=== PATIENT | male | born 1945 | race Caucasian/White ===

== ENCOUNTER → 2017-02-10 | Day surgery (SDC) | payer OTHER ==
[~2017-02-10] VITALS: Ht 170.2 cm; Wt 92.2 kg
[~2017-02-10] MED LIST: ACETAMINOPHEN 325 MG TAB PO PRN; ALBU18002 INH; ALLO100T PO; AMLO-110 PO; ASPCH81X PO; ATROPINE SULFATE 0.1 MG/ML 5ML SYR IV PRN; BULKCRY PO; CHOL1000 PO; CRDCD240 PO; CTP2 PO; DIAZEPAM 5MG TAB ONE; FLV400 PO; FURO-85 PO; GLC5 PO; HYDC25 PO; HYDR100T12 PO; INSDGI SC; ISOS30TA3 PO; LISI-725 PO; METO50TA16 PO; MIDAZOLAM HCL 1 MG/ML 2ML VIAL ONE; MULT-506 PO; NITROGLYCERIN 0.4 MG SL PER TAB CHARGE SL PRN; OMEG10007 PO; SODI650T8 PO; SODIUM CHLORIDE 0.9% 1000ML 1,000 ML IV SCH; SODIUM CHLORIDE 0.9% 1000ML 250 ML IV PRN; TAMS0.4C38 PO; TRAZ100T29 PO
[2017-02-10 07:14] VITALS: BP 134/58; PULSE 62; TEMP 36.4; O2SAT 98; Ht 170.2 cm; Wt 92.2 kg
[2017-02-10 10:37] LABS: ISTAT ARTERIAL BLOOD GAS HCO3 28 meq/L (19-24); ISTAT ARTERIAL BLOOD GAS PCO2 42 mmHg (35-46); ISTAT ARTERIAL BLOOD GAS PO2 49 mmHg (80-95); ISTAT ARTERIAL BLOOD GAS pH 7.42 (7.35-7.45); ISTAT CARBON DIOXIDE 29 mEq/l (24-31)
[2017-02-10 10:37] LABS: ISTAT ARTERIAL BLOOD GAS HCO3 23 meq/L (19-24); ISTAT ARTERIAL BLOOD GAS PCO2 35 mmHg (35-46); ISTAT ARTERIAL BLOOD GAS PO2 114 mmHg (80-95); ISTAT ARTERIAL BLOOD GAS pH 7.42 (7.35-7.45); ISTAT CARBON DIOXIDE 24 mEq/l (24-31)
--- NOTE | 2017-02-10 10:57 | History & Physical Bridge Note ---
H&P Re-Evaluation Bridge Note: I have examined the patient, reviewed the History & Physical and in the interval since the performance of the History & Physical I have noted the following changes of clinical significance: No changes noted
[2017-02-10 10:58] LABS: ISTAT CARBON DIOXIDE VENOUS 29 mEq/l (24-31); ISTAT VENOUS BLOOD GAS HCO3 28 meq/L (23-28); ISTAT VENOUS BLOOD GAS PCO2 43 mmHg (38.0-50.0); ISTAT VENOUS BLOOD GAS PO2 40 mmHg (30-55); ISTAT VENOUS BLOOD GAS pH 7.43 (7.36-7.41)
--- NOTE | 2017-02-10 11:23 | [facility] Post Operative Brief Note ---
Preliminary Procedure Note Procedure Date Feb 10, 2017. Pre-Procedure Diagnosis CAD, Valvular Disease, CHF AUC Score 7 Post-Procedure Diagnosis Severe CAD Procedure(s) Performed Coronary Angiography, Right Heart Cath Stamping Die Try Out Worker Dr. Ady Pritchett Day Guard(s) Mike Chin Estimated Blood Loss <20cc Medication(s) Versed (1mg IV), Lidocaine 1% (local infiltration), Diphenhydramine (25mg po), Diazepam (5mg po ) Preliminary Findings Severe calcific aortic stenosis by echo, fluoroscopy Right dominant coronary with chronic proximal RCA occlusion and faint distal filling via L-R collaterals LM mild calcification with out disease LAD Type with large very proximal high diagonal. LAD calcified 80% stenosis after D1 LCx large with eccentric 60+% stenosis Normal right heart pressures and Cardiac Output PCWP 12 Recommendations valve replacement Specimens None Fluids (cc crystalloids) 130 Anesthesia Start 1002 End 1048 Monitor Pipo Fernandez RN Procedural Complication(s) None Disposition Upholstery Covers Inspector Holding/Recovery
--- NOTE | 2017-02-10 13:24 | Discharge Instructions ---
Discharge Instructions Procedure Procedure Date: Feb 10, 2017. Reason for Visit: Chest Pain,Sob *Dr Pritchett To Do*. Discharge Discharge Date: Feb 10, 2017. Discharge Diagnosis: Aortic Stenosis, Coronary artery disease Last Recorded Wt (Kilograms): 92.2 Anesthesia Post Anesthesia Instructions: If you have had General Anesthesia or IV Sedation: * Do not drive today. * Resume driving when surgeon permits. * Do not make important decisions or sign legal documents today. * Call surgeon for: 1. Temperature elevations greater than 101 degrees F. 2. Uncontrollable pain. 3. Excessive bleeding. 4. Persistent nausea and vomiting. 5. Medication intolerance (nausea, vomiting or rash). * For nausea and vomiting use only clear liquids such as: tea, soda, bouillon until nausea subsides, then gradually increase diet as tolerated. * If you have any concerns or questions, call your surgeon's office. If physician is unavailable and it is an emergency, call 911 or go to the nearest emergency room. Instructions Activity Recommendations: limitations as noted below Recommended Home Diet: resume previous diet Allergies: Coded Allergies: HMG-CoA-R Inhibitors (Verified Adverse Reaction, Unknown, RHABDOMYOLYSIS FROM 06/2009, 02/10/17) Uncoded Allergies: NONSTEROIDAL (Allergy, Severe, RENAL FAILURE, 07/19/09) Provider Instructions ACTIVITY RECOMMENDATIONS: It is common to feel weak and fatigue for a few days. * Do not drive or operate any motorized equipment for the next three days. * Limit stair usage (2 or 3 trips a day only) for the next three days. * Do not lift anything heavier than 10 pounds for the next three days. * Do not engage in vigorous exercise or any sports for the next five days. * You may shower the day after your procedure, but do not immerse the area for three days. Cleanse the site gently with soap and water. SPECIAL CARE INSTRUCTIONS: * You may replace the pressure dressing or band-aid the morning after the procedure. * After your procedure, it is normal to have a small bruise or small lump at the site. Examine your site daily for any change in the bruise or lump, redness, swelling, drainage or numbness. Notify your doctor if any change. BLEEDING: * If there is a small amount of bleeding at the site, lie down and apply firm pressure with a clean cloth for ten minutes. When the bleeding stops, lie quietly keeping the procedure limb straight for six hours. Notify your doctor as soon as possible. * If the bleeding does not stop after ten minutes or if there is a large amount of bleeding or spurting, call 911 immediately. Continue to lie down and hold firm pressure until help arrives. SKIN IRRITATION: * You may experience some redness and/or swelling in the area where radiation was administered. If any skin irritation occurs, please contact your family physician. FOLLOW UP VISIT: Keep any scheduled doctor appointments. Follow Up Additional Instructions: Lab work this week to check renal function Follow-up with: Dr Bryant, [facility] as scheduled Javier Campbelly Recommendations: Call your doctor if: * Temperature above 101 degrees * Pain not relieved by pain medicine ordered * There is increased drainage or redness from any incision * You have any unanswered questions or concerns. Your Doctors Instructions noted above were prepared by provider Ady Pritchett. Patient Signature Section: Patient Instructions Signature Page Randell Chandrakant Patient (or Guardian) Signature/Date: I have read and understand the instructions given to me by my caregivers. Caregiver/RN/Doctor Signature/Date: The above-named patient and/or guardian has received patient instructions on this date. + Original Patient Signature Page (only) stays with chart. Please make copy for patient.
[2017-02-10 15:15] VITALS: BP 134/70; PULSE 62; O2SAT 98
--- NOTE | 2017-02-10 16:19 | CARDIAC CATH REPORT ---
REFERRING: Dr. Chirag Bryant. PRIMARY CARE PHYSICIAN: Dr. Watkins. INDICATIONS: Aortic stenosis, history acute decompensated congestive heart failure. HISTORY OF PRESENT ILLNESS: The patient is a 71-year-old male with history of chronic renal insufficiency, hypertension, diabetes mellitus, past history of silent infarct by EKG criteria who was hospitalized last month while traveling through [facility] to [place] with symptoms of exertional shortness of breath and acute decompensated congestive heart failure. He responded promptly to medical therapies. Echocardiogram done at [facility] in [place] demonstrated declining LV function and progression in patient's known moderate aortic stenosis to severe aortic stenosis. He is referred now with class 2-3 function capacity, though at low level activities only since hospital discharge. Heart failure appears compensated, chronic renal insufficiency remains present with creatinine of 2.4, diminished GFR. ACCESS: Right femoral artery, right femoral vein. CATHETERS: A 6-Beninese arterial sheath, 7 Beninese venous sheath, 7-Beninese [place]-Rebekah catheter, 5-Beninese angled pigtail, 5-Beninese JL4, 5-Beninese 3DRC. CONTRAST: Nonionic x55 mL. SEDATION: Start time 10:03, end time 10:48. The patient received 1 mg IV Versed for anxiolytic, monitoring nurse was Pipo Fernandez RN. MEDICATIONS PRIOR TO PROCEDURE: The patient received anxiolytic therapy with Benadryl 25 mg p.o. and Valium 5 mg p.o. IV FLUIDS: The patient received 130 mL normal saline. RADIATION EXPOSURE: The patient received 17.7 minutes of fluoroscopy time, 1819 milligrays, DAP score [id number]. COMPLICATIONS: None. PROCEDURAL NOTES: Fluoroscopy of the aortic valve was noted to be densely calcified and severely restricted leaflet mobility. Attempts were made to cross the aortic valve with angled pigtail catheter and straight wire as well as Glidewire as well as with 3DRC with Glidewire and straight wire without successful complete crossing of the valve. RESULTS: CORONARY ANGIOGRAPHY: LEFT MAIN: The left main is of normal length and caliber. There is minimal calcification, but no obstruction. LEFT ANTERIOR DESCENDING: Left anterior descending is type 2 in distribution and gives rise to a very large high diagonal branch shortly after its origin. The diagonal branch parallels left anterior descending towards the apex. Left anterior descending beyond the diagonal continues as a moderately large vessel to terminate at the apex. Within the left anterior descending, there is a calcified long area of calcification in its proximal third with a discrete calcified lesion of 80% just after the origin of the first diagonal. LEFT CIRCUMFLEX: Left circumflex is large but nondominant and gives rise to a large multi-branching obtuse marginal and single posterolateral branch. Within the left circumflex, there is an eccentric stenosis of 60-70% in its proximal third. RIGHT CORONARY ARTERY: The right coronary is dominant in distribution noticeably chronically occluded. It gives rise to a sinoatrial branch shortly after its origin and has 100% occlusion. There is minimal bridge collateral filling of the mid vessel. The distal vessel fills faintly as 2 posterolateral branches and the posterior descending artery via left to right collateral fill. LV ANGIOGRAPHY: Not performed. FLUOROSCOPY: The aortic valve demonstrates heavy calcification of the valve and leaflets with restricted leaflet mobility. HEMODYNAMICS: Initial right atrial pressure revealed a mean right atrial pressure of 2, V-wave of 3, RV pressure was 31/5, PA pressure was 31/5 with a mean of 16. Pulmonary capillary wedge pressure was 12 with a V-wave of 15. Initial aortic root pressure was 117/48 with a mean of 73, closing aortic root pressure is 120/50 with a mean of 76. Cardiac output by thermodilution was 5.6 liters per minute as well as by Ivelisse equation. FINAL IMPRESSIONS: 1. Severe calcification of the aortic valve with severe aortic stenosis by echocardiography and fluoroscopy. 2. Right dominant coronary anatomy with chronic total occlusion of the right coronary artery and faint distal filling via left to right collaterals. 3. Three vessel coronary disease with an addition to right coronary occlusion, focal 80% narrowing of the left anterior descending after its first diagonal branch and 60-70% narrowing in the left circumflex prior to large obtuse marginal. 4. Normal right heart pressures and cardiac output. RECOMMENDATIONS: The patient will be referred for consideration of surgical aortic valve replacement and revascularization versus complex PCI and transcutaneous aortic valve implantation. Post-discharge laboratory studies ordered to reassess renal function.
== END | disposition home or self-care (01) ==
LOC: C.CATH 06:58
PROVIDERS: ATTEND Internal Medicine Cardiovascular Disease
DX: I35.0 Nonrheumatic aortic (valve) stenosis (principal); I25.82 Chronic total occlusion of coronary artery; I12.9 Hypertensive chronic kidney disease with stage 1 through stage 4 chronic kidney disease, or unspecified chronic kidney disease; N18.9 Chronic kidney disease, unspecified; E11.9 Type 2 diabetes mellitus without complications; I50.9 Heart failure, unspecified; I25.2 Old myocardial infarction

== ENCOUNTER 2017-09-16 08:14 | Inpatient (IN) | payer OTHER ==
[~2017-09-16] VITALS: Ht 167.6 cm; Wt 94.0 kg
[~2017-09-16 08:14] MED LIST changes: -ACETAMINOPHEN 325 MG TAB PO PRN; -ATROPINE SULFATE 0.1 MG/ML 5ML SYR IV PRN; +CLOP1TAB15 PO; -CRDCD240 PO; +CTP1 PO; -CTP2 PO; -DIAZEPAM 5MG TAB ONE; -FLV400 PO; +FOLI1TAB8 PO; -GLC5 PO; -HYDC25 PO; -ISOS30TA3 PO; +ISOS60TA25 PO; -LISI-725 PO; +METO-551 PO; -METO50TA16 PO; -MIDAZOLAM HCL 1 MG/ML 2ML VIAL ONE; -MULT-506 PO; -NITROGLYCERIN 0.4 MG SL PER TAB CHARGE SL PRN; +NTRGSL/4 UT; -SODI650T8 PO; -SODIUM CHLORIDE 0.9% 1000ML 1,000 ML IV SCH; -SODIUM CHLORIDE 0.9% 1000ML 250 ML IV PRN; -TRAZ100T29 PO
[2017-09-16] MEDS ORDERED: ALBUT/IPRATROP 3MG/0.5MG NEB 3 ML VIAL INH ONE (08:45)
[2017-09-16] MEDS ORDERED: OXYC1TAB3 PO (08:54)
[2017-09-16] MEDS ORDERED: GABA-113 PO (08:54)
[2017-09-16] MEDS ORDERED: FURO-85 PO (08:56)
[2017-09-16 09:02] LABS: BASO % 0.2 %; BASO ABS # 0.02 K/uL (0-0.2); EOS % 2.8 %; EOS ABS # 0.26 K/uL (0-0.5); HEMOGLOBIN 11.7 g/dL (14.0-18.0); IG# 0.05 K/uL (0.00-0.02); LYMPH % 8.9 %; LYMPH ABS # 0.84 K/uL (1.2-3.4); MEAN CELL VOLUME 97.1 fL (80-100); MEAN CORPUSCULAR HEMOGLOBIN 34.4 pg (25-34); MEAN CORPUSCULAR HGB CONC 35.5 g/dl (32-36); MEAN PLATELET VOLUME 9.7 fL (7.4-10.4); MONO % 9.9 %; MONO ABS # 0.93 K/uL (0.11-0.59); NEUT % 77.7 %; NEUT ABS # 7.29 K/uL (1.4-6.5); PLATELET COUNT 208 K/uL (130-400); RED CELL DISTRIBUTION WIDTH CV 13.7 % (11.5-14.5); RED CELL DISTRIBUTION WIDTH SD 48.6 fL (36.4-46.3); WHITE BLOOD COUNT 9.39 K/uL (4.8-10.8)
[2017-09-16 09:18] LABS: ALBUMIN 2.5 gm/dl (3.4-5.0); CALCIUM 8.2 mg/dl (8.5-10.1); CREATININE 2.33 mg/dl (0.60-1.40); POTASSIUM 4.5 mmol/L (3.5-5.1)
[2017-09-16 09:25] VITALS: PULSE 71; O2SAT 93
[2017-09-16 09:25] LABS: CKMB 2.3 ng/ml (0.5-3.6); TOTAL PROTEIN 6.6 gm/dl (6.4-8.2)
--- NOTE | 2017-09-16 09:25 | DIAGNOSTIC IMAGING REPORT ---
CHEST ONE VIEW PORTABLE CLINICAL HISTORY: Shortness of breath COMPARISON STUDY: June 2009 FINDINGS: The heart remains enlarged. There is mild vascular prominence without evidence of overt failure. There are increased markings at both lung bases, likely atelectatic although an inflammatory process could appear similar. There are no pleural effusions.[ IMPRESSION: 1. Cardiomegaly 2. Nonspecific basilar interstitial thickening 3. Mild vascular prominence without evidence of overt failure. Electronically signed by: Stefan Machuca M.D. 09/16/2017 9:23 AM Dictated Date/Time: 09/16/2017 9:22 AM
[2017-09-16] MEDS ORDERED: OPTIRAY 320 IV PRN (09:30)
--- NOTE | 2017-09-16 10:13 | EMERGENCY ROOM VISIT NOTE ---
History Report prepared by Mariann: Alan Juárez Under the Supervision of: Dr. Marcos Terry M.D. First contact with patient: 08:21 Chief Complaint: SHORTNESS OF BREATH Stated Complaint: SHORT OF BREATH Nursing Triage Summary: triage note: Pt reports shortness of breath since yesterday. pt reports he currently has shingles to his left chest - has had for 2.5 weeks. pt reports he started gabapentin - yesterday was the first day he took three pills - "it said shortness of breath is a side effect." History of Present Illness The patient is a 72 year old male who presents to the Emergency Room with complaints of intermittent shortness of breath beginning yesterday. The patient states that he primarily feels short of breath with exertion. His breathing was worse this morning than yesterday. He denies increased leg swelling (but has baseline swelling). The patient currently has shingles to his left chest, which is causing chest pain. He has had shingles for about 2.5 weeks. He recently started Gabapentin one week ago, and states that he took three pills yesterday for the first time. The patient notes that shortness of breath is listed as a side effect of Gabapentin. He is on aspirin and Plavix for prior heart stent/ aortic valve replacement. Source of History: patient Onset: Yesterday Quality: other (shortness of breath) Timing: intermittent, worsening Modifying Factors (Worsening): exertion Associated Symptoms: + chest pain Note: The patient denies increased leg swelling (but has baseline swelling). Review of Systems See HPI for pertinent positives & negatives. A total of 10 systems reviewed and were otherwise negative. Past Medical & Surgical Medical Problems: (1) CAD (coronary artery disease) (2) Chronic diastolic CHF (congestive heart failure) (3) CKD (chronic kidney disease), stage III (4) Diabetes mellitus (5) Dyslipidemia (6) Hypertension Surgical Problems: (1) S/P TAVR (transcatheter aortic valve replacement) Family History No pertinent family history stated. Social History Smoking Status: Never Smoker Marital Status: Current/Historical Medications Scheduled Allopurinol (Zyloprim), 1 TAB PO HS Amlodipine (Norvasc), 5 MG PO QAM Aspirin (Aspirin Chewable), 81 MG PO HS Beta Carotene (A-Norman-25), 1 CAP PO DAILY Cholecalciferol (Vitamin D3), 1 TAB PO QAM Clonidine HCl (Clonidine HCl), 2 TAB PO TID Clopidogrel (Plavix), 75 MG PO QAM Fish Oil ([place]-3), 1 CAP PO 1200 Folic Acid (Folvite), 1 MG PO 1200 Furosemide (Lasix), 20 MG PO Q2D Gabapentin (Neurontin), 300 MG PO TID Hydralazine Hcl (Apresoline), 100 MG PO TID Insulin Glargine (Lantus), 35 UNITS SC QAM Isosorbide Mononitrate Ext Rel (Imdur Ext Rel), 60 MG PO QAM Metoprolol Tartrate (Lopressor), 50 MG PO TID Tamsulosin Hcl (Flomax), 0.4 MG PO HS Scheduled PRN Albuterol Sulfate (Proair Respiclick), 2 PUFFS INH QID PRN for SOB/Wheezing Nitroglycerin (Nitrostat), 0.4 MG UT PRN PRN for Chest Pain Oxycodone Ir (Roxicodone Ir), 10 MG PO Q6H PRN for Pain Allergies Coded Allergies: Statins (Verified Allergy, Unknown, CAUSED KIDNEY FAILURE, 09/16/17) HMG-CoA-R Inhibitors (Verified Adverse Reaction, Unknown, RHABDOMYOLYSIS FROM 06/2009, 09/16/17) Physical Exam Vital Signs Date Time Temp Pulse Resp B/P (MAP) Pulse Ox O2 Delivery O2 Flow Rate FiO2 09/16/17 10:30 76 20 150/73 09/16/17 09:25 70 09/16/17 09:25 71 18 93 Room Air 09/16/17 09:22 70 20 151/76 93 Room Air 09/16/17 09:19 Room Air 09/16/17 08:17 36.8 83 18 156/76 92 Room Air Physical Exam GENERAL: Awake, alert, well-appearing, in no acute distress HENT: Normocephalic, atraumatic. Oropharynx unremarkable. EYES: Normal conjunctiva. Sclera non-icteric. NECK: Supple. No nuchal rigidity. FROM. No JVD. RESPIRATORY: Clear to auscultation. CARDIAC: Regular rate, normal rhythm. Extremities warm and well perfused. Pulses equal. ABDOMEN: Soft, non-distended. No tenderness to palpation. No rebound or guarding. No masses. RECTAL: Deferred. MUSCULOSKELETAL: Chest examination reveals no tenderness. The back is symmetrical on inspection without obvious abnormality. There is no CVA tenderness to palpation. No joint edema. LOWER EXTREMITIES: Calves are equal size bilaterally and non-tender. No edema. No discoloration. NEURO: Normal sensorium. No sensory or motor deficits noted. SKIN: No jaundice noted. Rash consistent with herpes zoster across back and chest. Medical Decision & Procedures ER Provider Diagnostic Interpretation: Radiology results as stated below per my review and radiologist interpretation: CHEST ONE VIEW PORTABLE FINDINGS: The heart remains enlarged. There is mild vascular prominence without evidence of overt failure. There are increased markings at both lung bases, likely atelectatic although an inflammatory process could appear similar. There are no pleural effusions.[ IMPRESSION: 1. Cardiomegaly 2. Nonspecific basilar interstitial thickening 3. Mild vascular prominence without evidence of overt failure. Electronically signed by: Stefan Machuca M.D. 09/16/2017 9:23 AM Laboratory Results 09/16/17 08:30 Red Blood Count 3.40, Mean Corpuscular Volume 97.1, Mean Corpuscular Hemoglobin 34.4, Mean Corpuscular Hemoglobin Concent 35.5, Mean Platelet Volume 9.7, Neutrophils (%) (Auto) 77.7, Lymphocytes (%) (Auto) 8.9, Monocytes (%) (Auto) 9.9, Eosinophils (%) (Auto) 2.8, Basophils (%) (Auto) 0.2, Neutrophils # (Auto) 7.29, Lymphocytes # (Auto) 0.84, Monocytes # (Auto) 0.93, Eosinophils # (Auto) 0.26, Basophils # (Auto) 0.02 09/16/17 08:30 Test 09/16/17 00:00 09/16/17 08:30 09/16/17 08:38 Influenza Type A Antigen Neg for Influ A (NEG) Influenza Type B Antigen Neg for Influ B (NEG) White Blood Count 9.39 K/uL (4.8-10.8) Red Blood Count 3.40 M/uL (4.7-6.1) Hemoglobin 11.7 g/dL (14.0-18.0) Hematocrit 33.0 % (42-52) Mean Corpuscular Volume 97.1 fL (80-100) Mean Corpuscular Hemoglobin 34.4 pg (25-34) Mean Corpuscular Hemoglobin Concent 35.5 g/dl (32-36) Platelet Count 208 K/uL (130-400) Mean Platelet Volume 9.7 fL (7.4-10.4) Neutrophils (%) (Auto) 77.7 % Lymphocytes (%) (Auto) 8.9 % Monocytes (%) (Auto) 9.9 % Eosinophils (%) (Auto) 2.8 % Basophils (%) (Auto) 0.2 % Neutrophils # (Auto) 7.29 K/uL (1.4-6.5) Lymphocytes # (Auto) 0.84 K/uL (1.2-3.4) Monocytes # (Auto) 0.93 K/uL (0.11-0.59) Eosinophils # (Auto) 0.26 K/uL (0-0.5) Basophils # (Auto) 0.02 K/uL (0-0.2) RDW Standard Deviation 48.6 fL (36.4-46.3) RDW Coefficient of Variation 13.7 % (11.5-14.5) Immature Granulocyte % (Auto) 0.5 % Immature Granulocyte # (Auto) 0.05 K/uL (0.00-0.02) Prothrombin Time 9.8 SECONDS (9.0-12.0) Prothromb Time International Ratio 0.9 (0.9-1.1) Activated Partial Thromboplast Time 28.4 SECONDS (21.0-31.0) Partial Thromboplastin Ratio 1.1 D-Dimer 1060 ug/L FEU (0-500) Anion Gap 9.0 mmol/L (3-11) Est Creatinine Clear Calc Drug Dose 31.0 ml/min Estimated GFR () 31.0 Estimated GFR (Non- 26.7 BUN/Creatinine Ratio 13.5 (10-20) Calcium Level 8.2 mg/dl (8.5-10.1) Total Bilirubin 0.4 mg/dl (0.2-1) Aspartate Amino Transf (AST/SGOT) 21 U/L (15-37) Alanine Aminotransferase (ALT/SGPT) 18 U/L (12-78) Alkaline Phosphatase 73 U/L (45-117) Total Creatine Kinase 88 U/L (39-308) Creatine Kinase MB 2.3 ng/ml (0.5-3.6) Creatine Kinase MB Ratio 2.6 (0-3.0) Pro-B-Type Natriuretic Peptide 3067 pg/ml (0-900) Total Protein 6.6 gm/dl (6.4-8.2) Albumin 2.5 gm/dl (3.4-5.0) Globulin 4.1 gm/dl (2.5-4.0) Albumin/Globulin Ratio 0.6 (0.9-2) Labs reviewed by ED physician. Medications Administered Medications (Trade) Dose Ordered Sig/Nicolette Route Start Time Stop Time Status Last Admin Dose Admin Albuterol/ Ipratropium (Duoneb) 12 ml ONE ONCE INH 09/16/17 08:45 09/16/17 08:46 DC 09/16/17 09:21 12 ML ECG Per My Interpretation Indication: SOB/dyspnea Rate (beats per minute): 74 Rhythm: normal sinus Findings: other (No ST elevation or depression. Old anterior infarct. ) ED Course 0832: Past medical records reviewed. The patient was evaluated in room B5. A complete history and physical examination was performed. 0845: Ordered DuoNeb 12 mL INH. 0950: Upon reexamination the patient is resting comfortably. I discussed results and treatment plan with the patient. He verbalizes agreement and understanding. I spoke with Delma Brown PA-C from the [facility] Hospitalist Service. The patient will be evaluated for further management. Medical Decision Differential diagnosis: Etiologies such as infections, reactive airway disease, pneumonia, pneumothorax , COPD, CHF, cardiac ischemia, pulmonary embolism, musculoskeletal, gastrointestinal, as well as others were entertained. This is a 72-year-old male who was started on Neurontin for shingles. The patient is reporting he feels extremely short of breath when ever he walks more than 3 feet. He then has to rest. He has an elevation in his troponin has an elevation in his d-dimer however his creatinine is grossly elevated from the last time I have a creatinine. For this reason I did discuss the case with the hospitalist service who agreed to admit the patient. Patient given a DuoNeb breathing treatment in the emergency department. Medication Reconcilliation Current Medication List: was personally reviewed by me Blood Pressure Screening Patient's blood pressure: Elevated blood pressure Blood pressure disposition: Elevated BP felt to be situational Consults Time Called: [phone] Consulting Physician: Nirmala Brown PA-C - [facility] Hospitalist Returned Call: [phone] I discussed the patient's case with Delma Brown PA-C, she has agreed to evaluate the patient for further management and care. Impression Primary Impression: SOB (shortness of breath) Additional Impression: Acute renal failure Scribe Attestation The scribe's documentation has been prepared under my direction and personally reviewed by me in its entirety. I confirm that the note above accurately reflects all work, treatment, procedures, and medical decision making performed by me. Departure Information Dispostion Being Evaluated By Hospitalist Referrals Xavier Watkins M.D. (PCP) Patient Instructions My [facility] Problem Qualifiers Additional Impression: Acute renal failure Acute renal failure type: unspecified Qualified Codes: N17.9 - Acute kidney failure, unspecified
[2017-09-16 10:24] LABS: INFLUENZA B ANTIGEN Neg for Influ B (NEG)
[2017-09-16] MEDS ORDERED: ONDANSETRON INJ 2 MG/ML 2 ML VIAL IV PRN (12:00)
[2017-09-16] MEDS ORDERED: ACETAMINOPHEN 325 MG TAB PO PRN (12:00)
[2017-09-16] MEDS ORDERED: NITROGLYCERIN 0.4 MG SL PER TAB CHARGE SL PRN (12:00)
[2017-09-16] MEDS ORDERED: ALBU18002 INH (12:03)
[2017-09-16] MEDS ORDERED: [UNRECOGNIZED DRUG - CODE] PO (12:03)
[2017-09-16] MEDS ORDERED: FUROSEMIDE INJ 40 MG in SYRINGE 0 ML IV ONE (12:45)
[2017-09-16 12:50] VITALS: BP 170/75; PULSE 76; TEMP 36.6; O2SAT 93; Ht 167.6 cm; Wt 94.0 kg
--- NOTE | 2017-09-16 13:15 | History and Physical ---
History & Physical Date of Service Sep 16, 2017. History & Physical This is a 72 year old male with a PMH of CAD s/p stenting x2 in February 2017, aortic valve stenosis s/p TAVR in April 2017, insulin dependent DM2, HTN, chronic heart failure with preserved ejection fraction, CKD stage 3-4, HLD, recent diagnosis of shingles across the L side of the chest and back - presents with shortness of breath for the past few days. States that he initially thought it was related to not taking deep breaths with his chest pain. States that he was eating salty ham the past few days and only noted a swelling of the lower extremities one day prior to arrival. States that he is prescribed Lasix 20mg three times daily - but he took two tablets yesterday because of the shortness of breath. Presented to the ED with the shortness of breath. Noted to have high BNP; and elevated troponin levels. Denies any chest pain, besides chest wall tenderness from the shingles. VITALS: Last Vital Signs Documentation Date Time Temp Pulse Resp B/P (MAP) Pulse Ox O2 Delivery O2 Flow Rate FiO2 09/16/17 11:58 76 18 161/74 93 Room Air 09/16/17 08:17 36.8 GEN: no acute distress HEENT: NC/AT CVS: +S1, S2, RRR LUNGS: decreased breath sounds, +chest wall tenderness, rash on L chest wall, crusting over lesions EXT: +1 pitting edema b/l LE, around ankles NEURO: no focal deficits Plan: Will monitor in tele. Trend cardiac enzymes. Give IV Lasix 40mg x1 now. Cardiology consulted for further input. Continue Gabapentin for the neuropathy; consider Lidocaine patch if pain is worsened. monitor creatinine due to CKD stage 3-4. Continue dual antiplatelets - aspirin + Plavix due to recent TAVR Due to elevated d-dimer, will check bilateral LE venous dopplers and V/Q scan.
[2017-09-16] MEDS ORDERED: GLUCAGON FOR INJ 1 MG VIAL SQ PRN (13:30)
[2017-09-16] MEDS ORDERED: DEXTROSE 50% 50 ML SYR IV PRN (13:30)
[2017-09-16] MEDS ORDERED: GLUCOSE 40% GEL 15 GM TUBE PO PRN (13:30)
[2017-09-16] MEDS ORDERED: GLUCOSE 10 TABS/TUBE PO PRN (13:30)
[2017-09-16 13:53] LABS: INR 0.9 (0.9-1.1); PTT PATIENT 28.4 SECONDS (21.0-31.0)
--- NOTE | 2017-09-16 14:05 | DIAGNOSTIC IMAGING REPORT ---
ULTRASOUND BILATERAL LOWER EXTREMITY VENOUS CLINICAL HISTORY: Lower extremity edema. COMPARISON STUDY: No priors. TECHNIQUE: Real-time, grayscale, and color Doppler sonography of the deep veins of the right and left lower extremity was performed from the inguinal crease to the calf. Compression and augmentation were utilized. FINDINGS: There is no sonographic evidence of deep venous thrombosis identified in the right or left lower extremity. The common femoral, superficial femoral, and popliteal veins are patent and normally compressible bilaterally. The greater saphenous vein and the profunda femoris vein at the junction with the common femoral vein are clear in both legs. The visualized calf veins are patent bilaterally. IMPRESSION: There is no sonographic evidence of deep venous thrombosis identified in the right or left lower extremity. Electronically signed by: Jaxon Nassar M.D. 09/16/2017 2:04 PM Dictated Date/Time: 09/16/2017 2:04 PM
--- NOTE | 2017-09-16 14:40 | DIAGNOSTIC IMAGING REPORT ---
NUCLEAR MEDICINE PULMONARY VENTILATION/PERFUSION STUDY CLINICAL HISTORY: shortness of breath COMPARISON STUDY: Chest x-ray dated 09/16/2017 FINDINGS: The patient was ventilated utilizing 33 mCi of technetium 99m DTPA aerosol. The patient was perfused utilizing 5.2 mCi of technetium 99m MAA. Multiple projectional images were acquired. No significant ventilation or perfusion abnormalities are visualized. IMPRESSION: Normal study Electronically signed by: Stefan Machuca M.D. 09/16/2017 2:39 PM Dictated Date/Time: 09/16/2017 2:37 PM
[2017-09-16] MEDS: OXYCODONE HCL IR 5 MG TAB (IMMEDIATE RELEASE) PO PRN ×2 (14:50→21:07)
[2017-09-16] MEDS: METOPROLOL TARTRATE 50 MG TAB PO SCH ×2 (14:52→21:08)
[2017-09-16] MEDS: CLONIDINE HCL 0.1 MG TAB PO SCH ×2 (14:52→21:08)
[2017-09-16] MEDS: GABAPENTIN 300 MG CAP PO SCH ×2 (14:53→21:08)
--- NOTE | 2017-09-16 15:22 | History and Physical ---
History & Physical Date & Time of Service: Sep 16, 2017 ~ 11:30 Chief Complaint: Shortness of breath Primary Care Physician: Xavier Watkins M.D. History of Present Illness 72-year-old male who presents to the ER with a chief complaint of shortness of breath. Patient reports he was diagnosed with shingles approximately 3 weeks ago. When he was first seen by his PCP he was diagnosed with pleurisy however shingles rash erupted approximately 3 days after. He was then seen again by his PCP and placed on oxycodone for pain control. Antiviral therapy was not prescribed since rash had been present for over 48 hours. The oxycodone was not controlling the patient's pain so he was again seen by his PCP who started him on a uptitrating dose of gabapentin. Patient reports pain has slowly been improving. He reports that yesterday he noticed increasing shortness of breath. When he woke up this morning he still felt short of breath. He took 2 tablets of Lasix 20 mg yesterday and today. He reports he typically takes Lasix 20 mg every other day. He has noticed increased edema to his legs. Aside from the shingles pain on the left side of his chest, patient denies any other exertional chest pain. He denies lightheadedness, dizziness, diaphoresis , and syncopal events. He denies abdominal pain, nausea, vomiting, and diarrhea. No fevers or chills. He denies any urinary symptoms. Upon further questioning, patient admits to eating ham every day for the past 5 days. In the ED, patient was found to have an elevated troponin at 0.883 and EKG does not show any acute changes. Vital signs are stable and other labs are unremarkable. He was given a nebulizer treatment in the ED. Past Medical/Surgical History Medical Problems: (1) CAD (coronary artery disease) Permanent Comment: 2016-PCI to LAD and diagonal Status: Chronic (2) Chronic diastolic CHF (congestive heart failure) Status: Chronic (3) CKD (chronic kidney disease), stage III Status: Chronic (4) Diabetes mellitus Status: Chronic (5) Dyslipidemia Status: Chronic (6) Hypertension Status: Chronic Surgical Problems: (1) S/P TAVR (transcatheter aortic valve replacement) Permanent Comment: 04/2017 Status: Chronic Family History FH: CAD (coronary artery disease) FATHER FH: Parkinson's disease MOTHER Social History Smoking Status: Never Smoker Alcohol Use: occasionally Immunizations History of Influenza Vaccine: Yes Influenza Vaccine Date: Mar 18, 2017 History of Tetanus Vaccine?: Yes Tetanus Immunization Date: Aug 30, 2010 History of Pneumococcal: Yes Pneumococcal Date: Sep 20, 2015 Allergies Coded Allergies: Statins (Verified Allergy, Unknown, CAUSED KIDNEY FAILURE, 09/16/17) HMG-CoA-R Inhibitors (Verified Adverse Reaction, Unknown, RHABDOMYOLYSIS FROM 06/2009, 09/16/17) Home Medications Scheduled Allopurinol (Zyloprim), 1 TAB PO HS Amlodipine (Norvasc), 5 MG PO QAM Aspirin (Aspirin Chewable), 81 MG PO HS Beta Carotene (A-Norman-25), 1 CAP PO DAILY Cholecalciferol (Vitamin D3), 1 TAB PO QAM Clonidine HCl (Clonidine HCl), 2 TAB PO TID Clopidogrel (Plavix), 75 MG PO QAM Fish Oil ([place]-3), 1 CAP PO 1200 Folic Acid (Folvite), 1 MG PO 1200 Furosemide (Lasix), 20 MG PO Q2D Gabapentin (Neurontin), 300 MG PO TID Hydralazine Hcl (Apresoline), 100 MG PO TID Insulin Glargine (Lantus), 35 UNITS SC QAM Isosorbide Mononitrate Ext Rel (Imdur Ext Rel), 60 MG PO QAM Metoprolol Tartrate (Lopressor), 50 MG PO TID Tamsulosin Hcl (Flomax), 0.4 MG PO HS Scheduled PRN Albuterol Sulfate (Proair Respiclick), 2 PUFFS INH QID PRN for SOB/Wheezing Nitroglycerin (Nitrostat), 0.4 MG UT PRN PRN for Chest Pain Oxycodone Ir (Roxicodone Ir), 10 MG PO Q6H PRN for Pain Review of Systems ROS per HPI, all other systems reviewed and negative Physical Exam Vital Signs Date Time Temp Pulse Resp B/P (MAP) Pulse Ox O2 Delivery O2 Flow Rate FiO2 09/16/17 12:50 36.6 76 16 170/75 93 Room Air 09/16/17 11:58 76 18 161/74 93 Room Air 09/16/17 10:30 76 20 150/73 09/16/17 09:25 70 09/16/17 09:25 71 18 93 Room Air 09/16/17 09:22 70 20 151/76 93 Room Air 09/16/17 09:19 Room Air 09/16/17 08:17 36.8 83 18 156/76 92 Room Air General Appearance: WD/WN, no apparent distress Head: normocephalic, atraumatic Eyes: normal inspection, EOMI, sclerae normal ENT: hearing grossly normal, + pertinent finding (Mucous membranes moist) Neck: supple, no JVD, no carotid bruits Respiratory/Chest: lungs clear, normal breath sounds, no respiratory distress Cardiovascular: regular rate, rhythm, normal peripheral pulses, + pertinent finding (+2 pitting edema BL LE) Abdomen/GI: normal bowel sounds, non tender, soft, no organomegaly, + distended Extremities/Musculoskelatal: normal inspection, no calf tenderness, normal capillary refill Neurologic/Psych: no motor/sensory deficits, alert, normal mood/affect, oriented x 3 Skin: warm/dry, + pertinent finding (Dried, vesicular shingles-like rash over the left side of the chest along the T4/T5 dermatome wrapping around to the back ) Diagnostics Laboratory Results Results Past 24 Hours Test 09/16/17 00:00 09/16/17 08:30 09/16/17 08:38 09/16/17 12:49 Range/Units Influenza Type A Antigen Neg for Influ A NEG Influenza Type B Antigen Neg for Influ B NEG White Blood Count 9.39 4.8-10.8 K/uL Red Blood Count 3.40 4.7-6.1 M/uL Hemoglobin 11.7 14.0-18.0 g/dL Hematocrit 33.0 42-52 % Mean Corpuscular Volume 97.1 80-100 fL Mean Corpuscular Hemoglobin 34.4 25-34 pg Mean Corpuscular Hemoglobin Concent 35.5 32-36 g/dl Platelet Count 208 130-400 K/uL Mean Platelet Volume 9.7 7.4-10.4 fL Neutrophils (%) (Auto) 77.7 % Lymphocytes (%) (Auto) 8.9 % Monocytes (%) (Auto) 9.9 % Eosinophils (%) (Auto) 2.8 % Basophils (%) (Auto) 0.2 % Neutrophils # (Auto) 7.29 1.4-6.5 K/uL Lymphocytes # (Auto) 0.84 1.2-3.4 K/uL Monocytes # (Auto) 0.93 0.11-0.59 K/uL Eosinophils # (Auto) 0.26 0-0.5 K/uL Basophils # (Auto) 0.02 0-0.2 K/uL RDW Standard Deviation 48.6 36.4-46.3 fL RDW Coefficient of Variation 13.7 11.5-14.5 % Immature Granulocyte % (Auto) 0.5 % Immature Granulocyte # (Auto) 0.05 0.00-0.02 K/uL D-Dimer 1060 0-500 ug/L FEU Sodium Level 132 136-145 mmol/L Potassium Level 4.5 3.5-5.1 mmol/L Chloride Level 100 98-107 mmol/L Carbon Dioxide Level 23 21-32 mmol/L Anion Gap 9.0 3-11 mmol/L Blood Urea Nitrogen 32 7-18 mg/dl Creatinine 2.33 0.60-1.40 mg/dl Est Creatinine Clear Calc Drug Dose 31.0 ml/min Estimated GFR () 31.0 Estimated GFR (Non- 26.7 BUN/Creatinine Ratio 13.5 10-20 Random Glucose 185 70-99 mg/dl Calcium Level 8.2 8.5-10.1 mg/dl Total Bilirubin 0.4 0.2-1 mg/dl Aspartate Amino Transf (AST/SGOT) 21 15-37 U/L Alanine Aminotransferase (ALT/SGPT) 18 12-78 U/L Alkaline Phosphatase 73 45-117 U/L Total Creatine Kinase 88 39-308 U/L Creatine Kinase MB 2.3 0.5-3.6 ng/ml Creatine Kinase MB Ratio 2.6 0-3.0 Troponin I 0.883 0-0.045 ng/ml Pro-B-Type Natriuretic Peptide 3067 0-900 pg/ml Total Protein 6.6 6.4-8.2 gm/dl Albumin 2.5 3.4-5.0 gm/dl Globulin 4.1 2.5-4.0 gm/dl Albumin/Globulin Ratio 0.6 0.9-2 Bedside Glucose 126 70-99 mg/dl Diagnostic Radiology CXR IMPRESSION: 1. Cardiomegaly 2. Nonspecific basilar interstitial thickening 3. Mild vascular prominence without evidence of overt failure. VENOUS DOPPLER IMPRESSION: There is no sonographic evidence of deep venous thrombosis identified in the right or left lower extremity. VQ SCAN IMPRESSION: Normal study Impression Assessment and Plan Shortness of breath Acute on chronic diastolic CHF -Admit to telemetry -Patient presenting with increasing shortness of breath and lower extremity edema 2 days; in the ED, chest x-ray shows mild vascular prominence and labs show a mildly elevated troponin at 0.8 -Likely acute diastolic CHF secondary to dietary indiscretion of intake of large amounts of ham over the past several days -Recent use of gabapentin may be contributing to peripheral edema however benefit outweighs risk for the use with postherpetic neuralgia -Patient self increased his Lasix the past 2 days, taking 40 mg yesterday and today -Will give Lasix 40 mg IV 1 today and monitor response and dose further diuresis in the morning -Strict I/O's, daily standing weights, low sodium diet -Will hold on repeating echocardiogram for now, patient had echocardiogram 2017 EF 55-59%, mild mitral regurgitation, grade 1 diastolic dysfunction -Cardiology consult, case discussed with Dr. Bryant Elevated troponin, history of CAD -S/P PCI to LAD and diagonal 03/2017 -Mild troponin elevation likely due to demand ischemia from acute CHF -No reports of chest pain, EKG unchanged from 04/2017 -Continue to cycle cardiac enzymes -Continue aspirin, Plavix, beta-pau, and nitrate -Outpatient records note renal complications from statin use History of TAVR Diabetes -Hgb A1c 6.6 03/2017 -Continue home dose of Lantus with NovoLog per protocol CKD stage III -Baseline creatinine runs in the high ones to low twos -Creatinine noted to be 2.3 today -Monitor renal functions with diuresis -Avoid nephrotoxic agents when able Hypertension -BP stable, continue amlodipine, clonidine, isosorbide, metoprolol, hydralazine Recent shingles -Continue gabapentin and as needed oxycodone DVT prophylaxis -SQ heparin Disposition -In my clinical judgment this beneficiary meets acute admission criteria, established by [facility], that includes being hospitalized through two midnights. Advanced Directives Existing Living Will: Yes Existing Power of Sanitizer: Yes Resuscitation Status VTE Prophylaxis Will order VTE Prophylaxis: Yes
[2017-09-16 16:11] VITALS: BP 129/69; PULSE 70; TEMP 36.6; O2SAT 94
[2017-09-16] MEDS: INSULIN ASPART 100 UNITS/ML 3 ML PEN SC SCH ×2 (17:10→21:15)
[2017-09-16] MEDS: FUROSEMIDE INJ 80 MG in SYRINGE 0 ML IV SCH (18:00)
--- NOTE | 2017-09-16 19:34 | CARDIOLOGY CONSULTATION ---
DATE OF CONSULTATION: 09/16/2017 CONSULTATION REQUESTED BY: RIZWAN Zhong. REASON FOR CONSULTATION: Shortness of breath. HISTORY OF PRESENT ILLNESS: Mr. Stallings is a very pleasant 72-year-old gentleman who normally follows with myself as per our outpatient cardiology practice. He presented to [facility] on the advice of his primary care physician's office with 2 days' worth of lower extremity edema and shortness of breath. The patient states that he has been in his normal state of health except for a very nasty postherpetic neuralgia and herpes zoster rash he has been dealing with. He has been on gabapentin for pain control and the rash does cover his left chest. Approximately 5 days ago was Wednesday and the patient indulged in a significant amount of ham and has been eating ham daily since then. Again, he started noticing that he became short of breath particularly when he is walking and he was wondering if he is not taking a deep breath when he walks due to the pain that he has had from the postherpetic neuralgia. The lower extremity edema again has been present for 2 days, but he denies any chest pain, palpitations, lightheadedness, dizziness, or syncope. He has been compliant with his medications at home and otherwise doing well. PAST SURGICAL HISTORY: 1. TAVR with a #29 Padron JOSE ALEJANDRO prosthesis, April 2017. 2. PCI with drug-eluting stents to the proximal LAD and ostial diagonal, February 2017. 3. Colonoscopies. MEDICAL ILLNESSES: 1. Severe aortic stenosis, status post TAVR. 2. Coronary artery disease status post multiple PCIs. 3. Stage IV chronic kidney disease. 4. Diabetes. 5. History of rhabdomyolysis with statins. FAMILY HISTORY: Noncontributory. SOCIAL HISTORY: Denies any alcohol, tobacco or recreational drug use. He is and lives at home with his . 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 REVIEW OF SYSTEMS: As per HPI, all other review of systems reviewed and negative at this time. ALLERGIES: STATINS. MEDICATIONS AN OUTPATIENT: 1. Aspirin 81 mg daily. 2. Plavix 75 mg daily. 3. Amlodipine 5 mg daily. 4. Clonidine 0.2 mg 3 times a day. 5. Insulin as directed. 6. Imdur 60 mg daily. 7. Lasix 20 mg on Mondays, Wednesdays and Fridays. 8. Neurontin. 9. Hydralazine 100 mg 3 times a day. 10. Metoprolol tartrate 1 tablet 3 times a day. PHYSICAL EXAMINATION: VITALS: Temperature 36.6, pulse 70, respiratory rate 12, blood pressure 129/69. GENERAL: Awake, alert, oriented x3 in no acute distress. HEENT: Normocephalic, atraumatic. Pupils equal, round, and reactive to light and accommodation. Extraocular muscles intact. Anicteric sclerae. Moist mucous membranes. NECK: No JVD, no bruit. CARDIOVASCULAR: Regular. Positive S4. Normal S1 and S2. No S3. 2/6 mid to late systolic ejection murmur greatest at the right sternal border second intercostal space with radiation to bilateral carotids. No rubs. PULMONARY: Clear to auscultation bilaterally. Clear to auscultation with scant diffuse rhonchi. No rales or wheezing. ABDOMEN: Bowel sounds x4, soft. No rebound, guarding, tenderness. No organomegaly. EXTREMITIES: +1 bilateral lower extremity pitting edema. No clubbing or cyanosis. SKIN: With open herpes zoster rash across the left chest. TEST RESULTS: Chest x-ray was read as cardiomegaly and nonspecific basilar interstitial thickening, mild vascular prominence without evidence of overt failure. VQ scan was read as a normal study. LABORATORY STUDIES OF SIGNIFICANCE: Sodium 132, potassium 4.5, BUN 32, creatinine 2.33. IMPRESSION: 1. Shortness of breath likely secondary to combination of diastolic dysfunction, volume overload and splint and guarding. 2. Lower extremity edema, multifactorial. 3. Active herpes zoster rash with postherpetic neuralgia. 4. History of aortic stenosis, status post transcatheter aortic valve replacement. 5. Coronary artery disease status post multiple PCIs with drug-eluting stent, 03/11/2017. 6. Stage IV chronic kidney disease, stable. 7. Hypertension, controlled. RECOMMENDATIONS: It was my pleasure to see Mr. Stallings on reevaluation today. From a cardiac standpoint, the patient was counseled that he does have some slight volume overload, but again I believe that a large component of his shortness of breath is the guarding that he is doing subconsciously given his significant pain from the postherpetic neuralgia. Luckily though he has been responding well to gabapentin and that will not be stopped at this time. He is also having lower extremity edema which again could be related to the gabapentin, but more likely represents diastolic dysfunction secondary to his dietary indiscretion, eating large amounts of ham. So again, at this point, he was started to be given IV Lasix this morning. I will give him an extra dose this p.m. and another dose of IV Lasix 80 mg in the a.m. and my hope is that we will be able to discharge him to home tomorrow. Otherwise, he will be continued on all of his other outpatient medical regimen.
[2017-09-16 20:00] VITALS: BP 151/79; PULSE 70; TEMP 36.7; O2SAT 94
[2017-09-16 20:30] VITALS: O2SAT 94
[2017-09-16] MEDS ORDERED: TAMSULOSIN HCL 0.4 MG CAP PO SCH (21:00)
[2017-09-16] MEDS ORDERED: ALLOPURINOL 100 MG TAB PO SCH (21:00)
[2017-09-16] MEDS ORDERED: ASPIRIN 81 MG CHEW PO SCH (21:00)
[2017-09-16] MEDS: HEPARIN SOD 5000 UNIT/0.5 ML CARP SQ SCH (21:15)
[2017-09-17 00:20] VITALS: BP 148/78; PULSE 66; TEMP 37; O2SAT 93
[2017-09-17 04:14] VITALS: BP 137/73; PULSE 68; TEMP 37; O2SAT 93
[2017-09-17 04:15] VITALS: O2SAT 93
[2017-09-17 06:53] LABS: HEMATOCRIT 32.6 % (42-52); HEMOGLOBIN 11.4 g/dL (14.0-18.0); MEAN CORPUSCULAR HEMOGLOBIN 33.9 pg (25-34); MEAN PLATELET VOLUME 9.9 fL (7.4-10.4); PLATELET COUNT 208 K/uL (130-400); RED CELL DISTRIBUTION WIDTH CV 13.4 % (11.5-14.5); WHITE BLOOD COUNT 5.47 K/uL (4.8-10.8)
--- NOTE | 2017-09-17 07:03 | Clinical Documentation Query ---
CLINICAL DOCUMENTATION QUERY 72 yo male w/hx of CAD and CHF admitted for acute/chronic diastolic CHF. Troponins are 0.883 and trended up to 1.230. EKG shows nonspecific T wave abnormality. Patient is documented as having demand ischemia due to acute CHF. In your clinical opinion is this patient being managed for: ( ) Type 2 HI due to demand ischemia ( ) Not Agree ( ) Other explanation of clinical findings (Please Explain) ( ) Unable to determine (Please Define) ( ) Need to Discuss The medical record reflects the following clinical findings, treatment, and risk factors. Clinical Indicators: Treatment: Risk Factors: Please clarify and document your clinical opinion in the progress notes and discharge summary. Terms such as "probable", "suspected", "likely", "questionable", "possible", or "still to be ruled out" are acceptable. IF IN AGREEMENT, YOU MUST DOCUMENT ABOVE DIAGNOSTIC STATEMENT IN DAILY PROGRESS NOTES AND DISCHARGE SUMMARY. This document is not part of the patient's record. Thank You, Chrissie Alvarado RN [phone]
[2017-09-17 07:28] LABS: CALCIUM 8.5 mg/dl (8.5-10.1); CREATININE 2.42 mg/dl (0.60-1.40); POTASSIUM 3.7 mmol/L (3.5-5.1)
[2017-09-17] MEDS: OXYCODONE HCL IR 5 MG TAB (IMMEDIATE RELEASE) PO PRN (08:12)
[2017-09-17] MEDS: FUROSEMIDE INJ 80 MG in SYRINGE 0 ML IV SCH (08:13)
[2017-09-17] MEDS: CLONIDINE HCL 0.1 MG TAB PO SCH ×2 (08:14→13:39)
[2017-09-17] MEDS: GABAPENTIN 300 MG CAP PO SCH ×2 (08:15→13:39)
[2017-09-17] MEDS: METOPROLOL TARTRATE 50 MG TAB PO SCH ×2 (08:16→13:40)
[2017-09-17] MEDS: INSULIN ASPART 100 UNITS/ML 3 ML PEN SC SCH ×2 (08:18→11:49)
[2017-09-17] MEDS: HEPARIN SOD 5000 UNIT/0.5 ML CARP SQ SCH (08:20)
[2017-09-17 08:25] VITALS: BP 168/79; PULSE 70; TEMP 36.8; O2SAT 94
[2017-09-17] MEDS ORDERED: INSULIN GLARGINE SOLOSTAR 100 UNITS/ML 3 ML PEN SC SCH (09:00)
[2017-09-17] MEDS ORDERED: AMLODIPINE BESYLATE 5 MG TAB PO SCH (09:00)
[2017-09-17] MEDS ORDERED: CLOPIDOGREL BISULFATE 75 MG TAB PO SCH (09:00)
[2017-09-17] MEDS ORDERED: [UNRECOGNIZED DRUG - OTHER] PO SCH (09:00)
[2017-09-17] MEDS ORDERED: ISOSORBIDE MONONITRATE 60 MG TABCR PO SCH (09:00)
[2017-09-17] MEDS ORDERED: CHOLECALCIFEROL 1000 INTER.UNIT TAB PO SCH (09:00)
[2017-09-17] MEDS ORDERED: CALAMINE/PRAMOXINE LOTION 177 APPLN/177 ML BTL EXT ONE (11:03)
[2017-09-17 11:39] VITALS: BP 134/65; PULSE 69; TEMP 36.9; O2SAT 96
[2017-09-17] MEDS ORDERED: OMEGA-3 (PURIFIED FISH OIL) 1 GM CAP PO SCH (12:00)
[2017-09-17 12:24] VITALS: BP 134/65; PULSE 69; TEMP 36.9; O2SAT 96
--- NOTE | 2017-09-17 12:29 | Cardiology Follow-Up ---
Subjective Subjective Date of Service: Sep 17, 2017. Pt evaluation today including: conversation w/ patient, physical exam, chart review, lab review, review of studies, review of inpatient medication list Problem List Pt seen and examined, states that he feels great. SOB has resolved and LE edema has greatly improved. Denies cp, palpitations, lightheadedness or dizziness. Tele reviewed: sinus rhythm without arrhythmia or significant ectopy. Review of Systems Respiratory: No see HPI, No cough, No sputum, No wheezing, No shortness of breath, No dyspnea on exertion, No dyspnea at rest, No hemoptysis, No problem reported Cardiac: No see HPI, No chest pain, No orthopnea, No PND, No edema, No claudication, No palpitations, No problem reported Objective Vital Signs Last Vital Signs Documentation Date Time Temp Pulse Resp B/P (MAP) Pulse Ox O2 Delivery O2 Flow Rate FiO2 09/17/17 12:00 Room Air 09/17/17 11:39 36.9 69 18 134/65 (88) 96 Physical Exam: General Appearance: WD/WN, no apparent distress Eyes: bilateral eyes normal inspection, bilateral eyes PERRL, bilateral eyes EOMI ENT: normal ENT inspection, hearing grossly normal, pharynx normal Neck: supple, no adenopathy, thyroid normal, no JVD, no carotid bruits, trachea midline Respiratory/Chest: chest non-tender, lungs clear, normal breath sounds, no respiratory distress, no accessory muscle use Cardiovascular: regular rate, rhythm, no JVD, + systolic murmur, + gallop/S4 Abdomen: normal bowel sounds, non tender, soft, no organomegaly, no pulsatile mass Extremities: normal inspection, no calf tenderness, + pedal edema (trace) Neurologic/Psychiatric: manager finance II-XII nml as tested, no motor/sensory deficits, alert, normal mood/affect, oriented x 3 Skin: + pertinent finding (open vesicles on chest) Lymphatic: no adenopathy Assessment and Plan 1. acute decompensated diastolic heart failure resolved diuresed over 2.5L overnight no longer volume overloaded can expect residual LE edema while on gabapentin pt instructed to wear compression stockings while taking gabapentin will resume previous outpatient medical regimen believe this episode was a result of dietary indiscretion already scheduled to see me on 09/24, will keep this appt 2. insomnia please provide script for amiben 5mg for 10 days instructed on use and possible side effects f/u with pcp d/c to home
--- NOTE | 2017-09-17 13:01 | Progress Note ---
Medicine Progress Note Date & Time of Visit: Sep 17, 2017 at 12:55. Subjective Seen resting watching TV comfortable States he feels much better today Dyspnea has resolved Leg swelling has also improved significantly Ambulating in the room with no symptoms States he is back to his baseline No other symptoms States he is ready and would like to be discharged today Objective Last 8 Hrs Date Time Temp Pulse Resp B/P (MAP) Pulse Ox O2 Delivery O2 Flow Rate FiO2 09/17/17 12:24 36.9 69 18 96 Room Air 09/17/17 12:00 Room Air 09/17/17 11:39 36.9 69 18 134/65 (88) 96 09/17/17 08:25 36.8 70 18 168/79 (108) 94 09/17/17 08:00 Room Air Physical Exam: General-oriented 3 not in distress speaking sentences no accessory muscle use Head- atraumatic Eyes- PERRL, EOMI, anicteric ENT- oropharynx clear Neck- supple, no JVD, no adenopathy, no thyromegaly; carotids +2/2 Lungs- clear breath sounds bilaterally Heart- regular rhythm; no murmur, normal rate Erythematous area on the left anterior chest wall wrapping around to the back Scabbing lesions, no new vesicles Abdomen- normal bowel sounds, soft, nontender, nondistended Extremities-trace pretibial edema, no calf tenderness; peripheral pulses intact Neuro- alert, oriented x 3; no gross focal neurologic deficits Skin- warm & dry Laboratory Results: Last 24 Hours Test 09/16/17 15:10 09/16/17 15:50 09/16/17 16:19 09/16/17 20:02 Urine Color YELLOW Urine Appearance CLEAR Urine pH 6.5 Urine Specific Jackson 1.009 Urine Protein 2+ Urine Glucose (UA) NEG Urine Ketones NEG Urine Occult Blood NEG Urine Nitrite NEG Urine Bilirubin NEG Urine Urobilinogen NEG Urine Leukocyte Esterase NEG Urine WBC (Auto) 0 /hpf Urine RBC (Auto) 0-4 /hpf Urine Hyaline Casts (Auto) 0 /lpf Urine Epithelial Cells (Auto) 0-5 /lpf Urine Bacteria (Auto) NEG Troponin I 1.110 ng/ml Bedside Glucose 107 mg/dl 153 mg/dl Test 09/16/17 20:10 09/17/17 06:19 09/17/17 06:32 Troponin I 1.230 ng/ml White Blood Count 5.47 K/uL Red Blood Count 3.36 M/uL Hemoglobin 11.4 g/dL Hematocrit 32.6 % Mean Corpuscular Volume 97.0 fL Mean Corpuscular Hemoglobin 33.9 pg Mean Corpuscular Hemoglobin Concent 35.0 g/dl RDW Standard Deviation 47.0 fL RDW Coefficient of Variation 13.4 % Platelet Count 208 K/uL Mean Platelet Volume 9.9 fL Sodium Level 134 mmol/L Potassium Level 3.7 mmol/L Chloride Level 97 mmol/L Carbon Dioxide Level 28 mmol/L Anion Gap 9.0 mmol/L Blood Urea Nitrogen 37 mg/dl Creatinine 2.42 mg/dl Est Creatinine Clear Calc Drug Dose 29.2 ml/min Estimated GFR () 29.6 Estimated GFR (Non- 25.5 BUN/Creatinine Ratio 15.4 Random Glucose 80 mg/dl Calcium Level 8.5 mg/dl Magnesium Level 1.8 mg/dl Bedside Glucose 89 mg/dl Assessment & Plan Shortness of breath Acute on chronic diastolic CHF -Patient presenting with increasing shortness of breath and lower extremity edema 2 days; in the ED, chest x-ray shows mild vascular prominence and labs show a mildly elevated troponin at 0.8 -Likely acute diastolic CHF secondary to dietary indiscretion of intake of large amounts of ham over the past several days -Recent use of gabapentin may be contributing to peripheral edema however benefit outweighs risk for the use with postherpetic neuralgia Cardiology consulted Dr. Bryant Was given Lasix 80 mg IV every 12 Patient diuresed well, input-output -2.6 L Evaluated by cardiology Cleared for discharge Patient to resume usual medication regimen Follow-up with information security director Dr. Bryant on September 24, 2017 Elevated troponin, history of CAD -S/P PCI to LAD and diagonal 03/2017 -Mild troponin elevation likely due to demand ischemia from acute CHF -No reports of chest pain, EKG unchanged from 04/2017 -Continue aspirin, Plavix, beta-pau, and nitrate History of TAVR Diabetes -Hgb A1c 6.6 03/2017 -Continue home dose of Lantus with NovoLog per protocol CKD stage III -Baseline creatinine runs in the high ones to low twos -Creatinine 2.4 on discharge -Monitor renal function as an outpatient Hypertension -BP stable, continue amlodipine, clonidine, isosorbide, metoprolol, hydralazine Recent shingles -Continue gabapentin and as needed oxycodone Continue calamine lotion Follow-up with PCP DVT prophylaxis Disposition d/c home Follow-up with PCP in 3-5 days Follow-up with information security director Dr. Bryant in September 24, 2017 Current Inpatient Medications: Current Inpatient Medications Medications (Trade) Dose Ordered Sig/Nicolette Route Start Time Stop Time Status Last Admin Dose Admin Ioversol (Optiray 320) 100 ml UD PRN IV 09/16/17 09:30 09/20/17 09:29 Heparin Sodium (Porcine) (Heparin Sq 5000 Unit/0.5ml) 5,000 unit Q12 SQ 09/16/17 21:00 10/16/17 20:59 09/17/17 08:20 5,000 UNIT Acetaminophen (Tylenol Tab) 650 mg Q4H PRN PO 09/16/17 12:00 10/16/17 11:59 Ondansetron HCl (Zofran Inj) 4 mg Q6H PRN IV 09/16/17 12:00 10/16/17 11:59 Nitroglycerin (Nitrostat Tab) 0.4 mg UD PRN SL 09/16/17 12:00 10/16/17 11:59 Allopurinol (Zyloprim Tab) 100 mg HS PO 09/16/17 21:00 10/16/17 20:59 09/16/17 21:07 100 MG Amlodipine Besylate (Norvasc Tab) 5 mg QAM PO 09/17/17 09:00 10/17/17 08:59 09/17/17 08:15 5 MG Aspirin (Aspirin Chew) 81 mg HS PO 09/16/17 21:00 10/16/17 20:59 09/16/17 21:07 81 MG Cholecalciferol (Vitamin D Tab) 1,000 inter.unit QAM PO 09/17/17 09:00 10/17/17 08:59 09/17/17 08:15 1,000 INTER.UNIT Clonidine HCl (Catapres Tab) 0.2 mg TID PO 09/16/17 14:00 10/16/17 13:59 09/17/17 08:14 0.2 MG Clopidogrel Bisulfate (plAVix TAB) 75 mg QAM PO 4/6/18 09:00 10/17/17 08:59 09/17/17 08:16 75 MG Fish Oil (Vardaman-3 (Purified Fish Oil) Cap) 1 gm DAILY@1200 PO 09/17/17 12:00 10/17/17 11:59 09/17/17 11:50 1 GM Folic Acid (Folvite Tab) 1 mg DAILY@1200 PO 09/17/17 12:00 10/17/17 11:59 09/17/17 11:50 1 MG Gabapentin (Neurontin Cap) 300 mg TID PO 09/16/17 14:00 10/16/17 13:59 09/17/17 08:15 300 MG Hydralazine HCl (Apresoline Tab) 100 mg TID PO 09/16/17 14:00 10/16/17 13:59 09/17/17 08:15 100 MG Insulin Glargine (Lantus Solostar Pen) 35 units QAM SC 09/17/17 09:00 10/17/17 08:59 09/17/17 08:20 35 UNITS Isosorbide Mononitrate (Imdur Ext Rel Tab) 60 mg QAM PO 09/17/17 09:00 10/17/17 08:59 09/17/17 08:17 60 MG Metoprolol Tartrate (Lopressor Tab) 50 mg TID PO 09/16/17 14:00 10/16/17 13:59 09/17/17 08:16 50 MG Oxycodone HCl (Roxicodone Immediate Rel Tab) 10 mg Q6H PRN PO 09/16/17 12:45 09/30/17 12:44 09/17/17 08:12 10 MG Tamsulosin HCl (Flomax Cap) 0.4 mg HS PO 09/16/17 21:00 10/16/17 20:59 09/16/17 21:08 0.4 MG Vitamin A (Vitamin A 18112 Iu Cap) 25,000 inter.unit DAILY PO 09/17/17 09:00 10/17/17 08:59 09/17/17 08:16 25,000 INTER.UNIT Insulin Aspart (novoLOG ASPART) SLIDING SCALE If C... ACHS SC 09/16/17 16:15 10/16/17 16:14 09/17/17 11:49 7 UNITS Glucose (Glucose 40% Gel) 15-30 GRAMS 15 GRAMS... UD PRN PO 09/16/17 13:30 10/16/17 13:29 Glucose (Glucose Chew Tab) 4-8 Tablets 4 Tabl... UD PRN PO 09/16/17 13:30 10/16/17 13:29 Dextrose (Dextrose 50% 50ML Syringe) 25-50ML OF 50% DW IV FOR... UD PRN IV 09/16/17 13:30 10/16/17 13:29 Glucagon (Glucagon Inj) 1 mg UD PRN SQ 09/16/17 13:30 10/16/17 13:29 Furosemide 80 mg/ Syringe 8 ml @ 4 mls/min BID17 IV 09/16/17 17:00 10/16/17 16:59 09/17/17 08:13 4 MLS/MIN Calamine/Pramoxine (Caladryl Lotion) 1 appln BID EXT 09/17/17 21:00 10/17/17 20:59
[2017-09-17] MEDS ORDERED: ZOLP5TAB PO (13:04)
--- NOTE | 2017-09-17 13:11 | Discharge Instructions ---
Discharge Instructions Date of Service Sep 17, 2017. Admission Reason for Admission: Elevated Troponin,Sob Discharge Discharge Diagnosis / Problem: Acute exacerbation of chronic diastolic heart failure Discharge Goals Goal(s): Diagnostic testing, Therapeutic intervention Activity Recommendations Activity Limitations: as noted below (NO HEAVY EXERTION UNTIL REEVALUATED BY PRIMARY CARE PHYSICIAN) Lifting Limitations: until after follow-up appointment Exercise/Sports Limitations: until after follow-up appointment Driving or Machine Use: NO DRIVING WHILE TAKING AMBIEN . Instructions / Follow-Up Instructions / Follow-Up Please limit your salt intake to not more than 2 grams/day. Take Ambien only as directed. No driving while taking Ambien. Please call your primary care physician or state trooper, or return to the emergency room if with recurrence of symptoms. Follow up with Primary Care Physician Dr. Prieto (associate of Dr. Watkins) on Wednesday09/20/2017 at 10:45am. Follow up with your state trooper Dr. Bryant as scheduled on September 24, 2017. Call your Primary Care doctor if any of the following symptoms or problems start or get worse: * Shortness of breath or difficulty breathing * Wake up at night short of breath * Chest pain * Cough * Swelling of your hands, feet, or legs * More fatigued or tired with your normal activity * Palpitations - sudden fast heart beats WEIGHT * Weigh yourself every morning after using the bathroom. * Use the same scale. * Wear the same amount of clothing. * Write your weight down on a chart. * Call your Primary Care doctor if you gain more than 2-3 pounds in 1-2 days. MEDICATIONS * Use this discharge instruction sheet for medication instructions. * Take your medications at the time your doctor ordered. * Do not skip a dose of your medicines. * If you miss a dose of medicine, take it as soon as possible, but DO NOT DOUBLE A DOSE. * Read your medicine information when you get home. * Know all of the side effects of your medicine. If in doubt, ask your pharmacist * Call your Primary Care doctor's office if you have any side effects. * Be sure all of your doctors know what medicine and herbs you take (including cold, flu, and herbal medicine). Take the following with you to your follow-up doctor appointments: * Weight Chart * Medication List * List of questions Do not drink excessive alcohol, beer or wine. Current Hospital Diet Patient's current hospital diet: AHA Diet (Heart Healthy), Low Sodium Diet (2gm Na), Diabetes Type 2 Diet Discharge Diet Recommended Diet: AHA Diet (Heart Healthy), Low Sodium Diet (2gm Na), Diabetes Type 2 Diet Pending Studies Studies pending at discharge: yes List of pending studies: repeat bloodwork c/o Primary Care Physician on follow up Medical Emergencies . Who to Call and When: Call 911 or go to the Emergency Room if: * If at any time you feel your situation is an emergency * You have tightness or pain in your chest that does not go away with rest or Nitroglycerin * You are very short of breath even with rest . Non-Emergent Contact Non-Emergency issues call your: Primary Care Provider, Property Disposal Officer Call Non-Emergent contact if: you have a fever, your pain is not controlled, your pain is worsening, wound has increased drainage, wound has increased redness, wound has increased pain, you have any medication questions . . "Provider Documentation" section prepared by Jorge Chew. .
--- NOTE | 2017-09-17 13:15 | Discharge Summary ---
Discharge Summary Date of Service Sep 17, 2017. Discharge Summary Admission Date: Sep 16, 2017 at 11:02 Discharge Date: Sep 17, 2017 Discharge Disposition: Home Principal Diagnosis: Acute on chronic diastolic CHF Secondary Diagnoses/Problems: Please refer to hospital course below. Procedures: CHEST ONE VIEW PORTABLE CLINICAL HISTORY: Shortness of breath COMPARISON STUDY: June 2009 FINDINGS: The heart remains enlarged. There is mild vascular prominence without evidence of overt failure. There are increased markings at both lung bases, likely atelectatic although an inflammatory process could appear similar. There are no pleural effusions.[ IMPRESSION: 1. Cardiomegaly 2. Nonspecific basilar interstitial thickening 3. Mild vascular prominence without evidence of overt failure. Electronically signed by: Stefan Machuca M.D. 09/16/2017 9:23 AM ULTRASOUND BILATERAL LOWER EXTREMITY VENOUS CLINICAL HISTORY: Lower extremity edema. COMPARISON STUDY: No priors. TECHNIQUE: Real-time, grayscale, and color Doppler sonography of the deep veins of the right and left lower extremity was performed from the inguinal crease to the calf. Compression and augmentation were utilized. FINDINGS: There is no sonographic evidence of deep venous thrombosis identified in the right or left lower extremity. The common femoral, superficial femoral, and popliteal veins are patent and normally compressible bilaterally. The greater saphenous vein and the profunda femoris vein at the junction with the common femoral vein are clear in both legs. The visualized calf veins are patent bilaterally. IMPRESSION: There is no sonographic evidence of deep venous thrombosis identified in the right or left lower extremity. NUCLEAR MEDICINE PULMONARY VENTILATION/PERFUSION STUDY CLINICAL HISTORY: shortness of breath COMPARISON STUDY: Chest x-ray dated 09/16/2017 FINDINGS: The patient was ventilated utilizing 33 mCi of technetium 99m DTPA aerosol. The patient was perfused utilizing 5.2 mCi of technetium 99m MAA. Multiple projectional images were acquired. No significant ventilation or perfusion abnormalities are visualized. IMPRESSION: Normal study Electronically signed by: Stefan Machuca M.D. 09/16/2017 2:39 PM Consultations: Literacy Tutor Dr. Bryant Pending Studies/Follow-Up: Please monitor renal function; Refer to hospital course below. Medication Reconciliation New Medications: Zolpidem Tartrate (Ambien) 5 Mg Tab 1 TAB PO HS PRN for Insomnia for 10 Days, #10 TAB [address] while taking Ambien Continued Medications: Albuterol Sulfate (Proair Respiclick) 108 Mcg/Act Aer 2 PUFFS INH QID PRN for SOB/Wheezing Allopurinol (Zyloprim) 100 Mg Tab 1 TAB PO HS Amlodipine (Norvasc) 5 Mg Tab 5 MG PO QAM Aspirin (Aspirin Chewable) 81 Mg Chew 81 MG PO HS Beta Carotene (A-Norman-25) 25,000 Unit Cap 1 CAP PO DAILY Cholecalciferol (Vitamin D3) 1,000 Unit Tab 1 TAB PO QAM Clonidine HCl (Clonidine HCl) 0.1 Mg Tab 2 TAB PO TID Clopidogrel (Plavix) 75 Mg Tab 75 MG PO QAM Fish Oil (Clymer-3) 1 Ea Cap 1 CAP PO 1200 Folic Acid (Folvite) 1 Mg Tab 1 MG PO 1200 Furosemide (Lasix) 20 Mg Tab 20 MG PO Q2D Gabapentin (Neurontin) 300 Mg Cap 300 MG PO TID Hydralazine Hcl (Apresoline) 100 Mg Tab 100 MG PO TID Insulin Glargine (Lantus) 100 Unit/Ml Inj 35 UNITS SC QAM Isosorbide Mononitrate Ext Rel (Imdur Ext Rel) 60 Mg Ertab 60 MG PO QAM Metoprolol Tartrate (Lopressor) 50 Mg Tab 50 MG PO TID Nitroglycerin (Nitrostat) 0.4 Mg Tab 0.4 MG UT PRN PRN for Chest Pain Oxycodone Ir (Roxicodone Ir) 5 Mg Tab 10 MG PO Q6H PRN for Pain Tamsulosin Hcl (Flomax) 0.4 Mg Cap 0.4 MG PO HS Admission Information HPI (per Admitting provider): 72-year-old male who presents to the ER with a chief complaint of shortness of breath. Patient reports he was diagnosed with shingles approximately 3 weeks ago. When he was first seen by his PCP he was diagnosed with pleurisy however shingles rash erupted approximately 3 days after. He was then seen again by his PCP and placed on oxycodone for pain control. Antiviral therapy was not prescribed since rash had been present for over 48 hours. The oxycodone was not controlling the patient's pain so he was again seen by his PCP who started him on a uptitrating dose of gabapentin. Patient reports pain has slowly been improving. He reports that yesterday he noticed increasing shortness of breath. When he woke up this morning he still felt short of breath. He took 2 tablets of Lasix 20 mg yesterday and today. He reports he typically takes Lasix 20 mg every other day. He has noticed increased edema to his legs. Aside from the shingles pain on the left side of his chest, patient denies any other exertional chest pain. He denies lightheadedness, dizziness, diaphoresis , and syncopal events. He denies abdominal pain, nausea, vomiting, and diarrhea. No fevers or chills. He denies any urinary symptoms. Upon further questioning, patient admits to eating ham every day for the past 5 days. In the ED, patient was found to have an elevated troponin at 0.883 and EKG does not show any acute changes. Vital signs are stable and other labs are unremarkable. He was given a nebulizer treatment in the ED. Physical Exam (per Admitting): General Appearance: WD/WN, no apparent distress Head: normocephalic, atraumatic Eyes: normal inspection, EOMI, sclerae normal ENT: hearing grossly normal, + pertinent finding (Mucous membranes moist) Neck: supple, no JVD, no carotid bruits Respiratory/Chest: lungs clear, normal breath sounds, no respiratory distress Cardiovascular: regular rate, rhythm, normal peripheral pulses, + pertinent finding (+2 pitting edema BL LE) Abdomen/GI: normal bowel sounds, non tender, soft, no organomegaly, + distended Extremities/Musculoskelatal: normal inspection, no calf tenderness, normal capillary refill Neurologic/Psych: no motor/sensory deficits, alert, normal mood/affect, oriented x 3 Skin: warm/dry, + pertinent finding (Dried, vesicular shingles-like rash over the left side of the chest along the T4/T5 dermatome wrapping around to the back) Hospital Course Shortness of breath Acute on chronic diastolic CHF -Patient presenting with increasing shortness of breath and lower extremity edema 2 days; in the ED, chest x-ray shows mild vascular prominence and labs show a mildly elevated troponin at 0.8 -Likely acute diastolic CHF secondary to dietary indiscretion of intake of large amounts of ham over the past several days -Recent use of gabapentin may be contributing to peripheral edema however benefit outweighs risk for the use with postherpetic neuralgia Cardiology consulted Dr. Bryant Was given Lasix 80 mg IV every 12 Patient diuresed well, input-output -2.6 L Evaluated by cardiology Cleared for discharge Patient to resume usual medication regimen including Lasix 20mg every other day Patient counselled on adhering to salt restriction Follow-up with senior mortgage underwriter Dr. Bryant on September 24, 2017 Elevated troponin, history of CAD -S/P PCI to LAD and diagonal 03/2017 -Mild troponin elevation likely due to demand ischemia from acute CHF -No reports of chest pain, EKG unchanged from 04/2017 -Continue aspirin, Plavix, beta-pau, and nitrate History of TAVR Diabetes -Hgb A1c 6.6 03/2017 -Continue home dose of Lantus with NovoLog per protocol CKD stage III -Baseline creatinine runs in the high ones to low twos -Creatinine 2.4 on discharge -Monitor renal function as an outpatient Hypertension -BP stable, continue amlodipine, clonidine, isosorbide, metoprolol, hydralazine Recent shingles -Continue gabapentin and as needed oxycodone Continue calamine lotion Follow-up with PCP Disposition d/c home Follow-up with PCP in 3-5 days Follow-up with senior mortgage underwriter Dr. Bryant in September 24, 2017 Total time spent on discharge = 30 minutes This includes examination of the patient, discharge planning, medication reconciliation, and communication with other providers. Discharge Instructions Discharge Instructions Date of Service Sep 17, 2017. Admission Reason for Admission: Elevated Troponin,Sob Discharge Discharge Diagnosis / Problem: Acute exacerbation of chronic diastolic heart failure Discharge Goals Goal(s): Diagnostic testing, Therapeutic intervention Activity Recommendations Activity Limitations: as noted below (NO HEAVY EXERTION UNTIL REEVALUATED BY PRIMARY CARE PHYSICIAN) Lifting Limitations: until after follow-up appointment Exercise/Sports Limitations: until after follow-up appointment Driving or Machine Use: NO DRIVING WHILE TAKING AMBIEN . Instructions / Follow-Up Instructions / Follow-Up Please limit your salt intake to not more than 2 grams/day. Take Ambien only as directed. No driving while taking Ambien. Please call your primary care physician or senior mortgage underwriter, or return to the emergency room if with recurrence of symptoms. Follow up with Primary Care Physician Dr. Prieto (associate of Dr. Watikns) on Wednesday09/20/2017 at 10:45am. Follow up with your senior mortgage underwriter Dr. [place] as scheduled on September 24, 2017. Call your Primary Care doctor if any of the following symptoms or problems start or get worse: * Shortness of breath or difficulty breathing * Wake up at night short of breath * Chest pain * Cough * Swelling of your hands, feet, or legs * More fatigued or tired with your normal activity * Palpitations - sudden fast heart beats WEIGHT * Weigh yourself every morning after using the bathroom. * Use the same scale. * Wear the same amount of clothing. * Write your weight down on a chart. * Call your Primary Care doctor if you gain more than 2-3 pounds in 1-2 days. MEDICATIONS * Use this discharge instruction sheet for medication instructions. * Take your medications at the time your doctor ordered. * Do not skip a dose of your medicines. * If you miss a dose of medicine, take it as soon as possible, but DO NOT DOUBLE A DOSE. * Read your medicine information when you get home. * Know all of the side effects of your medicine. If in doubt, ask your pharmacist * Call your Primary Care doctor's office if you have any side effects. * Be sure all of your doctors know what medicine and herbs you take (including cold, flu, and herbal medicine). Take the following with you to your follow-up doctor appointments: * Weight Chart * Medication List * List of questions Do not drink excessive alcohol, beer or wine. Current Hospital Diet Patient's current hospital diet: AHA Diet (Heart Healthy), Low Sodium Diet (2gm Na), Diabetes Type 2 Diet Discharge Diet Recommended Diet: AHA Diet (Heart Healthy), Low Sodium Diet (2gm Na), Diabetes Type 2 Diet Pending Studies Studies pending at discharge: yes List of pending studies: repeat bloodwork c/o Primary Care Physician on follow up Medical Emergencies . Who to Call and When: Call 911 or go to the Emergency Room if: * If at any time you feel your situation is an emergency * You have tightness or pain in your chest that does not go away with rest or Nitroglycerin * You are very short of breath even with rest . Non-Emergent Contact Non-Emergency issues call your: Primary Care Provider, Literacy Tutor Call Non-Emergent contact if: you have a fever, your pain is not controlled, your pain is worsening, wound has increased drainage, wound has increased redness, wound has increased pain, you have any medication questions .
[2017-09-17] MEDS ORDERED: CALAMINE/PRAMOXINE LOTION 177 APPLN/177 ML BTL EXT SCH (21:00)
== END 2017-09-17 13:59 | disposition home or self-care (01) | DRG 291 ==
LOC: C.EDB 08:15 → C.2E 11:02 → ENRESERV 11:33
PROVIDERS: ADMIT Family Medicine; ATTEND Internal Medicine
DX: I13.0 Hypertensive heart and chronic kidney disease with heart failure and stage 1 through stage 4 chronic kidney disease, or unspecified chronic kidney disease (principal); I50.33 Acute on chronic diastolic (congestive) heart failure; E11.22 Type 2 diabetes mellitus with diabetic chronic kidney disease; N18.4 Chronic kidney disease, stage 4 (severe); I25.10 Atherosclerotic heart disease of native coronary artery without angina pectoris; E78.5 Hyperlipidemia, unspecified; G47.00 Insomnia, unspecified; Z79.02 Long term (current) use of antithrombotics/antiplatelets; Z79.4 Long term (current) use of insulin; Z79.82 Long term (current) use of aspirin; Z79.899 Other long term (current) drug therapy; Z88.8 Allergy status to other drugs, medicaments and biological substances

== ENCOUNTER 2019-10-19 04:15 | Inpatient (IN) ==
[2019-10-19 04:48] LABS: Hematocrit (blood only) 24.9 % (42-52); Hemoglobin 8.6 g/dL (14.0-18.0); Mean Corpuscular Hemoglobin 33.9 pg (25-34); Mean Corpuscular Hgb Conc 34.5 g/dL (32-36); Mean Platelet Volume 10.9 fL (7.4-10.4); Platelet Count 302 K/uL (130-400); RDW Coefficient of Variation 13.9 % (11.5-14.5); Red Blood Count 2.54 M/uL (4.7-6.1)
[2019-10-19 04:55] LABS: BUN Creatinine Ratio 21.4 (10-20); Calcium 8.2 mg/dl (8.5-10.1); Creatinine Clr Calc Pharmacy 14.7 ml/min; Est GFR (African American) 14.1; Est GFR (Non-African American) 12.1; Magnesium 2.7 mg/dl (1.8-2.4); Potassium 5.1 mmol/L (3.5-5.1)
[2019-10-19 05:02] LABS: Albumin Globulin Ratio 0.4 (0.9-2); Bilirubin,Total 1.2 mg/dl (0.2-1); Troponin I 10.3 ng/ml (0-0.045)
[2019-10-19] MEDS ORDERED: FUROSEMIDE 40 MG/4 ML VIAL IV STA (05:06)
[2019-10-19] MEDS ORDERED: ASPIRIN CHEW 324 MG PO STA (05:07)
[2019-10-19 05:10] LABS: Basophils # (auto) 0.02 K/uL (0-0.2); Basophils % (auto) 0.1 %; Eosinophils # (auto) 0.01 K/uL (0-0.5); Eosinophils % (auto) 0.1 %; Immature Granulocytes # (auto) 0.15 K/uL (0.00-0.02); Immature Granulocytes % (auto) 0.9 %; Lymphocytes # (auto) 1.03 K/uL (1.2-3.4); Lymphocytes % (auto) 6.5 %; Monocytes # (auto) 0.81 K/uL (0.11-0.59); Monocytes % (auto) 5.1 %; Neutrophils # (auto) 13.88 K/uL (1.4-6.5); Neutrophils % (auto) 87.3 %; Pappenheimer Bodies 1+; Polychromasia 1+
--- NOTE | 2019-10-19 05:11 | Emergency Department Note ---
History of Present Illness General Chief complaint: Shortness of Breath/Dyspnea Stated complaint: SHORT OF BREATH/FEVER Time Seen by Provider: 10/19/19 04:34 Source: patient, EMS, RN notes reviewed and old records reviewed ([facility]) Mode of arrival: EMS Limitations: patient cooperation History of Present Illness Provider complaint: Shortness of breath Onset (ago): day(s) 1 (Worsening over 3 weeks.) This patient is a 74-year-old male who presents emergency department by EMS with complaints of shortness of breath. Per EMS the patient had a temperature at home of 101.5 degrees. Patient states he has no "recollection" of a fever. He denies any specific symptoms except for the shortness of breath and lower back pain related to his spinal stenosis. Patient states he prefers to lie flat on his back. According to medical records from [facility], the patient's called in several times this evening. She had some questions regarding his progressive weakness and was referred to the emergency department. She was awaiting a callback from nephrology prior to making the decision to come in. The patient is scheduled to have a dialysis catheter placed today. The patient is unclear about many details of his medical history. Home Medications Home Medications Medication Instructions Recorded Confirmed Type Lantus U-100 Insulin 18 unit SUBCUT QAM 03/24/18 10/19/19 History allopurinol 100 mg PO HS 03/24/18 10/19/19 History amlodipine 5 mg PO QAM 03/24/18 10/19/19 History clonidine HCl 0.2 mg PO TID 03/24/18 10/19/19 History clopidogrel 75 mg PO QAM 03/24/18 10/19/19 History hydralazine 100 mg PO TID 03/24/18 10/19/19 History isosorbide mononitrate 60 mg PO QAM 03/24/18 10/19/19 History metoprolol tartrate 50 mg PO TID 03/24/18 10/19/19 History nitroglycerin [Nitrostat] 0.4 mg SUBLINGUAL UD PRN 03/24/18 10/19/19 History oxycodone 10 mg PO TID 03/24/18 10/19/19 History furosemide 20 mg PO DAILY 10/19/19 10/19/19 History lubiprostone [Amitiza] 8 mcg PO BID 10/19/19 10/19/19 History terazosin 5 mg PO HS 10/19/19 10/19/19 History Allergies Allergy/AdvReac Type Severity Reaction Status Date / Time Rxqhitw-Gkx-Hjh Reductase AdvReac Unknown RHABDOMYOLYSIS Verified 10/19/19 05:47 Inhibitor FROM 06/2009 Past Med/Surg History Medical History BPH (benign prostatic hyperplasia) Bronchitis HX-INHALER VERY OCC Cardiac murmur Chronic kidney disease STAGE 3-F/U DR HANSON Congestive heart failure Diabetes mellitus, type 2 GERD (gastroesophageal reflux disease) Hyperlipidemia Hypertension Kidney stones On anticoagulant therapy SINCE 02/2017 Osteoarthritis Surgical History History of cardiac cath X 2 02/28/2017--2 stents History of colonoscopy History of cystoscopy WITH STENT PLACEMENT History of heart artery stent x2 02/2017 History of heart valve replacement AVR 04/2017 [facility] [place]-F/U DR RON Q3-6 MONTHS Family History Mother Family history of irritable bowel syndrome Other No family history of adverse response to anesthesia Social History Preferred Language: Albanian Communication Ability: Effective Fitness Floor Attendant Required: No Beliefs That Will Affect Care: None Current Living Situation: Spouse Feels Safe at Home: Yes Smoking Status: Never smoker Second Hand Exposure: No ; Hx Alcohol Use: Yes Alcohol type: beer, wine and other Hx Substance Use: No Review of Systems Unobtainable due to cognitive status (Questionable reliability, minimal cooperation) Physical Exam Vital Signs Vital Signs - 24 hr 10/19/19 04:24 10/19/19 04:47 10/19/19 05:27 Temperature 36.8 C Temperature Source Oral Pulse Rate 107 H Pulse Rate [Apical] 99 H Respiratory Rate 23 22 Blood Pressure 135/64 Blood Pressure [Left Arm] 132/66 Blood Pressure Mean 87 Blood Pressure Mean [Left Arm] 88 Pulse Oximetry 92 95 98 Oxygen Delivery Method Room Air Nasal Cannula Nasal Cannula Oxygen Flow Rate 2 2 Sepsis Recent Fever Within 48 Hours Yes Sepsis New/Unexplained Change in Mental Status No Sepsis Action Taken by Nursing Physician Notified Vital signs reviewed. Noted to be afebrile. General: Chronically ill-appearing 74-year-old male, in no significant distress. Lying flat on his back. HEENT: No scleral icterus, PERRLA, neck supple. Atraumatic. Cardiovascular: Regular rate and rhythm, no extra sounds. Pulmonary: Crackles at the bases to auscultation, increased work of breathing on nasal cannula oxygen. Abdomen: Soft, nontender, nondistended, positive bowel sounds. Musculoskeletal: Atraumatic, no peripheral edema. Neurologic: Patient awake alert and pleasantly confused, hard of hearing. Minimally cooperative with complicated questioning. Skin: Warm, dry, no rash Course Administered Medications Discontinued Medications Aspirin (Aspirin) 324 mg PO NOW STA Stop: 10/19/19 05:08 Last Admin: 10/19/19 05:25 Dose: 324 mg Documented by: [id number] Furosemide (Lasix) 40 mg IV NOW STA Stop: 10/19/19 05:07 Last Admin: 10/19/19 05:25 Dose: 40 mg Documented by: [id number] Heparin Sodium (Porcine) (Heparin Iv Bolus) Confirm Administered Dose 10,000 units .ROUTE .[facility] Stop: 10/19/19 05:16 Last Admin: 10/19/19 05:21 Dose: 6,000 units Documented by: [id number] Cosigned by: [id number] Heparin Sodium/Dextrose () 1 ea IV NOW STA; Protocol Stop: 10/19/19 05:07 Last Admin: 10/19/19 05:21 Dose: 1 ea Documented by: [id number] Heparin Sodium/Dextrose (Heparin Sodium/Dextrose) 25,000 units in 500 mls @ 26 mls/hr IV .[id number] [facility]; Protocol Stop: 11/18/19 05:14 Last Titration: 10/19/19 05:44 Dose: 0 units/hr, 0 mls/hr Documented by: [id number] Cosigned by: [id number] Admin: 10/19/19 05:20 Dose: 1,300 units/hr, 26 mls/hr Documented by: [id number] Cosigned by: [id number] Medical Decision Making Differential Diagnosis Differential diagnosis: Etiologies such as infections, reactive airway disease, COPD, pneumonia, pleural effusion, pulmonary edema, ARDS, pneumothorax, CHF, cardiac ischemia, cardiac tamponade, dysrhythmia, anemia, pulmonary embolism, musculoskeletal, gastrointestinal process, as well as others were entertained. Medical Records Attestation: I reviewed the patient's medical records. Home Medications Current Medication List: was personally reviewed by me Laboratory Data Attestation: I reviewed the patient's lab results. Result diagrams: 10/19/19 03:50 10/19/19 03:50 Lab Results 10/19/19 10/19/19 10/19/19 Range/Units 03:50 03:50 03:50 WBC 15.90 H (4.8-10.8) K/uL RBC 2.54 L (4.7-6.1) M/uL Hgb 8.6 L (14.0-18.0) g/dL Hct 24.9 L (42-52) % MCV 98.0 (80-100) fL MCH 33.9 (25-34) pg MCHC 34.5 (32-36) g/dL RDW Std Deviation 50.0 H (36.4-46.3) fL RDW Coeff of Mindi 13.9 (11.5-14.5) % Plt Count 302 (130-400) K/uL MPV 10.9 H (7.4-10.4) fL Immature Gran % (Auto) 0.9 % Neut % (Auto) 87.3 % Lymph % (Auto) 6.5 % [place] % (Auto) 5.1 % Eos % (Auto) 0.1 % Baso % (Auto) 0.1 % Immature Gran # (Auto) 0.15 H (0.00-0.02) K/uL Neut # (Auto) 13.88 H (1.4-6.5) K/uL Lymph # (Auto) 1.03 L (1.2-3.4) K/uL [place] # (Auto) 0.81 H (0.11-0.59) K/uL Eos # (Auto) 0.01 (0-0.5) K/uL Baso # (Auto) 0.02 (0-0.2) K/uL Hypersegmented Neuts 1+ Polychromasia 1+ Pappenheimer Bodies 1+ PT 22.2 H (9.0-12.0) Seconds INR 2.2 H (0.9-1.1) APTT 51.1 H* (21.0-31.0) Seconds PTT Ratio 1.8 Sodium 127 L (136-145) mmol/L Potassium 5.1 (3.5-5.1) mmol/L Chloride 103 (98-107) mmol/L Carbon Dioxide 10 L (21-32) mmol/L Anion Gap 14.0 H (3-11) BUN 95 H (7-18) mg/dl Creatinine 4.43 H (0.6-1.4) mg/dl Est Cr Clr Drug Dosing 14.7 ml/min Est GFR ( Amer) 14.1 Est GFR (Non-Af Amer) 12.1 BUN/Creatinine Ratio 21.4 H (10-20) Glucose 116 H (70-99) mg/dl Lactate (0.4-2.0) mmol/L Calcium 8.2 L (8.5-10.1) mg/dl Magnesium 2.7 H (1.8-2.4) mg/dl Total Bilirubin 1.2 H (0.2-1) mg/dl AST 96 H (15-37) U/L ALT 49 (12-78) U/L Alkaline Phosphatase 386 H (45-117) U/L Troponin I 10.300 H* (0-0.045) ng/ml NT-Pro-B Natriuret Pep 88972 H (0-900) pg/ml Total Protein 7.0 (6.4-8.2) gm/dl Albumin 2.0 L (3.4-5.0) gm/dl Globulin 5.0 H (2.5-4.0) gm/dl Albumin/Globulin Ratio 0.4 L (0.9-2) Urine Color Urine Appearance (Clear) Urine pH (4.5-7.5) Ur Specific [place] (1.000-1.030) Urine Protein (Negative) Urine Glucose (UA) (Negative) Urine Ketones (Negative) Urine Blood (Negative) Urine Nitrite (Negative) Urine Bilirubin (Negative) Urine Urobilinogen (Negative) Ur Leukocyte Esterase (Negative) Urine WBC (Auto) (0-5) /hpf Urine RBC (Auto) (0-4) /hpf U Hyaline Cast (Auto) (0-5) /lpf U Epithel Cells (Auto) (0-5) /lpf Urine Bacteria (Auto) (Negative) Granular Casts (0) /lpf Urine Yeast 05//20 05/07/20 Range/Units 04:45 05:00 WBC (4.8-10.8) K/uL RBC (4.7-6.1) M/uL Hgb (14.0-18.0) g/dL Hct (42-52) % MCV (80-100) fL MCH (25-34) pg MCHC (32-36) g/dL RDW Std Deviation (36.4-46.3) fL RDW Coeff of Mindi (11.5-14.5) % Plt Count (130-400) K/uL MPV (7.4-10.4) fL Immature Gran % (Auto) % Neut % (Auto) % Lymph % (Auto) % [place] % (Auto) % Eos % (Auto) % Baso % (Auto) % Immature Gran # (Auto) (0.00-0.02) K/uL Neut # (Auto) (1.4-6.5) K/uL Lymph # (Auto) (1.2-3.4) K/uL [place] # (Auto) (0.11-0.59) K/uL Eos # (Auto) (0-0.5) K/uL Baso # (Auto) (0-0.2) K/uL Hypersegmented Neuts Polychromasia Pappenheimer Bodies PT (9.0-12.0) Seconds INR (0.9-1.1) APTT (21.0-31.0) Seconds PTT Ratio Sodium (136-145) mmol/L Potassium (3.5-5.1) mmol/L Chloride (98-107) mmol/L Carbon Dioxide (21-32) mmol/L Anion Gap (3-11) BUN (7-18) mg/dl Creatinine (0.6-1.4) mg/dl Est Cr Clr Drug Dosing ml/min Est GFR ( Amer) Est GFR (Non-Af Amer) BUN/Creatinine Ratio (10-20) Glucose (70-99) mg/dl Lactate 1.0 (0.4-2.0) mmol/L Calcium (8.5-10.1) mg/dl Magnesium (1.8-2.4) mg/dl Total Bilirubin (0.2-1) mg/dl AST (15-37) U/L ALT (12-78) U/L Alkaline Phosphatase (45-117) U/L Troponin I (0-0.045) ng/ml NT-Pro-B Natriuret Pep (0-900) pg/ml Total Protein (6.4-8.2) gm/dl Albumin (3.4-5.0) gm/dl Globulin (2.5-4.0) gm/dl Albumin/Globulin Ratio (0.9-2) Urine Color Dark Yellow Urine Appearance Cloudy A (Clear) Urine pH 5.0 (4.5-7.5) Ur Specific [place] 1.022 (1.000-1.030) Urine Protein 2+ H (Negative) Urine Glucose (UA) Negative (Negative) Urine Ketones Trace H (Negative) Urine Blood Negative (Negative) Urine Nitrite Negative (Negative) Urine Bilirubin Negative (Negative) Urine Urobilinogen Negative (Negative) Ur Leukocyte Esterase 1+ H (Negative) Urine WBC (Auto) 10-30 H (0-5) /hpf Urine RBC (Auto) 0-4 (0-4) /hpf U Hyaline Cast (Auto) 1-5 (0-5) /lpf U Epithel Cells (Auto) 20-30 H (0-5) /lpf Urine Bacteria (Auto) Negative (Negative) Granular Casts 1-5 H (0) /lpf Urine Yeast Not Reportable Imaging Data Attestation: I personally reviewed and interpreted this imaging study as follows: My Impression: Chest x-ray to my interpretation reveals cardiomegaly and mild pulmonary vascular congestion noted at the bases. ECG Data Attestation: I personally reviewed and interpreted this ECG as follows: Indication: + SOB/dyspnea Rate (beats per minute): 106 Rhythm: + sinus tachycardia ECG Intervals/blocks: + IVCD ECG Findings: + Q waves (Inferior); no PACs and no PVCs Comparison ECG Date: from (09/17/2017) Change: the following changes noted (T wave inversion now noted in the inferior leads. Rate has increased by 42 bpm) Blood Pressure Blood Pressure Findings: Elevated blood pressure Blood Pressure Disposition: further management by hospitalist ALBINO Rothman An order for cardiac monitoring was placed and the patient was found to be slightly tachycardic at 106 bpm in a sinus rhythm. This patient was evaluated and appeared to be in no significant distress. He did have increased work of breathing. IV access was obtained and laboratory work was drawn. The patient was placed on the child monitor. EKG was performed and reveals a sinus tachycardia without evidence of acute ischemia and no significant changes from previous. There is an interventricular conduction delay with Q waves anteriorly. Chest x-ray reveals cardiomegaly with mild congestion, particularly at the bases. Patient did require nasal cannula oxygen be placed. Laboratory work reveals an elevated WBC at 15, troponin of 10 and an INR of 2.2. Patient's creatinine is 4.4. Potassium is stable at 5.1. Patient was given 40 mg of IV Lasix due to a suspicion of fluid overload. Heparin drip was ordered prior to the results of the PTT. It was initiated and then stopped promptly. I did speak with Dr. Ron of cardiology who is familiar with the patient. I did speak with the patient's and updated her regarding the findings and plan. Dr. Ma of the hospitalist service has agreed to evaluate the patient for admission and further management. Due to the patient's reported fever prior to arrival, COVID testing is pending. Impression & Plan Renal failure (ARF), acute on chronic, Non-ST elevation (NSTEMI) myocardial infarction, Elevated INR, Acute dyspnea, Hypoxia Discharge Plan Visit Data Chief Complaint: Shortness of Breath/Dyspnea Stated Complaint: SHORT OF BREATH/FEVER Other Complaint: Fever ED Provider: Margo Venegas Discharge Problem: Renal failure (ARF), acute on chronic, Non-ST elevation (NSTEMI) myocardial infarction, Elevated INR, Acute dyspnea, Hypoxia Forms Stand Alone Forms: My [facility] Prescriptions Prescriptions: No Action furosemide 20 mg tablet 20 mg PO DAILY RF: 0 terazosin 10 mg capsule 5 mg PO HS RF: 0 Amitiza 8 mcg capsule 8 mcg PO BID RF: 0 clonidine HCl 0.1 mg Tablet 0.2 mg PO TID RF: 0 clopidogrel 75 mg Tablet 75 mg PO QAM RF: 0 amlodipine 5 mg Tablet 5 mg PO QAM RF: 0 allopurinol 100 mg Tablet 100 mg PO HS RF: 0 Lantus U-100 Insulin 100 unit/mL Solution 18 unit SUBCUT QAM RF: 0 hydralazine 100 mg Tablet 100 mg PO TID RF: 0 isosorbide mononitrate 60 mg Tablet Extended Release 24 Hr 60 mg PO QAM RF: 0 metoprolol tartrate 50 mg Tablet 50 mg PO TID RF: 0 oxycodone 10 mg Tablet 10 mg PO TID RF: 0 nitroglycerin [Nitrostat] 0.4 mg Tablet, Sublingual 0.4 mg Sublingual UD PRN (Reason: Pain) RF: 0 Discharge Problem: Renal failure (ARF), acute on chronic Qualifiers: Acute renal failure type: unspecified Chronic kidney disease stage: stage 5, not on chronic dialysis Qualified Code(s): N17.9 - Acute kidney failure, unspecified
[2019-10-19 05:14] LABS: Appearance Urine Cloudy (Clear); Bacteria Urine Automated Negative (Negative); Bilirubin Urine Negative (Negative); Blood Urine Negative (Negative); Color Urine Dark Yellow; Epithelial Cell Urine Auto 20-30 /lpf (0-5); Glucose Urine UA Negative (Negative); Ketones Urine Trace (Negative); Leukocyte Esterase Urine 1+ (Negative); Nitrite Urine Negative (Negative); Protein Urine 2+ (Negative); RBC Urine Automated 0-4 /hpf (0-4); Specific Gravity Urine 1.022 (1.000-1.030); Urobilinogen Urine Negative (Negative)
[2019-10-19] MEDS ORDERED: HEPARIN SODIUM/DEXTROSE 25,000 UNITS/500 ML BAG IV SCH (05:15)
[2019-10-19] MEDS ORDERED: HEPARIN SOD (PORCINE) 1000 UNIT/ML 10 ML VIAL ONE (05:15)
[2019-10-19 05:17] LABS: INR 2.2 (0.9-1.1); Partial Thromboplastin Ratio 1.8; Prothrombin Time 22.2 Seconds (9.0-12.0)
[2019-10-19 05:30] LABS: Partial Thromboplastin Time 51.1 Seconds (21.0-31.0)
[2019-10-19] MEDS ORDERED: SODIUM BICARB 8.4% INJ 50 MEQ/50 ML SYR IV STA (05:52)
[2019-10-19 06:22] LABS: Procalcitonin 5.61 ng/ml (0-0.5)
--- NOTE | 2019-10-19 06:32 | History & Physical Report ---
Date of Service October 19, 2019 Assessment & Plan (1) Encephalopathy: Severe sepsis SIRS plus ARF on CKD secondary to complicated UTI Rule out obstructive uropathy, history kidney stones as per records Rule out COVID-19 given risk factors ? Uremia Rule out hepatic encephalopathy ? New onset cirrhosis given coagulopathy (Outpatient abdominal ultrasound from August 2018 showed hepatomegaly and fatty liver disease) Troponin elevation Secondary to sepsis in the setting of worsening kidney function vs anginal equivalent (hx CAD sp stent) chronic diastolic heart failure (EF 65% TTE 2018), some congestion on CXR aortic stenosis status post TAVR hypertension, stable hyperlipidemia not on statins due to history of rhabdomyolysis DM 2 insulin requiring, well-controlled at home recent outpatient hemoglobin A1c of 19 May 2019 chronic anemia, hemoglobin at baseline PCU Cultures, Cefepime CT abdomen pelvis RE complicated UTI rule out recurrent obstructive uropathy given deterioration of kidney dysfunction Check ammonia level CT head RE encephalopathy in the setting of coagulopathy, antiplatelet Rx Isolation precautions until COVID-19 ruled out. Nephrology consult RE ARF on CKD Follow troponin TTE RE troponin elevation Cardiology consult RE troponin elevation, history CAD (ER provider already in touch with Dr. Ron.) N.p.o. for now until CT results and specialist evaluation in. ISS BG goal [id number], update hemoglobin A1c DVT prophylaxis. Pharmacologic anticoagulation not indicated given coagulopathy, SCDs if INR less than 2 Full code Patient's requesting updates from providers. Ms. Richelle Stallings, contact numbers [phone]. Text document was generated using [employer] voice recognition software. It may contain grammatical or spelling errors. Kindly contact undersigned for clarification of any documentation item in question. History of Present Illness , Eye surgery Chief Complaint: Shortness of breath Primary Care Provider: Xavier Watkins MD History obtained from patient and records. Medical history significant for chronic diastolic heart failure (EF 65% TTE 2018), CAD status post stent, aortic stenosis status post TAVR, hypertension, hyperlipidemia, DM 2 insulin requiring, chronic back pain, CRI (baseline creatinine 3.6), chronic anemia (baseline hemoglobin of 8), history of uric acid stones as per records. Recent confinement September 2017 for decompensated heart failure. Patient sleeping more than usual the last two days after outpatient iron infusion therapy. Not eating as much. Outpatient lab work drawn yesterday. Serum sodium 125, serum creatinine 4.8 (higher than usual baseline of 3.6 from last month). Patient complaining of some shortness of breath without cough or chest pain symptoms. Denies headache. Low-grade fever at home with minimal achy abdominal discomfort. Good bowel movement. No unusual fluid retention as per patient. PCP recommended ER evaluation. At the ER, patient received Lasix for possible CHF. Aspirin given for troponin elevation. 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, lives with Allergies Allergy/AdvReac Type Severity Reaction Status Date / Time Jvpiunc-Mcs-Quy Reductase AdvReac Unknown RHABDOMYOLYSIS Verified 10/19/19 05:47 Inhibitor FROM 06/2009 Home Medications Home Medications Medication Instructions Recorded Confirmed Type Lantus U-100 Insulin 18 unit SUBCUT QAM 03/24/18 10/19/19 History allopurinol 100 mg PO HS 03/24/18 10/19/19 History amlodipine 5 mg PO QAM 03/24/18 10/19/19 History clonidine HCl 0.2 mg PO TID 03/24/18 10/19/19 History clopidogrel 75 mg PO QAM 03/24/18 10/19/19 History hydralazine 100 mg PO TID 03/24/18 10/19/19 History isosorbide mononitrate 60 mg PO QAM 03/24/18 10/19/19 History metoprolol tartrate 50 mg PO TID 03/24/18 10/19/19 History nitroglycerin [Nitrostat] 0.4 mg SUBLINGUAL UD PRN 03/24/18 10/19/19 History oxycodone 10 mg PO TID 03/24/18 10/19/19 History furosemide 20 mg PO DAILY 10/19/19 10/19/19 History lubiprostone [Amitiza] 8 mcg PO BID 10/19/19 10/19/19 History terazosin 5 mg PO HS 10/19/19 10/19/19 History Past Med/Surg History Medical History BPH (benign prostatic hyperplasia) Bronchitis HX-INHALER VERY OCC Cardiac murmur Chronic kidney disease STAGE 3-F/U DR HANSON Congestive heart failure Diabetes mellitus, type 2 GERD (gastroesophageal reflux disease) Hyperlipidemia Hypertension Kidney stones On anticoagulant therapy SINCE 02/2017 Osteoarthritis Surgical History History of cardiac cath X 2 02/28/2017--2 stents History of colonoscopy History of cystoscopy WITH STENT PLACEMENT History of heart artery stent x2 02/2017 History of heart valve replacement AVR 04/2017 [facility]-F/U DR RON Q3-6 MONTHS Family History Mother Family history of irritable bowel syndrome Other No family history of adverse response to anesthesia Social History Preferred Language: Tuvaluan Communication Ability: Effective 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 Hop 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 Required: No Beliefs That Will Affect Care: None Current Living Situation: Spouse Feels Safe at Home: Yes Smoking Status: Never smoker Second Hand Exposure: No ; Hx Alcohol Use: Yes Alcohol type: beer, wine and other Hx Substance Use: No Review of Systems Review of Systems: As per HPI, all 10 systems reviewed, all other ROS negative Physical Exam Physical Exam: GENERAL: Episodic lethargy, obese, wane, no respiratory distress SKIN: Pallor , warm HEENT: Alopecia, pale palpebral conjunctivae, chronic ptosis left, dry buccal mucosa, nasal cannula in place NECK : Supple, no tenderness CHEST : Decreased breath sounds , no tenderness HEART : RRR, systolic murmur ABDOMEN: Some distention, nontender EXTREMITIES : Minimal LE swelling, no LE tenderness, no other conspicuous deformities noted NEUROLOGIC : Coherent, episodic lethargy, chronic ptosis, left; mild hearing impairment, no other gross focality Results & Data Results & Data ([facility]) Vital Signs (Past 12 Hours) Vital Signs Temp Pulse Pulse Resp BP BP Pulse Ox 10/19/19 06:11 96 H 18 130/68 97 10/19/19 05:27 99 H 22 132/66 98 10/19/19 04:47 95 10/19/19 04:24 36.8 C 107 H 23 135/64 92 Laboratory Results Laboratory Results WBC 15.90 K/uL (4.8-10.8) H 10/19/19 03:50 RBC 2.54 M/uL (4.7-6.1) L 10/19/19 03:50 Hgb 8.6 g/dL (14.0-18.0) L 10/19/19 03:50 Hct 24.9 % (42-52) L 10/19/19 03:50 MCV 98.0 fL (80-100) 10/19/19 03:50 MCH 33.9 pg (25-34) 10/19/19 03:50 MCHC 34.5 g/dL (32-36) 10/19/19 03:50 RDW Std Deviation 50.0 fL (36.4-46.3) H 10/19/19 03:50 RDW Coeff of Mindi 13.9 % (11.5-14.5) 10/19/19 03:50 Plt Count 302 K/uL (130-400) 10/19/19 03:50 MPV 10.9 fL (7.4-10.4) H 10/19/19 03:50 Immature Gran % (Auto) 0.9 % 10/19/19 03:50 Neut % (Auto) 87.3 % 10/19/19 03:50 Lymph % (Auto) 6.5 % 10/19/19 03:50 [place] % (Auto) 5.1 % 10/19/19 03:50 Eos % (Auto) 0.1 % 10/19/19 03:50 Baso % (Auto) 0.1 % 10/19/19 03:50 Immature Gran # (Auto) 0.15 K/uL (0.00-0.02) H 10/19/19 03:50 Neut # (Auto) 13.88 K/uL (1.4-6.5) H 10/19/19 03:50 Lymph # (Auto) 1.03 K/uL (1.2-3.4) L 10/19/19 03:50 [place] # (Auto) 0.81 K/uL (0.11-0.59) H 10/19/19 03:50 Eos # (Auto) 0.01 K/uL (0-0.5) 10/19/19 03:50 Baso # (Auto) 0.02 K/uL (0-0.2) 10/19/19 03:50 Hypersegmented Neuts 1+ 10/19/19 03:50 Polychromasia 1+ 10/19/19 03:50 Pappenheimer Bodies 1+ 10/19/19 03:50 PT 22.2 Seconds (9.0-12.0) H 10/19/19 03:50 INR 2.2 (0.9-1.1) H 10/19/19 03:50 APTT 51.1 Seconds (21.0-31.0) H* 10/19/19 03:50 PTT Ratio 1.8 10/19/19 03:50 Sodium 127 mmol/L (136-145) L 10/19/19 03:50 Potassium 5.1 mmol/L (3.5-5.1) 10/19/19 03:50 Chloride 103 mmol/L (98-107) 10/19/19 03:50 Carbon Dioxide 10 mmol/L (21-32) L 10/19/19 03:50 Anion Gap 14.0 (3-11) H 10/19/19 03:50 BUN 95 mg/dl (7-18) H 10/19/19 03:50 Creatinine 4.43 mg/dl (0.6-1.4) H 10/19/19 03:50 Est Cr Clr Drug Dosing 14.7 ml/min 10/19/19 03:50 Est GFR ( Amer) 14.1 10/19/19 03:50 Est GFR (Non-Af Amer) 12.1 10/19/19 03:50 BUN/Creatinine Ratio 21.4 (10-20) H 10/19/19 03:50 Glucose 116 mg/dl (70-99) H 10/19/19 03:50 Osmolality 303 mOsm/kg (280-300) H 10/19/19 03:50 Lactate 1.0 mmol/L (0.4-2.0) 10/19/19 04:45 Calcium 8.2 mg/dl (8.5-10.1) L 10/19/19 03:50 Magnesium 2.7 mg/dl (1.8-2.4) H 10/19/19 03:50 Total Bilirubin 1.2 mg/dl (0.2-1) H 10/19/19 03:50 AST 96 U/L (15-37) H 10/19/19 03:50 ALT 49 U/L (12-78) 10/19/19 03:50 Alkaline Phosphatase 386 U/L (45-117) H 10/19/19 03:50 Troponin I 10.300 ng/ml (0-0.045) H* 10/19/19 03:50 Troponin I Cancelled 10/19/19 03:50 NT-Pro-B Natriuret Pep 66352 pg/ml (0-900) H 10/19/19 03:50 Total Protein 7.0 gm/dl (6.4-8.2) 10/19/19 03:50 Albumin 2.0 gm/dl (3.4-5.0) L 10/19/19 03:50 Globulin 5.0 gm/dl (2.5-4.0) H 10/19/19 03:50 Albumin/Globulin Ratio 0.4 (0.9-2) L 10/19/19 03:50 Procalcitonin 5.61 ng/ml (0-0.5) H 10/19/19 03:50 Urine Color Dark Yellow 10/19/19 05:00 Urine Appearance Cloudy (Clear) A 10/19/19 05:00 Urine pH 5.0 (4.5-7.5) 10/19/19 05:00 Ur Specific [place] 1.022 (1.000-1.030) 10/19/19 05:00 Urine Protein 2+ (Negative) H 10/19/19 05:00 Urine Glucose (UA) Negative (Negative) 10/19/19 05:00 Urine Ketones Trace (Negative) H 10/19/19 05:00 Urine Blood Negative (Negative) 10/19/19 05:00 Urine Nitrite Negative (Negative) 10/19/19 05:00 Urine Bilirubin Negative (Negative) 10/19/19 05:00 Urine Urobilinogen Negative (Negative) 10/19/19 05:00 Ur Leukocyte Esterase 1+ (Negative) H 10/19/19 05:00 Urine WBC (Auto) 10-30 /hpf (0-5) H 10/19/19 05:00 Urine RBC (Auto) 0-4 /hpf (0-4) 10/19/19 05:00 U Hyaline Cast (Auto) 1-5 /lpf (0-5) 10/19/19 05:00 U Epithel Cells (Auto) 20-30 /lpf (0-5) H 10/19/19 05:00 Urine Bacteria (Auto) Negative (Negative) 10/19/19 05:00 Granular Casts 1-5 /lpf (0) H 10/19/19 05:00 Urine Yeast Not Reportable 10/19/19 05:00 Diagnostic Findings Chest x-ray as per my interpretation atelectasis, mild congestion, cardiomegaly EKG as per my interpretation : Rate 105, sinus tachycardia, normal axis, inferior infarct, T wave inversion, inferior leads
[2019-10-19 06:49] LABS: Lyme Ab IgG w/WB Rflx Negative (Negative)
[2019-10-19 06:51] LABS: Thyroid Stimulating Hormone 0.749 uIu/ml (0.300-4.500)
[2019-10-19] MEDS ORDERED: CEFEPIME CONSULT ACTIVE PRN (06:51)
[2019-10-19] MEDS ORDERED: CEFEPIME 2,000 MG/20 ML VIAL IV STA (06:51)
[2019-10-19 06:53] LABS: Lyme Ab IgM w/WB Rflx Equivocal (Negative)
[2019-10-19 06:53] LABS: Influenza A virus by PCR Neg for Influ A (Neg); Influenza B virus by PCR Neg for Influ B (Neg)
--- NOTE | 2019-10-19 06:57 | XRay Report ---
XR chest 1V portable CLINICAL HISTORY: 74 years-old Male presenting with Dyspnea. TECHNIQUE: Portable upright AP view of the chest was obtained. COMPARISON: 09/16/2017. FINDINGS: Atherosclerosis of the aortic arch. Cardiac silhouette enlarged. Stented prosthetic aortic valve. Mil d pulmonary vascular prominence less significant than on prior exam. No significant congestive change . Vague linear and hazy left basilar opacity. Trace right and small left pleural effusions. No pneumo thorax. Posttraumatic deformity of the left clavicle as on prior exam. Osteopenia may be present. Upp er abdomen normal. IMPRESSION: 1. Vague left basilar infiltrate suspected. While this may represent atelectasis related to the smal l left pleural effusion, infection cannot excluded. 2. Cardiomegaly with mild if any volume overload. 3. Trace right pleural effusion. ACT 112: Negative or not required by law. Electronically signed by: Yayo Rodney M.D. 10/19/2019 6:56 AM
[2019-10-19 07:07] LABS: Estimated Average Glucose 151 mg/dl; Hemoglobin A1C 6.9 % (4.5-5.6)
[2019-10-19] MEDS ORDERED: GLUCAGON FOR INJ 1 MG VIAL SQ PRN (07:43)
[2019-10-19] MEDS ORDERED: OXYCODONE HCL IR 5 MG TAB (IMMEDIATE RELEASE) PO PRN (07:43)
[2019-10-19] MEDS ORDERED: NITROGLYCERIN SL 0.4 MG/TAB TAB SL PRN ×2 (07:43)
[2019-10-19] MEDS ORDERED: CARBOHYDRATES FOR HYPOGLYCEMIA PO PRN (07:43)
[2019-10-19] MEDS ORDERED: HYDROmorphone INJ 0.5 MG/0.5 ML SYR IV PRN (07:43)
[2019-10-19] MEDS ORDERED: GLUCOSE 40% GEL 15 GM TUBE PO PRN (07:43)
[2019-10-19] MEDS ORDERED: ACETAMINOPHEN 325 MG TAB PO PRN (07:43)
[2019-10-19] MEDS ORDERED: GLUCOSE 10 TABS/TUBE PO PRN (07:43)
[2019-10-19] MEDS ORDERED: cloNIDine HCL 0.1 MG TAB PO SCH (08:00)
[2019-10-19] MEDS ORDERED: CEFEPIME 2,000 MG/20 ML VIAL IV ONE (08:15)
--- NOTE | 2019-10-19 08:39 | Electrocardiogram Report ---
Test Reason : Blood Pressure : / mmHG Vent. Rate : 106 BPM Atrial Rate : 106 BPM P-R Int : 176 ms QRS Dur : 134 ms QT Int : 348 ms P-R-T Axes : 012 020 -44 degrees QTc Int : 462 ms Sinus tachycardia Incomplete left bundle block Possible Old Inferior infarct Abnormal ECG When compared with ECG of 17-SEP-2017 07:18, Vent. rate has increased BY 42 BPM Borderline Criteria for Inferior infarct is now Present Otherwise no significant change Confirmed by Frank Whatley ([id number]) on 10/19/2019 8:38:54 AM Referred By: REFERRED SELF Confirmed By:Frank Whatley
[2019-10-19 09:26] LABS: Base Excess ABG -10.1 mEq/L (-9-1.8); HCO3 ABG 13 mmol/L (19-24); PCO2 ABG 22 mmHg (35-46); PO2 ABG 90 mmHg (80-95)
[2019-10-19 09:27] LABS: Allen Test Pos (Pos)
[2019-10-19] MEDS ORDERED: PERFLUTREN LIPID MICROSPHERE (DEFINITY) IV ONE (10:03)
[2019-10-19] MEDS: INSULIN ASPART 100 UNITS/ML 3 ML PEN SC SCH ×4 (10:10→20:14)
[2019-10-19] MEDS: METOPROLOL TARTRATE 50 MG TAB PO SCH ×3 (10:11→20:12)
[2019-10-19] MEDS: CLOPIDOGREL BISULFATE 75 MG TAB PO SCH (10:11)
[2019-10-19] MEDS: LUBIPROSTONE 8 MCG CAP PO SCH ×2 (10:11→20:12)
[2019-10-19] MEDS: ISOSORBIDE MONO EXTENDED REL 60 MG TABCR PO SCH (10:11)
[2019-10-19] MEDS: ASPIRIN 81 MG ECTAB PO SCH (10:11)
[2019-10-19] MEDS: AMLODIPINE BESYLATE 5 MG TAB PO SCH (10:11)
[2019-10-19] MEDS: HydrALAZINE TAB 50 MG TAB PO SCH (10:12)
--- NOTE | 2019-10-19 11:00 | CT Scan Report ---
CT head/brain wo con CLINICAL HISTORY: lethargy FEVER COMPARISON STUDY: No previous studies for comparison. TECHNIQUE: Axial CT of the brain is performed from the vertex to the skull base. IV contrast was not administered for this examination. A dose lowering technique was utilized adhering to the principles of ALARA. CT DOSE: FINDINGS: There is a right frontal hypodensity, with associated areas of cortical calcification/mineralization. There is mild mass effect. The findings are most consistent with a subacute infarct with laminar nec rosis. There is no midline shift. No calvarial fractures are visualized. There are patchy white matter hypodensities likely on a small vessel basis. There is no evidence of pathologic ventricular dilatation. There is no evidence of acute sinusitis IMPRESSION: CT findings indicative of a subacute right frontal infarct with laminar necrosis and umu ical mineralization. As it is somewhat unusual to see this degree of cortical mineralization in a sub acute infarct, a one-week follow-up CT scan might be considered. ACT 112: Negative or not required by law. Electronically signed by: Stefan Machuca M.D. 10/19/2019 10:59 AM
--- NOTE | 2019-10-19 11:11 | CT Scan Report ---
CT OF THE ABDOMEN AND PELVIS WITHOUT CONTRAST CLINICAL HISTORY: Abdominal discomfort. COMPARISON STUDY: No previous studies for comparison. TECHNIQUE: Axial images of the abdomen and pelvis were obtained without IV contrast. Images were revi ewed in the axial, sagittal, and coronal planes. Automated exposure control was utilized for the kristen dy. A dose lowering technique was utilized adhering to the principles of ALARA. FINDINGS: Imaged portions of the lower chest demonstrate moderate cardiomegaly with prosthetic cardia c valve. Decreased attenuation of the cardiac blood pool is noted. A small left pleural effusion is n oted with extensive left lower lobe airspace opacity with volume loss. No pneumatosis, free air or po rtal venous gas is present. Evaluation of the abdomen and pelvis is suboptimal on this unenhanced exa m. Note is made of a 9.2 x 4.8 cm well demarcated hypoechoic density within the superior aspect of th e spleen. A smaller 3.1 cm focus within the anterior aspect of the spleen is noted. There are gallsto srinivas within the gallbladder. There is minimal adjacent infiltration. However, the gallbladder is not d istended. Unenhanced images of the liver, spleen and pancreas are unremarkable. There is no hydroneph rosis. Moderate bilateral renal cortical thinning is noted. An 8 mm hypodense lesion within the midpo le of the left kidney is suboptimally assessed on this unenhanced exam but favors a hyperdense cyst. No abdominal or pelvic lymphadenopathy is present. Caliber of small and large bowel are normal. Colon ic diverticulosis is noted without evidence for acute diverticulitis. There are no suspicious osseous lesions. IMPRESSION: 1. 9.2 x 4.8 cm well defined hypodensity within the superior aspect of the spleen consistent with a l arge splenic infarct. Additional smaller splenic infarct. These are age-indeterminate but likely acut e to subacute and raise the possibility of an embolic event. This finding will be called/faxed to the ordering provider at time of dictation. 2. Cholelithiasis. Minimal pericholecystic infiltration. These findings do not strongly suggest acute cholecystitis although a right upper quadrant ultrasound could be obtained. 3. Small left pleural effusion with left lower lobe airspace opacity with extensive volume loss which favors subtotal atelectasis. 4. Decreased attenuation of the cardiac blood pool which may reflect anemia. ACT 112: Negative or not required by law. Electronically signed by: Aamir Britton M.D. 10/19/2019 11:10 AM
--- NOTE | 2019-10-19 11:45 | Consultation Report ---
DATE OF CONSULTATION: 10/19/2019 NEPHROLOGY CONSULTATION NOTE REASON FOR CONSULT: CKD stage V with uremic symptoms, now likely needing dialysis. HISTORY OF PRESENT ILLNESS: The patient is a 74-year-old male who I had seen in my nephrology clinic. He presented to the hospital earlier today in the Emergency Department because of significant weakness, poor appetite and increasing shortness of breath. He was noted to have fever by the EMS of 101.5 degree Fahrenheit. He had iron infusion 2 days ago. Blood work done in the Emergency Department was significant for worsening renal failure, which is not necessarily new. Creatinine this morning is 4.43, which is up quite a bit from 2.42 a month ago. His white count was also elevated at the time of Emergency at 15.90. He also has non-ST elevation ID with rising troponin and the most recent level was 18.1. Cardiology evaluation is pending at this time. He had a routine blood work done a few days ago, for which I did discuss with the patient's yesterday. The plan was to put a dialysis catheter and to start dialysis today. At this time, patient is in ICU as an overflow patient. He does appear weak. PAST MEDICAL AND SURGICAL HISTORY: History of kidney stone, chronic diastolic congestive heart failure, valvular heart disease, status post TAVR, ureteral stent placement, cardiac catheterization with stenting, history of cystoscopy, colonoscopy, longstanding type 2 diabetes, hypertension, hyperlipidemia, BPH, chronic kidney disease stage IV and worsening recently. REVIEW OF SYSTEMS: As detailed in the HPI. The patient is a poor historian. 12 systems reviewed and is otherwise negative. FAMILY HISTORY: Negative for renal disease or dialysis. SOCIAL HISTORY: No alcohol. No smoking. Lives with his in his house. PHYSICAL EXAMINATION: GENERAL: Elderly white male who appears weak and tired. He is awake, alert, oriented x3. HEENT: Mucous membrane is moist. NECK: Supple. No jugular venous distention. CHEST: Bilateral decreased breath sound. CARDIOVASCULAR: Regular rate and rhythm. Soft systolic murmur heard. ABDOMEN: Soft, some distention, nontender. EXTREMITIES: Show very trace edema. NEUROLOGIC: Awake, alert, oriented, coherent but slow speech. VITAL SIGNS: Most recent vital signs include blood pressure of 91/48, temperature 37.2 degrees Celsius, 97% on room air, pulse rate 80. LABORATORY TESTS: From this morning shows a WBC count of 15.9 thousand, hemoglobin 8.6, platelet count 302. Sodium 127, BUN 95, creatinine 4.43. Troponin 18.1. BNP 26,000. CT scan of the head, abdomen and pelvis pending at this time. Chest x-ray shows vague left basilar infiltrate as well as cardiomegaly with mild pulmonary congestion. ASSESSMENT AND PLAN: A 74-year-old male who has progressively worsening chronic kidney disease approaching chronic kidney disease V and was in preparation for starting dialysis, presented to the hospital earlier today with increasing weakness, some shortness of breath. He was found to have fever as well as elevated white count and non-ST elevation myocardial infarction on top of chronic kidney disease stage V. 1. Chronic kidney disease stage V with uremic symptoms: The plan was to start dialysis after the catheter placement. However, at this time with fever of 101.5 degree Fahrenheit as well as elevated white count, we are obligated to wait for the blood culture report and make sure this is negative before we put a tunneled dialysis catheter. There is a risk of bacteremia and bacterial seeding if we put a tunneled catheter at this time; however, this does not mean we cannot put a tunneled catheter in few days. As long as the blood culture is posiitve cannot place Dialysis Catheter. 2. Non-ST elevation myocardial infarction: The patient has very extensive cardiac problem both coronary artery disease with stent as well as transcatheter aortic valve replacement. There is no question he does have non-ST elevation myocardial infarction based on the rise in troponin. I did speak with Dr. Pritchett who is leaning more towards conservative care. Case was discussed in detail with his as well as Dr. Pritchett, and Dr. Seals too about the multisystem complicated patient. [facility]
--- NOTE | 2019-10-19 12:56 | Cardiology Consultation ---
Date of Consultation October 19, 2019 Assessment & Plan (1) Non-ST elevation (NSTEMI) myocardial infarction: Patient presented with acute on subacute decline over several days possible worsening after iron infusion. Patient with elevated troponins consistent with non-ST segment elevation MD car dial infarction although metabolic derangements may be contributing. EKGs without acute ST segment changes Echocardiogram with mild diffuse LV dysfunction and old inferior wall motion abnormalities no new regional abnormalities Prosthetic aortic valve not well visualized but appears freely mobile. Velocities are however higher than past interrogation 2018 Would continue to manage conservatively on dual antiplatelet therapy nitrates beta-pau. Would not consider cardiac catheterization at this time without symptoms or EKG changes, events as below. CT scan head and abdomen suggest embolic phenomena with stroke and splenic infarct of uncertain etiology but appears subacute. Would withhold full IV anticoagulation Blood pressures are relatively low in this patient with chronic elevation agree with reduction in clonidine and holding versus reduce hydralazine No profound heart failure on exam or x-ray although renal function acutely worsening Acute embolic events concerning. Blood cultures ordered. May consider transesophageal echocardiogram in clinical course will keep n.p.o. after midnight tonight (2) Renal failure (ARF), acute on chronic: (3) CAD (coronary artery disease): (4) S/P TAVR (transcatheter aortic valve replacement): (5) Acute CVA (cerebrovascular accident): (6) Splenic infarct: History of Present Illness Reason for Consultation: Elevated troponin Requesting Physician: Dr Seals Attending Physician: Jaja Seals, DO History of Present Illness Patient is an extremely complex 74-year-old male with ongoing history and issues 1. Severe aortic stenosis status post tucker valve TAVR bioprosthetic replacement April 2017 2. Atherosclerotic coronary disease with chronic right coronary occlusion, coronary stenting bifurcation lesion left anterior descending and diagonal 2016 3. Chronic kidney disease stage IV with impending dialysis 4. Chronic anemia secondary to renal disease status post Venofer infusion 10/17/2019 5. Hypertension require multiple drug regimen 6. Hyperlipidemia with past rhabdomyolysis with statin use 7. Type 2 diabetes mellitus. Patient admitted with increasing fatigue and shortness of breath mild confusion. Patient a poor historian unable to add extensively to data derived from chart. History is notable for an pending dialysis and anemia. He underwent Venoferr iron infusion day prior to admission. notes gradual decline over that next 24 hours with increasing fatigue and weakness and shortness of breath ultimately culminating in ER presentation. Patient reportedly with fever prior to transfer Laboratory studies demonstrated acute increase in renal insufficiency, elevated troponin, white cell count. No acute ischemic changes on EKG Patient referred for further evaluation given rising troponins. Currently without complaint denies chest pains or shortness of breath. Not aware of having had a fever. No productive cough. No specific abdominal or back pain. No recent bleeding. Patient on aspirin and clopidogrel chronically per report Clonidine reduced on admission due to hypotension concerns regarding possible sepsis. CT head demonstrates subacute infarct and CT abdomen consistent with large splenic infarct Allergies Allergy/AdvReac Type Severity Reaction Status Date / Time Btdmekm-Ffx-Utf Reductase AdvReac Unknown RHABDOMYOLYSIS Verified 10/19/19 05:47 Inhibitor FROM 06/2009 Home Medications Home Medications Medication Instructions Recorded Confirmed Type Lantus U-100 Insulin 18 unit SUBCUT QAM 03/24/18 10/19/19 History allopurinol 100 mg PO HS 03/24/18 10/19/19 History amlodipine 5 mg PO QAM 03/24/18 10/19/19 History clonidine HCl 0.2 mg PO TID 03/24/18 10/19/19 History clopidogrel 75 mg PO QAM 03/24/18 10/19/19 History hydralazine 100 mg PO TID 03/24/18 10/19/19 History isosorbide mononitrate 60 mg PO QAM 03/24/18 10/19/19 History metoprolol tartrate 50 mg PO TID 03/24/18 10/19/19 History nitroglycerin [Nitrostat] 0.4 mg SUBLINGUAL UD PRN 03/24/18 10/19/19 History oxycodone 10 mg PO TID 03/24/18 10/19/19 History furosemide 20 mg PO DAILY 10/19/19 10/19/19 History lubiprostone [Amitiza] 8 mcg PO BID 10/19/19 10/19/19 History terazosin 5 mg PO HS 10/19/19 10/19/19 History Patient History Medical History BPH (benign prostatic hyperplasia) Bronchitis HX-INHALER VERY OCC Cardiac murmur Chronic kidney disease STAGE 3-F/U DR HANSON Congestive heart failure Diabetes mellitus, type 2 GERD (gastroesophageal reflux disease) Hyperlipidemia Hypertension Kidney stones On anticoagulant therapy SINCE 02/2017 Osteoarthritis Surgical History History of cardiac cath X 2 02/28/2017--2 stents History of colonoscopy History of cystoscopy WITH STENT PLACEMENT History of heart artery stent x2 02/2017 History of heart valve replacement AVR 04/2017 [facility]-F/U DR RON Q3-6 MONTHS Family History Mother Family history of irritable bowel syndrome Other No family history of adverse response to anesthesia Social History Preferred Language: Spanish Communication Ability: Effective Process Tech Required: No Beliefs That Will Affect Care: None Current Living Situation: Spouse Other Information That Helps Us Care for You: No Feels Safe at Home: Yes Safety Concerns: Feels Safe At This Time Smoking Status: Never smoker Do You Dip or Chew Tobacco: No ; Second Hand Exposure: No ; Tobacco Cessation Education Requested by Patient: No Hx Alcohol Use: Yes Alcohol type: beer, wine and other Hx Substance Use: No Review of Systems Review of Systems: All systems reviewed & are unremarkable except as noted in HPI & below Physical Exam Constitutional: + ill appearing; no acute distress Eyes: PERRL, conjunctivae normal, anicteric sclerae ENMT: external ear and nose normal, oropharynx normal Neck: trachea midline, no thyromegaly Respiratory: Auscultation: + diminished lung sounds Cardiovascular: Rate/Rhythm: regular rate and regular rhythm Heart Sounds: normal S1 and + murmur (Grade 2/6 systolic murmur no diastolic) Vessels: no JVD Extremities: no edema Gastrointestinal (Abdomen): Percussion/Palpation: abdomen soft; no guarding and no hepatosplenomegaly Skin: no rashes, warm and dry Neurologic: PERRL, EOMI, accommodation nl, no face palsy, no dysarthria Results & Data ([facility]) Vital Signs (Past 12 Hours) Vital Signs Temp Pulse Pulse Resp BP BP Pulse Ox 10/19/19 11:00 72 19 96 10/19/19 10:53 75 19 102/54 L 96 10/19/19 09:39 81 20 121/60 97 10/19/19 09:26 83 20 106/57 L 96 10/19/19 08:29 37.2 C 80 16 91/48 L 97 10/19/19 08:26 80 17 91/48 L 96 10/19/19 08:00 37.2 C 80 20 115/56 L 95 10/19/19 07:43 10/19/19 06:48 89 22 115/59 L 97 10/19/19 06:11 96 H 18 130/68 97 10/19/19 05:27 99 H 22 132/66 98 10/19/19 04:47 95 10/19/19 04:24 36.8 C 107 H 23 135/64 92 Pulse Ox 10/19/19 11:00 10/19/19 10:53 10/19/19 09:39 10/19/19 09:26 10/19/19 08:29 10/19/19 08:26 10/19/19 08:00 10/19/19 07:43 91 10/19/19 06:48 10/19/19 06:11 10/19/19 05:27 10/19/19 04:47 10/19/19 04:24 (1) Renal failure (ARF), acute on chronic Acute renal failure type: unspecified Chronic kidney disease stage: stage 5, not on chronic dialysis Qualified Code(s): N17.9 - Acute kidney failure, unspecified; N18.5 - Chronic kidney disease, stage 5
--- NOTE | 2019-10-19 14:17 | Hospitalist Progress Note ---
Date of Service October 19, 2019 Assessment & Plan (1) Lower back pain: Severe subacute lower back pain that began 2-3 weeks ago and has been debilitating for this patient. He went from ambulating independently to now mostly bedbound, and is exhausted easily. He states he thinks it is related to spinal stenosis, however, in the setting of possible septic emboli I am concerned for vertebral infection such as osteomyelitis and will proceed with MRI imaging at this time. Currently he is treating his pain with oxycodone which he takes faithfully twice daily. Will cont this now with APAP 1000mg TID scheduled per his home regimen. Will empirically cover him with Vanc and ceftriaxone pending MRI findings. Will also evaluate kidney us for possible renal infarct which may be a cause of worsening renal function seen. (2) Acute CVA (cerebrovascular accident): Seen on CT imaging. Possible embolic stroke, questionable septic source. There was an acute change seen by on 10/16 when he returned from the iron infusion. He may have suffered a stroke at that time. For now he is anticoagulated on coumadin, and is on Plavix per home regimen. There is no evidence of atrial fibrillation on telemetry. MRI brain to evaluate this further. Allow permissive hypertension and hold antihypertensives at this time to ensure adequate cerebral perfusion pressure. Neurology was consulted. Speech for formal swallow study although no gross deficits, PT and OT also consulted. (3) Splenic infarct: again, possible septic embolus. Nontraumatic and asymptomatic. Peripherally discussed the case with surgery who would not offer a surgical option at this time. Empiric antibiotic coverage as above. (4) Non-ST elevation (NSTEMI) myocardial infarction: Echo performed with no acute wall motion abnormality present. EF is 45- 50%. Cardiology consulted in this patient with known CAD. No overt evidence of endocarditis on TTE, however, blood cultures are pending. He remains anticoagulated on coumadin, and is currently taking metoprolol and plavix. Statins are a contraindiation for him with h/o rhabdo in response to taking these. ACEI/ARB are contraindicated in setting of kidney disease. (5) Renal failure (ARF), acute on chronic: Appreciate Nephrology evaluation of this patient, and will defer dialysis in the short term to rule out any infection that may be present first per their recommendation. Renal us as above to rule out infarction. (6) Metabolic acidosis: 2/2 renal failure. Nephrology aware. Recommends against further bicarbonate. (7) Anemia in chronic kidney disease (CKD): stable, recent venofer infusion. monitor closely while in hospital. no indication for transfusion at this time. (8) Diabetes mellitus: Insulin coverage while hospitalized. Currently at goal. (9) S/P TAVR (transcatheter aortic valve replacement): TTE reveals normal prosthetic gradients. (10) Encephalopathy: doesn't appear confused at this time, and doesn't appear to have sepsis or SIRS. He has been hemodynamically stable all morning and is not exhibiting fevers or respiratory distress. Sepsis ruled out and encephalopathy has resolved. (11) DVT prophylaxis: anticoagulated on coumadin Full Code Dispo-cont telemetry monitoring for now. I did contact his and updated her on the situation and my thoughts. All questions were answered to her satisfaction. Jaja Seals DO [facility] Admission and Anticipated Discharge Date Admission Date: October 19, 2019 Subjective 74 yo M presents overnight with shortness of breath and a concerning change in status to his who is providing some of the history by phone. 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 Approximately 2-3 weeks ago he developed acute severe back pain that was debilitating, taking an otherwise ambulatory, functioning and working man and causing him to remain in bed most of the time. reports even the smallest things would exhaust him. He had reported this back pain to his PCP who performed an XR of the L-spine revealing some DJD. He went to get this xray on 10/16, which was the same day he had bloodwork and underwent an iron infusion. states he was absolutely exhausted after all that activity. Furthermore, she noted a change in his "whole manner" and in his speech especially. she states that although he typically has issues with speech from chronic dry mouth, he was different. He wasn't speaking much at all, in fact. He was exhibiting extreme fatigue, and it was when he started moaning in bed around 0300 today in the setting of this new change that she became more concerned and brought him in for evaluation. ROS reveals low appetite, severe fatigue and severe lower back pain. Pt denies any chest pain, SOB, coughing, fevers, chills, respiratory symptoms. He denies any vomiting, changes in urine output, abdominal pain or discomfort. Review of Systems Review of Systems: All systems reviewed & are unremarkable except as noted in Subjective Physical Exam Physical Exam: CONSTITUTIONAL: WNWD, vitals as above, generally well- appearing at rest but in pain when moves only a small amount. EYES: EOMI bilaterally, PERRL, normal conjunctivae, no scleral icterus ENT: external ear and nose normal, oropharynx clear with dry mucous membranes. NECK: trachea midline RESPIRATORY: clear to auscultation bilaterally, no crackles, rales or wheezes, normal respiratory effort CARDIOVASCULAR: regular rate and rhythm, 3/6 HEAVEN heard throughout precordium. No gallops or rubs, no JVD, no peripheral edema CHEST: inspection of chest was normal GASTROINTESTINAL: soft, nontender, nondistended and no guarding MUSCULOSKELETAL: strength 5/5 throughout, head is normocephalic and atraumatic SKIN: warm and dry NEUROLOGIC: patellar DTRs 2+ bilat. PERRL, EOMI, No facial palsy. Some dysarthria which improved when he wet his mouth after taking a sip of water. Touch, pain and proprioception normal. CN 2-12 grossly intact, no sensory deficit, normal cognition, normal speech, no tremor. Gait not assessed secondary to severe back pain. PSYCHIATRIC: alert cooperative and oriented to person, place and time. Results & Data Results & Data ([facility]) Vital Signs (Past 12 Hours) Vital Signs Temp Pulse Pulse Resp BP BP Pulse Ox 10/19/19 11:00 72 19 96 10/19/19 10:53 75 19 102/54 L 96 10/19/19 09:39 81 20 121/60 97 10/19/19 09:26 83 20 106/57 L 96 10/19/19 08:29 37.2 C 80 16 91/48 L 97 10/19/19 08:26 80 17 91/48 L 96 10/19/19 08:00 37.2 C 80 20 115/56 L 95 10/19/19 07:43 10/19/19 06:48 89 22 115/59 L 97 10/19/19 06:11 96 H 18 130/68 97 10/19/19 05:27 99 H 22 132/66 98 10/19/19 04:47 95 10/19/19 04:24 36.8 C 107 H 23 135/64 92 Pulse Ox 10/19/19 11:00 10/19/19 10:53 10/19/19 09:39 10/19/19 09:26 10/19/19 08:29 10/19/19 08:26 10/19/19 08:00 10/19/19 07:43 91 10/19/19 06:48 10/19/19 06:11 10/19/19 05:27 10/19/19 04:47 10/19/19 04:24 Laboratory Results Short CBC 10/19/19 Range/Units 03:50 WBC 15.90 H (4.8-10.8) K/uL Hgb 8.6 L (14.0-18.0) g/dL Hct 24.9 L (42-52) % Plt Count 302 (130-400) K/uL BMP 10/19/19 03:50 Sodium 127 L Potassium 5.1 Chloride 103 Carbon Dioxide 10 L BUN 95 H Creatinine 4.43 H Glucose 116 H Calcium 8.2 L Cardiac Enzymes 10/19/19 10/19/19 10/19/19 Range/Units 03:50 03:50 06:58 Total Creatine Kinase 178 (39-308) U/L Troponin I 10.300 H* Cancelled 18.100 H* (0-0.045) ng/ml Liver Function 10/19/19 Range/Units 03:50 Total Bilirubin 1.2 H (0.2-1) mg/dl AST 96 H (15-37) U/L ALT 49 (12-78) U/L Alkaline Phosphatase 386 H (45-117) U/L Albumin 2.0 L (3.4-5.0) gm/dl Urine 10/19/19 Range/Units 05:00 Urine Color Dark Yellow Urine Appearance Cloudy A (Clear) Urine pH 5.0 (4.5-7.5) Ur Specific Grass Range 1.022 (1.000-1.030) Urine Protein 2+ H (Negative) Urine Glucose (UA) Negative (Negative) Diagnostic Findings CT head/brain wo con FINDINGS: There is a right frontal hypodensity, with associated areas of cortical calcification/mineralization. There is mild mass effect. The findings are most consistent with a subacute infarct with laminar necrosis. There is no midline shift. No calvarial fractures are visualized. There are patchy white matter hypodensities likely on a small vessel basis. There is no evidence of pathologic ventricular dilatation. There is no evidence of acute sinusitis IMPRESSION: CT findings indicative of a subacute right frontal infarct with laminar necrosis and cortical mineralization. As it is somewhat unusual to see t his degree of cortical mineralization in a subacute infarct, a one-week follow- up CT scan might be considered. CT OF THE ABDOMEN AND PELVIS WITHOUT CONTRAST FINDINGS: Imaged portions of the lower chest demonstrate moderate cardiomegaly with prosthetic cardiac valve. Decreased attenuation of the cardiac blood pool is noted. A small left pleural effusion is noted with extensive left lower lobe airspace opacity with volume loss. No pneumatosis, free air or portal venous gas is present. Evaluation of the abdomen and pelvis is suboptimal on this unenhanced exam. Note is made of a 9.2 x 4.8 cm well demarcated hypoechoic density within the superior aspect of the spleen. A smaller 3.1 cm focus within the anterior aspect of the spleen is noted. There are gallstones within the gallbladder. There is minimal adjacent infiltration. However, the gallbladder is not distended. Unenhanced images of the liver, spleen and pancreas are unr emarkable. There is no hydronephrosis. Moderate bilateral renal cortical thinning is noted. An 8 mm hypodense lesion within the midpole of the left kidney is suboptimally assessed on this unenhanced exam but favors a hyperdense cyst. No abdominal or pelvic lymphadenopathy is present. Caliber of small and large bowel are normal. Colonic diverticulosis is noted without evidence for acute diverticulitis. There are no suspicious osseous lesions. IMPRESSION: 1. 9.2 x 4.8 cm well defined hypodensity within the superior aspect of the spleen consistent with a large splenic infarct. Additional smaller splenic infarct. These are age-indeterminate but likely acute to subacute and raise the possibility of an embolic event. This finding will be called/faxed to the ordering provider at time of dictation. 2. Cholelithiasis. Minimal pericholecystic infiltration. These findings do not strongly suggest acute cholecystitis although a right upper quadrant ultrasound could be obtained. 3. Small left pleural effusion with left lower lobe airspace opacity with extensive volume loss which favors subtotal atelectasis. 4. Decreased attenuation of the cardiac blood pool which may reflect anemia. XR chest 1V portable CLINICAL HISTORY: 74 years-old Male presenting with Dyspnea. FINDINGS: Atherosclerosis of the aortic arch. Cardiac silhouette enlarged. Stented prosthetic aortic valve. Mild pulmonary vascular prominence less significant than on prior exam. No significant congestive change. Vague linear and hazy left basilar opacity. Trace right and small left pleural effusions. No pneumothorax. Posttraumatic deformity of the left clavicle as on prior exam. Osteopenia may be present. Upper abdomen normal. IMPRESSION: 1. Vague left basilar infiltrate suspected. While this may represent atelectasis related to the small left pleural effusion, infection cannot excluded. 2. Cardiomegaly with mild if any volume overload. 3. Trace right pleural effusion. Medications Administered Current Inpatient Medications Acetaminophen (Tylenol) 1,000 mg PO Q8H [facility] Stop: 11/18/19 15:14 Allopurinol (Zyloprim) 100 mg PO 1999 [facility] Stop: 11/18/19 19:59 Amlodipine Besylate (Norvasc) 5 mg PO 0800 [facility] Stop: 11/18/19 07:59 Last Admin: 10/19/19 10:11 Dose: 5 mg Documented by: Aspirin (Ecotrin Ectab) 81 mg PO 0800 [facility] Stop: 11/18/19 07:59 Last Admin: 10/19/19 10:11 Dose: 81 mg Documented by: Clonidine HCl (Catapres) 0.1 mg PO 0800,1200,2000 [facility] Stop: 11/18/19 07:59 Last Admin: 10/19/19 10:11 Dose: 0.1 mg Documented by: Clopidogrel Bisulfate (Plavix) 75 mg PO 0800 [facility] Stop: 11/18/19 07:59 Last Admin: 10/19/19 10:11 Dose: 75 mg Documented by: Dextrose (Dextrose 50%) 25 - 50 ml IV UD PRN; Protocol PRN Reason: Hypoglycemia Protocol Stop: 11/18/19 07:42 Glucagon (Glucagen) 1 mg SQ UD PRN; Protocol PRN Reason: Hypoglycemia Protocol Stop: 11/18/19 07:42 Glucose (Dex4 Glucose) 4 - 8 tabs PO UD PRN; Protocol PRN Reason: Hypoglycemia Protocol Stop: 11/18/19 07:42 Glucose (Glucose 40%) 15 - 30 gm PO UD PRN; Protocol PRN Reason: Hypoglycemia Protocol Stop: 11/18/19 07:42 Hydralazine HCl (Apresoline) 100 mg PO 0800,1200,1999 [facility] Stop: 11/18/19 07:59 Last Admin: 10/19/19 10:12 Dose: 100 mg Documented by: Hydromorphone HCl (Dilaudid) 0.25 mg IV Q3H PRN PRN Reason: Pain Stop: 11/02/19 07:42 Promethazine HCl 12.5 mg/ (Sodium Chloride) 50.5 mls @ 202 mls/hr IV Q6H PRN PRN Reason: Nausea And Vomiting Stop: 11/18/19 07:42 Vancomycin HCl 1,750 mg/ (Sodium Chloride) 535 mls @ 200 mls/hr IV NOW ONE Stop: 10/19/19 18:40 Ceftriaxone Sodium 2,000 mg/ (Dextrose) 70 mls @ 140 mls/hr IV Q24H [facility] Stop: 11/30/19 21:59 Insulin Aspart (Novolog Flexpen) 0 units SC ACHS [facility] Stop: 11/18/19 07:42 Last Admin: 10/19/19 11:42 Dose: Not Given Documented by: Isosorbide Mononitrate (Imdur Extended Rel) 60 mg PO 0800 [facility] Stop: 11/18/19 07:59 Last Admin: 10/19/19 10:11 Dose: 60 mg Documented by: Lubiprostone (Amitiza) 8 mcg PO 0800,1999 [facility] Stop: 11/18/19 07:59 Last Admin: 10/19/19 10:11 Dose: 8 mcg Documented by: Metoprolol Tartrate (Lopressor) 50 mg PO 0800,1200,1999 [facility] Stop: 11/18/19 07:59 Last Admin: 10/19/19 13:02 Dose: Not Given Documented by: Miscellaneous (Carbohydrates For Hypoglycemia) 15 - 30 gm PO UD PRN PRN Reason: Hypoglycemia Protocol Stop: 11/18/19 07:42 Miscellaneous Information (Consult) 1 ea N/A UD PRN PRN Reason: Consult Stop: 11/18/19 15:23 Miscellaneous Information (Pharmacy Consult) 1 ea N/A UD PRN PRN Reason: Consult Stop: 11/18/19 15:24 Miscellaneous Information (Pharmacist Discharge Med Rec Consult) 1 ea N/A UD PRN PRN Reason: Consult Stop: 11/18/19 15:22 Nitroglycerin (Nitrostat) 0.4 mg SL UD PRN PRN Reason: Pain Stop: 11/18/19 07:42 Oxycodone HCl (Roxicodone Immediate Rel) 10 mg PO BID [facility] Stop: 11/02/19 20:59 Terazosin HCl (Hytrin) 5 mg PO 2000 [facility] Stop: 11/18/19 19:59 (1) Renal failure (ARF), acute on chronic Acute renal failure type: unspecified Chronic kidney disease stage: stage 5, not on chronic dialysis Qualified Code(s): N17.9 - Acute kidney failure, unspecified; N18.5 - Chronic kidney disease, stage 5
[2019-10-19] MEDS ORDERED: PHARMACIST DISCHARGE MED REC CONSULT PRN (15:23)
[2019-10-19] MEDS ORDERED: VANCOMYCIN CONSULT ACTIVE PRN (15:24)
[2019-10-19] MEDS ORDERED: ROCEPHIN CONSULT PHARMACY PRN (15:25)
--- NOTE | 2019-10-19 15:32 | Pharmacy Report ---
Pharmacy Abx Initial Consult - Date of Service October 19, 2019 - Pharmacy Dosing Scope Date of Consult: 10/19/2019 Consultation requested by: Dr. Seals Pharmacy is consulted to initiate vancomycin and Rocephin IV dosing therapy, order appropriate labs and adjust drug dose/frequency. - Subjective The patient is a 74 year old M admitted on 10/19/19 06:37 with ongoing weakness. - Objective Height: 5 ft 6 in Weight: 84.9 kg Vital Signs (Past 12hrs): Vital Signs Temp Pulse Pulse Resp BP BP Pulse Ox 10/19/19 15:00 83 20 95 10/19/19 14:38 78 18 104/55 L 95 10/19/19 13:38 80 20 125/59 L 95 10/19/19 12:38 74 16 99/52 L 96 10/19/19 11:39 75 24 94/57 L 96 10/19/19 11:00 72 19 96 10/19/19 10:53 75 19 102/54 L 96 10/19/19 09:39 81 20 121/60 97 10/19/19 09:26 83 20 106/57 L 96 10/19/19 08:29 37.2 C 80 16 91/48 L 97 10/19/19 08:26 80 17 91/48 L 96 10/19/19 08:00 37.2 C 80 20 115/56 L 95 10/19/19 07:43 10/19/19 06:48 89 22 115/59 L 97 10/19/19 06:11 96 H 18 130/68 97 10/19/19 05:27 99 H 22 132/66 98 10/19/19 04:47 95 10/19/19 04:24 36.8 C 107 H 23 135/64 92 Pulse Ox 10/19/19 15:00 10/19/19 14:38 10/19/19 13:38 10/19/19 12:38 10/19/19 11:39 10/19/19 11:00 10/19/19 10:53 10/19/19 09:39 10/19/19 09:26 10/19/19 08:29 10/19/19 08:26 10/19/19 08:00 10/19/19 07:43 91 10/19/19 06:48 10/19/19 06:11 10/19/19 05:27 05/07/20 04:47 10/19/19 04:24 Lab Results (24hrs): Laboratory Tests (24 Hours) 10/19/19 10/19/19 10/19/19 03:50 03:50 03:50 WBC Neut # (Auto) Creatinine 4.43 H Est Cr Clr Drug Dosing 14.7 Total Creatine Kinase 178 Procalcitonin 5.61 H 10/19/19 03:50 WBC 15.90 H Neut # (Auto) 13.88 H Creatinine Est Cr Clr Drug Dosing Total Creatine Kinase Procalcitonin Micro Results: 10/19/19 05:00 Urine Culture - Pending Urine,Clean Catch 10/19/19 04:45 Aerobic Blood Culture - Pending Blood Anaerobic Blood Culture - Pending 10/19/19 04:40 Aerobic Blood Culture - Pending Blood Anaerobic Blood Culture - Pending - Risk Factors for Resistance no real risk factors for resistance - Assessment & Plan Assessment 74 year old M admitted with progressing weakness. Physicians are concerned for possible vertebral osteomyelitis with septic emboli. Plan vancomycin/Rocephin for treatment of septic emboli/vertebral osteomyelitis. Vancomycin IV * Estimated PK Parameters: Vd 0.7 L/kg --> did not calculate additional pharmacokinetic parameters due to kidney injury. * Loading dose: 1750 mg (20 mg/kg) - physician keya'ed 20 mg/kg dose * Goal trough level for bone infection : ~20 mcg/mL * Random level ordered for 10/20/2019 * A less than traditional dose and extended dosing interval has/have been selected due to likelihood of drug accumulation in patient with h/o CKD. Pharmacy will continue to follow and will adjust dose/frequency as necessary. Thank you.
[2019-10-19] MEDS ORDERED: VANCOMYCIN HCL 1,750 MG in SODIUM CHLORIDE 0.9% 500 ML IV ONE (16:00)
--- NOTE | 2019-10-19 17:43 | Magnetic Resonance Report ---
LUMBAR SPINE MRI HISTORY: severe lower back pain TECHNIQUE: Multiplanar multisequence MRI of the lumbar spine was performed without the use of contras t. COMPARISON: None. FINDINGS: For the purpose of the report the L5-S1 disc space will be located on axial image 27 of 30. No fracture or subluxation. Mild endplate edema at L2-L3 anteriorly is likely due to long-standing de generative change. There is mild disc space narrowing at L2-L3. The remaining disc spaces are preserv ed. The conus terminates at the L1 level. Soft tissue edema seen within the distal bilateral erector spinae muscles in the lumbar region. Best seen on axial image 16 of 30 there is a well-circumscribed 1.7 cm lesion within the right psoas muscle. This contains a fluid fluid level and hypointense rim. T herefore, this favors an old small hematoma. Mild facet degenerative changes throughout the lumbar sp ine. L1-L2: No significant central canal or neural foraminal narrowing. L2-L3: No significant central canal or neural foraminal narrowing. L3-L4: No significant central canal or neural foraminal narrowing. L4-L5: No significant central canal narrowing. Mild left-sided neural foraminal narrowing due to a sm all broad-based posterior disc bulge. L5-S1: No significant central canal or neural foraminal narrowing. IMPRESSION: 1. No fractures of fixation within the lumbar spine. 2. Mild degenerative disc disease at L2-L3 without significant central canal or neural foraminal narr owing. 3. Mild facet degenerative changes within the lumbar spine. 4. Soft tissue edema within the bilateral erector spinae muscles at the lumbar region. This may repre sent muscular strain. 5. A 1.7 cm lesion within the right psoas muscle which contains a fluid fluid level and hypointense r im. Therefore, this favors an old small hematoma. ACT 112: Negative or not required by law. Electronically signed by: Mike Meeks M.D. 10/19/2019 5:42 PM
--- NOTE | 2019-10-19 18:11 | Magnetic Resonance Report ---
Brain MRI WITHOUT CONTRAST HISTORY: right frontal stroke seen on CT head TECHNIQUE: Multiplanar multisequence MRI of the brain was performed without the use of contrast. COMPARISON STUDY: Head CT 10/19/2019. FINDINGS: There are few scattered punctate foci seen within the right frontal lobe, bilateral parieta l lobes, and left occipital lobe consistent with acute embolic-type infarcts. This is most pronounced within the right frontal lobe. Atrophy and mild microvascular ischemic changes are noted. There is n o midline shift. Focal area of edema within the right frontal lobe at the site of infarct. There is a ssociated increased T1 signal within the cortex of the right frontal lobe at the site of infarct. Thi s also demonstrates susceptibility artifact. Therefore, this could represent calcification as seen on the prior CT, cortical laminar necrosis in the setting of a subacute infarct or possibly associated petechial hemorrhage. The major vascular flow-voids at the skull base are well-maintained. Paranasal sinuses and mastoid air cells are clear. IMPRESSION: 1. Multiple scattered punctate acute infarcts as described above most pronounced within the right fro ntal lobe. 2. Focal area of edema seen within the right frontal lobe infarct with associated increased T1 signal . This could correspond to the associated calcifications in the setting of a subacute to chronic infa rct or possibly petechial hemorrhage. Follow-up head CT in 12 to 24 hours recommended to ensure stabi lity/resolution. ACT 112: Negative or not required by law. Electronically signed by: Mike Meeks M.D. 10/19/2019 6:09 PM
[2019-10-19] MEDS: ACETAMINOPHEN 500 MG TAB PO SCH (18:23)
--- NOTE | 2019-10-19 18:25 | Communication Note ---
Date of Service: October 19, 2019 Dr. Seals has asked me to review the case of Mr. Stallings who is a 74-year-old man with a presumptive ischemic cardiomyopathy, is post bioprosthetic valve replacement, has stage 4 renal disease predialysis, anemia requiring iron infusion recently and has a history of back pain nonradiating type dating back several weeks. He presented with malaise fatigue confusion perhaps low-grade fever and was tested for COVID-19 and to be negative but in the process of evaluation was found to have leukocytosis, worsening renal failure, CT scan showing a subacute right frontal infarct, CT of the abdomen pelvis showing a splenic infarction and an echocardiographic study that showed no evidence for valvular vegetations but it shows a hypokinetic segment that had been noted previously Working diagnosis here is multiple emboli possibly septic involving the right frontal lobe with transient now somewhat clearing confusion present (I refer to Dr. Pritchett's consult however in which he describes the man as a poor historian and somewhat confused) but without any focal motor signs. Further evaluation might show evidence for neglect and evaluation deficits because of the right hemispheric localization but this is an academic point. Blood cultures are pending Because of the pre-existing back pain I did suggest performance of a lumbar MRI without contrast just to see if there was any evidence to suggest an osteomyelitic focus and certainly could have been the source of infection. The report does not suggest any evidence for discitis, only shows some edema and lumbar paraspinal muscles presumptively due to chronic spasm related pain and an old or recent subacute hematoma in the psoas muscle Certainly the psoas hematoma and/or the splenic infarction could have been a source of referred back pain. Importance of the study however is that he does not show evidence for osteomyelitis which would raise the possibility of staphylococcal infection That having been said I think a diagnosis here is probably multiple embolic infarctions and think endocarditis is high on the list of the differential diagnosis. Cardiology has recommended no further anticoagulation at this time beyond the baseline anticoagulation program he had wanted him to the hospital and I certainly agree. I suspect he will require transesophageal echocardiography to evaluate the aortic arch and to get a better view of the individual cardiac valves specifically regarding potential vegetations I would also strongly suggest infectious disease involved and make recommendati ons regarding empiric antibiotic treatment Neurology really does not need to become involved directly at this time I do not think we are going to add anything what is already evident MRI of the brain was just reported to show some petechial hemorrhages versus calcifications in the area of infarction. This would be typical for an evolving infarction but in a man on full anticoagulation with warfarin and antiplatelet drugs, the risk for hemorrhagic transformation would be higher and unless cardiology feels there is a compelling reason to have this man on Coumadin I would recommend reversing it, continuing the antiplatelet drugs, and doing sequential CT scans of the next 2 to 3 days to be sure the infarction does not convert to hemorrhagic 1. We will be happy to provide direct evaluation during course of patient's hospitalization if the attendings do feel it is necessary at some point We will gladly return if the patient begins to have focal seizures originating from the area of right frontal ischemic injury obviously Brian Samuels MD
--- NOTE | 2019-10-19 18:33 | Ultrasound Report ---
RENAL ULTRASOUND HISTORY: renal us, rule out infarction COMPARISON: Abdomen and pelvis CT 10/19/2019. FINDINGS: Right kidney: 10.3 cm. No hydronephrosis. Moderate cortical thinning and increased cortical echogenic ity. There is a 1.1 cm lower pole cyst. Small cystic focus adjacent to the lower pole may represent a small amount of perinephric fluid as seen on the prior CT. Left kidney: 10.8 cm. No hydronephrosis. Moderate cortical thinning and increased cortical echogenici ty. Small amount of perinephric fluid/edema, unchanged. Bladder: No bladder wall thickening. IMPRESSION: 1. No hydronephrosis. 2. Small right renal cyst. 3. Moderate cortical renal thinning with increased cortical echogenicity suggestive of medical renal disease. ACT 112: Negative or not required by law. Electronically signed by: Mike Meeks M.D. 10/19/2019 6:31 PM
--- NOTE | 2019-10-19 18:38 | Ultrasound Report ---
BILATERAL CAROTID DOPPLER STUDY HISTORY: right frontal stroke, assess vasculature COMPARISON: None. TECHNIQUE: Real-time, grayscale, and color Doppler sonography of the carotid arteries was performed. Imaging reviewed in the transverse and longitudinal planes. All measurements were calculated based on NASCET criteria. FINDINGS: Antegrade flow is seen in the bilateral vertebral arteries. The brachial pressures were not obtained. Mild to moderate calcified plaque within the bilateral carotid bifurcations, left greater than right. The peak systolic velocity within the right ICA is 105 cm/s. The right systolic ratio is 1.47. The peak systolic velocity within the left ICA is 150 cm/s distally. The left systolic ratio is 1.9. IMPRESSION: 1. Mild to moderate calcified plaque within the bilateral carotid bifurcations, left greater than rig ht. 2. Approximately 50-69% stenosis within the distal left internal carotid artery. 3. No hemodynamically significant stenosis within the right carotid arteries. ACT 112: Negative or not required by law. Electronically signed by: Mike Meeks M.D. 10/19/2019 6:37 PM
[2019-10-19] MEDS ORDERED: PHYTONADIONE 5 MG in SODIUM CHLORIDE 0.9% 50 ML IV ONE (19:15)
[2019-10-19 20:03] LABS: INR 2.5 (0.9-1.1); Partial Thromboplastin Ratio 1.9; Prothrombin Time 24.7 Seconds (9.0-12.0)
[2019-10-19] MEDS: OXYCODONE HCL IR 5 MG TAB (IMMEDIATE RELEASE) PO SCH (20:11)
[2019-10-19] MEDS: allopurinoL 100 MG TAB PO SCH (20:13)
[2019-10-19] MEDS ORDERED: cefTRIAXone SODIUM 2,000 MG in DEXTROSE 5% 50 ML IV SCH (22:00)
[2019-10-19 22:02] LABS: Partial Thromboplastin Time 54.2 Seconds (21.0-31.0)
[2019-10-20 06:23] LABS: Hemoglobin 7.9 g/dL (14.0-18.0); Mean Corpuscular Hemoglobin 33.6 pg (25-34); Mean Corpuscular Hgb Conc 34.3 g/dL (32-36); Mean Corpuscular Volume 97.9 fL (80-100); Mean Platelet Volume 10.2 fL (7.4-10.4); Platelet Count 268 K/uL (130-400); RDW Coefficient of Variation 13.9 % (11.5-14.5); RDW Standard Deviation 49.6 fL (36.4-46.3); Red Blood Count 2.35 M/uL (4.7-6.1); White Blood Count 17.22 K/uL (4.8-10.8)
[2019-10-20 06:36] LABS: INR 1.2 (0.9-1.1); Prothrombin Time 12.5 Seconds (9.0-12.0)
[2019-10-20 06:41] LABS: Basophils # (auto) 0.02 K/uL (0-0.2); Basophils % (auto) 0.1 %; Eosinophils # (auto) 0.06 K/uL (0-0.5); Eosinophils % (auto) 0.3 %; Immature Granulocytes # (auto) 0.25 K/uL (0.00-0.02); Immature Granulocytes % (auto) 1.5 %; Lymphocytes # (auto) 1.94 K/uL (1.2-3.4); Lymphocytes % (auto) 11.3 %; Monocytes # (auto) 0.89 K/uL (0.11-0.59); Monocytes % (auto) 5.2 %; Neutrophils # (auto) 14.06 K/uL (1.4-6.5); Neutrophils % (auto) 81.6 %; RBC Morphology Unremarkable
[2019-10-20 06:50] LABS: BUN Creatinine Ratio 22.6 (10-20); Calcium 8.5 mg/dl (8.5-10.1); Creatinine Clr Calc Pharmacy 14.9 ml/min; Est GFR (African American) 14.3; Est GFR (Non-African American) 12.3; Potassium 4.6 mmol/L (3.5-5.1)
[2019-10-20 06:57] LABS: Albumin Globulin Ratio 0.4 (0.9-2); Bilirubin,Total 1.1 mg/dl (0.2-1); C Reactive Protein 21.8 mg/dl (0-0.29); Globulin 4.7 gm/dl (2.5-4.0); Total Protein 6.7 gm/dl (6.4-8.2)
[2019-10-20] MEDS ORDERED: CEFEPIME 1,000 MG in SYRINGE 0 ML IV SCH (08:00)
[2019-10-20] MEDS: ACETAMINOPHEN 500 MG TAB PO SCH ×3 (08:35→17:39)
[2019-10-20] MEDS: OXYCODONE HCL IR 5 MG TAB (IMMEDIATE RELEASE) PO SCH ×2 (08:35→20:56)
[2019-10-20] MEDS: METOPROLOL TARTRATE 50 MG TAB PO SCH ×4 (08:36→20:53)
[2019-10-20] MEDS: ASPIRIN 81 MG ECTAB PO SCH (08:36)
[2019-10-20] MEDS: LUBIPROSTONE 8 MCG CAP PO SCH ×2 (08:36→20:52)
[2019-10-20] MEDS: ISOSORBIDE MONO EXTENDED REL 60 MG TABCR PO SCH (08:36)
[2019-10-20] MEDS: CLOPIDOGREL BISULFATE 75 MG TAB PO SCH (08:37)
[2019-10-20] MEDS: INSULIN ASPART 100 UNITS/ML 3 ML PEN SC SCH ×4 (08:44→20:54)
[2019-10-20] MEDS ORDERED: VANCOMYCIN HCL 1,000 MG in SODIUM CHLORIDE 0.9% 250 ML IV SCH (09:00)
[2019-10-20] MEDS ORDERED: VANCOMYCIN HCL 1,250 MG in SODIUM CHLORIDE 0.9% 250 ML IV SCH (09:00)
[2019-10-20] MEDS ORDERED: STAT IV STA (10:19)
--- NOTE | 2019-10-20 10:37 | Progress Notes ---
DATE: 10/20/2019 NEPHROLOGY PROGRESS NOTE SUBJECTIVE: Overnight, the patient continues to be weak and tired, declining health. Multiple tests have been done and are detailed in the assessment and plan below. He does not appear to be in any major respiratory distress. OBJECTIVE: VITAL SIGNS: Appear reasonable as of now with blood pressure of 143/63, 94% on room air, temperature 36.6, pulse rate 88. HEENT: Mucous membrane is moist. NECK: Supple. No jugular venous distention. CHEST: Bilateral decreased breath sounds. CARDIOVASCULAR: S1 and S2, regular. Soft systolic murmur heard. ABDOMEN: Soft, nontender. EXTREMITIES: Show no edema as of now. LABORATORY TESTS: Reviewed in detail and include white count is 17,000, hemoglobin is 7.9. Sodium 129, CO2 of 12, BUN 99, creatinine 4.37. Blood culture is positive with Streptococcus species. CT head shows multiple infarcts in the brain. CT abdomen and pelvis shows large splenic infarct, but fairly unremarkable kidneys. Echocardiogram done yesterday shows slight drop in the EF at 45%. No obvious infection source on the echocardiogram, but as per cardiology, that is the most likely source of infection. ASSESSMENT AND PLAN: A 74-year-old male who has progressively worsening chronic kidney disease approaching chronic kidney disease V and was in preparation for starting dialysis who presented to the hospital yesterday with increasing weakness, shortness of breath and was found to have fever as well as elevated white count and non-ST elevation myocardial infarction on top of chronic kidney disease V. Also found to have multiple infarcts in the brain as well as spleen, highly suggestive of thromboembolic infarct as well as bacteremia. Chronic kidney disease stage V with symptoms. He also has a low bicarbonate of 12 as well as BUN approaching 100 as well as anemia of chronic kidney disease. He has reached a stage where he needs chronic maintenance hemodialysis, but at this time with a positive blood culture and likely transcatheter aortic valve replacement as the source of infection, this has really complicated the situation. We cannot put a tunneled dialysis catheter at this time. I would like to postpone dialysis for as long as possible. He also needs to recover and stabilize from all the serious medical problems he has at this time. He does have some evidence of congestive heart failure/fluid overload and I would give him Lasix 40 mg IV b.i.d. that might help raise the bicarbonate a little bit too, but given that bicarbonate is 12, I would give him bicarbonate drip also at 50 mL per hour to correct the acidosis. Case complexity is very high and was discussed with Dr. Pritchett. I also updated his in detail that we do have to hold off on dialysis at least for the next few days. JUDY
[2019-10-20] MEDS: SODIUM BICARBONATE 8.4% 150 MEQ in DEXTROSE 5% 1,000 ML IV SCH (10:43)
[2019-10-20] MEDS: FUROSEMIDE 40 MG in SYRINGE 0 ML IV SCH ×2 (10:44→20:54)
[2019-10-20] MEDS: cefTRIAXone SODIUM 2,000 MG in DEXTROSE 5% 50 ML IV SCH ×2 (10:44→22:25)
--- NOTE | 2019-10-20 11:06 | Hospitalist Progress Note ---
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 JUAN JOSE too high risk and no likely change in outcome with new findings as CT surgery is too high risk. Cont with abx x 6 weeks. 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 This likely resulted from infection. Factor levels sent today and lupus anticoagulant pending. If patient bleeds, may need to discuss starting high dose steroids and consider transfer to a tertiary care facility for Hematology support that is unavailable at this facility. Will need to discuss results with Heme, jon if Factor VIII levels return low. For now, corrected with vitamin K overnight. Will not give any more vitamin K and will trend INR. (4) Embolic stroke: septic emboli. Cont Vanc and Rocephin pending culture results and ID recommendations. Pt was on Plavix previously. No indication for adding additional antiplatelet therapy and anticoagulation therapy is contraindicated as emboli have a higher risk for hemorrhagic conversion. Notably ?petechial hemorrhages were seen on MRI. With no change in mental status will hold off on reimaging at this time. Would definitely reimage if mental status changes occurred, however. (5) Non-ST elevation (NSTEMI) myocardial infarction: Echo performed with no acute wall motion abnormality present. EF is 45- 50%. Cardiology consulted in this patient with known CAD. Cont medical management. Statins are a contraindication for him with h/o rhabdo in response to taking these. ACEI/ARB are contraindicated in setting of kidney disease. (6) Splenic infarct: 2/2 septic emboli in setting of PVE and strep bacteremia. No surgical indications at this time. No abdominal discomfort on exa. (7) Lower back pain: severe acute strain in recent weeks. L-spine MRI reveals ?strain and DJD. PT/OT eval. Cont oxycodone (taken BID chronically) and scheduled Tylenol. (8) Renal failure (ARF), acute on chronic: Appreciate Nephrology evaluation of this patient, who recommends holding off on any dialysis until the blood is clear of infection. Bicarb drip and LAsix started per Nephrology. Monitor daily labs. Cont renal diet. (9) Metabolic acidosis: 2/2 renal failure. Plan as above. (10) Anemia in chronic kidney disease (CKD): stable, recent venofer infusion. monitor closely while in hospital. no indication for transfusion at this time. (11) Diabetes mellitus: Insulin coverage while hospitalized. Currently at goal. (12) DVT prophylaxis: SCDs, chemoprophylaxis relatively contraindicated in setting of septic embolic to brain with risk of hemorrhagic conversion and acquired coagulopathy. Full Code Dispo-cont telemetry monitoring for now. I did contact his and updated her on the situation and my thoughts. All questions were answered to her satisfaction. Jaja Seals DO [facility] Hospitalist Admission and Anticipated Discharge Date Admission Date: October 19, 2019 Subjective Mr. Stallings feels about the same today. He denies back pain today but is still very fatigued. He is tolerating food. Denies fevers or chills. Review of Systems Review of Systems: All systems reviewed & are unremarkable except as noted in Subjective Physical Exam Physical Exam: CONSTITUTIONAL: WNWD, vitals as above, generally well- appearing at rest but appears stiff and doesn't move much in the bed, fatigued. EYES: normal conjunctivae, no scleral icterus ENT: external ear and nose normal, oropharynx clear with dry mucous membranes. NECK: trachea midline RESPIRATORY: clear to auscultation bilaterally, no crackles, rales or wheezes, normal respiratory effort CARDIOVASCULAR: regular rate and rhythm, 3/6 HEAVEN heard throughout precordium with radiation to carotids. No gallops or rubs, no JVD, no peripheral edema CHEST: inspection of chest was normal GASTROINTESTINAL: soft, nontender, nondistended and no guarding MUSCULOSKELETAL: physically deconditioned, head is normocephalic and atraumatic SKIN: warm and dry NEUROLOGIC: No facial palsy. EOMI, pupils are round and equal bilaterally, CN 2- 12 grossly intact, no sensory deficit, normal cognition, normal speech, no tremor. PSYCHIATRIC: alert cooperative and oriented to person, place and time. Results & Data Results & Data ([facility]) Vital Signs (Past 12 Hours) Vital Signs Temp Pulse Resp BP Pulse Ox 10/20/19 07:11 36.6 C 88 19 143/63 H 94 10/20/19 05:04 36.8 C 82 18 130/63 94 10/19/19 23:22 36.9 C 89 18 123/63 96 Laboratory Results Short CBC 10/20/19 Range/Units 06:07 WBC 17.22 H (4.8-10.8) K/uL Hgb 7.9 L (14.0-18.0) g/dL Hct 23.0 L (42-52) % Plt Count 268 (130-400) K/uL BMP 10/20/19 06:07 Sodium 129 L Potassium 4.6 Chloride 102 Carbon Dioxide 12 L BUN 99 H Creatinine 4.37 H Glucose 150 H Calcium 8.5 Liver Function 10/20/19 Range/Units 06:07 Total Bilirubin 1.1 H (0.2-1) mg/dl AST 91 H (15-37) U/L ALT 44 (12-78) U/L Alkaline Phosphatase 299 H (45-117) U/L Albumin 2.0 L (3.4-5.0) gm/dl Medications Administered Current Inpatient Medications Acetaminophen (Tylenol) 1,000 mg PO Q8H [facility] Stop: 11/18/19 15:14 Last Admin: 10/20/19 08:35 Dose: 1,000 mg Documented by: Allopurinol (Zyloprim) 100 mg PO 1999 [facility] Stop: 11/18/19 19:59 Last Admin: 10/19/19 20:13 Dose: 100 mg Documented by: Amlodipine Besylate (Norvasc) 5 mg PO 0800 [facility] Stop: 11/18/19 07:59 Last Admin: 10/19/19 10:11 Dose: 5 mg Documented by: Aspirin (Ecotrin Ectab) 81 mg PO 0800 [facility] Stop: 11/18/19 07:59 Last Admin: 10/20/19 08:36 Dose: 81 mg Documented by: Clonidine HCl (Catapres) 0.1 mg PO 0800,1200,1999 [facility] Stop: 11/18/19 07:59 Last Admin: 10/19/19 10:11 Dose: 0.1 mg Documented by: Clopidogrel Bisulfate (Plavix) 75 mg PO 0800 [facility] Stop: 11/18/19 07:59 Last Admin: 10/20/19 08:37 Dose: 75 mg Documented by: Dextrose (Dextrose 50%) 25 - 50 ml IV UD PRN; Protocol PRN Reason: Hypoglycemia Protocol Stop: 11/18/19 07:42 Glucagon (Glucagen) 1 mg SQ UD PRN; Protocol PRN Reason: Hypoglycemia Protocol Stop: 11/18/19 07:42 Glucose (Dex4 Glucose) 4 - 8 tabs PO UD PRN; Protocol PRN Reason: Hypoglycemia Protocol Stop: 11/18/19 07:42 Glucose (Glucose 40%) 15 - 30 gm PO UD PRN; Protocol PRN Reason: Hypoglycemia Protocol Stop: 11/18/19 07:42 Hydralazine HCl (Apresoline) 100 mg PO 0800,1200,2000 [facility] Stop: 11/18/19 07:59 Last Admin: 10/19/19 10:12 Dose: 100 mg Documented by: Hydromorphone HCl (Dilaudid) 0.25 mg IV Q3H PRN PRN Reason: Pain Stop: 11/02/19 07:42 Promethazine HCl 12.5 mg/ (Sodium Chloride) 50.5 mls @ 202 mls/hr IV Q6H PRN PRN Reason: Nausea And Vomiting Stop: 11/18/19 07:42 Vancomycin HCl 1,000 mg/ (Sodium Chloride) 270 mls @ 125 mls/hr IV TODAY@0900 [facility]; Protocol Stop: 10/20/19 11:10 Last Admin: 10/20/19 09:09 Dose: 125 mls/hr Documented by: Ceftriaxone Sodium 2,000 mg/ (Dextrose) 70 mls @ 140 mls/hr IV Q12H [facility] Stop: 11/03/19 09:59 Last Admin: 10/20/19 10:44 Dose: 140 mls/hr Documented by: Furosemide 40 mg/ Syringe 4 mls @ 4 mls/min IV BID [facility] Stop: 11/19/19 10:29 Last Admin: 10/20/19 10:44 Dose: 4 mls/min Documented by: Sodium Bicarbonate 150 meq/ (Dextrose) 1,150 mls @ 50 mls/hr IV .Q23H [facility] Stop: 11/19/19 10:29 Last Admin: 10/20/19 10:43 Dose: 50 mls/hr Documented by: Insulin Aspart (Novolog Flexpen) 0 units SC ACHS [facility] Stop: 11/18/19 07:42 Last Admin: 10/20/19 08:44 Dose: Not Given Documented by: Isosorbide Mononitrate (Imdur Extended Rel) 60 mg PO 0800 [facility] Stop: 06/06/20 07:59 Last Admin: 10/20/19 08:36 Dose: 60 mg Documented by: Lubiprostone (Amitiza) 8 mcg PO 799,1999 [facility] Stop: 11/18/19 07:59 Last Admin: 10/20/19 08:36 Dose: 8 mcg Documented by: Metoprolol Tartrate (Lopressor) 50 mg PO 0800,1199,1999 [facility] Stop: 11/18/19 07:59 Last Admin: 10/20/19 08:36 Dose: 50 mg Documented by: Miscellaneous (Carbohydrates For Hypoglycemia) 15 - 30 gm PO UD PRN PRN Reason: Hypoglycemia Protocol Stop: 11/18/19 07:42 Miscellaneous Information (Consult) 1 ea N/A UD PRN PRN Reason: Consult Stop: 11/18/19 15:23 Miscellaneous Information (Pharmacy Consult) 1 ea N/A UD PRN PRN Reason: Consult Stop: 11/18/19 15:24 Miscellaneous Information (Pharmacist Discharge Med Rec Consult) 1 ea N/A UD PRN PRN Reason: Consult Stop: 11/18/19 15:22 Nitroglycerin (Nitrostat) 0.4 mg SL UD PRN PRN Reason: Pain Stop: 11/18/19 07:42 Oxycodone HCl (Roxicodone Immediate Rel) 10 mg PO BID [facility] Stop: 11/02/19 20:59 Last Admin: 10/20/19 08:35 Dose: 10 mg Documented by: Terazosin HCl (Hytrin) 5 mg PO 1999 [facility] Stop: 11/18/19 19:59 (1) Renal failure (ARF), acute on chronic Acute renal failure type: unspecified Chronic kidney disease stage: stage 5, not on chronic dialysis Qualified Code(s): N17.9 - Acute kidney failure, unspecified; N18.5 - Chronic kidney disease, stage 5
--- NOTE | 2019-10-20 11:08 | Cardiology Progress Note ---
Date of Service October 20, 2019 Assessment & Plan (1) Gram positive septicemia: Uncertain source however in the setting of multi organ embolic phenomena CVA, splenic infarct and known prosthetic valve in place concerns must be present for prosthetic valve endocarditis. No visualized vegetation or mass on transthoracic echocardiogram Treatment initiated for infection Patient high risk for transesophageal echocardiogram will not perform at this time. No signs of acute aortic valve deterioration, insufficiency or significant stenosis Will require long-term antibiotic therapy with ID assistance (2) Non-ST elevation (NSTEMI) myocardial infarction: Patient presented with acute on subacute decline over several days possible worsening after iron infusion. Patient with elevated troponins consistent with non-ST segment elevation AR cardial infarction although metabolic derangements may be contributing. EKGs without acute ST segment changes Echocardiogram with mild diffuse LV dysfunction and old inferior wall motion abnormalities no new regional abnormalities Prosthetic aortic valve not well visualized but appears freely mobile. Velocities are however higher than past interrogation 2018 Would continue to manage conservatively on dual antiplatelet therapy nitrates beta-pau. Would not consider cardiac catheterization at this time without symptoms or EKG changes, events as below. CT scan head and abdomen suggest embolic phenomena with stroke and splenic infarct of uncertain etiology but appears subacute. Would withhold full IV anticoagulation Blood pressures are relatively low in this patient with chronic elevation agree with reduction in clonidine and holding versus reduce hydralazine No profound heart failure on exam or x-ray although renal function acutely worsening Acute embolic events concerning for valve origin as above Blood pressures have improved and appear to allow increase in beta-pau therapy will titrate metoprolol to 50 mg every 6 hours Hydralazine, amlodipine, terazosin and clonidine remain on hold. (3) Renal failure (ARF), acute on chronic: Appreciate nephrology input and agree with plans to defer dialysis. No profound heart failure at this time though will need to follow volume status closely (4) CAD (coronary artery disease): (5) S/P TAVR (transcatheter aortic valve replacement): (6) Acute CVA (cerebrovascular accident): (7) Splenic infarct: Subjective Patient seen and examined, chart, medications, telemetry reviewed. Affect flat but no acute complaints no chest pain or shortness of breath. Has not been out of bed. No tachypalpitations syncope or near syncope No arrhythmias on telemetry Blood pressures improved this morning Physical Exam Constitutional: Chronically ill-appearing male in no acute distress Eyes: PERRL, conjunctivae normal, anicteric sclerae ENMT: external ear and nose normal, oropharynx normal Neck: trachea midline, no thyromegaly Respiratory: Auscultation: + diminished lung sounds But otherwise clear Cardiovascular: Rate/Rhythm: regular rate and regular rhythm Heart Sounds: normal S1, normal S2 and + murmur (Grade 1-2 or 6 systolic murmur no diastolic) Palpation: normal PMI Vessels: no JVD Extremities: no edema Gastrointestinal (Abdomen): normal bowel sounds, soft, nontender, no hepatosplenomegaly Results & Data Vital Signs (Past 12 Hours) Vital Signs Temp Pulse Resp BP Pulse Ox 10/20/19 07:11 36.6 C 88 19 143/63 H 94 10/20/19 05:04 36.8 C 82 18 130/63 94 10/19/19 23:22 36.9 C 89 18 123/63 96 Laboratory Results Laboratory Results - last 24 hr 10/19/19 10/19/19 10/19/19 08:00 11:41 16:15 WBC RBC Hgb Hct MCV MCH MCHC RDW Std Deviation RDW Coeff of [place] Plt Count MPV Immature Gran % (Auto) Neut % (Auto) Lymph % (Auto) [place] % (Auto) Eos % (Auto) Baso % (Auto) Immature Gran # (Auto) Neut # (Auto) Lymph # (Auto) [place] # (Auto) Eos # (Auto) Baso # (Auto) RBC Morphology ESR PT INR APTT PTT Ratio PT Mix Interpretation PTT Mix Interpretation Lupus Anticoagulant Lupus Anticoag aPTT Dil Aron Viper Ven[place] dRVVT Mix Interpret Sodium Potassium Chloride Carbon Dioxide Anion Gap BUN Creatinine Est Cr Clr Drug Dosing Est GFR ( Amer) Est GFR (Non-Af Amer) BUN/Creatinine Ratio Glucose POC Glucose 164 H 176 H Calcium Total Bilirubin AST ALT Alkaline Phosphatase C-Reactive Protein Total Protein Albumin Globulin Albumin/Globulin Ratio Triglycerides Cholesterol LDL Cholesterol, Calc VLDL Cholesterol, Calc HDL Cholesterol Cholesterol/HDL Ratio Nasal Screen MRSA (PCR) Negative Random Vancomycin Hepatitis C Ab Screen 10/19/19 10/19/19 10/19/19 19:14 19:14 20:09 WBC RBC Hgb Hct MCV MCH MCHC RDW Std Deviation RDW Coeff of [place] Plt Count MPV Immature Gran % (Auto) Neut % (Auto) Lymph % (Auto) [place] % (Auto) Eos % (Auto) Baso % (Auto) Immature Gran # (Auto) Neut # (Auto) Lymph # (Auto) [place] # (Auto) Eos # (Auto) Baso # (Auto) RBC Morphology ESR PT 24.7 H INR 2.5 H APTT 54.2 H* PTT Ratio 1.9 PT Mix Interpretation PT Corrected PTT Mix Interpretation Factor Inhibitor Lupus Anticoagulant Pending Lupus Anticoag aPTT Pending Dil Aron Viper Venom Pending dRVVT Mix Interpret Pending Sodium Potassium Chloride Carbon Dioxide Anion Gap BUN Creatinine Est Cr Clr Drug Dosing Est GFR ( Amer) Est GFR (Non-Af Amer) BUN/Creatinine Ratio Glucose POC Glucose 186 H Calcium Total Bilirubin AST ALT Alkaline Phosphatase C-Reactive Protein Total Protein Albumin Globulin Albumin/Globulin Ratio Triglycerides Cholesterol LDL Cholesterol, Calc VLDL Cholesterol, Calc HDL Cholesterol Cholesterol/HDL Ratio Nasal Screen MRSA (PCR) Random Vancomycin Hepatitis C Ab Screen 10/20/19 10/20/19 10/20/19 06:07 06:07 06:07 WBC 17.22 H RBC 2.35 L Hgb 7.9 L Hct 23.0 L MCV 97.9 MCH 33.6 MCHC 34.3 RDW Std Deviation 49.6 H RDW Coeff of [place] 13.9 Plt Count 268 MPV 10.2 Immature Gran % (Auto) 1.5 Neut % (Auto) 81.6 Lymph % (Auto) 11.3 [place] % (Auto) 5.2 Eos % (Auto) 0.3 Baso % (Auto) 0.1 Immature Gran # (Auto) 0.25 H Neut # (Auto) 14.06 H Lymph # (Auto) 1.94 [place] # (Auto) 0.89 H Eos # (Auto) 0.06 Baso # (Auto) 0.02 RBC Morphology Unremarkable ESR PT 12.5 H INR 1.2 H APTT PTT Ratio PT Mix Interpretation PTT Mix Interpretation Lupus Anticoagulant Lupus Anticoag aPTT Dil Aron Viper Venom dRVVT Mix Interpret Sodium 129 L Potassium 4.6 Chloride 102 Carbon Dioxide 12 L Anion Gap 16.0 H BUN 99 H Creatinine 4.37 H Est Cr Clr Drug Dosing 14.9 Est GFR ( Amer) 14.3 Est GFR (Non-Af Amer) 12.3 BUN/Creatinine Ratio 22.6 H Glucose 150 H POC Glucose Calcium 8.5 Total Bilirubin 1.1 H AST 91 H ALT 44 Alkaline Phosphatase 299 H C-Reactive Protein 21.80 H Total Protein 6.7 Albumin 2.0 L Globulin 4.7 H Albumin/Globulin Ratio 0.4 L Triglycerides 205 H Cholesterol 175 LDL Cholesterol, Calc 118 VLDL Cholesterol, Calc 41 HDL Cholesterol 16 Cholesterol/HDL Ratio 11 Nasal Screen MRSA (PCR) Random Vancomycin Hepatitis C Ab Screen 10/20/19 10/20/19 10/20/19 06:07 06:07 06:07 WBC RBC Hgb Hct MCV MCH MCHC RDW Std Deviation RDW Coeff of [place] Plt Count MPV Immature Gran % (Auto) Neut % (Auto) Lymph % (Auto) [place] % (Auto) Eos % (Auto) Baso % (Auto) Immature Gran # (Auto) Neut # (Auto) Lymph # (Auto) [place] # (Auto) Eos # (Auto) Baso # (Auto) RBC Morphology ESR > 90 H PT INR APTT PTT Ratio PT Mix Interpretation PTT Mix Interpretation Lupus Anticoagulant Lupus Anticoag aPTT Dil Aorn Viper Venom dRVVT Mix Interpret Sodium Potassium Chloride Carbon Dioxide Anion Gap BUN Creatinine Est Cr Clr Drug Dosing Est GFR ( Amer) Est GFR (Non-Af Amer) BUN/Creatinine Ratio Glucose POC Glucose Calcium Total Bilirubin AST ALT Alkaline Phosphatase C-Reactive Protein Total Protein Albumin Globulin Albumin/Globulin Ratio Triglycerides Cholesterol LDL Cholesterol, Calc VLDL Cholesterol, Calc HDL Cholesterol Cholesterol/HDL Ratio Nasal Screen MRSA (PCR) Random Vancomycin 21.1 Hepatitis C Ab Screen Neg 10/20/19 07:14 WBC RBC Hgb Hct MCV MCH MCHC RDW Std Deviation RDW Coeff of [place] Plt Count MPV Immature Gran % (Auto) Neut % (Auto) Lymph % (Auto) [place] % (Auto) Eos % (Auto) Baso % (Auto) Immature Gran # (Auto) Neut # (Auto) Lymph # (Auto) [place] # (Auto) Eos # (Auto) Baso # (Auto) RBC Morphology ESR PT INR APTT PTT Ratio PT Mix Interpretation PTT Mix Interpretation Lupus Anticoagulant Lupus Anticoag aPTT Dil Aron Viper Venom dRVVT Mix Interpret Sodium Potassium Chloride Carbon Dioxide Anion Gap BUN Creatinine Est Cr Clr Drug Dosing Est GFR ( Amer) Est GFR (Non-Af Amer) BUN/Creatinine Ratio Glucose POC Glucose 160 H Calcium Total Bilirubin AST ALT Alkaline Phosphatase C-Reactive Protein Total Protein Albumin Globulin Albumin/Globulin Ratio Triglycerides Cholesterol LDL Cholesterol, Calc VLDL Cholesterol, Calc HDL Cholesterol Cholesterol/HDL Ratio Nasal Screen MRSA (PCR) Random Vancomycin Hepatitis C Ab Screen (1) Renal failure (ARF), acute on chronic Acute renal failure type: unspecified Chronic kidney disease stage: stage 5, not on chronic dialysis Qualified Code(s): N17.9 - Acute kidney failure, unspecified; N18.5 - Chronic kidney disease, stage 5
--- NOTE | 2019-10-20 12:18 | Pharmacy Report ---
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 Blood cultures x 2 growing Streptococcus species ID consulted Plan Vancomycin * Random vancomycin level this morning of 21.1 * Redosed at 1 g (12 mg/kg) IV x 1 this morning * Estimated half life is approximately 40 hours - will assess another random level tomorrow morning * Goal trough level for this empiric indication : 15 to 20 mcg/mL * Random level ordered for: 10/21/19 Ceftriaxone * Dose increased to 2 g IV q12h empirically given possible infective endocarditis with history of TAVR Pharmacy will continue to follow and will adjust dose/frequency as necessary. Thank you.
--- NOTE | 2019-10-20 12:51 | Infectious Disease Consult ---
Date of Consultation October 20, 2019 Assessment & Plan (1) Gram positive septicemia: cultures growing strep species. Highly concerning for infected valve and IE with significant embolic disease (spleen and brain). will repeat. await JUAN JOSE. continue ctx and vanco for now, vanco by level due to pavel. would have low thresh hold for transfer to tertiary care center. await final ID strep species. (2) Splenic infarct: (3) Acute CVA (cerebrovascular accident): (4) Non-ST elevation (NSTEMI) myocardial infarction: History of Present Illness Attending Physician: Jaja Seals, pt admitted with lethargy and SOB. has been afebrile since admission, extensive workup since admission, flu and covid negative, ESR >90, creat 4.3 (baseline 2), wbc 17, procalcitonin 5. On ctx and vanco - level today 21. UA 10-30 wbc, no ba cteria. Lyme pending, troponin 18, found to have NSTEMI, cardio following. CXR ? left basilar infiltrate. CT abd - 9x4.[address] head frontal infarct on right, MRI brain showed multiple right fronthal infarcts with ? bleeding. Neuro following. L spine MRI negative for osteo, 1.7cm right psoas hematoma. Blood cultures in ER / growing gpc in chains in all bottles, urine culture pending. Has h/o TAVR, echo done and no definite veg, npo for JUAN JOSE. 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 On my exam pt is appropriate but lethargic. denies cp, sob, cough, no abd pain, no n/v/d. no f/c. no molina. Allergies Allergy/AdvReac Type Severity Reaction Status Date / Time Hguaill-Tev-Eei Reductase AdvReac Unknown RHABDOMYOLYSIS Verified 10/19/19 05:47 Inhibitor FROM 06/2009 Home Medications Home Medications Medication Instructions Recorded Confirmed Type Lantus U-100 Insulin 18 unit SUBCUT QAM 03/24/18 10/19/19 History allopurinol 100 mg PO HS 03/24/18 10/19/19 History amlodipine 5 mg PO QAM 03/24/18 10/19/19 History clonidine HCl 0.2 mg PO TID 03/24/18 10/19/19 History clopidogrel 75 mg PO QAM 03/24/18 10/19/19 History hydralazine 100 mg PO TID 03/24/18 10/19/19 History isosorbide mononitrate 60 mg PO QAM 03/24/18 10/19/19 History metoprolol tartrate 50 mg PO TID 03/24/18 10/19/19 History nitroglycerin [Nitrostat] 0.4 mg SUBLINGUAL UD PRN 03/24/18 10/19/19 History oxycodone 10 mg PO TID 03/24/18 10/19/19 History furosemide 20 mg PO DAILY 10/19/19 10/19/19 History lubiprostone [Amitiza] 8 mcg PO BID 10/19/19 10/19/19 History terazosin 5 mg PO HS 10/19/19 10/19/19 History Patient History Medical History BPH (benign prostatic hyperplasia) Bronchitis HX-INHALER VERY OCC Cardiac murmur Chronic kidney disease STAGE 3-F/U DR HANSON Congestive heart failure Diabetes mellitus, type 2 GERD (gastroesophageal reflux disease) Hyperlipidemia Hypertension Kidney stones On anticoagulant therapy SINCE 02/2017 Osteoarthritis Surgical History History of cardiac cath X 2 02/28/2017--2 stents History of colonoscopy History of cystoscopy WITH STENT PLACEMENT History of heart artery stent x2 02/2017 History of heart valve replacement AVR 04/2017 [facility]-F/U DR RON Q3-6 MONTHS Family History Mother Family history of irritable bowel syndrome Other No family history of adverse response to anesthesia Social History Preferred Language: Kiswahili Communication Ability: Effective 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 Beliefs That Will Affect Care: None Current Living Situation: Spouse Other Information That Helps Us Care for You: No Feels Safe at Home: Yes Safety Concerns: Feels Safe At This Time Smoking Status: Never smoker Do You Dip or Chew Tobacco: No ; Second Hand Exposure: No ; Tobacco Cessation Education Requested by Patient: No Hx Alcohol Use: Yes Alcohol type: beer, wine and other Hx Substance Use: No Review of Systems Review of Systems: All systems reviewed & are unremarkable except as noted in HPI & below Physical Exam Constitutional: WD/WN, vitals as above Eyes: PERRL, conjunctivae normal, anicteric sclerae ENMT: external ear and nose normal, oropharynx normal Neck: normal visual inspection Respiratory: normal respiratory effort, lungs clear to auscultation Cardiovascular: Rate/Rhythm: regular rate and regular rhythm Heart Sounds: + murmur Gastrointestinal (Abdomen): normal bowel sounds, soft, nontender, no hepatosplenomegaly Musculoskeletal: Head/Neck/Chest: normocephalic and head atraumatic Skin: no rashes, warm and dry Psychiatric: A+Ox3, euthymic affect lethargic, answers questions Results & Data ([facility]) Vital Signs (Past 12 Hours) Vital Signs Temp Pulse Resp BP Pulse Ox 10/20/19 11:39 36.6 C 82 19 137/63 94 10/20/19 07:11 36.6 C 88 19 143/63 H 94 10/20/19 05:04 36.8 C 82 18 130/63 94 Laboratory Results Microbiology 10/19/19 05:00 Urine,Clean Catch Urine Culture - Preliminary Pin-point growth present, reincubating. 10/19/19 04:45 Blood Aerobic Blood Culture - Preliminary Streptococcus species 10/19/19 04:45 Blood Anaerobic Blood Culture - Preliminary Streptococcus species 10/19/19 04:40 Blood Aerobic Blood Culture - Preliminary Streptococcus species 10/19/19 04:40 Blood Anaerobic Blood Culture - Preliminary Streptococcus species PG Care Time/CCT Total # of Minutes Spent Total Time Spent with Patient: Total time spent is greater than 50% in coordination of care (as documented) at patient's floor/unit and/or counseling patient: Coding Level of Care Code 36666 Inpt Consult Level 4 Diagnoses Gram positive septicemia A41.89 Splenic infarct D73.5 Acute CVA (cerebrovascular accident) I63.9 Non-ST elevation (NSTEMI) myocardial infarction I21.4
[2019-10-20 16:16] LABS: Fibrinogen 785 mg/dl (184-400)
[2019-10-20] MEDS: allopurinoL 100 MG TAB PO SCH (20:53)
[2019-10-21] MEDS: ACETAMINOPHEN 500 MG TAB PO SCH ×5 (00:52→23:53)
[2019-10-21] MEDS: METOPROLOL TARTRATE 50 MG TAB PO SCH ×5 (03:29→20:36)
[2019-10-21 06:47] LABS: Hematocrit (blood only) 23.6 % (42-52); Hemoglobin 8.2 g/dL (14.0-18.0); Mean Corpuscular Hemoglobin 33.6 pg (25-34); Mean Corpuscular Hgb Conc 34.7 g/dL (32-36); Mean Corpuscular Volume 96.7 fL (80-100); Mean Platelet Volume 10.7 fL (7.4-10.4); Platelet Count 325 K/uL (130-400); RDW Coefficient of Variation 13.9 % (11.5-14.5); RDW Standard Deviation 48.8 fL (36.4-46.3); Red Blood Count 2.44 M/uL (4.7-6.1); White Blood Count 16.17 K/uL (4.8-10.8)
[2019-10-21 06:56] LABS: INR 1.1 (0.9-1.1); Partial Thromboplastin Ratio 1.2; Partial Thromboplastin Time 33.9 Seconds (21.0-31.0); Prothrombin Time 11.4 Seconds (9.0-12.0)
[2019-10-21 07:18] LABS: BUN Creatinine Ratio 24.6 (10-20); Calcium 8.6 mg/dl (8.5-10.1); Creatinine Clr Calc Pharmacy 17.5 ml/min; Est GFR (African American) 18.2; Est GFR (Non-African American) 15.7; Potassium 3.8 mmol/L (3.5-5.1)
[2019-10-21 07:58] LABS: Basophils # (auto) 0.02 K/uL (0-0.2); Basophils % (auto) 0.1 %; Eosinophils # (auto) 0.02 K/uL (0-0.5); Eosinophils % (auto) 0.1 %; Immature Granulocytes # (auto) 0.28 K/uL (0.00-0.02); Immature Granulocytes % (auto) 1.7 %; Lymphocytes # (auto) 1.65 K/uL (1.2-3.4); Lymphocytes % (auto) 10.2 %; Monocytes # (auto) 1.11 K/uL (0.11-0.59); Monocytes % (auto) 6.9 %; Neutrophils # (auto) 13.09 K/uL (1.4-6.5)
[2019-10-21] MEDS: ASPIRIN 81 MG ECTAB PO SCH (08:18)
[2019-10-21] MEDS: ISOSORBIDE MONO EXTENDED REL 60 MG TABCR PO SCH (08:18)
[2019-10-21] MEDS: FUROSEMIDE 40 MG in SYRINGE 0 ML IV SCH ×2 (08:18→20:36)
[2019-10-21] MEDS: LUBIPROSTONE 8 MCG CAP PO SCH ×2 (08:18→20:36)
[2019-10-21] MEDS: CLOPIDOGREL BISULFATE 75 MG TAB PO SCH (08:18)
[2019-10-21] MEDS: INSULIN ASPART 100 UNITS/ML 3 ML PEN SC SCH ×4 (08:19→20:37)
[2019-10-21] MEDS: OXYCODONE HCL IR 5 MG TAB (IMMEDIATE RELEASE) PO SCH ×2 (08:21→20:35)
--- NOTE | 2019-10-21 08:27 | Pharmacy Report ---
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 Day # 3 of antimicrobial therapy. Plan Vancomycin * Random level of 24.9 mcg/mL is supratherapeutic * Patient specific pharmacokinetics (estimating a peak of 39.6 and minimum of 24.9 mg/mL producing an elimination constant of 0.024 hr-1 and estimated half- life of 28.875 hrs). Patient's kidney function improved significantly but is still impaired. * Based upon data from above, wait 12 hours (until trough reaches therapeutic levels) then redose with 1000 mg. Check trough 24 hours after this as a random AM level will not provide the necessary information. * Goal trough level for septic emboli : 15 to 20 mcg/mL * Random level ordered for: 10/22/2019 at 1730 Pharmacy will continue to follow and will adjust dose/frequency as necessary. Thank you.
[2019-10-21] MEDS: SODIUM BICARBONATE 8.4% 150 MEQ in DEXTROSE 5% 1,000 ML IV SCH (08:56)
[2019-10-21] MEDS: cefTRIAXone SODIUM 2,000 MG in DEXTROSE 5% 50 ML IV SCH ×2 (09:34→21:38)
[2019-10-21] MEDS ORDERED: SODIUM CHLORIDE 0.9% 250 ML IV PRN (11:17)
[2019-10-21] MEDS ORDERED: POTASSIUM CHLORIDE 20 MEQ/15 ML UDC PO STA (11:20)
--- NOTE | 2019-10-21 11:23 | Cardiology Progress Note ---
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 Resting echocardiogram does not show any sign of abscess or failure of the valve In this setting, it is well documented in the literature the JUAN JOSE is only about 33% effective at identifying a valvular lesion with this type of valve in place Furthermore, given his multiple comorbidities I believe the risk of performing a T far outweighs the benefits in directing further care. Would continue to treat with antibiotics as per our infectious disease colleagues recommendations. Will likely require long-term if not lifelong antibiotics Obviously, the patient is a very high risk of perioperative mortality and do not believe that surgical aortic valve replacement is an option (2) Non-ST elevation (NSTEMI) myocardial infarction: Patient presented with acute on subacute decline over several days possible worsening after iron infusion. Patient with elevated troponins consistent with non-ST segment elevation TN cardial infarction although metabolic derangements may be contributing. EKGs without acute ST segment changes Echocardiogram with mild diffuse LV dysfunction and old inferior wall motion abnormalities no new regional abnormalities Prosthetic aortic valve not well visualized but appears freely mobile. Velocities are however higher than past interrogation 2018 Would continue to manage conservatively on dual antiplatelet therapy nitrates beta-apu. Would not consider cardiac catheterization at this time without symptoms or EKG changes, events as below. CT scan head and abdomen suggest embolic phenomena with stroke and splenic infarct of uncertain etiology but appears subacute. Would withhold full IV anticoagulation No profound heart failure on exam or x-ray although renal function acutely wo rsening Acute embolic events concerning for valve origin as above (3) Renal failure (ARF), acute on chronic: Likely significantly improved today Appreciate nephrology input and agree with plans to defer dialysis. No profound heart failure at this time though will need to follow volume status closely We will continue with current twice daily dosing of diuretics (4) CAD (coronary artery disease): (5) S/P TAVR (transcatheter aortic valve replacement): (6) Acute CVA (cerebrovascular accident): (7) Splenic infarct: (8) Anemia in chronic kidney disease (CKD): Acutely worsened with a recent precipitous drop. Given history of coronary artery disease along with aortic valve replacement and in the setting of a possible non-ST segment elevation TN believe he would benefit to maintain hemoglobin at least greater than 9 ideally greater than 10. We will give 1 unit of packed red blood cells at this time followed by IV Lasix and follow-up Subjective Patient seen and examined, and significant back pain currently. Otherwise, states that his breathing is improving. Denies chest pain, palpitations, lightheadedness, dizziness or syncope. States that he still has no appetite and feels weak overall. Telemetry reviewed: Sinus rhythm without arrhythmia or significant ectopy. I also called and spoke with his and son on the phone and updated them on his progress. They were very appreciative and agree with the current plan of treatment. Review of Systems Review of Systems: All systems reviewed & are unremarkable except as noted in HPI & below Physical Exam Physical Exam: General: Awake, alert and oriented x 3. Moderate distress due to back pain. HEENT: Normocephalic, atraumatic. Pupils equal, round and reactive to light and accommodation. Extraocular muscles are intact. Anicteric sclera. Moist mucous membranes. Neck: No JVD. No bruit. Cardiovascular: Regular. Positive S-4. Normal S-1 and S-2. No S-3. 3/6 mid to late systolic ejection murmur, greatest at the right sternal border, second intercostal space with radiation to the bilateral carotids. No rubs. Pulmonary: Scattered crackles in the bilateral bases left greater than right otherwise clear Abdomen: Bowel sounds x 4, soft. No rebound, guarding or tenderness. No organomegaly. Extremities: No clubbing, cyanosis or edema. +2 pedal pulses bilaterally. Skin: Warm and dry. Results & Data Vital Signs (Past 12 Hours) Vital Signs Temp Pulse Pulse Pulse Resp BP BP 10/21/19 09:37 130/70 10/21/19 08:00 96 H 10/21/19 06:56 36.5 C 103 H 16 171/70 H 187/77 H 10/21/19 02:39 36.8 C 90 20 174/73 H 10/21/19 00:00 83 10/20/19 23:56 36.6 C 86 20 157/66 H Pulse Ox 10/21/19 09:37 10/21/19 08:00 10/21/19 06:56 94 10/21/19 02:39 92 10/21/19 00:00 10/20/19 23:56 93 (1) Renal failure (ARF), acute on chronic Acute renal failure type: unspecified Chronic kidney disease stage: stage 5, not on chronic dialysis Qualified Code(s): N17.9 - Acute kidney failure, unspecified; N18.5 - Chronic kidney disease, stage 5
--- NOTE | 2019-10-21 14:36 | Progress Notes ---
DATE: 10/21/2019 NEPHROLOGY PROGRESS NOTE SUBJECTIVE: Overnight, the patient continues to be weak and tired with declining health; however, his renal function actually got better slightly. OBJECTIVE: VITAL SIGNS: His most recent blood pressure is 149/71, 98% on room air, temperature 36.5. Urine output yesterday was 2650 mL. CHEST: Decreased breath sounds, but poor inspiratory effort. CARDIOVASCULAR: Regular, systolic murmur heard. ABDOMEN: Soft, nontender. EXTREMITIES: Show no edema. SKIN: Warm and dry. LABORATORY TESTS: From this morning shows sodium improved to 132, creatinine improved to 3.57, BUN 88, bicarbonate 19, potassium 3.8. Hemoglobin is 8.2. Vancomycin level this morning was 24.9. ASSESSMENT AND PLAN: A 74-year-old male who has progressively worsening chronic kidney disease, which is approaching chronic kidney disease V and was in preparation for starting dialysis who presented to the hospital with increasing weakness, shortness of breath and was found to have fever as well as elevated white count and non-ST elevation myocardial infarction. Also found to have multiple infarcts in the brain as well as spleen, highly suggestive of thromboembolic infarct as well as bacteremia. 1. Acute renal failure/chronic kidney disease IV. It is very encouraging to see that creatinine actually went down from yesterday with significantly increased urine output. This makes me believe that he has not reached end-stage renal disease and some of the acute rise in creatinine was related with bacteremia. He does not need dialysis at this time. I would continue to use the bicarbonate drip and the Lasix as is being done. 2. Bacteremia. At this time, it is assumed this is related with transcatheter aortic valve replacement with infective endocarditis. Continue antibiotics as per infectious disease recommendation. Careful titration of vancomycin dosing is needed given acute renal failure as well as chronic kidney disease. I will continue to follow. Case was updated to his . JUDY
[2019-10-21] MEDS ORDERED: FUROSEMIDE 40 MG in SYRINGE 0 ML IV ONE (15:00)
[2019-10-21] MEDS ORDERED: VANCOMYCIN HCL 1,000 MG in SODIUM CHLORIDE 0.9% 250 ML IV ONE (18:00)
--- NOTE | 2019-10-21 19:41 | Hospitalist Progress Note ---
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 JUAN JOSE too high risk and no likely change in outcome with new findings as CT surgery is too high risk. Cont with abx x 6 weeks for strep bacteremia. Abx changes per ID based on sensitivities which are pending. Close follow-up with Cardiology. (2) S/P TAVR (transcatheter aortic valve replacement): TTE reveals normal prosthetic gradients. 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 This likely resulted from infection. Factor levels and lupus anticoagulant pen ding. If patient bleeds, may need to discuss starting high dose steroids and consider transfer to a tertiary care facility for Hematology support that is unavailable at this facility. Will need to discuss results with Heme, jon if Factor VIII levels return low. For now, INR was corrected with vitamin K. Will not give any more vitamin K and will trend INR. If patient bleeds give FFP. (4) Embolic stroke: Presumed septic emboli from PVE. Cont Vanc and Rocephin pending culture results and ID recommendations. Pt was on Plavix previously. No indication for adding additional antiplatelet therapy and anticoagulation therapy is contraindicated as emboli have a higher risk for hemorrhagic conversion. Notably ?petechial hemorrhages were seen on MRI. With no change in mental status will hold off on reimaging at this time and these are common. Would definitely reimage if mental status changes occurred, however. (5) Non-ST elevation (NSTEMI) myocardial infarction: Echo performed with no acute wall motion abnormality present. EF is 45- 50%. Cardiology consulted in this patient with known CAD. Cont medical management. Statins are a contraindication for him with h/o rhabdo in response to taking these. ACEI/ARB are contraindicated in setting of kidney disease. (6) Splenic infarct: 2/2 septic emboli in setting of PVE and strep bacteremia. No surgical indications at this time. No abdominal discomfort on exa. (7) Lower back pain: severe acute strain in recent weeks. L-spine MRI reveals ?strain and DJD. PT/OT eval. Cont oxycodone (taken BID chronically) and scheduled Tylenol. (8) Renal failure (ARF), acute on chronic: Appreciate Nephrology evaluation of this patient, who recommends holding off on any dialysis until the blood is clear of infection. Bicarb drip and Lasix started per Nephrology. Monitor daily labs. Cont renal diet. (9) Metabolic acidosis: 2/2 renal failure. Plan as above. (10) Anemia in chronic kidney disease (CKD): stable, recent venofer infusion. monitor closely while in hospital. One unit of blood recommended per cardiology. (11) Diabetes mellitus: Insulin coverage while hospitalized. Currently at goal. (12) DVT prophylaxis: SCDs, chemoprophylaxis relatively contraindicated in setting of septic embolic to brain with risk of hemorrhagic conversion and acquired coagulopathy. Full Code Dispo-cont telemetry monitoring for now. DO Us[facility] Hospitalist Admission and Anticipated Discharge Date Admission Date: October 19, 2019 Subjective Pt is about the same today Still feels weak +back pain today oxycodone was held overnight when he was sleeping and pain increased overnight but was able to be controlled this morning by day nurse. Review of Systems Review of Systems: All systems reviewed & are unremarkable except as noted in Subjective Physical Exam Physical Exam: CONSTITUTIONAL: WNWD, vitals as above, ill-appearing EYES: normal conjunctivae, no scleral icterus ENT: external ear and nose normal, oropharynx clear with dry mucous membranes. NECK: trachea midline RESPIRATORY: clear to auscultation bilaterally, no crackles, rales or wheezes, normal respiratory effort CARDIOVASCULAR: regular rate and rhythm, 3/6 HEAVEN heard throughout precordium with radiation to carotids. No gallops or rubs, no JVD, no peripheral edema CHEST: inspection of chest was normal GASTROINTESTINAL: soft, nontender, nondistended and no guarding MUSCULOSKELETAL: physically deconditioned, head is normocephalic and atraumatic SKIN: warm and dry NEUROLOGIC: No facial palsy. EOMI, pupils are round and equal bilaterally, CN 2- 12 grossly intact, no sensory deficit, normal cognition, normal speech, no tremor. PSYCHIATRIC: alert cooperative and oriented to person, place and time. Results & Data Results & Data ([facility]) Vital Signs (Past 12 Hours) Vital Signs Temp Pulse Pulse Resp BP BP Pulse Ox 10/21/19 19:01 36.4 C L 77 18 154/70 H 95 10/21/19 17:10 36.6 C 10/21/19 17:05 36.6 C 84 20 157/71 H 96 10/21/19 16:07 36.5 C 92 H 20 159/68 H 95 10/21/19 16:00 92 H 10/21/19 15:44 36.5 C 84 16 156/73 H 96 10/21/19 14:54 36.6 C 89 16 151/73 H 96 10/21/19 14:34 36.9 C 88 18 153/70 H 96 10/21/19 14:19 36.6 C 73 18 155/75 H 95 10/21/19 12:00 36.5 C 90 28 H 149/71 H 98 10/21/19 09:37 130/70 10/21/19 08:00 96 H Laboratory Results Short CBC 10/21/19 Range/Units 06:11 WBC 16.17 H (4.8-10.8) K/uL Hgb 8.2 L (14.0-18.0) g/dL Hct 23.6 L (42-52) % Plt Count 325 (130-400) K/uL BMP 10/21/19 06:11 Sodium 132 L Potassium 3.8 D Chloride 99 Carbon Dioxide 19 L BUN 88 H Creatinine 3.57 H D Glucose 222 H Calcium 8.6 Medications Administered Current Inpatient Medications Acetaminophen (Tylenol) 1,000 mg PO Q8H [facility] Stop: 11/18/19 15:14 Last Admin: 10/21/19 17:17 Dose: 1,000 mg Documented by: Allopurinol (Zyloprim) 100 mg PO 1999 [facility] Stop: 11/18/19 19:59 Last Admin: 10/20/19 20:53 Dose: 100 mg Documented by: Amlodipine Besylate (Norvasc) 5 mg PO 0800 [facility] Stop: 11/18/19 07:59 Last Admin: 10/19/19 10:11 Dose: 5 mg Documented by: Aspirin (Ecotrin Ectab) 81 mg PO 0800 [facility] Stop: 11/18/19 07:59 Last Admin: 10/21/19 08:18 Dose: 81 mg Documented by: Clonidine HCl (Catapres) 0.1 mg PO 0800,1199,1999 [facility] Stop: 11/18/19 07:59 Last Admin: 10/19/19 10:11 Dose: 0.1 mg Documented by: Clopidogrel Bisulfate (Plavix) 75 mg PO 0800 [facility] Stop: 11/18/19 07:59 Last Admin: 10/21/19 08:18 Dose: 75 mg Documented by: Dextrose (Dextrose 50%) 25 - 50 ml IV UD PRN; Protocol PRN Reason: Hypoglycemia Protocol Stop: 11/18/19 07:42 Glucagon (Glucagen) 1 mg SQ UD PRN; Protocol PRN Reason: Hypoglycemia Protocol Stop: 11/18/19 07:42 Glucose (Dex4 Glucose) 4 - 8 tabs PO UD PRN; Protocol PRN Reason: Hypoglycemia Protocol Stop: 11/18/19 07:42 Glucose (Glucose 40%) 15 - 30 gm PO UD PRN; Protocol PRN Reason: Hypoglycemia Protocol Stop: 11/18/19 07:42 Hydralazine HCl (Apresoline) 100 mg PO 0800,1200,2000 [facility] Stop: 11/18/19 07:59 Last Admin: 10/19/19 10:12 Dose: 100 mg Documented by: Hydromorphone HCl (Dilaudid) 0.25 mg IV Q3H PRN PRN Reason: Pain Stop: 11/02/19 07:42 Promethazine HCl 12.5 mg/ (Sodium Chloride) 50.5 mls @ 202 mls/hr IV Q6H PRN PRN Reason: Nausea And Vomiting Stop: 11/18/19 07:42 Ceftriaxone Sodium 2,000 mg/ (Dextrose) 70 mls @ 140 mls/hr IV Q12H [facility] Stop: 11/03/19 09:59 Last Infusion: 10/21/19 10:12 Dose: Infused Documented by: Furosemide 40 mg/ Syringe 4 mls @ 4 mls/min IV BID [facility] Stop: 11/19/19 10:29 Last Admin: 10/21/19 08:18 Dose: 4 mls/min Documented by: Sodium Bicarbonate 150 meq/ (Dextrose) 1,150 mls @ 50 mls/hr IV .Q23H [facility] Stop: 11/19/19 10:29 Last Admin: 10/21/19 08:56 Dose: 50 mls/hr Documented by: Vancomycin HCl 1,000 mg/ (Sodium Chloride) 270 mls @ 125 mls/hr IV NOW ONE Stop: 10/21/19 20:09 Last Admin: 10/21/19 18:07 Dose: 125 mls/hr Documented by: VANCOMYCIN PEAK REMINDER (Vancomycin Peak Reminder) 0.1 mls @ 0 mls/hr IV 2200 [facility] Stop: 10/21/19 22:01 Sodium Chloride (Nss) 250 mls @ 15 mls/hr IV .[id number] PRN PRN Reason: For Transfusion Stop: 10/21/19 21:17 Insulin Aspart (Novolog Flexpen) 0 units SC ACHS [facility] Stop: 11/18/19 07:42 Last Admin: 10/21/19 17:15 Dose: 1 units Documented by: Isosorbide Mononitrate (Imdur Extended Rel) 60 mg PO 0800 [facility] Stop: 11/18/19 07:59 Last Admin: 10/21/19 08:18 Dose: 60 mg Documented by: Lubiprostone (Amitiza) 8 mcg PO 799,1999 [facility] Stop: 11/18/19 07:59 Last Admin: 10/21/19 08:18 Dose: 8 mcg Documented by: Metoprolol Tartrate (Lopressor) 50 mg PO QID [facility] Stop: 11/20/19 02:59 Last Admin: 10/21/19 17:15 Dose: 50 mg Documented by: Miscellaneous (Carbohydrates For Hypoglycemia) 15 - 30 gm PO UD PRN PRN Reason: Hypoglycemia Protocol Stop: 11/18/19 07:42 Miscellaneous Information (Consult) 1 ea N/A UD PRN PRN Reason: Consult Stop: 11/18/19 15:23 Miscellaneous Information (Pharmacy Consult) 1 ea N/A UD PRN PRN Reason: Consult Stop: 11/18/19 15:24 Miscellaneous Information (Pharmacist Discharge Med Rec Consult) 1 ea N/A UD PRN PRN Reason: Consult Stop: 11/18/19 15:22 Nitroglycerin (Nitrostat) 0.4 mg SL UD PRN PRN Reason: Pain Stop: 11/18/19 07:42 Oxycodone HCl (Roxicodone Immediate Rel) 10 mg PO BID [facility] Stop: 11/02/19 20:59 Last Admin: 10/21/19 08:21 Dose: 10 mg Documented by: Terazosin HCl (Hytrin) 5 mg PO 1999 [facility] Stop: 11/18/19 19:59 (1) Renal failure (ARF), acute on chronic Acute renal failure type: unspecified Chronic kidney disease stage: stage 5, not on chronic dialysis Qualified Code(s): N17.9 - Acute kidney failure, unspecified; N18.5 - Chronic kidney disease, stage 5
[2019-10-21] MEDS: allopurinoL 100 MG TAB PO SCH (20:36)
[2019-10-21] MEDS ORDERED: VANCOMYCIN PEAK REMINDER 0.1 ML IV SCH (22:00)
--- NOTE | 2019-10-22 05:02 | Communication Note ---
Date of Service: October 22, 2019 Made aware by RN of uncontrolled blood pressure. SBP 150-180s since yesterday afternoon . Usual back pain as per RN. AP Uncontrolled hypertension maximum Lopressor dosing ? Clonidine withdrawal Resume clonidine at 0.1 mg p.o. twice daily for now. Will relay to AM provider.
[2019-10-22] MEDS: cloNIDine HCL 0.1 MG TAB PO SCH ×2 (05:46→08:56)
[2019-10-22] MEDS ORDERED: METOPROLOL TARTRATE 1 MG/ML VIAL IV STA (06:36)
[2019-10-22 06:46] LABS: Basophils # (auto) 0.03 K/uL (0-0.2); Basophils % (auto) 0.2 %; Eosinophils # (auto) 0.01 K/uL (0-0.5); Eosinophils % (auto) 0.1 %; Hematocrit (blood only) 29.5 % (42-52); Hemoglobin 10.1 g/dL (14.0-18.0); Immature Granulocytes # (auto) 0.35 K/uL (0.00-0.02); Immature Granulocytes % (auto) 2.1 %; Lymphocytes # (auto) 1.83 K/uL (1.2-3.4); Mean Corpuscular Hemoglobin 32.6 pg (25-34); Mean Corpuscular Hgb Conc 34.2 g/dL (32-36); Mean Corpuscular Volume 95.2 fL (80-100); Mean Platelet Volume 10.9 fL (7.4-10.4); Monocytes # (auto) 1.01 K/uL (0.11-0.59); Monocytes % (auto) 6.1 %; Neutrophils # (auto) 13.36 K/uL (1.4-6.5); Neutrophils % (auto) 80.5 %; Platelet Count 328 K/uL (130-400); RDW Coefficient of Variation 15.8 % (11.5-14.5); RDW Standard Deviation 54.4 fL (36.4-46.3); White Blood Count 16.59 K/uL (4.8-10.8)
[2019-10-22 06:56] LABS: INR 1.1 (0.9-1.1); Partial Thromboplastin Time 27.8 Seconds (21.0-31.0); Prothrombin Time 11.5 Seconds (9.0-12.0)
[2019-10-22 07:18] LABS: Creatinine Clr Calc Pharmacy 20.7 ml/min; Est GFR (African American) 22.4; Est GFR (Non-African American) 19.3; Potassium 3.6 mmol/L (3.5-5.1)
[2019-10-22] MEDS: POTASSIUM CHLORIDE 20 MEQ TABCR PO SCH (08:56)
[2019-10-22] MEDS: OXYCODONE HCL IR 5 MG TAB (IMMEDIATE RELEASE) PO SCH ×2 (08:56→20:48)
[2019-10-22] MEDS: ACETAMINOPHEN 500 MG TAB PO SCH ×2 (08:56→16:21)
[2019-10-22] MEDS: INSULIN GLARGINE SOLOSTAR 100 UNITS/ML 3 ML PEN SC SCH ×2 (08:56→21:06)
[2019-10-22] MEDS: METOPROLOL TARTRATE 50 MG TAB PO SCH ×4 (08:57→20:52)
[2019-10-22] MEDS: SODIUM BICARBONATE 8.4% 150 MEQ in DEXTROSE 5% 1,000 ML IV SCH (08:57)
[2019-10-22] MEDS: LUBIPROSTONE 8 MCG CAP PO SCH ×2 (08:57→20:51)
[2019-10-22] MEDS: ISOSORBIDE MONO EXTENDED REL 60 MG TABCR PO SCH (08:57)
[2019-10-22] MEDS: ASPIRIN 81 MG ECTAB PO SCH (08:57)
[2019-10-22] MEDS: CLOPIDOGREL BISULFATE 75 MG TAB PO SCH (08:57)
[2019-10-22] MEDS: HydrALAZINE TAB 50 MG TAB PO SCH ×3 (08:57→20:51)
[2019-10-22] MEDS: INSULIN ASPART 100 UNITS/ML 3 ML PEN SC SCH ×4 (08:58→21:03)
[2019-10-22] MEDS: FUROSEMIDE 40 MG in SYRINGE 0 ML IV SCH ×2 (08:58→21:25)
[2019-10-22] MEDS: cefTRIAXone SODIUM 2,000 MG in DEXTROSE 5% 50 ML IV SCH ×2 (09:32→21:43)
--- NOTE | 2019-10-22 09:32 | Pharmacy Report ---
Pharmacy Abx Dose Short Note - Date of Service October 22, 2019 - Assessment & Plan Assessment 74 year old M receiving vancomycin/Rocephin for treatment of possible prosthetic valve endocarditis with E faecalis Day # 4 of antimicrobial therapy. Plan Vancomycin * Peak level was 41.6 mcg/mL - trough level to be drawn tonight around 1730 to allow for patient specific pharmacokinetics to be determined * Trough tonight then redose based upon patient specific pharmacokinetics Pharmacy will continue to follow and will adjust dose/frequency as necessary. Thank you.
--- NOTE | 2019-10-22 09:37 | Infectious Disease Progress Nt ---
Date of Service October 22, 2019 Assessment & Plan (1) Gram positive septicemia: cultures growing /E. faecalies. Highly concerning for infected valve and IE with significant embolic disease (spleen and brain). will repeat. No JUAN JOSE planned at this time as unlikely to change cardiac management. will change to amp with ctx. will avoid gent due to pavel. would have low thresh hold for transfer to tertiary care center. will need min 6 week of abx, hold picc line as blood cultures remain +, will follow. (2) Splenic infarct: (3) Acute CVA (cerebrovascular accident): (4) Non-ST elevation (NSTEMI) myocardial infarction: Admission and Anticipated Discharge Date Admission Date: October 19, 2019 Subjective pt growing E. faecalis in initial blood cultures 10/18. 10/19 and 10/20 also + strep species, 10/21 pending. cardio following, deemed too high rish for JUAN JOSE/surgery. creat improving. afebrile. remains on ctx, vanco held due to elevated level. Results & Data ([facility]) Vital Signs (Past 12 Hours) Vital Signs Temp Pulse Pulse Resp BP BP Pulse Ox 10/22/19 07:44 36.8 C 88 28 H 168/79 H 96 10/22/19 07:08 87 180/76 H 10/22/19 04:47 36.4 C L 87 24 180/76 H 96 10/21/19 23:41 85 10/21/19 22:37 36.5 C 80 20 162/70 H 96 Laboratory Results Microbiology 10/20/19 12:56 Blood Aerobic Blood Culture - Preliminary Streptococcus species 10/20/19 12:56 Blood Anaerobic Blood Culture - Preliminary No growth in Anaerobic bottle after 24 hours. 10/20/19 13:03 Blood Aerobic Blood Culture - Preliminary Streptococcus species 10/20/19 13:03 Blood Anaerobic Blood Culture - Preliminary No growth in Anaerobic bottle after 24 hours. 10/21/19 06:11 Blood Aerobic Blood Culture - Preliminary Gram positive cocci in chains 10/19/19 04:45 Blood Aerobic Blood Culture - Final Enterococcus faecalis 10/19/19 04:45 Blood Anaerobic Blood Culture - Final Enterococcus faecalis 10/19/19 04:40 Blood Aerobic Blood Culture - Final Enterococcus faecalis 10/19/19 04:40 Blood Anaerobic Blood Culture - Final Enterococcus faecalis 10/19/19 05:00 Urine,Clean Catch Urine Culture - Final Three types of organisms present, all low counts probable skin darcy. No further identifications or sensitivities to follow. PG Care Time/CCT Total # of Minutes Spent Total Time Spent with Patient: Total time spent is greater than 50% in coordination of care (as documented) at patient's floor/unit and/or counseling patient: Coding Level of Care Code 12420 Subseq Hosp Care Lvl 1 Diagnoses Gram positive septicemia A41.89 Splenic infarct D73.5 Acute CVA (cerebrovascular accident) I63.9 Non-ST elevation (NSTEMI) myocardial infarction I21.4
[2019-10-22] MEDS: AMPICILLIN 2,000 MG in SODIUM CHLOR 0.9% AD-VAN 100 ML IV SCH ×3 (11:06→22:11)
[2019-10-22] MEDS: AMLODIPINE BESYLATE 5 MG TAB PO SCH (11:07)
--- NOTE | 2019-10-22 14:08 | Cardiology Progress Note ---
Date of Service October 22, 2019 Assessment & Plan (1) Gram positive septicemia: At this point given the fact that he has strep in his blood, embolic events and a TAVR in place I believe the most prudent course of action at this point is to treat him as though he has Streptococcus infective endocarditis of his bioprosthetic valve. Blood cultures now also growing enterococcus, antibiotics being managed by our infectious disease colleagues. Resting echocardiogram does not show any sign of abscess or failure of the valve In this setting, it is well documented in the literature the JUAN JOSE is only about 33% effective at identifying a valvular lesion with this type of valve in place Furthermore, given his multiple comorbidities I believe the risk of performing a T far outweighs the benefits in directing further care. Would continue to treat with antibiotics as per our infectious disease [facility] recommendations. Will likely require long-term if not lifelong antibiotics Obviously, the patient is a very high risk of perioperative mortality and do not believe that surgical aortic valve replacement is an option (2) Non-ST elevation (NSTEMI) myocardial infarction: Patient presented with acute on subacute decline over several days possible worsening after iron infusion. Patient with elevated troponins consistent with non-ST segment elevation TN cardial infarction although metabolic derangements may be contributing. EKGs without acute ST segment changes Echocardiogram with mild diffuse LV dysfunction and old inferior wall motion abnormalities no new regional abnormalities Prosthetic aortic valve not well visualized but appears freely mobile. Velocities are however higher than past interrogation 2018 Would continue to manage conservatively on dual antiplatelet therapy nitrates beta-pau. Would not consider cardiac catheterization at this time without symptoms or EKG changes, events as below. CT scan head and abdomen suggest embolic phenomena with stroke and splenic infarct of uncertain etiology but appears subacute. Would withhold full IV anticoagulation No profound heart failure on exam or x-ray although renal function acutely worsening Acute embolic events concerning for valve origin as above (3) Renal failure (ARF), acute on chronic: Again somewhat improved today. Appreciate nephrology input and agree with plans to defer dialysis. No profound heart failure at this time though will need to follow volume status closely We will continue with current twice daily dosing of diuretics (4) CAD (coronary artery disease): (5) S/P TAVR (transcatheter aortic valve replacement): (6) Acute CVA (cerebrovascular accident): (7) Splenic infarct: (8) Anemia in chronic kidney disease (CKD): Received 1 unit of packed red blood cells and hemoglobin now currently 10.1. We will continue to follow closely. Subjective Patient seen and examined, medical records and medications reviewed. Patient states he is feeling much better today. His back pain is significantly improved yet still present. He denies any chest pain, shortness of breath, palpitations, lightheadedness, dizziness or syncope. The patient was incontinent overnight and a Boyd catheter was placed, unfortunately, this means his output is inaccurate but he continues to diurese well. Telemetry reviewed: Sinus rhythm with occasional ventricular and supraventricular ectopy, no sustained arrhythmias. I again spoke with family via phone and updated them on patient's status. Review of Systems Review of Systems: All systems reviewed & are unremarkable except as noted in HPI & below Physical Exam Physical Exam: General: Awake, alert and oriented x 3. No acute distress. Lethargic HEENT: Normocephalic, atraumatic. Pupils equal, round and reactive to light and accommodation. Extraocular muscles are intact. Anicteric sclera. Moist mucous membranes. Neck: No JVD. No bruit. Cardiovascular: Regular. Positive S-4. Normal S-1 and S-2. No S-3. No murmurs or rubs. Pulmonary: Clear to auscultation B/L. No rales, rhonchi or wheezing Abdomen: Bowel sounds x 4, soft. No rebound, guarding or tenderness. No organomegaly. Extremities: No clubbing, cyanosis or edema. +2 pedal pulses bilaterally. Skin: Warm and dry. Results & Data Vital Signs (Past 12 Hours) Vital Signs Temp Pulse Pulse Resp BP BP Pulse Ox 10/22/19 11:00 36.5 C 83 16 125/69 96 10/22/19 08:00 102 H 10/22/19 07:44 36.8 C 88 28 H 168/79 H 96 10/22/19 07:08 87 180/76 H 10/22/19 04:47 36.4 C L 87 24 180/76 H 96 (1) Renal failure (ARF), acute on chronic Acute renal failure type: unspecified Chronic kidney disease stage: stage 5, not on chronic dialysis Qualified Code(s): N17.9 - Acute kidney failure, unspecified; N18.5 - Chronic kidney disease, stage 5
--- NOTE | 2019-10-22 15:47 | Hospitalist Progress Note ---
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 JUAN JOSE too high risk and no likely change in outcome with new findings as CT surgery is too high risk. Cont with abx x 6 weeks for strep and enterococcus bacteremia. Abx changed to ampicillin and Rocephin as enterococcus came up on culture today. Close follow-up with Cardiology/ID. (2) S/P TAVR (transcatheter aortic valve replacement): TTE reveals normal prosthetic gradients. 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 This likely resulted from infection. Factor levels and lupus anticoagulant pending. If patient bleeds, may need to discuss starting high dose steroids and consider transfer to a tertiary care facility for Hematology support that is unavailable at this facility. Will need to discuss results with Heme, jon if Factor VIII levels return low. For now, INR was corrected with vitamin K. Will not give any more vitamin K and will trend INR. If patient bleeds consider FFP. (4) Embolic stroke: Presumed septic emboli from PVE. Cont Vanc and Rocephin pending culture results and ID recommendations. Pt was on Plavix previously. No indication for adding additional antiplatelet therapy and anticoagulation therapy is contraindicated as emboli have a higher risk for hemorrhagic conversion. Not ably ?petechial hemorrhages were seen on MRI. With no change in mental status will hold off on reimaging at this time and these are common. Would definitely reimage if mental status changes occurred, however. (5) Non-ST elevation (NSTEMI) myocardial infarction: Echo performed with no acute wall motion abnormality present. EF is 45- 50%. Cardiology consulted in this patient with known CAD. Cont medical management. Statins are a contraindication for him with h/o rhabdo in response to taking these. ACEI/ARB are contraindicated in setting of kidney disease. (6) Renal failure (ARF), acute on chronic: Appreciate Nephrology evaluation of this patient, who recommends holding off on any dialysis until the blood is clear of infection. Stop bicarb drip and decrease Lasix to 40mg IV daily per Nephrology. Monitor daily labs. Cont renal diet. (7) Splenic infarct: 2/2 septic emboli in setting of PVE and strep bacteremia. No surgical indications at this time. No abdominal discomfort on exa. (8) Lower back pain: severe acute strain in recent weeks. L-spine MRI reveals ?strain and DJD. PT/OT eval. Cont oxycodone (taken BID chronically) and scheduled Tylenol. Adding ice today and encouraged moving out of bed. PT/OT to evaluate. (9) Metabolic acidosis: resolved. (10) Anemia in chronic kidney disease (CKD): stable, recent venofer infusion but given 1 unit RBCs yesterday for goal Hb >10 in setting of NSTEMI. Pt feels better and Hb at goal this am. (11) Diabetes mellitus: Insulin coverage while hospitalized. Was uncontrolled this morning, but better after addition of glargine and tightening goals. (12) DVT prophylaxis: SCDs, chemoprophylaxis relatively contraindicated in setting of septic embolic to brain with risk of hemorrhagic conversion and acquired coagulopathy. Full Code Dispo-cont telemetry monitoring for now. Jaja Seals DO [facility] Hospitalist Admission and Anticipated Discharge Date Admission Date: October 19, 2019 Subjective Feeling slightly improved today +back pain persists We discussed the importance of moving around and getting out of bed. Added ice therapy to back as tolerated. ' Abx changed by ID to Amp and Rocephin in setting of enterococcus coming up in blood cultures. Review of Systems Review of Systems: All systems reviewed & are unremarkable except as noted in Subjective Physical Exam Physical Exam: CONSTITUTIONAL: WNWD, vitals as above, fatigued. EYES: normal conjunctivae, no scleral icterus ENT: external ear and nose normal, oropharynx clear with dry mucous membranes. NECK: trachea midline RESPIRATORY: clear to auscultation bilaterally, no crackles, rales or wheezes, normal respiratory effort CARDIOVASCULAR: regular rate and rhythm, 3/6 HEAVEN heard throughout precordium with radiation to carotids. No gallops or rubs, no JVD, no peripheral edema CHEST: inspection of chest was normal GASTROINTESTINAL: soft, nontender, nondistended and no guarding MUSCULOSKELETAL: physically deconditioned, head is normocephalic and atraumatic SKIN: warm and dry NEUROLOGIC: No facial palsy. EOMI, pupils are round and equal bilaterally, CN 2- 12 grossly intact, no sensory deficit, normal cognition, normal speech, no tremor. PSYCHIATRIC: alert cooperative and oriented to person, place and time. Results & Data Results & Data ([facility]) Vital Signs (Past 12 Hours) Vital Signs Temp Pulse Pulse Resp BP BP Pulse Ox 10/22/19 15:42 36.7 C 64 21 134/67 95 10/22/19 11:00 36.5 C 83 16 125/69 96 10/22/19 08:00 102 H 10/22/19 07:44 36.8 C 88 28 H 168/79 H 96 10/22/19 07:08 87 180/76 H 10/22/19 04:47 36.4 C L 87 24 180/76 H 96 Laboratory Results Short CBC 10/22/19 Range/Units 06:04 WBC 16.59 H (4.8-10.8) K/uL Hgb 10.1 L (14.0-18.0) g/dL Hct 29.5 L (42-52) % Plt Count 328 (130-400) K/uL BMP 10/22/19 06:04 Sodium 137 Potassium 3.6 Chloride 98 Carbon Dioxide 26 BUN 75 H Creatinine 3.01 H D Glucose 235 H Calcium 9.0 Medications Administered Current Inpatient Medications Acetaminophen (Tylenol) 1,000 mg PO Q8H SHARYN Stop: 11/18/19 15:14 Last Admin: 10/22/19 08:56 Dose: 1,000 mg Documented by: Allopurinol (Zyloprim) 100 mg PO 1999 [facility] Stop: 11/18/19 19:59 Last Admin: 10/21/19 20:36 Dose: 100 mg Documented by: Amlodipine Besylate (Norvasc) 5 mg PO 0800 SHARYN Stop: 11/18/19 07:59 Last Admin: 10/22/19 11:07 Dose: 5 mg Documented by: Aspirin (Ecotrin Ectab) 81 mg PO 0800 SHARYN Stop: 11/18/19 07:59 Last Admin: 10/22/19 08:57 Dose: 81 mg Documented by: Clonidine HCl (Catapres) 0.1 mg PO BID SHARYN Stop: 11/21/19 04:59 Last Admin: 10/22/19 08:56 Dose: 0.1 mg Documented by: Clopidogrel Bisulfate (Plavix) 75 mg PO 0800 SHARYN Stop: 11/18/19 07:59 Last Admin: 10/22/19 08:57 Dose: 75 mg Documented by: Dextrose (Dextrose 50%) 25 - 50 ml IV UD PRN; Protocol PRN Reason: Hypoglycemia Protocol Stop: 11/18/19 07:42 Glucagon (Glucagen) 1 mg SQ UD PRN; Protocol PRN Reason: Hypoglycemia Protocol Stop: 11/18/19 07:42 Glucose (Dex4 Glucose) 4 - 8 tabs PO UD PRN; Protocol PRN Reason: Hypoglycemia Protocol Stop: 11/18/19 07:42 Glucose (Glucose 40%) 15 - 30 gm PO UD PRN; Protocol PRN Reason: Hypoglycemia Protocol Stop: 11/18/19 07:42 Hydralazine HCl (Apresoline) 100 mg PO 0800,1200,2000 SHARYN Stop: 11/18/19 07:59 Last Admin: 10/22/19 12:31 Dose: 100 mg Documented by: Hydromorphone HCl (Dilaudid) 0.25 mg IV Q3H PRN PRN Reason: Pain Stop: 11/02/19 07:42 Promethazine HCl 12.5 mg/ (Sodium Chloride) 50.5 mls @ 202 mls/hr IV Q6H PRN PRN Reason: Nausea And Vomiting Stop: 11/18/19 07:42 Ceftriaxone Sodium 2,000 mg/ (Dextrose) 70 mls @ 140 mls/hr IV Q12H [facility] Stop: 11/03/19 09:59 Last Infusion: 10/22/19 10:12 Dose: Infused Documented by: Furosemide 40 mg/ Syringe 4 mls @ 4 mls/min IV BID [facility] Stop: 11/19/19 10:29 Last Admin: 10/22/19 08:58 Dose: 4 mls/min Documented by: Sodium Bicarbonate 150 meq/ (Dextrose) 1,150 mls @ 50 mls/hr IV .Q23H [facility] Stop: 11/19/19 10:29 Last Admin: 10/22/19 08:57 Dose: 50 mls/hr Documented by: Ampicillin Sodium 2,000 mg/ (Sodium Chloride) 100 mls @ 200 mls/hr IV Q6H [facility]; Protocol Stop: 11/05/19 09:44 Last Infusion: 10/22/19 11:49 Dose: Infused Documented by: Insulin Aspart (Novolog Flexpen) 0 units SC ACHS [facility] Stop: 11/18/19 07:42 Last Admin: 10/22/19 11:59 Dose: 5 units Documented by: Insulin Glargine (Lantus Solostar Pen) 10 units SC BID [facility] Stop: 11/21/19 08:59 Last Admin: 10/22/19 08:56 Dose: 10 units Documented by: Isosorbide Mononitrate (Imdur Extended Rel) 60 mg PO 0800 [facility] Stop: 11/18/19 07:59 Last Admin: 10/22/19 08:57 Dose: 60 mg Documented by: Lubiprostone (Amitiza) 8 mcg PO 08,1999 [facility] Stop: 11/18/19 07:59 Last Admin: 10/22/19 08:57 Dose: 8 mcg Documented by: Metoprolol Tartrate (Lopressor) 50 mg PO QID [facility] Stop: 11/20/19 02:59 Last Admin: 10/22/19 12:31 Dose: 50 mg Documented by: Miscellaneous (Carbohydrates For Hypoglycemia) 15 - 30 gm PO UD PRN PRN Reason: Hypoglycemia Protocol Stop: 11/18/19 07:42 Miscellaneous Information (Pharmacy Consult) 1 ea N/A UD PRN PRN Reason: Consult Stop: 11/18/19 15:24 Miscellaneous Information (Pharmacist Discharge Med Rec Consult) 1 ea N/A UD PRN PRN Reason: Consult Stop: 11/18/19 15:22 Nitroglycerin (Nitrostat) 0.4 mg SL UD PRN PRN Reason: Pain Stop: 11/18/19 07:42 Oxycodone HCl (Roxicodone Immediate Rel) 10 mg PO BID [facility] Stop: 11/02/19 20:59 Last Admin: 10/22/19 08:56 Dose: 10 mg Documented by: Potassium Chloride (Klor-Con M20) 20 meq PO QAM [facility] Stop: 11/21/19 08:59 Last Admin: 10/22/19 08:56 Dose: 20 meq Documented by: Terazosin HCl (Hytrin) 5 mg PO 1999 [facility] Stop: 11/18/19 19:59 (1) Renal failure (ARF), acute on chronic Acute renal failure type: unspecified Chronic kidney disease stage: stage 5, not on chronic dialysis Qualified Code(s): N17.9 - Acute kidney failure, unspecified; N18.5 - Chronic kidney disease, stage 5
--- NOTE | 2019-10-22 16:41 | Progress Notes ---
DATE: 10/22/2019 SUBJECTIVE: Overnight, the patient continues to be weak and tired, but seems somewhat more perky today than yesterday. He is making urine and his renal function continues to get better. PHYSICAL EXAMINATION: VITAL SIGNS: Blood pressure 134/67, temperature 36.7 degrees Celsius, 95% on room air, pulse rate 64 per minute. HEENT: Mucous membrane is moist. NECK: Supple. No jugular venous distention. CARDIOVASCULAR: Regular rate and rhythm, no murmur, rub or gallop. LUNGS: Clear to auscultation bilaterally. ABDOMEN: Soft, nontender. EXTREMITIES: Shows no edema. SKIN: Warm and dry. ASSESSMENT AND PLAN: A 74-year-old male who has had progressively worsening chronic kidney disease, which is approaching chronic kidney disease stage V and was in preparation for starting dialysis who presented to the hospital with increasing weakness, shortness of breath and was found to have fever as well as elevated white count and non-ST elevation myocardial infarction, also found to have multiple embolic infarcts in the brain as well as spleen highly suggestive of thromboembolic infarct as well as gram-positive bacteremia. 1. Acute renal failure on background chronic kidney disease IV. It is very encouraging to see that creatinine actually went down from yesterday with good urine output. No major electrolyte imbalance. At this time, does not appear to be in fluid overload. At this point, we can stop the bicarbonate drip and continue the Lasix 40 iv daily. . No dialysis needed at this time. 2. Bacteremia. It is assumed this is related with transcatheter aortic valve replacement with infective endocarditis. Continue antibiotics as per ID recommendation. Careful titration of the vancomycin dosing is needed given acute renal failure as well as CKD. I will continue to follow. Thank you very much. [facility]
[2019-10-22] MEDS: TERAZOSIN HCL 5 MG CAP PO SCH (20:50)
[2019-10-22] MEDS: allopurinoL 100 MG TAB PO SCH (20:51)
--- NOTE | 2019-10-22 23:48 | Communication Note ---
Date of Service: October 22, 2019 Made aware by RN of Irene. fib on the monitor. Patient asymptomatic as per RN. SBP 120s, cardiac rate 70s as per RN. AP Recurrent A. fib (hx A. fib 2004 as per outpatient records) Rate controlled for now Check electrolytes Will relay to AM provider.
[2019-10-23] MEDS: ACETAMINOPHEN 500 MG TAB PO SCH ×3 (00:04→16:59)
[2019-10-23 00:06] LABS: BUN Creatinine Ratio 25.7 (10-20); Calcium 8.4 mg/dl (8.5-10.1); Creatinine Clr Calc Pharmacy 19.9 ml/min; Est GFR (African American) 21.5; Est GFR (Non-African American) 18.5; Magnesium 2.3 mg/dl (1.8-2.4); Potassium 3.8 mmol/L (3.5-5.1)
[2019-10-23] MEDS ORDERED: POTASSIUM CHLORIDE 20 MEQ TABCR PO STA (00:08)
[2019-10-23] MEDS: AMPICILLIN 2,000 MG in SODIUM CHLOR 0.9% AD-VAN 100 ML IV SCH ×4 (03:19→22:13)
[2019-10-23 06:08] LABS: Basophils # (auto) 0.01 K/uL (0-0.2); Basophils % (auto) 0.1 %; Eosinophils # (auto) 0.01 K/uL (0-0.5); Eosinophils % (auto) 0.1 %; Hematocrit (blood only) 27.2 % (42-52); Hemoglobin 9.3 g/dL (14.0-18.0); Immature Granulocytes # (auto) 0.36 K/uL (0.00-0.02); Immature Granulocytes % (auto) 2.2 %; Lymphocytes # (auto) 1.13 K/uL (1.2-3.4); Lymphocytes % (auto) 6.8 %; Mean Corpuscular Hemoglobin 33.6 pg (25-34); Mean Corpuscular Hgb Conc 34.2 g/dL (32-36); Mean Corpuscular Volume 98.2 fL (80-100); Mean Platelet Volume 10.9 fL (7.4-10.4); Monocytes # (auto) 1.69 K/uL (0.11-0.59); Monocytes % (auto) 10.2 %; Neutrophils # (auto) 13.39 K/uL (1.4-6.5); Neutrophils % (auto) 80.6 %; Platelet Count 329 K/uL (130-400); RDW Coefficient of Variation 15.6 % (11.5-14.5); RDW Standard Deviation 54.7 fL (36.4-46.3); Red Blood Count 2.77 M/uL (4.7-6.1); White Blood Count 16.59 K/uL (4.8-10.8)
[2019-10-23 06:18] LABS: INR 1.1 (0.9-1.1); Partial Thromboplastin Time 27.6 Seconds (21.0-31.0); Prothrombin Time 11.4 Seconds (9.0-12.0)
[2019-10-23] MEDS: INSULIN GLARGINE SOLOSTAR 100 UNITS/ML 3 ML PEN SC SCH ×2 (08:24→20:47)
[2019-10-23] MEDS: OXYCODONE HCL IR 5 MG TAB (IMMEDIATE RELEASE) PO SCH ×2 (08:24→20:05)
[2019-10-23] MEDS: INSULIN ASPART 100 UNITS/ML 3 ML PEN SC SCH ×4 (08:25→20:48)
[2019-10-23] MEDS: CLOPIDOGREL BISULFATE 75 MG TAB PO SCH (08:27)
[2019-10-23] MEDS: METOPROLOL TARTRATE 50 MG TAB PO SCH ×4 (08:27→20:19)
[2019-10-23] MEDS: ISOSORBIDE MONO EXTENDED REL 60 MG TABCR PO SCH (08:27)
[2019-10-23] MEDS: cloNIDine HCL 0.1 MG TAB PO SCH ×2 (08:27→19:59)
[2019-10-23] MEDS: POTASSIUM CHLORIDE 20 MEQ TABCR PO SCH (08:28)
[2019-10-23] MEDS: ASPIRIN 81 MG ECTAB PO SCH (08:28)
[2019-10-23] MEDS: AMLODIPINE BESYLATE 5 MG TAB PO SCH (08:28)
[2019-10-23] MEDS: HydrALAZINE TAB 50 MG TAB PO SCH ×3 (08:28→20:00)
[2019-10-23] MEDS: LUBIPROSTONE 8 MCG CAP PO SCH ×2 (08:28→20:01)
[2019-10-23] MEDS ORDERED: FUROSEMIDE 40 MG in SYRINGE 0 ML IV SCH (09:00)
[2019-10-23] MEDS: cefTRIAXone SODIUM 2,000 MG in DEXTROSE 5% 50 ML IV SCH ×2 (09:37→22:13)
--- NOTE | 2019-10-23 10:05 | Infectious Disease Progress Nt ---
Date of Service October 23, 2019 Assessment & Plan (1) Gram positive septicemia: cultures growing /E. faecalies. Highly concerning for infected valve and IE with significant embolic disease (spleen and brain). will repeat. No JUAN JOSE planned at this time as unlikely to change cardiac management. continue amp with ctx. will avoid gent due to pavel. would have low thresh hold for transfer to tertiary care center. will need min 6 week of abx, hold picc line as blood cultures remain +, will follow. discussed with primary, follow repeat blood cultures, deemed too high risk for surgery but unable to clear blood cultures at this point, continue to check daily, hold picc. may need repeat echo (TTE if can not have JUAN JOSE) to assess for developing abscess. will need prolonged course of IV abx. (2) Splenic infarct: (3) Acute CVA (cerebrovascular accident): (4) Non-ST elevation (NSTEMI) myocardial infarction: Admission and Anticipated Discharge Date Admission Date: October 19, 2019 Subjective awake, comfortable. afebrile. abx changed to amp and ctx. blood cultures remain + since admission, 10/22 cultures pending. wbc 16, creat improving. Review of Systems Review of Systems: All systems reviewed & are unremarkable except as noted in HPI & below Physical Exam Constitutional: WD/WN, vitals as above Eyes: PERRL, conjunctivae normal, anicteric sclerae ENMT: external ear and nose normal, oropharynx normal Neck: normal visual inspection Respiratory: normal respiratory effort, lungs clear to auscultation Cardiovascular: Rate/Rhythm: regular rate and regular rhythm Heart Sounds: + murmur Gastrointestinal (Abdomen): normal bowel sounds, soft, nontender, no hepatosplenomegaly Musculoskeletal: Head/Neck/Chest: normocephalic and head atraumatic Skin: no rashes, warm and dry Psychiatric: A+Ox3, euthymic affect Results & Data ([facility]) Vital Signs (Past 12 Hours) Vital Signs Temp Pulse Pulse Pulse Resp BP Pulse Ox 10/23/19 07:16 36.8 C 85 19 150/62 H 95 10/23/19 03:28 36.5 C 78 17 126/72 95 10/23/19 00:00 73 10/22/19 23:43 36.8 C 66 16 128/63 96 Diagnostic Findings Microbiology 10/22/19 06:04 Blood Aerobic Blood Culture - Preliminary Gram positive cocci in chains 10/22/19 06:04 Blood Anaerobic Blood Culture - Preliminary No growth in Anaerobic bottle after 24 hours. 10/22/19 06:14 Blood Aerobic Blood Culture - Preliminary Gram positive cocci in chains 10/22/19 06:14 Blood Anaerobic Blood Culture - Preliminary No growth in Anaerobic bottle after 24 hours. 10/21/19 06:22 Blood Aerobic Blood Culture - Preliminary Gram positive cocci in chains 10/21/19 06:22 Blood Anaerobic Blood Culture - Preliminary No growth in Anaerobic bottle after 48 hours. 10/21/19 06:11 Blood Aerobic Blood Culture - Preliminary Gram positive cocci in chains 10/21/19 06:11 Blood Anaerobic Blood Culture - Preliminary No growth in Anaerobic bottle after 48 hours. 10/20/19 13:03 Blood Aerobic Blood Culture - Preliminary Enterococcus faecalis 10/20/19 13:03 Blood Anaerobic Blood Culture - Preliminary No growth in Anaerobic bottle after 48 hours. 10/20/19 12:56 Blood Aerobic Blood Culture - Preliminary Enterococcus faecalis 10/20/19 12:56 Blood Anaerobic Blood Culture - Preliminary No growth in Anaerobic bottle after 48 hours. 10/19/19 04:45 Blood Aerobic Blood Culture - Final Enterococcus faecalis 10/19/19 04:45 Blood Anaerobic Blood Culture - Final Enterococcus faecalis 10/19/19 04:40 Blood Aerobic Blood Culture - Final Enterococcus faecalis 10/19/19 04:40 Blood Anaerobic Blood Culture - Final Enterococcus faecalis 10/19/19 05:00 Urine,Clean Catch Urine Culture - Final Three types of organisms present, all low counts probable skin darcy. No further identifications or sensitivities to follow. PG Care Time/CCT Total # of Minutes Spent Total Time Spent with Patient: Total time spent is greater than 50% in coordination of care (as documented) at patient's floor/unit and/or counseling patient: Coding Level of Care Code 40343 Subseq Hosp Care Lvl 3 Diagnoses Gram positive septicemia A41.89 Splenic infarct D73.5 Acute CVA (cerebrovascular accident) I63.9 Non-ST elevation (NSTEMI) myocardial infarction I21.4
[2019-10-23 15:04] LABS: 18KDIGG Band NON-REACTIVE; 23KDIGG Band NON-REACTIVE; 23KDIGM Band REACTIVE; 28KDIGG Band REACTIVE; 30KDIGG Band NON-REACTIVE; 39KDIGG Band NON-REACTIVE; 39KDIGM Band NON-REACTIVE; 41KDIGG Band REACTIVE; 41KDIGM Band NON-REACTIVE; 45KDIGG Band REACTIVE; 58KDIGG Band NON-REACTIVE; 66KDIGG Band NON-REACTIVE; 93KDIGG Band NON-REACTIVE; Lyme Antibodies, WB IgG NEGATIVE (NEGATIVE); Lyme Antibodies, WB IgM NEGATIVE (NEGATIVE)
--- NOTE | 2019-10-23 16:08 | Cardiology Progress Note ---
Date of Service October 23, 2019 Assessment & Plan (1) Gram positive septicemia: Repeat echocardiogram performed today which clearly showed a vegetation type lesion on the aortic aspect of his aortic valve. At this point would continue to treat with antibiotics without any other medical options at this point. Would continue to treat with antibiotics as per our infectious disease colleagues recommendations. Will likely require long-term if not lifelong antibiotics Obviously, the patient is a very high risk of perioperative mortality and do not believe that surgical aortic valve replacement is not an option (2) Non-ST elevation (NSTEMI) myocardial infarction: Resolved (3) Renal failure (ARF), acute on chronic: Stable Appreciate nephrology input and agree with plans to defer dialysis. No profound heart failure at this time though will need to follow volume status closely We will continue with current diuretic regimen as long as patient does not clinically examine his volume overloaded and renal function remained stable. (4) CAD (coronary artery disease): (5) S/P TAVR (transcatheter aortic valve replacement): (6) Acute CVA (cerebrovascular accident): (7) Splenic infarct: (8) Anemia in chronic kidney disease (CKD): Down to 9 today. Continue to follow (9) Atrial fibrillation: Patient went into atrial fibrillation with a controlled ventricular rate on 10/22/2019. No symptoms. This is a new diagnosis for him. Again given the risk of conversion to hemorrhagic CVA especially with the possibility of further embolic events I do not believe he is an anticoagulation candidate at this time. He is already rate controlled and no other changes will be made. Subjective Patient seen and examined, medical records and medications reviewed. Patient states he is doing okay today. Notes that his back pain has improved somewhat but continues to feel weak. Denies any chest pain, shortness of breath, palpitations, lightheadedness, dizziness or syncope. I spoke with the patient's and daughter by phone and notified them of the new findings on echocardiogram. Telemetry reviewed: Atrial fibrillation rate controlled. Review of Systems Review of Systems: All systems reviewed & are unremarkable except as noted in HPI & below Physical Exam Physical Exam: General: Awake, alert and oriented x 3. No acute distress. HEENT: Normocephalic, atraumatic. Pupils equal, round and reactive to light and accommodation. Extraocular muscles are intact. Anicteric sclera. Moist mucous membranes. Neck: No JVD. No bruit. Cardiovascular: irregularly irregular, unable to appreciate murmur, rub or gallop. Pulmonary: Clear to auscultation bilaterally. No rales, rhonchi, or wheezing. Abdomen: Bowel sounds x 4, soft. No rebound, guarding or tenderness. No organomegaly. Extremities: No clubbing, cyanosis or edema. +2 pedal pulses bilaterally. Skin: Warm and dry. Results & Data Vital Signs (Past 12 Hours) Vital Signs Temp Pulse Resp BP Pulse Ox 10/23/19 11:09 36.7 C 69 18 111/54 L 94 10/23/19 07:16 36.8 C 85 19 150/62 H 95 (1) Renal failure (ARF), acute on chronic Acute renal failure type: unspecified Chronic kidney disease stage: stage 5, not on chronic dialysis Qualified Code(s): N17.9 - Acute kidney failure, unspecified; N18.5 - Chronic kidney disease, stage 5
--- NOTE | 2019-10-23 17:02 | Nephrology Progress Note ---
Date of Service October 23, 2019 Assessment & Plan (1) Renal failure (ARF), acute on chronic: Patient with KARTHIK on CKD due to ischemic ATN in setting of bacteremia. Cr stable at 3.1 today. 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 Monitor renal function with daily BMP. Patient not great candidate for HD. (2) Prosthetic valve endocarditis: He will likely need fdc antibiotics. Avoid supratherapeutic vanc levels which can be nephrotoxic Admission and Anticipated Discharge Date Admission Date: October 19, 2019 Subjective Patient c/o back pain. No SOB or leg swelling Review of Systems Review of Systems: All systems reviewed & are unremarkable except as noted in HPI & below Physical Exam Physical Exam: General exam: Patient in distress due to pain HEENT: Pupils are equal and reactive to light Neck: No JVD, neck is supple trachea is midline Respiratory system: Clear breath sounds bilaterally. Gastrointestinal: Abdomen is soft, non distended, non tender, bowel sounds are present CVS: Regular rate and rhythm. No murmurs, rubs or gallops Musculoskeletal: No joint or muscle tenderness Extremities: Non tender, no edema, peripheral pulses are present Neuro: Oriented, no tremors, no focal neurological deficits Skin: No rashes Results & Data ([facility]) Vital Signs (Past 12 Hours) Vital Signs Temp Pulse Resp BP Pulse Ox 10/23/19 16:03 36.8 C 48 L 20 111/52 L 95 10/23/19 11:09 36.7 C 69 18 111/54 L 94 10/23/19 07:16 36.8 C 85 19 150/62 H 95 Laboratory Results 10/22/19 23:36 10/23/19 05:30 WBC 16.59 H RBC 2.77 L MCV 98.2 MCH 33.6 MCHC 34.2 RDW Std Deviation 54.7 H RDW Coeff of Mindi 15.6 H Plt Count 329 MPV 10.9 H (1) Renal failure (ARF), acute on chronic Acute renal failure type: unspecified Chronic kidney disease stage: stage 5, not on chronic dialysis Qualified Code(s): N17.9 - Acute kidney failure, unspecified; N18.5 - Chronic kidney disease, stage 5
--- NOTE | 2019-10-23 17:12 | Hospitalist Progress Note ---
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 Possible due to infection. Factor levels and lupus anticoagulant pending. If bleeding develops, will give FFP. no Vit K as per hematology (4) Embolic stroke: Presumed septic emboli from PVE. CT head showed findings indicative of a subacute right frontal infarct with laminar necrosis and cortical mineralization. MRI brain showed Multiple scattered punctate acute infarcts as described above most pronounced within the right frontal lobe. Focal area of edema seen within the right frontal lobe infarct with associated increased T1 signal. This could correspond to the associated calcifications in the setting of a subacute to chronic infarct or possibly petechial hemorrhage Continue Rocephin and ampicillin ID on board No indication for adding additional antiplatelet therapy and anticoagulation therapy is contraindicated as emboli have a higher risk for hemorrhagic conversion. (5) Non-ST elevation (NSTEMI) myocardial infarction: Troponin on admisson 10.3 then peaked at 18.1 Echo performed with no acute wall motion abnormality present. EF is 45-50%. Cardiology on board recommended medical management Continue aspirin, plavix and metoprolol Denies any chest pain currently (6) Renal failure (ARF), acute on chronic: Creatinine on admission 4.3 Cr stable at 3.1 today. 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 Nephrology on board and no plan for HD Continue lasix IV daily Monitor BMP closely (7) Splenic infarct: Due to septic emboli in setting of PVE and strep bacteremia. CT abd/pelvis showed 9.2 x 4.8 cm well defined hypodensity within the superior aspect of the spleen consistent with a large splenic infarct. A No surgical indications at this time. Asymptomatic (8) Lower back pain: MRI lumbar showed no fractures of fixation within the lumbar spine. Soft tissue edema within the bilateral erector spinae muscles at the lumbar region. A 1.7 cm lesion within the right psoas muscle which contains a fluid fluid level and hypointense rim. Cont oxycodone (taken BID chronically) and scheduled Tylenol. Continue PT/OT Continue pain management Clinically improves (9) Metabolic acidosis: resolved. (10) Anemia in chronic kidney disease (CKD): Hbg 9.3 today Received 1 unit PRBC during hospital course Will monitor hemoglobin and transfuse if H/H continue to drop (11) Diabetes mellitus: BS improved Continue Lantus and novolog sliding scale Continue monitor BS Atrial fibrillation: Patient went into atrial fibrillation with a controlled ventricular rate on 10/22/2019. No symptoms. HR dropped in the 40's today, will change metoprolol to TID Continue monitor HD (12) DVT prophylaxis: SCDs, chemoprophylaxis relatively contraindicated in setting of septic embolic to brain with risk of hemorrhagic conversion and acquired coagulopathy. Full Code Admission and Anticipated Discharge Date Admission Date: October 19, 2019 Subjective Pt was seen and examined Lying in bed with no distress Pt said that he feels a little better today He said that he is starting to get his strength Denies any chest pain, palpitation, dizziness and SOB Physical Exam Physical Exam: General- No acute distress Head- atraumatic Eyes- PERRL, EOMI, ENT- oropharynx clear Neck- supple, no JVD Lungs- clear to auscultation Heart- regular rhythm Abdomen- normal bowel sounds, soft, nontender Extremities- no calf tenderness Neuro- alert, oriented x 3; PERRL, EOMI; no facial palsy; no dysarthria Skin- warm & dry Results & Data Results & Data ([facility]) Vital Signs (Past 12 Hours) Vital Signs Temp Pulse Resp BP Pulse Ox 10/23/19 16:03 36.8 C 48 L 20 111/52 L 95 10/23/19 11:09 36.7 C 69 18 111/54 L 94 10/23/19 07:16 36.8 C 85 19 150/62 H 95 (1) Renal failure (ARF), acute on chronic Acute renal failure type: unspecified Chronic kidney disease stage: stage 5, not on chronic dialysis Qualified Code(s): N17.9 - Acute kidney failure, unspecified; N18.5 - Chronic kidney disease, stage 5
[2019-10-23] MEDS: TERAZOSIN HCL 5 MG CAP PO SCH (19:59)
[2019-10-23] MEDS: allopurinoL 100 MG TAB PO SCH (20:00)
--- NOTE | 2019-10-23 22:28 | Electrocardiogram Report ---
Test Reason : Blood Pressure : / mmHG Vent. Rate : 073 BPM Atrial Rate : 072 BPM P-R Int : 000 ms QRS Dur : 116 ms QT Int : 462 ms P-R-T Axes : 000 015 178 degrees QTc Int : 508 ms Atrial fibrillation Inferior infarct (cited on or before 19-OCT-2019) T wave abnormality, consider anterolateral ischemia Prolonged QT Abnormal ECG When compared with ECG of 19-OCT-2019 04:24, Atrial fibrillation has replaced Sinus rhythm T wave inversion less evident in Inferior leads T wave inversion now evident in Anterolateral leads Confirmed by Tobi Fritz ([id number]) on 10/23/2019 10:28:07 PM Referred By: REFERRED SELF Confirmed By:Tobi Fritz
[2019-10-24] MEDS: ACETAMINOPHEN 500 MG TAB PO SCH ×4 (01:03→23:49)
[2019-10-24] MEDS: AMPICILLIN 2,000 MG in SODIUM CHLOR 0.9% AD-VAN 100 ML IV SCH ×4 (04:31→23:05)
[2019-10-24 07:08] LABS: Hematocrit (blood only) 24.2 % (42-52); Hemoglobin 8.1 g/dL (14.0-18.0); Mean Corpuscular Hemoglobin 33.3 pg (25-34); Mean Corpuscular Hgb Conc 33.5 g/dL (32-36); Mean Corpuscular Volume 99.6 fL (80-100); Mean Platelet Volume 10.6 fL (7.4-10.4); Platelet Count 304 K/uL (130-400); RDW Coefficient of Variation 15.7 % (11.5-14.5); RDW Standard Deviation 55.5 fL (36.4-46.3); Red Blood Count 2.43 M/uL (4.7-6.1); White Blood Count 16.35 K/uL (4.8-10.8)
[2019-10-24 07:36] LABS: BUN Creatinine Ratio 21.9 (10-20); Calcium 8.6 mg/dl (8.5-10.1); Creatinine Clr Calc Pharmacy 16.5 ml/min; Est GFR (African American) 16.9; Est GFR (Non-African American) 14.5; Potassium 3.8 mmol/L (3.5-5.1)
[2019-10-24] MEDS: ASPIRIN 81 MG ECTAB PO SCH (08:26)
[2019-10-24] MEDS: METOPROLOL TARTRATE 50 MG TAB PO SCH ×3 (08:26→20:34)
[2019-10-24] MEDS: LUBIPROSTONE 8 MCG CAP PO SCH ×2 (08:26→19:08)
[2019-10-24] MEDS: INSULIN ASPART 100 UNITS/ML 3 ML PEN SC SCH ×4 (08:26→21:41)
[2019-10-24] MEDS: OXYCODONE HCL IR 5 MG TAB (IMMEDIATE RELEASE) PO SCH ×2 (08:28→20:38)
[2019-10-24] MEDS: CLOPIDOGREL BISULFATE 75 MG TAB PO SCH (08:29)
[2019-10-24] MEDS: INSULIN GLARGINE SOLOSTAR 100 UNITS/ML 3 ML PEN SC SCH ×2 (08:29→21:42)
[2019-10-24] MEDS: HydrALAZINE TAB 50 MG TAB PO SCH ×3 (08:29→19:07)
[2019-10-24] MEDS: ISOSORBIDE MONO EXTENDED REL 60 MG TABCR PO SCH (08:30)
[2019-10-24] MEDS: cloNIDine HCL 0.1 MG TAB PO SCH ×2 (08:30→20:35)
[2019-10-24] MEDS: AMLODIPINE BESYLATE 5 MG TAB PO SCH (08:30)
--- NOTE | 2019-10-24 09:51 | Nephrology Progress Note ---
Date of Service October 24, 2019 Assessment & Plan (1) Renal failure (ARF), acute on chronic: Patient with KARTHIK on CKD due to ischemic ATN in setting of bacteremia. Cr uptrending to 3.8 from 3.1 yesterday. 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 Monitor renal function with daily BMP. I discussed with the patient that if creatinine continues uptrending and urine output drops, will likely place dialysis catheter towards the end of the week. Patient is agreeable to dialysis if needed. He is however shocked that we are talking about dialysis today yet earlier in the week he was told his renal function is good and will not need dialysis. I explained to the patient that due to acute illness he is at risk for worsening ATN in setting of infection. (2) Prosthetic valve endocarditis: He will likely need adjunct faculty for medical terminology antibiotics. Avoid supratherapeutic vanc le vels which can be nephrotoxic Admission and Anticipated Discharge Date Admission Date: October 19, 2019 Subjective Patient complains of back pain. No shortness of breath. Urine output reduced with only 450 mL in 24 hours. Creatinine uptrending 3.8 today. Review of Systems Review of Systems: All systems reviewed & are unremarkable except as noted in HPI & below Physical Exam Physical Exam: General exam: Appears comfortable, no acute distress HEENT: Pupils are equal and reactive to light Neck: No JVD, neck is supple trachea is midline Respiratory system: Clear breath sounds bilaterally. Gastrointestinal: Abdomen is soft, non distended, non tender, bowel sounds are present CVS: Regular rate and rhythm. No murmurs, rubs or gallops Musculoskeletal: No joint or muscle tenderness Extremities: Non tender, no edema, peripheral pulses are present Neuro: Oriented, no tremors, no focal neurological deficits Skin: No rashes Results & Data ([facility]) Vital Signs (Past 12 Hours) Vital Signs Temp Pulse Resp BP Pulse Ox 10/24/19 07:07 36.3 C L 96 H 19 153/58 H 95 10/24/19 05:22 36.7 C 71 18 150/72 H 92 10/23/19 23:08 36.4 C L 71 18 130/67 98 Laboratory Results 10/24/19 06:48 10/24/19 06:48 WBC 16.35 H RBC 2.43 L MCV 99.6 MCH 33.3 MCHC 33.5 RDW Std Deviation 55.5 H RDW Coeff of Mindi 15.7 H Plt Count 304 MPV 10.6 H (1) Renal failure (ARF), acute on chronic Acute renal failure type: unspecified Chronic kidney disease stage: stage 5, not on chronic dialysis Qualified Code(s): N17.9 - Acute kidney failure, unspecified; N18.5 - Chronic kidney disease, stage 5
[2019-10-24] MEDS ORDERED: SODIUM CHLORIDE 0.9% 250 ML IV PRN (09:58)
[2019-10-24] MEDS: cefTRIAXone SODIUM 2,000 MG in DEXTROSE 5% 50 ML IV SCH ×2 (10:43→22:06)
--- NOTE | 2019-10-24 13:27 | Infectious Disease Progress Nt ---
Date of Service October 24, 2019 Assessment & Plan (1) Gram positive septicemia: cultures growing /E. faecalies. Repeat TTE now confirm AV veg - highly mobile, 1.5 cm. No JUAN JOSE planned at this time as unlikely to change cardiac management. continue amp with ctx. will avoid gent due to pavel. would have low thresh hold for transfer to tertiary care center. will need min 6 week of abx, hold picc line for now, 10/22 cultures negative so far, would prefer to hold off on picc for now and follow. Discussed results with cardio. He remains high risk for additional emboli, especially with large, mobile veg now noted on 10/22 TTE. carido to discuss further wishes with pt and family as he remains high risk for additional complications. For now plan is for conservative care with abx, will need prolonged course of IV abx - 6 weeks min. He will need weekly cbc, cmp, esr while on therapy and will likely need serial echo as well. I will be leaving [facility] next week and he will need to establish care with ID for remainder of course. (2) Splenic infarct: (3) Acute CVA (cerebrovascular accident): (4) Non-ST elevation (NSTEMI) myocardial infarction: Admission and Anticipated Discharge Date Admission Date: October 19, 2019 Subjective pt 10/22 cultures negative to date, all previous cultures growing E. facealis. Concern due to continued + cultures while on abx, TTE repeated yesterday due to concern for potential developing abscess (deemed too high risk for JUAN JOSE), no abcess seen on repeat echo but now 1.5 cm highly mobile mass c/w veg noted on AV. discussed with cardio. He remains afebrile. tolerating abx, on amp and ctx. wbc remains 16. creat overall improved but still elevated at 3.8 (no gent given due to this). Results & Data ([facility]) Vital Signs (Past 12 Hours) Vital Signs Temp Pulse Pulse Resp BP BP Pulse Ox 10/24/19 13:09 36.8 C 78 20 150/65 H 95 10/24/19 12:35 36.9 C 71 154/68 H 94 10/24/19 12:05 67 20 141/64 H 92 10/24/19 11:50 36.6 C 71 20 143/49 H 92 10/24/19 11:35 36.3 C L 76 16 147/70 H 92 10/24/19 11:11 36.4 C L 18 129/55 L 94 10/24/19 07:07 36.3 C L 96 H 19 153/58 H 95 10/24/19 05:22 36.7 C 71 18 150/72 H 92 Laboratory Results Microbiology 10/22/19 06:04 Blood Aerobic Blood Culture - Preliminary Enterococcus species 10/22/19 06:04 Blood Anaerobic Blood Culture - Preliminary No growth in Anaerobic bottle after 48 hours. 10/22/19 06:14 Blood Aerobic Blood Culture - Preliminary Enterococcus species 10/22/19 06:14 Blood Anaerobic Blood Culture - Preliminary No growth in Anaerobic bottle after 48 hours. 10/23/19 05:42 Blood Aerobic Blood Culture - Preliminary No growth in Aerobic bottle after 24 hours. 10/23/19 05:42 Blood Anaerobic Blood Culture - Preliminary No growth in Anaerobic bottle after 24 hours. 10/23/19 05:30 Blood Aerobic Blood Culture - Preliminary No growth in Aerobic bottle after 24 hours. 10/23/19 05:30 Blood Anaerobic Blood Culture - Preliminary No growth in Anaerobic bottle after 24 hours. 10/21/19 06:22 Blood Aerobic Blood Culture - Preliminary Enterococcus faecalis 10/21/19 06:22 Blood Anaerobic Blood Culture - Preliminary No growth in Anaerobic bottle after 48 hours. 10/21/19 06:11 Blood Aerobic Blood Culture - Preliminary Enterococcus faecalis 10/21/19 06:11 Blood Anaerobic Blood Culture - Preliminary No growth in Anaerobic bottle after 48 hours. 10/20/19 13:03 Blood Aerobic Blood Culture - Preliminary Enterococcus faecalis 10/20/19 13:03 Blood Anaerobic Blood Culture - Preliminary No growth in Anaerobic bottle after 48 hours. 10/20/19 12:56 Blood Aerobic Blood Culture - Preliminary Enterococcus faecalis 10/20/19 12:56 Blood Anaerobic Blood Culture - Preliminary No growth in Anaerobic bottle after 48 hours. 10/19/19 04:45 Blood Aerobic Blood Culture - Final Enterococcus faecalis 10/19/19 04:45 Blood Anaerobic Blood Culture - Final Enterococcus faecalis 10/19/19 04:40 Blood Aerobic Blood Culture - Final Enterococcus faecalis 10/19/19 04:40 Blood Anaerobic Blood Culture - Final Enterococcus faecalis 10/19/19 05:00 Urine,Clean Catch Urine Culture - Final Three types of organisms present, all low counts probable skin darcy. No further identifications or sensitivities to follow. PG Care Time/CCT Total # of Minutes Spent Total Time Spent with Patient: Total time spent is greater than 50% in coordination of care (as documented) at patient's floor/unit and/or counseling patient: Coding Level of Care Code 27638 Subseq Hosp Care Lvl 1 Diagnoses Gram positive septicemia A41.89 Splenic infarct D73.5 Acute CVA (cerebrovascular accident) I63.9 Non-ST elevation (NSTEMI) myocardial infarction I21.4
--- NOTE | 2019-10-24 13:28 | Cardiology Progress Note ---
Date of Service October 24, 2019 Assessment & Plan (1) Gram positive septicemia: Repeat echocardiogram performed clearly showed a vegetation type lesion on the aortic aspect of his aortic valve. At this point would continue to treat with antibiotics without any other medical options at this point. Would continue to treat with antibiotics as per our infectious disease colleagues recommendations. Will likely require long-term if not lifelong antibiotics Obviously, the patient is a very high risk of perioperative mortality and do not believe that surgical aortic valve replacement is not an option Luckily, his blood cultures from the have so far remained unremarkable. Okay to DC off telemetry from a cardiac standpoint. (2) Non-ST elevation (NSTEMI) myocardial infarction: Resolved (3) Renal failure (ARF), acute on chronic: Stable Appreciate nephrology input and agree with plans to defer dialysis. No profound heart failure at this time though will need to follow volume status closely We will continue with current diuretic regimen as long as patient does not clinically examine his volume overloaded and renal function remained stable. (4) CAD (coronary artery disease): (5) S/P TAVR (transcatheter aortic valve replacement): (6) Acute CVA (cerebrovascular accident): (7) Splenic infarct: (8) Anemia in chronic kidney disease (CKD): Again down to 8.1 today. (9) Atrial fibrillation: Patient went into atrial fibrillation with a controlled ventricular rate on 10/22/2019. No symptoms. This is a new diagnosis for him. Again given the risk of conversion to hemorrhagic CVA especially with the possibility of further embolic events I do not believe he is an anticoagulation candidate at this time. He is already rate controlled and no other changes will be made. Subjective Patient seen and examined, chart reviewed. States that he is feeling rather well today, back pain relatively well controlled but now aggravated with the need for ongoing inpatient admission. Denies cardiac complaints of chest pain, shortness of breath, palpitations, lightheadedness, dizziness or syncope. Telemetry reviewed: Atrial fibrillation rate controlled. Review of Systems Review of Systems: All systems reviewed & are unremarkable except as noted in HPI & below Physical Exam Physical Exam: General: Awake, alert and oriented x 3. No acute distress. HEENT: Normocephalic, atraumatic. Pupils equal, round and reactive to light and accommodation. Extraocular muscles are intact. Anicteric sclera. Moist mucous membranes. Neck: No JVD. No bruit. Cardiovascular: irregularly irregular, unable to appreciate murmur, rub or gallop. Pulmonary: Clear to auscultation bilaterally. No rales, rhonchi, or wheezing. Abdomen: Bowel sounds x 4, soft. No rebound, guarding or tenderness. No organomegaly. Extremities: No clubbing, cyanosis or edema. +2 pedal pulses bilaterally. Skin: Warm and dry. Results & Data Vital Signs (Past 12 Hours) Vital Signs Temp Pulse Pulse Resp BP BP Pulse Ox 10/24/19 13:09 36.8 C 78 20 150/65 H 95 10/24/19 12:35 36.9 C 71 154/68 H 94 10/24/19 12:05 67 20 141/64 H 92 10/24/19 11:50 36.6 C 71 20 143/49 H 92 10/24/19 11:35 36.3 C L 76 16 147/70 H 92 10/24/19 11:11 36.4 C L 18 129/55 L 94 10/24/19 07:07 36.3 C L 96 H 19 153/58 H 95 10/24/19 05:22 36.7 C 71 18 150/72 H 92 (1) Renal failure (ARF), acute on chronic Acute renal failure type: unspecified Chronic kidney disease stage: stage 5, not on chronic dialysis Qualified Code(s): N17.9 - Acute kidney failure, unspecified; N18.5 - Chronic kidney disease, stage 5
[2019-10-24] MEDS: TERAZOSIN HCL 5 MG CAP PO SCH (19:07)
[2019-10-24] MEDS: allopurinoL 100 MG TAB PO SCH (19:08)
--- NOTE | 2019-10-24 20:04 | Hospitalist Progress Note ---
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 Possible due to infection. Factor levels and lupus anticoagulant pending. If bleeding develops, will give FFP. no Vit K as per hematology (4) Embolic stroke: Presumed septic emboli from PVE. CT head showed findings indicative of a subacute right frontal infarct with laminar necrosis and cortical mineralization. MRI brain showed Multiple scattered punctate acute infarcts as described above most pronounced within the right frontal lobe. Focal area of edema seen within the right frontal lobe infarct with associated increased T1 signal. This could correspond to the associated calcifications in the setting of a subacute to chronic infarct or possibly petechial hemorrhage Continue Rocephin and ampicillin ID on board No indication for adding additional antiplatelet therapy and anticoagulation therapy is contraindicated as emboli have a higher risk for hemorrhagic conversion. (5) Non-ST elevation (NSTEMI) myocardial infarction: Troponin on admisson 10.3 then peaked at 18.1 Echo performed with no acute wall motion abnormality present. EF is 45-50%. Cardiology on board recommended medical management Continue aspirin, plavix and metoprolol Denies any chest pain currently (6) Renal failure (ARF), acute on chronic: Creatinine on admission 4.3 Cr increased at 3.8 today. 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 Nephrology on board and no plan for HD lasix IV discontinued today case discussed with Nephro If creatinine worsening, plan to place dialysis access Monitor BMP closely (7) Splenic infarct: Due to septic emboli in setting of PVE and strep bacteremia. CT abd/pelvis showed 9.2 x 4.8 cm well defined hypodensity within the superior aspect of the spleen consistent with a large splenic infarct. A No surgical indications at this time. Asymptomatic (8) Lower back pain: MRI lumbar showed no fractures of fixation within the lumbar spine. Soft tissue edema within the bilateral erector spinae muscles at the lumbar region. A 1.7 cm lesion within the right psoas muscle which contains a fluid fluid level and hypointense rim. Cont oxycodone (taken BID chronically) and scheduled Tylenol. Continue PT/OT Continue pain management Clinically improves (9) Metabolic acidosis: resolved. (10) Anemia in chronic kidney disease (CKD): Hbg dropped to 8.1 today Received 1 unit PRBC during hospital course Will give 1 unit prbc today Will monitor hemoglobin and transfuse if H/H continue to drop Continue CBC (11) Diabetes mellitus: BS improved Continue Lantus and novolog sliding scale Continue monitor BS Atrial fibrillation: Patient went into atrial fibrillation with a controlled ventricular rate on 10/22/2019. No symptoms. HR dropped in the 40's today, will change metoprolol to TID Continue monitor HD (12) Hypertension: BP elevated Continue amlodipine, clonidine, hydralazine, imdur, metoprolol Will increase clonidine to 0.2 mg BID Continue monitor BP (13) DVT prophylaxis: SCDs, chemoprophylaxis relatively contraindicated in setting of septic embolic to brain with risk of hemorrhagic conversion and acquired coagulopathy. Full Code Admission and Anticipated Discharge Date Admission Date: October 19, 2019 Subjective Pt was seen and examined Lying in bed with no distress Pt said that he feels tired because he has not slept much Spoke to yesterday and provided with updates Denies any chest pain, palpitation, dizziness and SOB Physical Exam Physical Exam: General- No acute distress Head- atraumatic Eyes- PERRL, EOMI, ENT- oropharynx clear Neck- supple, no JVD Lungs- clear to auscultation Heart- regular rhythm Abdomen- normal bowel sounds, soft, nontender Extremities- no calf tenderness Neuro- alert, oriented x 3; PERRL, EOMI; no facial palsy; no dysarthria Skin- warm & dry Results & Data Results & Data ([facility]) Vital Signs (Past 12 Hours) Vital Signs Temp Pulse Pulse Resp BP BP Pulse Ox 10/24/19 18:51 37.6 C H 82 20 181/69 H 90 10/24/19 16:00 88 10/24/19 15:35 36.8 C 71 18 174/62 H 93 10/24/19 15:13 36.8 C 70 20 155/71 H 92 10/24/19 14:35 36.9 C 78 149/65 H 93 10/24/19 13:45 102 H 20 159/57 H 93 10/24/19 13:09 36.8 C 78 20 150/65 H 95 10/24/19 12:35 36.9 C 71 154/68 H 94 10/24/19 12:05 67 20 141/64 H 92 10/24/19 11:50 36.6 C 71 20 143/49 H 92 10/24/19 11:35 36.3 C L 76 16 147/70 H 92 10/24/19 11:11 36.4 C L 18 129/55 L 94 (1) Renal failure (ARF), acute on chronic Acute renal failure type: unspecified Chronic kidney disease stage: stage 5, not on chronic dialysis Qualified Code(s): N17.9 - Acute kidney failure, uns pecified; N18.5 - Chronic kidney disease, stage 5
[2019-10-24] MEDS ORDERED: cloNIDine HCL 0.2 MG TAB PO SCH (21:00)
[2019-10-25] MEDS: AMPICILLIN 2,000 MG in SODIUM CHLOR 0.9% AD-VAN 100 ML IV SCH ×4 (03:39→21:34)
[2019-10-25 07:08] LABS: Hemoglobin 9.3 g/dL (14.0-18.0); Mean Corpuscular Hemoglobin 32.4 pg (25-34); Mean Corpuscular Hgb Conc 33.2 g/dL (32-36); Mean Corpuscular Volume 97.6 fL (80-100); Mean Platelet Volume 10.8 fL (7.4-10.4); Nucleated RBC # (auto) 0.04 K/uL (0-0); Nucleated RBC % (auto) 0.2 %; Platelet Count 278 K/uL (130-400); RDW Coefficient of Variation 17.8 % (11.5-14.5); RDW Standard Deviation 61.2 fL (36.4-46.3); Red Blood Count 2.87 M/uL (4.7-6.1); White Blood Count 20.25 K/uL (4.8-10.8)
[2019-10-25 07:36] LABS: BUN Creatinine Ratio 21.7 (10-20); Calcium 8.6 mg/dl (8.5-10.1); Creatinine Clr Calc Pharmacy 16.9 ml/min; Est GFR (African American) 17.1; Est GFR (Non-African American) 14.8; Potassium 3.5 mmol/L (3.5-5.1)
--- NOTE | 2019-10-25 08:17 | Nephrology Progress Note ---
Date of Service October 25, 2019 Assessment & Plan (1) Renal failure (ARF), acute on chronic: Patient with KARTHIK on CKD due to ischemic ATN in setting of bacteremia. Cr stable at 3.7 from 3.8 yesterday. Electrolytes are stable. No indication for dialysis today but cannot rule out need during this admission. 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 Monitor renal function with daily BMP. Patient is agreeable to dialysis if needed. I explained to the patient that due to acute illness he is at risk for worsening ATN in setting of infection. (2) Prosthetic valve endocarditis: He will likely need correction antibiotics. Avoid supratherapeutic vanc levels which can be nephrotoxic Admission and Anticipated Discharge Date Admission Date: October 19, 2019 Subjective He feels better today. Still has back pain. No shortness of breath. Urine output increased to 1 L in 24 hours. Creatinine slightly better today. Review of Systems Review of Systems: All systems reviewed & are unremarkable except as noted in HPI & below Physical Exam Physical Exam: General exam: Appears comfortable, no acute distress HEENT: Pupils are equal and reactive to light Neck: No JVD, neck is supple trachea is midline Respiratory system: Clear breath sounds bilaterally. Gastrointestinal: Abdomen is soft, non distended, non tender, bowel sounds are present CVS: Regular rate and rhythm. No murmurs, rubs or gallops Musculoskeletal: No joint or muscle tenderness Extremities: Non tender, no edema, peripheral pulses are present Neuro: Oriented, no tremors, no focal neurological deficits Skin: No rashes Results & Data ([facility]) Vital Signs (Past 12 Hours) Vital Signs Temp Pulse Resp BP Pulse Ox 10/25/19 07:44 36.8 C 90 19 148/66 H 89 L 10/25/19 03:48 36.8 C 81 19 161/74 H 94 10/24/19 23:47 36.9 C 83 17 167/56 H 93 10/24/19 21:46 136/87 73 L Laboratory Results 10/25/19 06:47 10/25/19 06:47 WBC 20.25 H RBC 2.87 L MCV 97.6 MCH 32.4 MCHC 33.2 RDW Std Deviation 61.2 H RDW Coeff of Mindi 17.8 H Plt Count 278 MPV 10.8 H (1) Renal failure (ARF), acute on chronic Acute renal failure type: unspecified Chronic kidney disease stage: stage 5, not on chronic dialysis Qualified Code(s): N17.9 - Acute kidney failure, unspecified; N18.5 - Chronic kidney disease, stage 5
[2019-10-25] MEDS: INSULIN ASPART 100 UNITS/ML 3 ML PEN SC SCH ×4 (08:23→21:46)
[2019-10-25] MEDS: OXYCODONE HCL IR 5 MG TAB (IMMEDIATE RELEASE) PO SCH ×2 (08:24→21:33)
[2019-10-25] MEDS: cloNIDine HCL 0.1 MG TAB PO SCH ×2 (08:24→21:25)
[2019-10-25] MEDS: ACETAMINOPHEN 500 MG TAB PO SCH ×2 (08:24→16:27)
[2019-10-25] MEDS: CLOPIDOGREL BISULFATE 75 MG TAB PO SCH (08:24)
[2019-10-25] MEDS: METOPROLOL TARTRATE 50 MG TAB PO SCH ×4 (08:24→21:14)
[2019-10-25] MEDS: LUBIPROSTONE 8 MCG CAP PO SCH ×2 (08:25→21:33)
[2019-10-25] MEDS: ASPIRIN 81 MG ECTAB PO SCH (08:25)
[2019-10-25] MEDS: AMLODIPINE BESYLATE 5 MG TAB PO SCH (08:25)
[2019-10-25] MEDS: ISOSORBIDE MONO EXTENDED REL 60 MG TABCR PO SCH (08:25)
[2019-10-25] MEDS: HydrALAZINE TAB 50 MG TAB PO SCH ×4 (08:25→21:14)
[2019-10-25] MEDS: INSULIN GLARGINE SOLOSTAR 100 UNITS/ML 3 ML PEN SC SCH ×2 (08:25→21:42)
[2019-10-25 08:39] LABS: DRVVT Neutralization (Reflex) Negative (Negative); Lupus Hex Phase (Rflxdonotord) Positive (Negative); Thrombin Time (reflex only) 15 sec (13-19)
[2019-10-25] MEDS: cefTRIAXone SODIUM 2,000 MG in DEXTROSE 5% 50 ML IV SCH ×2 (10:10→23:21)
--- NOTE | 2019-10-25 12:10 | Infectious Disease Progress Nt ---
Date of Service October 25, 2019 Assessment & Plan (1) Gram positive septicemia: cultures growing /E. faecalies. Repeat TTE now confirm AV veg - highly mobile, 1.5 cm. No JUAN JOSE planned at this time as unlikely to change cardiac management. continue amp with ctx. will avoid gent due to pavel. would have low thresh hold for transfer to tertiary care center. will need min 6 week of abx, hold picc line for now, 10/22 cultures negative so far, would prefer to hold off on picc for now and follow, if remain negative tomorrow, ok for picc line. Discussed results with cardio. He remains high risk for additional emboli, especially with large, mobile veg now noted on 10/22 TTE. carido to discuss furth er wishes with pt and family as he remains high risk for additional complications. For now plan is for conservative care with abx, will need prolonged course of IV abx - 6 weeks min. He will need weekly cbc, cmp, esr while on therapy and will likely need serial echo as well. I will be leaving [facility] next week and he will need to establish care with ID for remainder of course. (2) Splenic infarct: (3) Acute CVA (cerebrovascular accident): (4) Non-ST elevation (NSTEMI) myocardial infarction: Admission and Anticipated Discharge Date Admission Date: October 19, 2019 Subjective pt remains on amp and rocephin, tolerating well. one time temp 37.6 overnight, otherwise afebrile. wbc increased to 20 today, creat 3.7. 10/22 blood cultures remain negative x 2. Results & Data ([facility]) Vital Signs (Past 12 Hours) Vital Signs Temp Pulse Pulse Resp BP Pulse Ox 10/25/19 11:47 36.5 C 88 16 133/76 98 10/25/19 08:30 84 10/25/19 07:44 36.8 C 90 19 148/66 H 89 L 10/25/19 03:48 36.8 C 81 19 161/74 H 94 Laboratory Results Microbiology 10/22/19 06:04 Blood Aerobic Blood Culture - Preliminary Enterococcus faecalis 10/22/19 06:04 Blood Anaerobic Blood Culture - Preliminary No growth in Anaerobic bottle after 48 hours. 10/23/19 05:42 Blood Aerobic Blood Culture - Preliminary No growth in Aerobic bottle after 48 hours. 10/23/19 05:42 Blood Anaerobic Blood Culture - Preliminary No growth in Anaerobic bottle after 48 hours. 10/23/19 05:30 Blood Aerobic Blood Culture - Preliminary No growth in Aerobic bottle after 48 hours. 10/23/19 05:30 Blood Anaerobic Blood Culture - Preliminary No growth in Anaerobic bottle after 48 hours. 10/22/19 06:14 Blood Aerobic Blood Culture - Preliminary Enterococcus species 10/22/19 06:14 Blood Anaerobic Blood Culture - Preliminary No growth in Anaerobic bottle after 48 hours. 10/21/19 06:22 Blood Aerobic Blood Culture - Preliminary Enterococcus faecalis 10/21/19 06:22 Blood Anaerobic Blood Culture - Preliminary No growth in Anaerobic bottle after 48 hours. 10/21/19 06:11 Blood Aerobic Blood Culture - Preliminary Enterococcus faecalis 10/21/19 06:11 Blood Anaerobic Blood Culture - Preliminary No growth in Anaerobic bottle after 48 hours. 10/20/19 13:03 Blood Aerobic Blood Culture - Preliminary Enterococcus faecalis 10/20/19 13:03 Blood Anaerobic Blood Culture - Preliminary No growth in Anaerobic bottle after 48 hours. 10/20/19 12:56 Blood Aerobic Blood Culture - Preliminary Enterococcus faecalis 10/20/19 12:56 Blood Anaerobic Blood Culture - Preliminary No growth in Anaerobic bottle after 48 hours. 10/19/19 04:45 Blood Aerobic Blood Culture - Final Enterococcus faecalis 10/19/19 04:45 Blood Anaerobic Blood Culture - Final Enterococcus faecalis 10/19/19 04:40 Blood Aerobic Blood Culture - Final Enterococcus faecalis 10/19/19 04:40 Blood Anaerobic Blood Culture - Final Enterococcus faecalis 10/19/19 05:00 Urine,Clean Catch Urine Culture - Final Three types of organisms present, all low counts probable skin darcy. No further identifications or sensitivities to follow. PG Care Time/CCT Total # of Minutes Spent Total Time Spent with Patient: Total time spent is greater than 50% in coordination of care (as documented) at patient's floor/unit and/or counseling patient: Coding Level of Care Code 10792 Subseq Hosp Care Lvl 1 Diagnoses Gram positive septicemia A41.89 Splenic infarct D73.5 Acute CVA (cerebrovascular accident) I63.9 Non-ST elevation (NSTEMI) myocardial infarction I21.4
--- NOTE | 2019-10-25 14:15 | Cardiology Progress Note ---
Date of Service October 25, 2019 Assessment & Plan (1) Gram positive septicemia: Repeat echocardiogram performed clearly showed a vegetation type lesion on the aortic aspect of his aortic valve. At this point would continue to treat with antibiotics without any other medical options at this point. Would continue to treat with antibiotics as per our infectious disease colleagues recommendations. Will likely require long-term if not lifelong antibiotics Obviously, the patient is a very high risk of perioperative mortality and do not believe that surgical aortic valve replacement is not an option, both he and his agree to this also. Luckily, his blood cultures from the have so far remained unremarkable. Okay to DC off telemetry from a cardiac standpoint. I have greatly encouraged him to restart his medications. (2) Non-ST elevation (NSTEMI) myocardial infarction: Resolved (3) Renal failure (ARF), acute on chronic: Deteriorating (4) CAD (coronary artery disease): (5) S/P TAVR (transcatheter aortic valve replacement): (6) Acute CVA (cerebrovascular accident): (7) Splenic infarct: (8) Anemia in chronic kidney disease (CKD): Again down to 8.1 today. (9) Atrial fibrillation: Patient went into atrial fibrillation with a controlled ventricular rate on 10/22/2019. No symptoms. This is a new diagnosis for him. Again given the risk of conversion to hemorrhagic CVA especially with the possibility of further embolic events I do not believe he is an anticoagulation candidate at this time. He is already rate controlled and no other changes will be made. Subjective Patient seen and examined, medical records reviewed. He is very upset this m orning and becoming aggravated by prolonged hospitalization. He is refusing all medications this morning including his pain medication which is highly unlikely for him. He denies any complaints but does voice that he would like to be discharged. Telemetry reviewed: Atrial fibrillation rate controlled Review of Systems Review of Systems: All systems reviewed & are unremarkable except as noted in HPI & below Physical Exam Physical Exam: General: Awake, alert and oriented x 3. No acute distress. HEENT: Normocephalic, atraumatic. Pupils equal, round and reactive to light and accommodation. Extraocular muscles are intact. Anicteric sclera. Moist mucous membranes. Neck: No JVD. No bruit. Cardiovascular: irregularly irregular, unable to appreciate murmur, rub or gallop. Pulmonary: Clear to auscultation bilaterally. No rales, rhonchi, or wheezing. Abdomen: Bowel sounds x 4, soft. No rebound, guarding or tenderness. No organomegaly. Extremities: No clubbing, cyanosis or edema. +2 pedal pulses bilaterally. Skin: Warm and dry. Results & Data Vital Signs (Past 12 Hours) Vital Signs Temp Pulse Pulse Resp BP Pulse Ox 10/25/19 11:47 36.5 C 88 16 133/76 98 10/25/19 08:30 84 10/25/19 07:44 36.8 C 90 19 148/66 H 89 L 10/25/19 03:48 36.8 C 81 19 161/74 H 94 (1) Renal failure (ARF), acute on chronic Acute renal failure type: unspecified Chronic kidney disease stage: stage 5, not on chronic dialysis Qualified Code(s): N17.9 - Acute kidney failure, unspecified; N18.5 - Chronic kidney disease, stage 5
--- NOTE | 2019-10-25 14:36 | Hospitalist Progress Note ---
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 pt is a poor candidate for valve replacement surgery given large aortic valve vegetation with septic embolic -per cardiology , pt may need life long suppressive antibiotic possibly in form of oral dose (2) S/P TAVR (transcatheter aortic valve replacement): Severe aortic stenosis status post tucker valve TAVR bioprosthetic replacement April 2017 admitted with 6 weeks hx of fatigue , poor endurance blood cultures positive for entercocci ECHO showed highly mobile, linear 1.5 cm lesion on the aortic aspect of the bioprosthetic aortic valve Too high risk for JUAN JOSE and no likely change in outcome per cardiology : the patient is a very high risk of perioperative mortality and do not believe that surgical aortic valve replacement is not an option will need life long suppresive abx (3) Coagulopathy: 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 Possible due to infection. Factor levels and lupus anticoagulant; ordered case discussed with Heme once by previous provider avoid anticoagulation recommendation pre hematology : for any bleeding complication pt should be treated with FFP. no treatment with Vit K (4) Embolic stroke: Presumed septic emboli from prosthetic valve endocarditis CT head showed findings indicative of a subacute right frontal infarct with laminar necrosis and cortical mineralization. MRI brain showed Multiple scattered punctate acute infarcts as described above most pronounced within the right frontal lobe. Focal area of edema seen within the right frontal lobe infarct with associated increased T1 signal. This could correspond to the associated calcifications in the setting of a subacute to chronic infarct or possibly petechial hemorrhage Avoid antiplatelet therapy and anticoagulation therapy as septic emboli have a higher risk for hemorrhagic conversion. treatment of valve endocarditis as outlined above (5) Non-ST elevation (NSTEMI) myocardial infarction: Troponin on admisson 10.3 then peaked at 18.1 Echo performed with no acute wall motion abnormality present. EF is 45-50%. Cardiology on board recommended medical management Continue aspirin, plavix and metoprolol no complain of chest pain or discomfort (6) Renal failure (ARF), acute on chronic: Creatinine on admission 4.3 Patient with baseline ckd 4-5. Nephrology on board cr stable at 3.7 form 3.8 yesterday electrolytes and vol status remains stable (7) Splenic infarct: CT abd/pelvis showed 9.2 x 4.8 cm well defined hypodensity within the superior aspect of the spleen consistent with a large splenic infarct. A Due to septic emboli in setting of Prosthetic valve endocarditis and enterococci bacteremia (8) Lower back pain: MRI lumbar showed no fractures of fixation within the lumbar spine. Soft tissue edema within the bilateral erector spinae muscles at the lumbar region. A 1.7 cm lesion within the right psoas muscle which contains a fluid fluid level and hypointense rim. Cont oxycodone (taken BID chronically) and scheduled Tylenol. pain is well controlled at current regimen Continue PT/OT -recommends rehab (9) Metabolic acidosis: resolved. (10) Anemia in chronic kidney disease (CKD): due to advanced CKD , acute illness with bacteremia /endocarditis s/p 1 unit of PRBC transfusion today Hb stable at 9.3 (11) Diabetes mellitus: Continue Lantus and novolog sliding scale Continue monitor BS Atrial fibrillation: Patient went into atrial fibrillation with a controlled ventricular rate on 10/22/2019. on beta pau (12) Hypertension: Continue amlodipine, clonidine, hydralazine, imdur, metoprolol (13) DVT prophylaxis: SCDs, moderate to high risk for DVT given deconditioning , chemoprophylaxis relatively contraindicated in setting of septic embolic to brain with risk of hemorrhagic conversion and acquired coagulopathy. 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 and PT/OT recommendation for rehab and pt is reluctant to go to SNF after discharge form home pt will need few more days of hospital stay will continue to discuss with pt and family and CM for safe discharge planning Admission and Anticipated Discharge Date Admission Date: October 19, 2019 Subjective remains afebrile this AM pt complains of feeling very fatigued and wiped out very poor appetite was able to sit on side of the bed with assistance , but felt extremely weak with effort has VERDIN , no hypoxia or desaturation noted no cough or chest pain no GI or symptoms Review of Systems Review of Systems: All systems reviewed & are unremarkable except as noted in HPI & below Constitutional: + fatigue, + weakness and + anorexia; no fever and no chills Respiratory: + dyspnea on exertion; no cough Cardiovascular: no chest pain Physical Exam Constitutional: WD/WN, vitals as above + ill appearing; no acute distress very weak and fatigued Eyes: PERRL, conjunctivae normal, anicteric sclerae ENMT: external ear and nose normal, oropharynx normal Neck: trachea midline, no thyromegaly Respiratory: normal respiratory effort; no cough Auscultation: + diminished lung sounds; no crackles, no rales, no rhonchi and no wheezes Cardiovascular: RRR, no murmur, no edema Gastrointestinal (Abdomen): Percussion/Palpation: abdomen soft; abdomen nontender Musculoskeletal: Extremities: + abnormal strength and normal strength generalized weakness Neurologic: PERRL, EOMI, accommodation nl, no face palsy, no dysarthria Psychiatric: Orientation: alert and oriented x 3 Affect: + flat affect Results & Data Results & [facility]) Vital Signs (Past 12 Hours) Vital Signs Temp Pulse Pulse Resp BP Pulse Ox 10/25/19 11:47 36.5 C 88 16 133/76 98 10/25/19 08:30 84 10/25/19 07:44 36.8 C 90 19 148/66 H 89 L 10/25/19 03:48 36.8 C 81 19 161/74 H 94 (1) Renal failure (ARF), acute on chronic Acute renal failure type: unspecified Chronic kidney disease stage: stage 5, not on chronic dialysis Qualified Code(s): N17.9 - Acute kidney failure, unspecified; N18.5 - Chronic kidney disease, stage 5
[2019-10-25] MEDS: TERAZOSIN HCL 5 MG CAP PO SCH (21:26)
--- NOTE | 2019-10-25 21:28 | XRay Report ---
XR chest 1V portable CLINICAL HISTORY: Shortness of breath COMPARISON STUDY: 10/19/2019 FINDINGS: The heart is enlarged. There is an aortic valve graft. There is radiographic evidence of co ngestive failure with a pulmonary edema pattern. There are small bilateral pleural effusions.[There i s no lobar consolidation. IMPRESSION: Cardiomegaly. Pulmonary edema pattern. Clinical and radiographic follow-up is recommended . ACT 112: Negative or not required by law. Electronically signed by: Stefan Machuca M.D. 10/25/2019 9:26 PM
[2019-10-25] MEDS: allopurinoL 100 MG TAB PO SCH (21:33)
[2019-10-25 22:39] LABS: Coag Factor 10 Activity 93 % (70-150); Coag Factor 2 Activity 70 % (70-150); Coag Factor 9 Activity 118 % (60-160)
[2019-10-26] MEDS: ACETAMINOPHEN 500 MG TAB PO SCH ×3 (00:02→16:13)
[2019-10-26] MEDS: AMPICILLIN 2,000 MG in SODIUM CHLOR 0.9% AD-VAN 100 ML IV SCH ×4 (04:13→21:07)
[2019-10-26 06:52] LABS: Hematocrit (blood only) 27.8 % (42-52); Hemoglobin 9.4 g/dL (14.0-18.0); Mean Corpuscular Hemoglobin 32.9 pg (25-34); Mean Corpuscular Hgb Conc 33.8 g/dL (32-36); Mean Corpuscular Volume 97.2 fL (80-100); Nucleated RBC # (auto) 0.06 K/uL (0-0); Nucleated RBC % (auto) 0.3 %; Platelet Count 245 K/uL (130-400); RDW Coefficient of Variation 17.5 % (11.5-14.5); RDW Standard Deviation 59.5 fL (36.4-46.3); Red Blood Count 2.86 M/uL (4.7-6.1); White Blood Count 23.48 K/uL (4.8-10.8)
[2019-10-26 07:23] LABS: BUN Creatinine Ratio 19.5 (10-20); Calcium 8.4 mg/dl (8.5-10.1); Creatinine Clr Calc Pharmacy 15.5 ml/min; Est GFR (African American) 15.5; Est GFR (Non-African American) 13.4; Potassium 3.5 mmol/L (3.5-5.1)
[2019-10-26 07:41] LABS: Coag Factor 7 Activity 141
[2019-10-26] MEDS: INSULIN ASPART 100 UNITS/ML 3 ML PEN SC SCH ×4 (08:30→20:50)
[2019-10-26] MEDS ORDERED: Heparin IV Low Dose *NO* Bolus IV SCH (10:30)
[2019-10-26] MEDS: cefTRIAXone SODIUM 2,000 MG in DEXTROSE 5% 50 ML IV SCH ×2 (10:30→21:06)
--- NOTE | 2019-10-26 10:37 | Hospitalist Progress Note ---
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 Andersen Patient will need to be on therapeutic anticoagulation- high risk for thromboembolic event given positive lupus anticoagulant Patient already has evidence of embolic CVA noted in MRI of brain as well as splenic infarct. Patient will be started with IV heparin low-dose, no bolus Dual antiplatelets aspirin and Plavix discontinued to reduce bleeding risk Patient will be monitored very closely, every 4hrs neurochecks, will do stat CT head noncontrast - with any change of mental status for evaluation of bleeding complication/intracranial hemorrhage. Jazlyn Porter MD Results & Data Results & Data ([facility]) Vital Signs (Past 12 Hours) Vital Signs Temp Pulse Resp BP BP Pulse Ox 10/26/19 07:07 36.5 C 70 18 171/76 H 91 10/25/19 23:34 36.5 C 73 18 166/74 H 94
--- NOTE | 2019-10-26 10:42 | Infectious Disease Progress Nt ---
Date of Service October 26, 2019 Assessment & Plan (1) Gram positive septicemia: cultures growing /E. faecalies. Repeat TTE now confirm AV veg - highly mobile, 1.5 cm. No JUAN JOSE planned at this time as unlikely to change cardiac management. continue amp with ctx. will avoid gent due to pavel. would have low thresh hold for transfer to tertiary care center. will need min 6 week of abx, hold picc line for now, 10/22 cultures negative so far, would prefer to hold off on picc for now and follow, if remain negative tomorrow, ok for picc line. Discussed results with cardio. He remains high risk for additional emboli, especially with large, mobile veg now noted on 10/22 TTE. carido to discuss furth er wishes with pt and family as he remains high risk for additional complications. For now plan is for conservative care with abx, will need prolonged course of IV abx - 6 weeks min. He will need weekly cbc, cmp, esr while on therapy and will likely need serial echo as well. I will be leaving [facility] next week and he will need to establish care with ID for remainder of course. (2) Splenic infarct: (3) Acute CVA (cerebrovascular accident): (4) Non-ST elevation (NSTEMI) myocardial infarction: Admission and Anticipated Discharge Date Admission Date: October 19, 2019 Subjective afebrile overnight, remains on amp and ctx for PVIE, E. faecalis. 10/22 cultures negative at 48 hours. wbc increased to 23, creat increased to 4. CXR done yesterday negative for infiltrate. Results & Data ([facility]) Vital Signs (Past 12 Hours) Vital Signs Temp Pulse Resp BP BP Pulse Ox 10/26/19 07:07 36.5 C 70 18 171/76 H 91 10/25/19 23:34 36.5 C 73 18 166/74 H 94 Laboratory Results Microbiology 10/20/19 13:03 Blood Aerobic Blood Culture - Final Enterococcus faecalis 10/20/19 13:03 Blood Anaerobic Blood Culture - Final No growth in Anaerobic bottle after 5 days. 10/20/19 12:56 Blood Aerobic Blood Culture - Final Enterococcus faecalis 10/20/19 12:56 Blood Anaerobic Blood Culture - Final No growth in Anaerobic bottle after 5 days. 10/21/19 06:11 Blood Aerobic Blood Culture - Preliminary Enterococcus faecalis 10/21/19 06:11 Blood Anaerobic Blood Culture - Final No growth in Anaerobic bottle after 5 days. 10/21/19 06:22 Blood Aerobic Blood Culture - Preliminary Enterococcus faecalis 10/21/19 06:22 Blood Anaerobic Blood Culture - Final No growth in Anaerobic bottle after 5 days. 10/22/19 06:14 Blood Aerobic Blood Culture - Preliminary Enterococcus faecalis 10/22/19 06:14 Blood Anaerobic Blood Culture - Preliminary No growth in Anaerobic bottle after 48 hours. 10/22/19 06:04 Blood Aerobic Blood Culture - Preliminary Enterococcus faecalis 10/22/19 06:04 Blood Anaerobic Blood Culture - Preliminary No growth in Anaerobic bottle after 48 hours. 10/23/19 05:42 Blood Aerobic Blood Culture - Preliminary No growth in Aerobic bottle after 48 hours. 10/23/19 05:42 Blood Anaerobic Blood Culture - Preliminary No growth in Anaerobic bottle after 48 hours. 10/23/19 05:30 Blood Aerobic Blood Culture - Preliminary No growth in Aerobic bottle after 48 hours. 10/23/19 05:30 Blood Anaerobic Blood Culture - Preliminary No growth in Anaerobic bottle after 48 hours. 10/19/19 04:45 Blood Aerobic Blood Culture - Final Enterococcus faecalis 10/19/19 04:45 Blood Anaerobic Blood Culture - Final Enterococcus faecalis 10/19/19 04:40 Blood Aerobic Blood Culture - Final Enterococcus faecalis 10/19/19 04:40 Blood Anaerobic Blood Culture - Final Enterococcus faecalis 10/19/19 05:00 Urine,Clean Catch Urine Culture - Final Three types of organisms present, all low counts probable skin darcy. No further identifications or sensitivities to follow. PG Care Time/CCT Total # of Minutes Spent Total Time Spent with Patient: Total time spent is greater than 50% in coordination of care (as documented) at patient's floor/unit and/or counseling patient: Coding Level of Care Code 78647 Subseq Hosp Care Lvl 1 Diagnoses Gram positive septicemia A41.89 Splenic infarct D73.5 Acute CVA (cerebrovascular accident) I63.9 Non-ST elevation (NSTEMI) myocardial infarction I21.4
--- NOTE | 2019-10-26 11:05 | Nephrology Progress Note ---
Date of Service October 26, 2019 Assessment & Plan (1) Renal failure (ARF), acute on chronic: Patient with KARTHIK on CKD due to ischemic ATN in setting of bacteremia. Cr higher today at 4 from 3.8 yesterday. Electrolytes are stable. No indication for dialysis today but cannot rule out need during this admission. 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 Monitor renal function with daily BMP. Patient is agreeable to dialysis if needed. I explained to the patient that due to acute illness he is at risk for worsening ATN in setting of infection. (2) Prosthetic valve endocarditis: He will likely need long term care pharmacist antibiotics. Avoid supratherapeutic vanc levels which can be nephrotoxic Admission and Anticipated Discharge Date Admission Date: October 19, 2019 Subjective Patient reports feeling about the same. No shortness of breath. He is making about 1 L of urine in 24 hours. Creatinine is up to 4. Review of Systems Review of Systems: All systems reviewed & are unremarkable except as noted in HPI & below Physical Exam Physical Exam: General exam: Appears comfortable, no acute distress HEENT: Pupils are equal and reactive to light Neck: No JVD, neck is supple trachea is midline Respiratory system: Clear breath sounds bilaterally. Gastrointestinal: Abdomen is soft, non distended, non tender, bowel sounds are present CVS: Regular rate and rhythm. No murmurs, rubs or gallops Musculoskeletal: No joint or muscle tenderness Extremities: Non tender, no edema, peripheral pulses are present Neuro: Oriented, no tremors, no focal neurological deficits Skin: No rashes Results & Data ([facility]) Vital Signs (Past 12 Hours) Vital Signs Temp Pulse Resp BP BP Pulse Ox 10/26/19 07:07 36.5 C 70 18 171/76 H 91 10/25/19 23:34 36.5 C 73 18 166/74 H 94 Laboratory Results 10/26/19 06:21 10/26/19 06:21 WBC 23.48 H RBC 2.86 L MCV 97.2 MCH 32.9 MCHC 33.8 RDW Std Deviation 59.5 H RDW Coeff of Mindi 17.5 H Plt Count 245 MPV 11.0 H (1) Renal failure (ARF), acute on chronic Acute renal failure type: unspecified Chronic kidney disease stage: stage 5, not on chronic dialysis Qualified Code(s): N17.9 - Acute kidney failure, unspecified; N18.5 - Chronic kidney disease, stage 5
[2019-10-26] MEDS: METOPROLOL TARTRATE 50 MG TAB PO SCH ×3 (11:23→20:39)
[2019-10-26] MEDS: INSULIN GLARGINE SOLOSTAR 100 UNITS/ML 3 ML PEN SC SCH ×2 (11:24→20:48)
[2019-10-26] MEDS: HydrALAZINE TAB 50 MG TAB PO SCH ×3 (11:25→20:39)
[2019-10-26] MEDS: cloNIDine HCL 0.1 MG TAB PO SCH ×2 (11:25→20:39)
[2019-10-26] MEDS: AMLODIPINE BESYLATE 5 MG TAB PO SCH (11:27)
[2019-10-26] MEDS: ISOSORBIDE MONO EXTENDED REL 60 MG TABCR PO SCH (11:28)
[2019-10-26] MEDS: LUBIPROSTONE 8 MCG CAP PO SCH ×2 (11:28→20:36)
[2019-10-26] MEDS: OXYCODONE HCL IR 5 MG TAB (IMMEDIATE RELEASE) PO SCH ×2 (11:31→20:31)
[2019-10-26] MEDS: HEPARIN SODIUM/DEXTROSE 25,000 UNITS/500 ML BAG IV SCH ×2 (11:59→17:07)
--- NOTE | 2019-10-26 13:31 | Cardiology Progress Note ---
Date of Service October 26, 2019 Assessment & Plan (1) Gram positive septicemia: Repeat echocardiogram performed clearly showed a vegetation type lesion on the aortic aspect of his aortic valve. At this point would continue to treat with antibiotics without any other medical options at this point. Would continue to treat with antibiotics as per our infectious disease colleagues recommendations. Will likely require long-term if not lifelong antibiotics Obviously, the patient is a very high risk of perioperative mortality and do not believe that surgical aortic valve replacement is not an option, both he and his agree to this also. Luckily, his blood cultures from the have so far remained unremarkable. Okay to DC off telemetry from a cardiac standpoint. I have greatly encouraged him to restart his medications. (2) Non-ST elevation (NSTEMI) myocardial infarction: Resolved (3) Renal failure (ARF), acute on chronic: Deteriorating (4) CAD (coronary artery disease): (5) S/P TAVR (transcatheter aortic valve replacement): (6) Acute CVA (cerebrovascular accident): (7) Splenic infarct: (8) Anemia in chronic kidney disease (CKD): Again down to 8.1 today. (9) Atrial fibrillation: Patient went into atrial fibrillation with a controlled ventricular rate on 10/22/2019. No symptoms. This is a new diagnosis for him. Again given the risk of conversion to hemorrhagic CVA especially with the possibility of further embolic events I do not believe he is an anticoagulation candidate at this time. He is already rate controlled and no other changes will be made. Subjective Patient seen and examined, medical records reviewed. Spoke with his , Sánchez loaiza, by phone and she is very concerned that he is not eating or taking oral medications. Patient is currently somewhat anxious and states that he is getting frustrated with his prolonged hospital stay. Denies any cardiac complaints. Telemetry reviewed: Atrial fibrillation rate controlled without any other significant arrhythmia. Review of Systems Review of Systems: All systems reviewed & are unremarkable except as noted in HPI & below Physical Exam Physical Exam: General: Awake, alert and oriented x 3. No acute distress. HEENT: Normocephalic, atraumatic. Pupils equal, round and reactive to light and accommodation. Extraocular muscles are intact. Anicteric sclera. Moist mucous membranes. Neck: No JVD. No bruit. Cardiovascular: irregularly irregular, unable to appreciate murmur, rub or gallop. Pulmonary: Clear to auscultation bilaterally. No rales, rhonchi, or wheezing. Abdomen: Bowel sounds x 4, soft. No rebound, guarding or tenderness. No organomegaly. Extremities: No clubbing, cyanosis or edema. +2 pedal pulses bilaterally. Skin: Warm and dry. Results & Data Vital Signs (Past 12 Hours) Vital Signs Temp Pulse Resp BP Pulse Ox 10/26/19 13:05 91 10/26/19 07:07 36.5 C 70 18 171/76 H 91 (1) Renal failure (ARF), acute on chronic Acute renal failure type: unspecified Chronic kidney disease stage: stage 5, not on chronic dialysis Qualified Code(s): N17.9 - Acute kidney failure, unspecified; N18.5 - Chronic kidney disease, stage 5
[2019-10-26 16:28] LABS: Partial Thromboplastin Ratio 1.6; Partial Thromboplastin Time 44.9 Seconds (21.0-31.0)
[2019-10-26] MEDS ORDERED: HEPARIN IV BOLUS 3,000 UNITS in SYRINGE 0 ML IV ONE (17:00)
--- NOTE | 2019-10-26 17:06 | Hospitalist Progress Note ---
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 pt is a poor candidate for valve replacement surgery given large aortic valve vegetation with septic embolic -per cardiology , pt may need life long suppressive antibiotic possibly in form of oral dose PICC line placement kept on hold for bacteremia per ID -may consider placement of assisted IV access for Abx in AM if blood culture remains negative will need weekly cbc, cmp, esr while on IV therapy and will likely need serial echo as well. pt will need to establish care with ID for remainder of course. (2) S/P TAVR (transcatheter aortic valve replacement): Severe aortic stenosis status post tucker valve TAVR bioprosthetic replacement April 2017 admitted with 6 weeks hx of fatigue , poor endurance blood cultures positive for entercocci ECHO highly mobile, linear 1.5 cm lesion on the aortic aspect of the bioprosthetic aortic valve Too high risk for JUAN JOSE and no likely change in outcome per cardiology : the patient is a very high risk of perioperative mortality and do not believe that surgical aortic valve replacement is not an option will need life long suppresive abx (3) Coagulopathy: (4) Embolic stroke: Presumed septic emboli from prosthetic valve endocarditis CT head showed findings indicative of a subacute right frontal infarct with laminar necrosis and cortical mineralization. MRI brain showed Multiple scattered punctate acute infarcts as described above most pronounced within the right frontal lobe. Focal area of edema seen within the right frontal lobe infarct with associated increased T1 signal. This could correspond to the associated calcifications in the setting of a subacute to chronic infarct or possibly petechial hemorrhage Avoid antiplatelet therapy and anticoagulation therapy as septic emboli have a higher risk for hemorrhagic conversion. treatment of valve endocarditis as outlined above COAGULOPATHY: Lupus anticoagulant positive on lab draw 10/19/2019-reference lab result available normal factor VIII activity Discussed case over the phone with hematology oncology Dr. Andersen Patient will need to be on therapeutic anticoagulation- high risk for thromboembolic event given positive lupus anticoagulant Patient already has evidence of embolic CVA noted in MRI of brain as well as splenic infarct. Patient will be started with IV heparin low-dose, no bolus Dual antiplatelets aspirin and Plavix discontinued to reduce bleeding risk Patient will be monitored very closely, every 4hrs neurochecks, will do stat CT head noncontrast - with any change of mental status for evaluation of bleeding complication/intracranial hemorrhage. (5) Non-ST elevation (NSTEMI) myocardial infarction: Troponin on admisson 10.3 then peaked at 18.1 Echo performed with no acute wall motion abnormality present. EF is 45-50%. Cardiology on board recommended medical management On Metoprolol Aspirin and Plavix kept on hold as pt is started on IV heparin for coagulopathy no complain of chest pain or discomfort (6) Renal failure (ARF), acute on chronic: Creatinine on admission 4.3 Patient with baseline ckd 4-5. Nephrology on board creatinine continues to decline may need dialysis during this hospital , Nephrology already spoke with pt and regarding dialysis -was agreeable (7) Splenic infarct: CT abd/pelvis showed 9.2 x 4.8 cm well defined hypodensity within the superior aspect of the spleen consistent with a large splenic infarct. possible Due to septic emboli in setting of Prosthetic valve endocarditis and enterococci bacteremia /also pt noted to be coagulopathic , started on IV heparin (8) Lower back pain: MRI lumbar showed no fractures of fixation within the lumbar spine. Soft tissue edema within the bilateral erector spinae muscles at the lumbar region. A 1.7 cm lesion within the right psoas muscle which contains a fluid fluid level and hypointense rim. Cont oxycodone (taken BID chronically) and scheduled Tylenol. pain is well controlled at current regimen Continue PT/OT -recommends rehab -pt and refused Rehab plan is to return home with home health and home pt (9) Metabolic acidosis: resolved. (10) Anemia in chronic kidney disease (CKD): due to advanced CKD , acute illness with bacteremia /endocarditis s/p 1 unit of PRBC transfusion Hb stable at 9.3 (11) Diabetes mellitus: Continue Lantus and novolog sliding scale Continue monitor BS Atrial fibrillation: on beta pau IV heparin (12) Hypertension: Continue amlodipine, clonidine, hydralazine, imdur, metoprolol pt has been refusing to take medications off and on - willing to take today after talking with (13) DVT prophylaxis: IV heparin Full Code DISPOSITION ; d/w with pts Richelle over the phone aware of assisted IV abx needs and PT/OT recommendation for rehab and pt is reluctant to go to SNF after discharge form home Admission and Anticipated Discharge Date Admission Date: October 19, 2019 Subjective complains of feeling very poorly has been refusing meals and medications agreeable to take his pills after talking with cardiology and his very frustrated with hospital stay and not getting any better has been afebrile complains of intermittent nausea , metallic taste , increase fatigue no SOB or cough Review of Systems Review of Systems: As per HPI, all 10 systems reviewed, all other ROS negative Constitutional: + fatigue, + weakness and + anorexia; no fever and no chills Physical Exam Constitutional: WD/WN, vitals as above + ill appearing; no acute distress Eyes: PERRL, conjunctivae normal, anicteric sclerae ENMT: external ear and nose normal, oropharynx normal Neck: trachea midline, no thyromegaly Respiratory: normal respiratory effort; no cough Auscultation: + diminished lung sounds; no crackles, no rales, no rhonchi and no wheezes Cardiovascular: RRR, no murmur, no edema Gastrointestinal (Abdomen): Percussion/Palpation: abdomen soft; abdomen nontender Musculoskeletal: Extremities: + abnormal strength and normal strength Neurologic: PERRL, EOMI, accommodation nl, no face palsy, no dysarthria Psychiatric: Orientation: alert and oriented x 3 Affect: + flat affect Results & Data Results & Data ([facility]) Vital Signs (Past 12 Hours) Vital Signs Temp Pulse Resp BP Pulse Ox 10/26/19 15:47 36.9 C 63 18 115/59 L 90 10/26/19 13:05 91 10/26/19 07:07 36.5 C 70 18 171/76 H 91 (1) Renal failure (ARF), acute on chronic Acute renal failure type: unspecified Chronic kidney disease stage: stage 5, not on chronic dialysis Qualified Code(s): N17.9 - Acute kidney failure, unspecified; N18.5 - Chronic kidney disease, stage 5
[2019-10-26] MEDS: allopurinoL 100 MG TAB PO SCH (20:36)
[2019-10-26] MEDS: TERAZOSIN HCL 5 MG CAP PO SCH (20:39)
[2019-10-26] MEDS: ASPIRIN 81 MG ECTAB PO SCH (21:53)
[2019-10-26] MEDS: CLOPIDOGREL BISULFATE 75 MG TAB PO SCH (21:54)
[2019-10-27 00:42] LABS: Partial Thromboplastin Ratio 1.6; Partial Thromboplastin Time 43.6 Seconds (21.0-31.0)
[2019-10-27] MEDS ORDERED: HEPARIN IV BOLUS 3,000 UNITS in SYRINGE 0 ML IV STA (01:09)
[2019-10-27] MEDS: ACETAMINOPHEN 500 MG TAB PO SCH ×3 (01:56→15:44)
[2019-10-27] MEDS: AMPICILLIN 2,000 MG in SODIUM CHLOR 0.9% AD-VAN 100 ML IV SCH ×4 (05:12→21:30)
--- NOTE | 2019-10-27 06:40 | Ultrasound Report ---
US venous doppler UE RT HISTORY: 74 years-old Male SWELLING OF RT ARM EVAL FOR DVT acute pain and swelling of the right uppe r extremity COMPARISON: None TECHNIQUE: Multiple real-time sonographic images of the right upper extremity deep venous structures were obtained assessing grayscale appearance, color and spectral flow FINDINGS: Normal flow, compressibility, phasicity and augmentation of the right upper extremity deep venous str uctures. Portions of the orbital vein were not imaged secondary to overlying bandage and IV catheter. IMPRESSION: No sonographic evidence of deep venous thrombosis. ACT 112: Negative or not required by law. The above report was generated using voice recognition software. It may contain grammatical, syntax o r spelling errors. Electronically signed by: Robert Manriquez M.D. 10/27/2019 6:39 AM
[2019-10-27 07:23] LABS: Hematocrit (blood only) 26.8 % (42-52); Mean Corpuscular Hemoglobin 32.6 pg (25-34); Mean Corpuscular Hgb Conc 33.6 g/dL (32-36); Mean Corpuscular Volume 97.1 fL (80-100); Mean Platelet Volume 11.6 fL (7.4-10.4); Nucleated RBC # (auto) 0.06 K/uL (0-0); Nucleated RBC % (auto) 0.3 %; Platelet Count 256 K/uL (130-400); RDW Coefficient of Variation 17.1 % (11.5-14.5); RDW Standard Deviation 57.6 fL (36.4-46.3); Red Blood Count 2.76 M/uL (4.7-6.1); White Blood Count 19.37 K/uL (4.8-10.8)
[2019-10-27 07:44] LABS: Partial Thromboplastin Ratio 1.8
[2019-10-27 07:51] LABS: Potassium 3.3 mmol/L (3.5-5.1)
[2019-10-27 07:52] LABS: BUN Creatinine Ratio 20.2 (10-20); Calcium 8.5 mg/dl (8.5-10.1); Creatinine Clr Calc Pharmacy 14.3 ml/min; Est GFR (Non-African American) 12.1; Partial Thromboplastin Time 51.4 Seconds (21.0-31.0)
[2019-10-27] MEDS: LUBIPROSTONE 8 MCG CAP PO SCH ×2 (08:23→20:39)
[2019-10-27] MEDS: ISOSORBIDE MONO EXTENDED REL 60 MG TABCR PO SCH (08:24)
[2019-10-27] MEDS: HydrALAZINE TAB 50 MG TAB PO SCH ×3 (08:24→20:36)
[2019-10-27] MEDS: AMLODIPINE BESYLATE 5 MG TAB PO SCH (08:24)
[2019-10-27] MEDS: INSULIN GLARGINE SOLOSTAR 100 UNITS/ML 3 ML PEN SC SCH ×2 (08:25→20:38)
[2019-10-27] MEDS: cloNIDine HCL 0.1 MG TAB PO SCH ×2 (08:25→20:37)
[2019-10-27] MEDS: METOPROLOL TARTRATE 50 MG TAB PO SCH ×3 (08:25→20:40)
[2019-10-27] MEDS: OXYCODONE HCL IR 5 MG TAB (IMMEDIATE RELEASE) PO SCH ×2 (08:28→20:41)
[2019-10-27] MEDS: INSULIN ASPART 100 UNITS/ML 3 ML PEN SC SCH ×4 (08:30→20:36)
--- NOTE | 2019-10-27 10:05 | Nephrology Progress Note ---
Date of Service October 27, 2019 Assessment & Plan (1) Renal failure (ARF), acute on chronic: Patient with KARTHIK on CKD due to ischemic ATN in setting of bacteremia. Cr higher today at 4.4 from 4 yesterday. Electrolytes are stable. No indication for dialysis today but he will likely need dialysis by Wednesday. 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 Monitor renal function with daily BMP. Patient is agreeable to dialysis if needed. I explained to the patient that due to acute illness he is at risk for worsening ATN in setting of infection. If renal function continues to worsen over the weekend, will request surgical consult for tunneled dialysis catheter placement on Wednesday. -We will give 20 mEq of potassium today. (2) Prosthetic valve endocarditis: He will likely need usp antibiotics. Avoid supratherapeutic vanc levels which can be nephrotoxic Admission and Anticipated Discharge Date Admission Date: October 19, 2019 Subjective Patient reports to be feeling well. He is endorsing nausea with taking pills. No vomiting. He made about 1 L of urine yesterday. Creatinine is up trending Review of Systems Review of Systems: All systems reviewed & are unremarkable except as noted in HPI & below Physical Exam Physical Exam: General exam: Lethargic, appears comfortable, no acute distress HEENT: Pupils are equal and reactive to light Neck: No JVD, neck is supple trachea is midline Respiratory system: Clear breath sounds bilaterally. Gastrointestinal: Abdomen is soft, non distended, non tender, bowel sounds are present CVS: Regular rate and rhythm. No murmurs, rubs or gallops Musculoskeletal: No joint or muscle tenderness Extremities: Non tender, no edema, peripheral pulses are present Neuro: Oriented, no tremors, no focal neurological deficits Skin: No rashes Results & Data ([facility]) Vital Signs (Past 12 Hours) Vital Signs Temp Pulse Resp BP Pulse Ox 10/27/19 06:58 36.9 C 67 19 164/67 H 96 10/27/19 00:08 36.7 C 68 18 162/68 H 92 Laboratory Results 10/27/19 06:48 10/27/19 06:48 WBC 19.37 H RBC 2.76 L MCV 97.1 MCH 32.6 MCHC 33.6 RDW Std Deviation 57.6 H RDW Coeff of Mindi 17.1 H Plt Count 256 MPV 11.6 H (1) Renal failure (ARF), acute on chronic Acute renal failure type: unspecified Chronic kidney disease stage: stage 5, not on chronic dialysis Qualified Code(s): N17.9 - Acute kidney failure, unspecified; N18.5 - Chronic kidney disease, stage 5
[2019-10-27] MEDS ORDERED: POTASSIUM CHLORIDE 20 MEQ/15 ML UDC PO STA (10:10)
[2019-10-27] MEDS: cefTRIAXone SODIUM 2,000 MG in DEXTROSE 5% 50 ML IV SCH ×2 (10:30→21:31)
--- NOTE | 2019-10-27 10:48 | Hospitalist Progress Note ---
Date of Service October 27, 2019 Assessment & Plan Admission and Anticipated Discharge Date Admission Date: October 19, 2019 Subjective ATTENDING NOTE: progressive worsening of renal failure noted , Cr increased 4-> 4.4 discussed with Nephrology pt may need dialysis during this hospital stay recommends to consult vascular Surgery for Dialysis catheter placement on Sunday 10/29 will continue on IV heparin as it can be stopped 8 hrs before vascular procedure. Pt will need 6 weeks of IV Abx with both IV Rocephin and Ampicillin spoke with ID Dr Leung will hold off PICC line placement till HD catheter is established update given to Richelle Results & Data Results & Data ([facility]) Vital Signs (Past 12 Hours) Vital Signs Temp Pulse Resp BP Pulse Ox 10/27/19 06:58 36.9 C 67 19 164/67 H 96 10/27/19 00:08 36.7 C 68 18 162/68 H 92
--- NOTE | 2019-10-27 11:18 | Infectious Disease Progress Nt ---
Date of Service October 27, 2019 Assessment & Plan (1) Gram positive septicemia: cultures growing /E. faecalies. Repeat TTE now confirm AV veg - highly mobile, 1.5 cm. No JUAN JOSE planned at this time as unlikely to change cardiac management. continue amp with ctx. will avoid gent due to pavel. would have low thresh hold for transfer to tertiary care center. will need min 6 week of abx, hold picc line for now, 10/22 cultures negative so far, would prefer to hold off on picc for now and follow. Pt may need HD, will hold off on picc for now pending potential need for HD cat. Discussed results with cardio. He remains high risk for additional emboli, especially with large, mobile veg now noted on 10/22 TTE. carido to discuss further wishes with pt and family as he remains high risk for additional complications. For now plan is for conservative care with abx, will need prolonged course of IV abx - 6 weeks min of amp and rocephin He will need weekly cbc, cmp, esr while on therapy and will likely need serial echo as well. I will be leaving [facility] next week and he will need to establish care with ID for remainder of course. (2) Splenic infarct: (3) Acute CVA (cerebrovascular accident): (4) Non-ST elevation (NSTEMI) myocardial infarction: Admission and Anticipated Discharge Date Admission Date: October 19, 2019 Subjective tolerating abx, 10/22 blood cultures remain negative, wbc improved but creat increased to 4.4 today, nephro following, may need HD. remains afebrile. Results & Data ([facility]) Vital Signs (Past 12 Hours) Vital Signs Temp Pulse Resp BP Pulse Ox 10/27/19 06:58 36.9 C 67 19 164/67 H 96 10/27/19 00:08 36.7 C 68 18 162/68 H 92 Laboratory Results Microbiology 10/22/19 06:14 Blood Aerobic Blood Culture - Final Enterococcus faecalis 10/22/19 06:14 Blood Anaerobic Blood Culture - Final No growth in Anaerobic bottle after 5 days. 10/22/19 06:04 Blood Aerobic Blood Culture - Final Enterococcus faecalis 10/22/19 06:04 Blood Anaerobic Blood Culture - Final No growth in Anaerobic bottle after 5 days. 10/21/19 06:22 Blood Aerobic Blood Culture - Final Enterococcus faecalis 10/21/19 06:22 Blood Anaerobic Blood Culture - Final No growth in Anaerobic bottle after 5 days. 10/21/19 06:11 Blood Aerobic Blood Culture - Final Enterococcus faecalis 10/21/19 06:11 Blood Anaerobic Blood Culture - Final No growth in Anaerobic bottle after 5 days. 10/20/19 13:03 Blood Aerobic Blood Culture - Final Enterococcus faecalis 10/20/19 13:03 Blood Anaerobic Blood Culture - Final No growth in Anaerobic bottle after 5 days. 10/20/19 12:56 Blood Aerobic Blood Culture - Final Enterococcus faecalis 10/20/19 12:56 Blood Anaerobic Blood Culture - Final No growth in Anaerobic bottle after 5 days. 10/23/19 05:42 Blood Aerobic Blood Culture - Preliminary No growth in Aerobic bottle after 48 hours. 10/23/19 05:42 Blood Anaerobic Blood Culture - Preliminary No growth in Anaerobic bottle after 48 hours. 10/23/19 05:30 Blood Aerobic Blood Culture - Preliminary No growth in Aerobic bottle after 48 hours. 10/23/19 05:30 Blood Anaerobic Blood Culture - Preliminary No growth in Anaerobic bottle after 48 hours. 10/19/19 04:45 Blood Aerobic Blood Culture - Final Enterococcus faecalis 10/19/19 04:45 Blood Anaerobic Blood Culture - Final Enterococcus faecalis 10/19/19 04:40 Blood Aerobic Blood Culture - Final Enterococcus faecalis 10/19/19 04:40 Blood Anaerobic Blood Culture - Final Enterococcus faecalis 10/19/19 05:00 Urine,Clean Catch Urine Culture - Final Three types of organisms present, all low counts probable skin darcy. No further identifications or sensitivities to follow. PG Care Time/CCT Total # of Minutes Spent Total Time Spent with Patient: Total time spent is greater than 50% in coordination of care (as documented) at patient's floor/unit and/or counseling patient: Coding Level of Care Code 43375 Subseq Hosp Care Lvl 1 Diagnoses Gram positive septicemia A41.89 Splenic infarct D73.5 Acute CVA (cerebrovascular accident) I63.9 Non-ST elevation (NSTEMI) myocardial infarction I21.4
--- NOTE | 2019-10-27 13:51 | Cardiology Progress Note ---
Date of Service October 27, 2019 Assessment & Plan (1) Gram positive septicemia: Repeat echocardiogram performed clearly showed a vegetation type lesion on the aortic aspect of his aortic valve. At this point would continue to treat with antibiotics without any other medical options at this point. Would continue to treat with antibiotics as per our infectious disease colleagues recommendations. Will likely require long-term if not lifelong antibiotics Locally, Obviously, the patient is a very high risk of perioperative mortality and do not believe that surgical aortic valve replacement is not an option, both he and his agree to this also. Luckily, his blood cultures from the have so far remained unremarkable. He is now compliant with his medications but still not eating. Have greatly encouraged him to eat. Offered to bring him something from the outside the hospital, however, he states he is just not hungry. (2) Non-ST elevation (NSTEMI) myocardial infarction: Resolved (3) Renal failure (ARF), acute on chronic: Deteriorating (4) CAD (coronary artery disease): (5) S/P TAVR (transcatheter aortic valve replacement): (6) Acute CVA (cerebrovascular accident): (7) Splenic infarct: (8) Anemia in chronic kidney disease (CKD): Again down to 8.1 today. (9) Atrial fibrillation: Patient went into atrial fibrillation with a controlled ventricular rate on 10/22/2019. No symptoms. This is a new diagnosis for him. Again given the risk of conversion to hemorrhagic CVA especially with the poss ibility of further embolic events I do not believe he is an anticoagulation candidate at this time. He is already rate controlled and no other changes will be made. Subjective Patient seen and examined, medical records reviewed. A little confused and lethargic today but denies complaint. States that he still has no appetite but nursing was able to get him to eat some fruit with breakfast this morning. He is now compliant with his medications and taking his oral medications without issue. Denies chest pain, shortness of breath, palpitations, lightheadedness, dizziness or syncope. Review of Systems Review of Systems: All systems reviewed & are unremarkable except as noted in HPI & below Physical Exam Physical Exam: General: Awake, alert and oriented x 3. No acute distress. HEENT: Normocephalic, atraumatic. Pupils equal, round and reactive to light and accommodation. Extraocular muscles are intact. Anicteric sclera. Moist mucous membranes. Neck: No JVD. No bruit. Cardiovascular: Regular. Positive S-4. Normal S-1 and S-2. No S-3. 3/6 mid to late systolic ejection murmur, greatest at the right sternal border, second intercostal space with radiation to the bilateral carotids. No rubs. Pulmonary: Clear to auscultation bilaterally. No rales, rhonchi, or wheezing. Abdomen: Bowel sounds x 4, soft. No rebound, guarding or tenderness. No organomegaly. Extremities: No clubbing, cyanosis or edema. +2 pedal pulses bilaterally. Skin: Warm and dry. Results & Data Vital Signs (Past 12 Hours) Vital Signs Temp Pulse Resp BP Pulse Ox 10/27/19 06:58 36.9 C 67 19 164/67 H 96 (1) Renal failure (ARF), acute on chronic Acute renal failure type: unspecified Chronic kidney disease stage: stage 5, not on chronic dialysis Qualified Code(s): N17.9 - Acute kidney failure, unspecified; N18.5 - Chronic kidney disease, stage 5
[2019-10-27] MEDS: HEPARIN SODIUM/DEXTROSE 25,000 UNITS/500 ML BAG IV SCH (15:30)
[2019-10-27] MEDS: allopurinoL 100 MG TAB PO SCH (20:39)
[2019-10-27] MEDS: TERAZOSIN HCL 5 MG CAP PO SCH (20:39)
[2019-10-28] MEDS: ACETAMINOPHEN 500 MG TAB PO SCH ×3 (00:10→15:58)
[2019-10-28] MEDS: AMPICILLIN 2,000 MG in SODIUM CHLOR 0.9% AD-VAN 100 ML IV SCH ×4 (04:49→22:00)
[2019-10-28 05:41] LABS: Hematocrit (blood only) 26.9 % (42-52); Hemoglobin 9.1 g/dL (14.0-18.0); Mean Corpuscular Hemoglobin 32.9 pg (25-34); Mean Corpuscular Hgb Conc 33.8 g/dL (32-36); Mean Corpuscular Volume 97.1 fL (80-100); Mean Platelet Volume 11.4 fL (7.4-10.4); Platelet Count 262 K/uL (130-400); RDW Coefficient of Variation 16.9 % (11.5-14.5); RDW Standard Deviation 57.3 fL (36.4-46.3); Red Blood Count 2.77 M/uL (4.7-6.1); White Blood Count 19.76 K/uL (4.8-10.8)
[2019-10-28 06:02] LABS: Partial Thromboplastin Ratio 1.9
[2019-10-28 06:16] LABS: Partial Thromboplastin Time 51.9 Seconds (21.0-31.0)
[2019-10-28 06:42] LABS: BUN Creatinine Ratio 18.1 (10-20); Calcium 8.2 mg/dl (8.5-10.1); Creatinine Clr Calc Pharmacy 14.7 ml/min; Est GFR (African American) 14.2; Est GFR (Non-African American) 12.2; Phosphorus 4.6 mg/dl (2.5-4.9); Potassium 3.2 mmol/L (3.5-5.1)
[2019-10-28] MEDS ORDERED: POTASSIUM CHLORIDE 20 MEQ/15 ML UDC PO STA (07:55)
[2019-10-28] MEDS: cloNIDine HCL 0.1 MG TAB PO SCH ×2 (08:35→20:47)
[2019-10-28] MEDS: ISOSORBIDE MONO EXTENDED REL 60 MG TABCR PO SCH (08:35)
[2019-10-28] MEDS: AMLODIPINE BESYLATE 5 MG TAB PO SCH (08:35)
[2019-10-28] MEDS: HydrALAZINE TAB 50 MG TAB PO SCH ×3 (08:36→20:43)
[2019-10-28] MEDS: METOPROLOL TARTRATE 50 MG TAB PO SCH ×3 (08:36→20:47)
[2019-10-28] MEDS: LUBIPROSTONE 8 MCG CAP PO SCH ×2 (08:36→20:46)
[2019-10-28] MEDS: INSULIN GLARGINE SOLOSTAR 100 UNITS/ML 3 ML PEN SC SCH ×2 (08:37→20:50)
[2019-10-28] MEDS: INSULIN ASPART 100 UNITS/ML 3 ML PEN SC SCH ×4 (08:37→20:51)
[2019-10-28] MEDS: OXYCODONE HCL IR 5 MG TAB (IMMEDIATE RELEASE) PO SCH ×2 (08:41→20:49)
[2019-10-28] MEDS: cefTRIAXone SODIUM 2,000 MG in DEXTROSE 5% 50 ML IV SCH ×2 (10:24→21:14)
--- NOTE | 2019-10-28 10:42 | Nephrology Progress Note ---
Date of Service October 28, 2019 Assessment & Plan (1) Renal failure (ARF), acute on chronic: Patient with KARTHIK on CKD due to ischemic ATN in setting of bacteremia. Cr stable today at 4.4 and BUN of 82 slightly better than 90 yesterday. Electrolytes are stable. No indication for dialysis today but he will likely need dialysis by Wednesday. 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 Monitor renal function with daily BMP. Patient is agreeable to dialysis if needed. I explained to the patient that due to acute illness he is at risk for worsening ATN in setting of infection. Patient is tentatively scheduled for tunneled dialysis catheter on Wednesday at 1 PM. We will continue to monitor closely for dialysis need -We will give 40 mEq of potassium today. (2) Prosthetic valve endocarditis: He will likely need intermediate antibiotics. Avoid supratherapeutic vanc le vels which can be nephrotoxic Admission and Anticipated Discharge Date Admission Date: October 19, 2019 Subjective Patient feels about the same. No shortness of breath but extremely weak. He has a Boyd catheter. Eating well. Review of Systems Review of Systems: All systems reviewed & are unremarkable except as noted in HPI & below Physical Exam Physical Exam: General exam: Appears comfortable, no acute distress HEENT: Pupils are equal and reactive to light Neck: No JVD, neck is supple trachea is midline Respiratory system: Clear breath sounds bilaterally. Gastrointestinal: Abdomen is soft, non distended, non tender, bowel sounds are present CVS: Regular rate and rhythm. No murmurs, rubs or gallops Musculoskeletal: No joint or muscle tenderness Extremities: Non tender, no edema, peripheral pulses are present Neuro: Oriented, no tremors, no focal neurological deficits Skin: No rashes Results & Data ([facility]) Vital Signs (Past 12 Hours) Vital Signs Temp Pulse Resp BP Pulse Ox 10/28/19 07:13 36.8 C 52 L 18 168/60 H 96 10/27/19 22:55 36.7 C 62 18 125/60 94 Laboratory Results 10/28/19 05:27 10/28/19 10/28/19 05:27 05:27 WBC 19.76 H RBC 2.77 L MCV 97.1 MCH 32.9 MCHC 33.8 RDW Std Deviation 57.3 H RDW Coeff of Mindi 16.9 H Plt Count 262 MPV 11.4 H Phosphorus 4.6 (1) Renal failure (ARF), acute on chronic Acute renal failure type: unspecified Chronic kidney disease stage: stage 5, not on chronic dialysis Qualified Code(s): N17.9 - Acute kidney failure, unspecified; N18.5 - Chronic kidney disease, stage 5
[2019-10-28] MEDS: PROMETHAZINE HCL 12.5 MG in SODIUM CHLORIDE 0.9% 50 ML IV PRN ×2 (13:59→20:53)
[2019-10-28] MEDS: HEPARIN SODIUM/DEXTROSE 25,000 UNITS/500 ML BAG IV SCH (17:42)
--- NOTE | 2019-10-28 18:19 | Hospitalist Progress Note ---
Date of Service October 28, 2019 Assessment & Plan (1) CKD (chronic kidney disease) stage 4, GFR 15-29 ml/min: appreciate input from Nephrology cr 4.4 pt is showing s/s of progression of end stage renal disease his severe fatigue /anorexia /Nausea -could be part of the uremic symptoms will need dialysis during this hospital stay Vascular surgery consulted for dialysis catheter placement on Wednesday ordered for NPO past midnight will need set up for out patient dialysis per nephrology (2) Prosthetic valve endocarditis: AORTIC PROSTHETIC VALVE ENDOCARDITIS Gram positive septicemia /BACTEREMIA : enterococcus feacalis last blood cultures on 10/22; no growth ECHO : highly mobile, linear 1.5 cm lesion on the aortic aspect of the bioprosthetic aortic valve consistent with endocarditis Case discussed with ID will need at least 6 weeks of IV Abx of IV Ampicillin and rocephin remains high risk for additional emboli, especially with large, mobile veg now noted on 10/22 TTE. /JUAN JOSE not done as pt is high risk for the procedure and will not change the treatment plan pt is a poor candidate for valve replacement surgery given large aortic valve vegetation with septic embolic -per cardiology , pt may need life long suppressive antibiotic possibly in form of oral dose will need PICC line placement pt is scheduled to have dialysis catheter on Wednesday will order for PICC line after vascular procedure is done Pt will need weekly cbc, cmp, esr while on IV therapy and will likely need serial echo as well. / will need to establish care with ID for remainder of course. (3) S/P TAVR (transcatheter aortic valve replacement): Severe aortic stenosis status post tucker valve TAVR bioprosthetic replacement April 2017 admitted with 6 weeks hx of fatigue , poor endurance blood cultures positive for entercocci ECHO highly mobile, linear 1.5 cm lesion on the aortic aspect of the bioprosthetic aortic valve Too high risk for JUAN JOSE and no likely change in outcome per cardiology : the patient is a very high risk of perioperative mortality and do not believe that surgical aortic valve replacement is not an option will need life long suppresive abx (4) Coagulopathy: (5) Embolic stroke: Presumed septic emboli from prosthetic valve endocarditis CT head showed findings indicative of a subacute right frontal infarct with laminar necrosis and cortical mineralization. MRI brain showed Multiple scattered punctate acute infarcts as described above most pronounced within the right frontal lobe. Focal area of edema seen within the right frontal lobe infarct with associated increased T1 signal. This could correspond to the associated calcifications in the setting of a subacute to chronic infarct or possibly petechial hemorrhage Avoid antiplatelet therapy and anticoagulation therapy as septic emboli have a higher risk for hemorrhagic conversion. treatment of valve endocarditis as outlined above COAGULOPATHY: Lupus anticoagulant positive on lab draw 10/19/2019-reference lab result available normal factor VIII activity Discussed case over the phone with hematology oncology Dr. Andersen Patient will need to be on therapeutic anticoagulation- high risk for thromboembolic event given positive lupus anticoagulant Patient already has evidence of embolic CVA noted in MRI of brain as well as splenic infarct. Patient will be started with IV heparin low-dose, no bolus Dual antiplatelets aspirin and Plavix discontinued to reduce bleeding risk pt will need life long anticoagulation -in form of Coumadin cont IV heparin protocol for planned Dialysis catheter on Wednesday (6) Non-ST elevation (NSTEMI) myocardial infarction: Troponin on admisson 10.3 then peaked at 18.1 Echo performed with no acute wall motion abnormality present. EF is 45-50%. Cardiology on board recommended medical management On Metoprolol Aspirin and Plavix kept on hold as pt is started on IV heparin for coagulopathy no complain of chest pain or discomfort (7) Renal failure (ARF), acute on chronic: Creatinine on admission 4.3 Patient with baseline ckd 4-5. Nephrology on board creatinine continues to decline may need dialysis during this hospital , Nephrology already spoke with pt and regarding dialysis -was agreeable (8) Lower back pain: MRI lumbar showed no fractures of fixation within the lumbar spine. Soft tissue edema within the bilateral erector spinae muscles at the lumbar region. A 1.7 cm lesion within the right psoas muscle which contains a fluid fluid level and hypointense rim. Cont oxycodone (taken BID chronically) and scheduled Tylenol. pain is well controlled at current regimen Continue PT/OT -recommends rehab -pt and refused Rehab plan is to return home with home health and home pt (9) Metabolic acidosis: resolved. (10) Anemia in chronic kidney disease (CKD): due to advanced CKD , acute illness with bacteremia /endocarditis s/p 1 unit of PRBC transfusion Hb stable at 9.3 (11) Diabetes mellitus: Continue Lantus and novolog sliding scale Continue monitor BS Atrial fibrillation: on beta pau IV heparin (12) Hypertension: Continue amlodipine, clonidine, hydralazine, imdur, metoprolol BP stable (13) DVT prophylaxis: IV heparin Full Code DISPOSITION ; plan of care -Dialysis catheter , senior care IV antibiotic discussed at length with Richelle over phone all questions answered family and patient wants to return home after hospital discharge with home heal th nursing and home IV antibiotic Admission and Anticipated Discharge Date Admission Date: October 19, 2019 Subjective complains of back pain -which has been chronic no fever or chills more co-operative today , took all his PO meds still have severe anorexia , metallic taste in mouth ongoing fatigue and weakness briefly discussed about dialysis catheter placement pt reports if dialysis helps him to get better , gives him more quality of life he is ok to proceed Review of Systems Review of Systems: As per HPI, all 10 systems reviewed, all other ROS negative Constitutional: + fatigue, + weakness and + anorexia; no fever and no chills Physical Exam Constitutional: WD/WN, vitals as above + ill appearing; no acute distress Eyes: PERRL, conjunctivae normal, anicteric sclerae ENMT: external ear and nose normal, oropharynx normal Neck: trachea midline, no thyromegaly Respiratory: normal respiratory effort; no cough Auscultation: + diminished lung sounds; no crackles, no rales, no rhonchi and no wheezes Cardiovascular: RRR, no murmur, no edema Gastrointestinal (Abdomen): Percussion/Palpation: abdomen soft; abdomen nontender Musculoskeletal: Extremities: + abnormal strength and normal strength Neurologic: PERRL, EOMI, accommodation nl, no face palsy, no dysarthria Psychiatric: Orientation: alert and oriented x 3 Affect: + flat affect Results & Data Results & Data ([facility]) Vital Signs (Past 12 Hours) Vital Signs Temp Pulse Pulse Resp BP Pulse Ox 10/28/19 15:50 36.7 C 68 20 136/61 91 10/28/19 14:02 72 138/59 L 10/28/19 07:13 36.8 C 52 L 18 168/60 H 96 (1) Renal failure (ARF), acute on chronic Acute renal failure type: unspecified Chronic kidney disease stage: stage 5, not on chronic dialysis Qualified Code(s): N17.9 - Acute kidney failure, unspecified; N18.5 - Chronic kidney disease, stage 5
[2019-10-28] MEDS: allopurinoL 100 MG TAB PO SCH (20:42)
[2019-10-28] MEDS: TERAZOSIN HCL 5 MG CAP PO SCH (20:46)
[2019-10-29] MEDS: ACETAMINOPHEN 500 MG TAB PO SCH ×4 (00:18→15:33)
[2019-10-29] MEDS: AMPICILLIN 2,000 MG in SODIUM CHLOR 0.9% AD-VAN 100 ML IV SCH ×4 (04:58→21:17)
[2019-10-29 08:37] LABS: Partial Thromboplastin Ratio 1.9
[2019-10-29 09:03] LABS: Partial Thromboplastin Time 53.6 Seconds (21.0-31.0)
[2019-10-29] MEDS: OXYCODONE HCL IR 5 MG TAB (IMMEDIATE RELEASE) PO SCH ×2 (09:19→20:04)
[2019-10-29] MEDS: cloNIDine HCL 0.1 MG TAB PO SCH ×2 (09:20→20:02)
[2019-10-29] MEDS: METOPROLOL TARTRATE 50 MG TAB PO SCH ×3 (09:20→20:01)
[2019-10-29] MEDS: ISOSORBIDE MONO EXTENDED REL 60 MG TABCR PO SCH (09:20)
[2019-10-29] MEDS: INSULIN ASPART 100 UNITS/ML 3 ML PEN SC SCH ×4 (09:21→20:07)
[2019-10-29] MEDS: INSULIN GLARGINE SOLOSTAR 100 UNITS/ML 3 ML PEN SC SCH ×2 (09:21→20:06)
[2019-10-29] MEDS: LUBIPROSTONE 8 MCG CAP PO SCH ×2 (09:21→19:30)
[2019-10-29] MEDS: HydrALAZINE TAB 50 MG TAB PO SCH ×3 (09:21→19:32)
[2019-10-29] MEDS: AMLODIPINE BESYLATE 5 MG TAB PO SCH (09:22)
[2019-10-29 09:33] LABS: Hematocrit (blood only) 27.4 % (42-52); Hemoglobin 9.2 g/dL (14.0-18.0); Mean Corpuscular Hemoglobin 32.6 pg (25-34); Mean Corpuscular Volume 97.2 fL (80-100); Mean Platelet Volume 11.9 fL (7.4-10.4); Nucleated RBC % (auto) 0.6 %; Platelet Count 266 K/uL (130-400); RDW Coefficient of Variation 17.2 % (11.5-14.5); RDW Standard Deviation 58.6 fL (36.4-46.3); Red Blood Count 2.82 M/uL (4.7-6.1); White Blood Count 18.47 K/uL (4.8-10.8)
[2019-10-29 09:46] LABS: BUN Creatinine Ratio 17.9 (10-20); Calcium 8.4 mg/dl (8.5-10.1); Est GFR (African American) 13.6; Est GFR (Non-African American) 11.7; Potassium 2.9 mmol/L (3.5-5.1)
[2019-10-29 09:48] LABS: Mean Corpuscular Hgb Conc 33.6 g/dL (32-36)
[2019-10-29 09:57] LABS: Basophils # (auto) 0.18 K/uL (0-0.2); Eosinophils # (auto) 0.46 K/uL (0-0.5); Eosinophils % (auto) 2.5 %; Immature Granulocytes # (auto) 1.19 K/uL (0.00-0.02); Immature Granulocytes % (auto) 6.4 %; Lymphocytes # (auto) 1.06 K/uL (1.2-3.4); Lymphocytes % (auto) 5.7 %; Neutrophils # (auto) 14.28 K/uL (1.4-6.5); Neutrophils % (auto) 77.4 %; Polychromasia 1+
[2019-10-29] MEDS: cefTRIAXone SODIUM 2,000 MG in DEXTROSE 5% 50 ML IV SCH ×2 (10:08→21:21)
--- NOTE | 2019-10-29 10:33 | Nephrology Progress Note ---
Date of Service October 29, 2019 Assessment & Plan (1) Renal failure (ARF), acute on chronic: Patient with KARTHIK on CKD due to ischemic ATN in setting of bacteremia. Cr stable today at 4.5 and BUN of 82. Electrolytes are stable. No indication for dialysis today but he will likely need dialysis by Wednesday. 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 Monitor renal function with daily BMP. Patient is agreeable to dialysis if needed. I explained to the patient that due to acute illness he is at risk for worsening ATN in setting of infection. Patient is tentatively scheduled for tunneled dialysis catheter on Wednesday at 1 PM. I also discussed case with the who is agreeable to dialysis. We will continue to monitor closely for dialysis need (2) Prosthetic valve endocarditis: He will likely need residential antibiotics. Avoid supratherapeutic vanc levels which can be nephrotoxic. Avoid PICC line. Patient can get midline catheter for antibiotics at home. (3) Hypokalemia: Will give IV potassium chloride 60 mEq today. Liberalize potassium in the diet. Monitor potassium daily. Admission and Anticipated Discharge Date Admission Date: October 19, 2019 Subjective Patient complains of nausea and poor appetite. He is not eating much. No shortness of breath. He remains extremely weak. Discussed case with the and plan to get dialysis catheter tomorrow. Review of Systems Review of Systems: All systems reviewed & are unremarkable except as noted in HPI & below Physical Exam Physical Exam: General exam: Lethargic, appears comfortable, no acute distress HEENT: Pupils are equal and reactive to light Neck: No JVD, neck is supple trachea is midline Respiratory system: Clear breath sounds bilaterally. Gastrointestinal: Abdomen is soft, non distended, non tender, bowel sounds are present CVS: Regular rate and rhythm. No murmurs, rubs or gallops Musculoskeletal: No joint or muscle tenderness Extremities: Non tender, no edema, peripheral pulses are present Neuro: Oriented, no tremors, no focal neurological deficits Skin: No rashes Results & Data ([facility]) Vital Signs (Past 12 Hours) Vital Signs Temp Pulse Resp BP Pulse Ox 10/29/19 07:38 36.9 C 65 17 151/60 H 93 10/28/19 23:02 36.8 C 61 20 138/57 L 94 Laboratory Results 10/29/19 07:41 10/29/19 07:41 WBC 18.47 H RBC 2.82 L MCV 97.2 MCH 32.6 MCHC 33.6 RDW Std Deviation 58.6 H RDW Coeff of Mindi 17.2 H Plt Count 266 MPV 11.9 H (1) Renal failure (ARF), acute on chronic Acute renal failure type: unspecified Chronic kidney disease stage: stage 5, not on chronic dialysis Qualified Code(s): N17.9 - Acute kidney failure, unspecified; N18.5 - Chronic kidney disease, stage 5
[2019-10-29] MEDS: POTASSIUM CHLORIDE / WTR 10 MEQ/100 ML PLCT IV SCH ×6 (10:46→18:33)
--- NOTE | 2019-10-29 17:00 | Hospitalist Progress Note ---
Date of Service October 29, 2019 Assessment & Plan (1) CKD (chronic kidney disease) stage 4, GFR 15-29 ml/min: appreciate input from Nephrology pt is showing s/s of progression of end stage renal disease his severe fatigue /anorexia /Nausea -could be part of the uremic symptoms will need dialysis during this hospital stay Vascular surgery consulted for dialysis catheter placement on Wednesday ordered for NPO past midnight will need set up for out patient dialysis per nephrology (2) Prosthetic valve endocarditis: AORTIC PROSTHETIC VALVE ENDOCARDITIS Gram positive septicemia /BACTEREMIA : enterococcus feacalis last blood cultures on 10/22; no growth ECHO : highly mobile, linear 1.5 cm lesion on the aortic aspect of the bioprosthetic aortic valve consistent with endocarditis Case discussed with ID will need at least 6 weeks of IV Abx of IV Ampicillin and rocephin remains high risk for additional emboli, especially with large, mobile veg now noted on 10/22 TTE. /JUAN JOSE not done as pt is high risk for the procedure and will not change the treatment plan pt is a poor candidate for valve replacement surgery given large aortic valve vegetation with septic embolic -per cardiology , pt may need life long suppressive antibiotic possibly in form of oral dose will need PICC line placement pt is scheduled to have dialysis catheter on Wednesday will order for PICC line after vascular procedure is done Pt will need weekly cbc, cmp, esr while on IV therapy and will likely need serial echo as well. / will need to establish care with ID for remainder of course. (3) S/P TAVR (transcatheter aortic valve replacement): Severe aortic stenosis status post tucker valve TAVR bioprosthetic replacement April 2017 admitted with 6 weeks hx of fatigue , poor endurance blood cultures positive for entercocci ECHO highly mobile, linear 1.5 cm lesion on the aortic aspect of the bioprosthetic aortic valve Too high risk for JUAN JOSE and no likely change in outcome per cardiology : the patient is a very high risk of perioperative mortality and do not believe that surgical aortic valve replacement is not an option will need life long suppresive abx (4) Coagulopathy: (5) Embolic stroke: Presumed septic emboli from prosthetic valve endocarditis CT head showed findings indicative of a subacute right frontal infarct with laminar necrosis and cortical mineralization. MRI brain showed Multiple scattered punctate acute infarcts as described above most pronounced within the right frontal lobe. Focal area of edema seen within the right frontal lobe infarct with associated increased T1 signal. This could correspond to the associated calcifications in the setting of a subacute to chronic infarct or possibly petechial hemorrhage Avoid antiplatelet therapy and anticoagulation therapy as septic emboli have a higher risk for hemorrhagic conversion. treatment of valve endocarditis as outlined above COAGULOPATHY: Lupus anticoagulant positive on lab draw 10/19/2019-reference lab result available normal factor VIII activity Discussed case over the phone with hematology oncology Dr. Andersen Patient will need to be on therapeutic anticoagulation- high risk for thromboembolic event given positive lupus anticoagulant Patient already has evidence of embolic CVA noted in MRI of brain as well as splenic infarct. Patient will be started with IV heparin low-dose, no bolus Dual antiplatelets aspirin and Plavix discontinued to reduce bleeding risk pt will need life long anticoagulation -in form of Coumadin cont IV heparin protocol for planned Dialysis catheter on Wednesday (6) Non-ST elevation (NSTEMI) myocardial infarction: Troponin on admisson 10.3 then peaked at 18.1 Echo performed with no acute wall motion abnormality present. EF is 45-50%. Cardiology on board recommended medical management On Metoprolol Aspirin and Plavix kept on hold as pt is started on IV heparin for coagulopathy no complain of chest pain or discomfort (7) Renal failure (ARF), acute on chronic: Creatinine on admission 4.3 Patient with baseline ckd 4-5. Nephrology on board creatinine continues to decline may need dialysis during this hospital , Nephrology already spoke with pt and regarding dialysis -was agreeable (8) Lower back pain: MRI lumbar showed no fractures of fixation within the lumbar spine. Soft tissue edema within the bilateral erector spinae muscles at the lumbar region. A 1.7 cm lesion within the right psoas muscle which contains a fluid fluid level and hypointense rim. Cont oxycodone (taken BID chronically) and scheduled Tylenol. pain is well controlled at current regimen Continue PT/OT -recommends rehab -pt and refused Rehab plan is to return home with home health and home pt (9) Metabolic acidosis: resolved. (10) Anemia in chronic kidney disease (CKD): due to advanced CKD , acute illness with bacteremia /endocarditis s/p 1 unit of PRBC transfusion Hb stable at 9.3 (11) Diabetes mellitus: Continue Lantus and novolog sliding scale Continue monitor BS Atrial fibrillation: on beta pau IV heparin (12) Hypertension: Continue amlodipine, clonidine, hydralazine, imdur, metoprolol BP stable (13) DVT prophylaxis: IV heparin Full Code DISPOSITION ; plan of care -Dialysis catheter , manager terminal IV antibiotic discussed at length with Richelle over phone all questions answered family and patient wants to return home after hospital discharge with home health nursing and home IV antibiotic Admission and Anticipated Discharge Date Admission Date: October 19, 2019 Subjective complains of feeling nauseous very poor appetite and fatigue had small amount of emesis earlier no fever or chills no complain of SOB or chest pain Review of Systems Review of Systems: All systems reviewed & are unremarkable except as noted in HPI & below Physical Exam Constitutional: WD/WN, vitals as above + ill appearing; no acute distress Eyes: PERRL, conjunctivae normal, anicteric sclerae ENMT: external ear and nose normal, oropharynx normal Neck: trachea midline, no thyromegaly Respiratory: normal respiratory effort; no cough Auscultation: + diminished lung sounds; no crackles, no rales, no rhonchi and no wheezes Cardiovascular: RRR, no murmur, no edema Gastrointestinal (Abdomen): Percussion/Palpation: abdomen soft; abdomen nontender Musculoskeletal: Extremities: + abnormal strength and normal strength Neurologic: PERRL, EOMI, accommodation nl, no face palsy, no dysarthria Psychiatric: Orientation: alert and oriented x 3 Affect: + flat affect Results & Data Results & Data ([facility]) Vital Signs (Past 12 Hours) Vital Signs Temp Pulse Resp BP Pulse Ox 10/29/19 15:55 36.6 C 61 18 132/52 L 91 10/29/19 12:55 70 124/57 L 10/29/19 07:38 36.9 C 65 17 151/60 H 93 (1) Renal failure (ARF), acute on chronic Acute renal failure type: unspecified Chronic kidney disease stage: stage 5, not on chronic dialysis Qualified Code(s): N17.9 - Acute kidney failure, unspecified; N18.5 - Chronic kidney disease, stage 5
[2019-10-29] MEDS: PROMETHAZINE HCL 12.5 MG in SODIUM CHLORIDE 0.9% 50 ML IV PRN (17:26)
[2019-10-29] MEDS: TERAZOSIN HCL 5 MG CAP PO SCH (19:30)
[2019-10-29] MEDS: allopurinoL 100 MG TAB PO SCH (19:33)
[2019-10-29] MEDS: HEPARIN SODIUM/DEXTROSE 25,000 UNITS/500 ML BAG IV SCH (20:08)
[2019-10-30] MEDS: ACETAMINOPHEN 500 MG TAB PO SCH ×3 (00:05→18:11)
[2019-10-30] MEDS: AMPICILLIN 2,000 MG in SODIUM CHLOR 0.9% AD-VAN 100 ML IV SCH ×3 (03:37→21:40)
[2019-10-30 06:57] LABS: Hematocrit (blood only) 25.9 % (42-52); Hemoglobin 8.6 g/dL (14.0-18.0); Mean Corpuscular Hemoglobin 32.2 pg (25-34); Mean Corpuscular Hgb Conc 33.2 g/dL (32-36); Nucleated RBC # (auto) 0.09 K/uL (0-0); Nucleated RBC % (auto) 0.4 %; Platelet Count 232 K/uL (130-400); RDW Coefficient of Variation 17.4 % (11.5-14.5); RDW Standard Deviation 58.1 fL (36.4-46.3); Red Blood Count 2.67 M/uL (4.7-6.1); White Blood Count 20.28 K/uL (4.8-10.8)
[2019-10-30 07:33] LABS: BUN Creatinine Ratio 16.9 (10-20); Calcium 8.2 mg/dl (8.5-10.1); Creatinine Clr Calc Pharmacy 13.4 ml/min; Est GFR (African American) 12.8; Est GFR (Non-African American) 11.1; Potassium 3.4 mmol/L (3.5-5.1)
[2019-10-30] MEDS: OXYCODONE HCL IR 5 MG TAB (IMMEDIATE RELEASE) PO SCH ×2 (09:03→20:42)
[2019-10-30] MEDS: METOPROLOL TARTRATE 50 MG TAB PO SCH ×3 (09:04→20:42)
[2019-10-30] MEDS: HydrALAZINE TAB 50 MG TAB PO SCH ×3 (09:04→20:43)
[2019-10-30] MEDS: ISOSORBIDE MONO EXTENDED REL 60 MG TABCR PO SCH (09:04)
[2019-10-30] MEDS: AMLODIPINE BESYLATE 5 MG TAB PO SCH (09:04)
[2019-10-30] MEDS: LUBIPROSTONE 8 MCG CAP PO SCH ×2 (09:08→20:43)
[2019-10-30] MEDS: INSULIN GLARGINE SOLOSTAR 100 UNITS/ML 3 ML PEN SC SCH ×2 (09:09→20:48)
[2019-10-30] MEDS: INSULIN ASPART 100 UNITS/ML 3 ML PEN SC SCH ×4 (09:10→20:49)
[2019-10-30] MEDS: cefTRIAXone SODIUM 2,000 MG in DEXTROSE 5% 50 ML IV SCH ×2 (09:13→21:34)
[2019-10-30] MEDS: cloNIDine HCL 0.1 MG TAB PO SCH ×2 (09:13→20:44)
[2019-10-30] MEDS: POTASSIUM CHLORIDE / WTR 10 MEQ/100 ML PLCT IV SCH ×3 (11:14→13:10)
--- NOTE | 2019-10-30 11:43 | Consultation ---
Date of Consultation October 30, 2019 Assessment & Plan (1) ESRD (end stage renal disease): After discussion with primary service and nephrology, planning on temporary line placement today and possible permcath insertion later this week. Primary service planning to order new blood cx today d/t persistent leukocytosis and concern for bacteremia. Scheduled for later today. Will obtain consent from . Patient was seen, examined, and chart reviewed. Agree with exam and treatment plan of the Vascular PA History of Present Illness Reason for Consultation: ESRD Attending Physician: Jazlyn Porter MD History of Present Illness 74 yo m with multiple medical problems, inclduing CKD, a fib, hx TAVR, CVA, DMII, [place], CAD, HTN, admitted with sepsis and bacteremia and endocarditis, seen in consultation today for insertion of permcath for HD initiation. Pt renal fxn ahs been deteriorating since admission, despite sepssi treatment. Last blood cx done 1 week ago and negative. Pt is very poor historian, but can answer simple questions appropriately. Pt admits fatigue, malaise. Denies DAVEY, fever, chest pain, abd pain, N/V, rest pain, claudication, other complaints. Allergies Allergy/AdvReac Type Severity Reaction Status Date / Time Ilwjarx-Joj-Cdi Reductase AdvReac Intermediate RHABDOMYOLYSIS Verified 10/28/19 15:21 Inhibitor FROM 06/2009 Home Medications Home Medications Medication Instructions Recorded Confirmed Type Lantus U-100 Insulin 18 unit SUBCUT QAM 03/24/18 10/19/19 History allopurinol 100 mg PO HS 03/24/18 10/19/19 History amlodipine 5 mg PO QAM 03/24/18 10/19/19 History clonidine HCl 0.2 mg PO TID 03/24/18 10/19/19 History clopidogrel 75 mg PO QAM 03/24/18 10/19/19 History hydralazine 100 mg PO TID 03/24/18 10/19/19 History isosorbide mononitrate 60 mg PO QAM 03/24/18 10/19/19 History metoprolol tartrate 50 mg PO TID 03/24/18 10/19/19 History nitroglycerin [Nitrostat] 0.4 mg SUBLINGUAL UD PRN 03/24/18 10/19/19 History oxycodone 10 mg PO TID 03/24/18 10/19/19 History furosemide 20 mg PO DAILY 10/19/19 10/19/19 History lubiprostone [Amitiza] 8 mcg PO BID 10/19/19 10/19/19 History terazosin 5 mg PO HS 10/19/19 10/19/19 History Patient History Medical History (Updated 10/30/19 @ 14:16 by Jazlyn Porter MD) BPH (benign prostatic hyperplasia) Bronchitis HX-INHALER VERY OCC Cardiac murmur Chronic kidney disease STAGE 3-F/U DR HANSON Congestive heart failure Diabetes mellitus, type 2 ESRD (end stage renal disease) GERD (gastroesophageal reflux disease) Hyperlipidemia Hypertension Kidney stones On anticoagulant therapy SINCE 02/2017 Osteoarthritis Surgical History History of cardiac cath X 2 02/28/2017--2 stents History of colonoscopy History of cystoscopy WITH STENT PLACEMENT History of heart artery stent x2 02/2017 History of heart valve replacement [place] 04[place] [facility] [place] Q3-6 MONTHS Family History Mother Family history of irritable bowel syndrome Other No family history of adverse response to anesthesia Social History Preferred Language: Bahraini Communication Ability: Effective 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 Beliefs That Will Affect Care: None Current Living Situation: Spouse Other Information That Helps Us Care for You: No Feels Safe at Home: Yes Safety Concerns: Feels Safe At This Time Smoking Status: Never smoker Do You Dip or Chew Tobacco: No ; Second Hand Exposure: No ; Tobacco Cessation Education Requested by Patient: No Hx Alcohol Use: Yes Alcohol type: beer, wine and other Hx Substance Use: No Review of Systems Review of Systems: Unobtainable due to cognitive status (pt inconsistent in answering) Physical Exam Constitutional: WD/WN, vitals as above + frail appearing and comfortable Eyes: PERRL, conjunctivae normal, anicteric sclerae ENMT: external ear and nose normal, oropharynx normal Ears: no hearing impairment Neck: normal visual inspection Cardiovascular: Rate/Rhythm: + irregularly irregular Vessels: posterior tibial pulses present, dorsalis pedis pulses present and radial pulses present; + abnormal peripheral pulses Extremities: normal capillary refill and + edema (mild) Gastrointestinal (Abdomen): normal bowel sounds, soft, nontender, no hepatosplenomegaly Musculoskeletal: no cyanosis or clubbing, extremities motor strength 5/5 Skin: no rashes, warm and dry Neurologic: moves all extremities, awake (wakens easily, but was sleeping on arrival) and + confused; no focal motor deficits Psychiatric: Orientation: alert and oriented x 3 Results & Data Vital Signs (Past 12 Hours) Vital Signs Temp Pulse Resp BP Pulse Ox 10/30/19 07:12 36.6 C 66 18 142/55 H 91 10/30/19 00:00 36.6 C 60 18 122/46 L 91
--- NOTE | 2019-10-30 11:46 | Nephrology Progress Note ---
Date of Service October 30, 2019 Assessment & Plan (1) Renal failure (ARF), acute on chronic: nonoliguric KARTHIK on CKD4 due to ischemic ATN in setting of bacteremia, prosthetic valve IE. Cr slight uptrend today at 4.7 and BUN of 80. Electrolytes are acceptable w/ minor hyponatremia, low bicarb; exception to this is K as below . 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 pt and have previously discussed dialysis w/ my partner. 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 on ampicillin and ceftriaxone. Avoid PICC line. Patient can get midline catheter for antibiotics at home. >> given slow uptrend in WBC since last blood cx and variable MS today, d/w primary team, vascular >> recommend recheck blood cx and est it's negative before TDC placement -will do temp line today -will need 48 hrs w/ negative blood cxs before TDC placement - (3) Hypokalemia: yesterday had IV K x 60 mEq. Today will give another 20 mEq IV > Liberalize potassium in the diet. >Monitor potassium daily. >daily bmp Admission and Anticipated Discharge Date Admission Date: October 19, 2019 Subjective seen on rounds 11 AM; doing PT. delayed psychomotor reactions and unable to give me ROS. He does give delayed but appropriate ROS. Review of Systems Review of Systems: Unobtainable due to cognitive status Physical Exam Constitutional: well developed and well nourished sitting on side of bed on RA oriented to self Eyes: EOM intact bilaterally ENMT: Ears: no external ear abnormality Nose: no external nose abnormality Mouth: + dry oral mucous membranes Neck: no nuchal rigidity Respiratory: normal respiratory effort Auscultation: + diminished lung sounds Cardiovascular: Rate/Rhythm: regular rate and regular rhythm Extremities: + edema (trace BL ankle) Gastrointestinal (Abdomen): Inspection/Auscultation: normal bowel sounds Percussion/Palpation: abdomen soft; abdomen nontender Musculoskeletal: Extremities: strength 5/5 throughout generalized weakness > needs >60 sec and verbal redirection to sit up on side of bed but can do w/o asst Skin: no rashes, warm and dry Neurologic: cabrales, psychomotor slowing pronounced, minimally verbal w/ me Psychiatric: Orientation: alert and oriented to person Eye Contact: + fair eye contact Motor Behavior: no abnormal motor movements and + psychomotor retardation Insight: + limited insight Judgement: + limited judgement Genitourinary: manuel w/ ample urine yellow w/ red tinge, some cloudiness Results & Data ([facility]) Vital Signs (Past 12 Hours) Vital Signs Temp Pulse Resp BP Pulse Ox 10/30/19 07:12 36.6 C 66 18 142/55 H 91 10/30/19 00:00 36.6 C 60 18 122/46 L 91 Laboratory Results 10/30/19 06:30 10/30/19 06:30 (1) Renal failure (ARF), acute on chronic Acute renal failure type: unspecified Chronic kidney disease stage: stage 5, not on chronic dialysis Qualified Code(s): N17.9 - Acute kidney failure, unspecified; N18.5 - Chronic kidney disease, stage 5
[2019-10-30] MEDS ORDERED: SODIUM CHLORIDE 0.9% 1000ML 1,000 ML IV PRN (11:58)
[2019-10-30 13:56] LABS: Hepatitis B Surface Ab Quant < 3.10 mIU/mL (>or=10mIU/mL Immune); Hepatitis B Surface Antibody Non-Immune
[2019-10-30 14:07] LABS: Hepatitis B Surface Antigen Neg (Neg)
--- NOTE | 2019-10-30 14:21 | Hospitalist Progress Note ---
Date of Service October 30, 2019 Assessment & Plan (1) Sepsis: due to infective endocarditis of prosthetic aortic valve progressive leukocytosis noted WBC 20K with elevated lactic acid and procalcitonin ordered for repeat blood cultures ( last blood cultures on 10/22 was negative ) on IV Rocephin and ampicillin -Enterococcus bacteremia /endocarditis (2) CKD (chronic kidney disease) stage 4, GFR 15-29 ml/min: baseline advanced CKD stage 4-5 pt is showing s/s of progression of end stage renal disease his severe fatigue /anorexia /Nausea -could be part of the uremic symptoms Vascular surgery consulted due to evidence of possible ongoing infection , pt will have temporary dialysis catheter placement today followed by dialysis today will need set up for out patient dialysis per nephrology (3) Prosthetic valve endocarditis: AORTIC PROSTHETIC VALVE ENDOCARDITIS Gram positive septicemia /BACTEREMIA : enterococcus feacalis last blood cultures on 10/22; no growth ECHO : highly mobile, linear 1.5 cm lesion on the aortic aspect of the bioprosthetic aortic valve consistent with endocarditis Case discussed with ID will need at least 6 weeks of IV Abx of IV Ampicillin and rocephin remains high risk for additional emboli, especially with large, mobile veg now noted on 10/22 TTE. /JUAN JOSE not done as pt is high risk for the procedure and will not change the treatment plan pt is a poor candidate for valve replacement surgery given large aortic valve vegetation with septic embolic -per cardiology , pt may need life long suppressive antibiotic possibly in form of oral dose will need PICC line placement will order for PICC line after vascular procedure /dialysis catheter placement Pt will need weekly cbc, cmp, esr while on IV therapy and will likely need serial echo as well. / will need to establish care with ID for remainder of course. (4) S/P TAVR (transcatheter aortic valve replacement): Severe aortic stenosis status post tucker valve TAVR bioprosthetic replacement April 2017 admitted with 6 weeks hx of fatigue , poor endurance blood cultures positive for entercocci ECHO highly mobile, linear 1.5 cm lesion on the aortic aspect of the bioprosthetic aortic valve Too high risk for JUAN JOSE and no likely change in outcome per cardiology : the patient is a very high risk of perioperative mortality and do not believe that surgical aortic valve replacement is not an option will need life long suppresive abx (5) Coagulopathy: (6) Embolic stroke: Presumed septic emboli from prosthetic valve endocarditis CT head showed findings indicative of a subacute right frontal infarct with laminar necrosis and cortical mineralization. MRI brain showed Multiple scattered punctate acute infarcts as described above most pronounced within the right frontal lobe. Focal area of edema seen within the right frontal lobe infarct with associated increased T1 signal. This could correspond to the associated calcifications in the setting of a subacute to chronic infarct or possibly petechial hemorrhage Avoid antiplatelet therapy and anticoagulation therapy as septic emboli have a higher risk for hemorrhagic conversion. treatment of valve endocarditis as outlined above COAGULOPATHY: Lupus anticoagulant positive on lab draw 10/19/2019-reference lab result available normal factor VIII activity Discussed case over the phone with hematology oncology Dr. Andersen Patient will need to be on therapeutic anticoagulation- high risk for thromboembolic event given positive lupus anticoagulant Patient already has evidence of embolic CVA noted in MRI of brain as well as splenic infarct. Patient will be started with IV heparin low-dose, no bolus Dual antiplatelets aspirin and Plavix discontinued to reduce bleeding risk pt will need life long anticoagulation -in form of Coumadin cont IV heparin protocol for planned Dialysis catheter on Wednesday (7) Non-ST elevation (NSTEMI) myocardial infarction: Troponin on admisson 10.3 then peaked at 18.1 Echo performed with no acute wall motion abnormality present. EF is 45-50%. Cardiology on board recommended medical management On Metoprolol Aspirin and Plavix kept on hold as pt is started on IV heparin for coagulopathy no complain of chest pain or discomfort (8) Renal failure (ARF), acute on chronic: Nephrology on board creatinine continues to decline will need dialysis during this hospital , scheduled to have temporary dialysis catheter placement today (9) Lower back pain: MRI lumbar showed no fractures of fixation within the lumbar spine. Soft tissue edema within the bilateral erector spinae muscles at the lumbar region. A 1.7 cm lesion within the right psoas muscle which contains a fluid fluid level and hypointense rim. Cont oxycodone (taken BID chronically) and scheduled Tylenol. pain is well controlled at current regimen Continue PT/OT -recommends rehab -pt and refused Rehab plan is to return home with home health and home pt (10) Metabolic acidosis: (11) Anemia in chronic kidney disease (CKD): due to advanced CKD , acute illness with bacteremia /endocarditis s/p 1 unit of PRBC transfusion Hb stable at 9.3 (12) Diabetes mellitus: Continue Lantus and novolog sliding scale Continue monitor BS Atrial fibrillation: on beta pau IV heparin (13) Hypertension: Continue amlodipine, clonidine, hydralazine, imdur, metoprolol BP stable (14) DVT prophylaxis: IV heparin Full Code DISPOSITION ; called pt's Richelle discussed at length regarding treatment plan , answered all questions family and patient wants to return home after hospital discharge with home health nursing and home IV antibiotic Admission and Anticipated Discharge Date Admission Date: October 19, 2019 Subjective more tired and fatigued today persistent nausea NPO for dialysis catheter placement today no fever or chills no hypoxia , no complain of shortness of breath Review of Systems Review of Systems: As per HPI, all 10 systems reviewed, all other ROS negative Constitutional: + fatigue, + weakness and + anorexia; no fever and no chills Respiratory: + dyspnea on exertion; no cough Physical Exam Constitutional: WD/WN, vitals as above + ill appearing; no acute distress Eyes: PERRL, conjunctivae normal, anicteric sclerae ENMT: external ear and nose normal, oropharynx normal Neck: trachea midline, no thyromegaly Respiratory: normal respiratory effort; no cough Auscultation: + diminished lung sounds; no crackles, no rales, no rhonchi and no wheezes Cardiovascular: RRR, no murmur, no edema Gastrointestinal (Abdomen): Percussion/Palpation: abdomen soft; abdomen nontender Musculoskeletal: Extremities: + abnormal strength and normal strength Neurologic: PERRL, EOMI, accommodation nl, no face palsy, no dysarthria Psychiatric: Orientation: alert and oriented x 3 Affect: + flat affect Results & Data Results & Data ([facility]) Vital Signs (Past 12 Hours) Vital Signs Temp Pulse Resp BP Pulse Ox 10/30/19 07:12 36.6 C 66 18 142/55 H 91 (1) Renal failure (ARF), acute on chronic Acute renal failure type: unspecified Chronic kidney disease stage: stage 5, not on chronic dialysis Qualified Code(s): N17.9 - Acute kidney failure, unspecified; N18.5 - Chronic kidney disease, stage 5
[2019-10-30] MEDS ORDERED: LIDOCAINE HCL 1% 20 ML VIAL ONE ×2 (16:04→16:08)
[2019-10-30] MEDS ORDERED: HEPARIN 100 UNIT/ML 5ML FLUSH ONE (16:04)
[2019-10-30] MEDS ORDERED: HEPARIN SOD (PORCINE) 5,000 UNITS/ML VIAL ONE (16:07)
--- NOTE | 2019-10-30 16:09 | History & Physical Bridge Note ---
Date of Service October 30, 2019 History & Physical Bridge Note Patient for insertion of temporary dialysis catheter today. I have discussed the risks options and benefits of the procedure with the patient's . The patient;s understands the risks options and benefits and agrees to the procedure. I have examined the patient, reviewed the History & Physical and in the interval since the performance of the History & Physical I have noted the following changes of clinical significance: no changes noted
[2019-10-30] MEDS ORDERED: ATROPINE SULFATE 0.1 MG/ML 10ML SYR IV PRN (16:29)
[2019-10-30] MEDS ORDERED: fentaNYL citrate 100 MCG/2 ML VIAL IV PRN (16:29)
[2019-10-30] MEDS ORDERED: ONDANSETRON INJ 2 MG/ML 2 ML VIAL IV PRN (16:29)
[2019-10-30] MEDS ORDERED: ePHEDrine sulfate 50 MG/ML AMP IV PRN (16:29)
--- NOTE | 2019-10-30 16:29 | Anesthesiology Consultation ---
Date of Service October 30, 2019 Assessment & Plan Consults Requested none ASA ASA4 Proposed Anesthesia Anesthesia Type: MAC Risk / Benefits Reviewed With: PT / POA / Parent / Guardian, Accepts Plan and In formed Consent Obtained History Surgery Operation Date: 10/30/19 13:45 Proposed Procedures p Perm Catheter Placement - Jaun Pizarro MD Height/Weight Height: 5 ft 6 in Weight: 81.3 kg Allergies Allergy/AdvReac Type Severity Reaction Status Date / Time Eijojom-Aky-Rjw Reductase AdvReac Intermediate RHABDOMYOLYSIS Verified 10/28/19 15:21 Inhibitor FROM 06/2009 Medications Home Medications Medication Instructions Recorded Confirmed Last Taken Lantus U-100 Insulin 18 unit SUBCUT QA 03/24/18 10/19/19 09/15/18 08:00 allopurinol 100 mg PO 03/24/18 10/19/19 09/15/18 22:30 amlodipine 5 mg PO QA 03/24/18 10/19/19 09/16/18 05:15 clonidine HCl 0.2 mg PO TID 03/24/18 10/19/19 09/15/18 05:15 clopidogrel 75 mg PO QAM 03/24/18 10/19/19 09/16/18 05:15 hydralazine 100 mg PO TID 03/24/18 10/19/19 09/15/18 22:30 isosorbide mononitrate 60 mg PO QA 03/24/18 10/19/19 09/16/18 05:15 metoprolol tartrate 50 mg PO TID 03/24/18 10/19/19 09/16/18 05:15 nitroglycerin [Nitrostat] 0.4 mg SUBLINGUAL UD PRN 03/24/18 10/19/19 08/04/17 oxycodone 10 mg PO TID 03/24/18 10/19/19 09/15/18 22:30 furosemide 20 mg PO DAILY 10/19/19 10/19/19 Unknown lubiprostone [Amitiza] 8 mcg PO BID 10/19/19 10/19/19 Unknown terazosin 5 mg PO HS 10/19/19 10/19/19 Unknown Active Medications Generic Name Dose Route Start Last Admin Trade Name Freq PRN Reason Stop Dose Admin Acetaminophen 1,000 mg 10/19/19 16:00 10/30/19 09:14 Tylenol PO 11/18/19 15:14 1,000 mg Q8H SHARYN Administration Allopurinol 100 mg 10/19/19 20:00 10/29/19 19:33 Zyloprim PO 11/18/19 19:59 100 mg 2000 HSARYN Administration Amlodipine Besylate 10 mg 10/28/19 08:00 10/30/19 09:04 Norvasc PO 11/27/19 07:59 10 mg 0800 SHARYN Administration Clonidine HCl 0.1 mg 10/28/19 09:00 10/30/19 09:13 Catapres PO 11/27/19 08:59 0.1 mg BID SHARYN Administration Hydralazine HCl 100 mg 10/19/19 08:00 10/30/19 12:39 Apresoline PO 11/18/19 07:59 Not Given 0800,1200,1999 SHARYN Hydromorphone HCl 0.25 mg 10/19/19 07:43 10/23/19 01:12 Dilaudid IV 11/02/19 07:42 0.25 mg Q3H PRN Administration Pain Promethazine HCl 12.5 mg/ 50.5 mls @ 202 mls/hr 10/19/19 07:43 10/29/19 17:48 Sodium Chloride IV 11/18/19 07:42 Infused Q6H PRN Infusion Nausea And Vomiting Ceftriaxone Sodium 2,000 mg/ 70 mls @ 140 mls/hr 10/20/19 10:00 10/30/19 09:46 Dextrose IV 11/03/19 09:59 Infused Q12H SHARYN Infusion Heparin Sodium/Dextrose 25,000 units in 500 mls @ 0 mls/hr 10/26/19 10:30 10/30/19 07:08 Heparin Sodium/Dextrose IV 11/25/19 10:29 0 units/hr .Q0M SHARYN 0 mls/hr Titration Protocol 0 UNITS/HR Insulin Aspart 0 units 10/19/19 07:43 10/30/19 12:22 Novolog Flexpen SC 11/18/19 07:42 1 units ACHS SHARYN Administration Insulin Glargine 5 units 10/23/19 21:00 10/30/19 09:09 Lantus Solostar Pen SC 11/22/19 20:59 5 units BID SHARYN Administration Isosorbide Mononitrate 60 mg 10/19/19 08:00 10/30/19 09:04 Imdur Extended Rel PO 11/18/19 07:59 60 mg 0800 SHARYN Administration Lubiprostone 8 mcg 10/19/19 08:00 10/30/19 09:08 Amitiza PO 11/18/19 07:59 8 mcg 0800,1999 SHARYN Administration Metoprolol Tartrate 50 mg 10/23/19 21:00 10/30/19 13:58 Lopressor PO 11/22/19 20:59 Not Given TID SHARYN Oxycodone HCl 10 mg 10/19/19 21:00 10/30/19 09:03 Roxicodone Immediate Rel PO 11/02/19 20:59 10 mg BID SHARYN Administration Terazosin HCl 5 mg 10/19/19 20:00 10/29/19 19:30 Hytrin PO 11/18/19 19:59 5 mg 2000 SHARYN Administration NPO Date Last Intake of Fluids: 10/30/19 Time Last Intake of Fluids: 09:00 Last Intake of Fluids Comment: sip of water with AM meds per MD order Date Last Intake of Solids: 10/29/19 Time Last Intake of Solids: 18:00 Past Medical History Medical History (Updated 10/30/19 @ 14:16 by Jazlyn Porter MD) BPH (benign prostatic hyperplasia) Bronchitis HX-INHALER VERY OCC Cardiac murmur Chronic kidney disease STAGE 3-F/U DR AHNSON Congestive heart failure Diabetes mellitus, type 2 ESRD (end stage renal disease) GERD (gastroesophageal reflux disease) Hyperlipidemia Hypertension Kidney stones On anticoagulant therapy SINCE 02/2017 Osteoarthritis Exercise / Class Metabolic Activity III < 4 Walking/Shop/Light housework Past Family History Family History Mother Family history of irritable bowel syndrome Other No family history of adverse response to anesthesia Past Surgical History Surgical History History of cardiac cath X 2 02/28/2017--2 stents History of colonoscopy History of cystoscopy WITH STENT PLACEMENT History of heart artery stent x2 02/2017 History of heart valve replacement AVR 04/2017 [facility]-F/U DR RON Q3-6 MONTHS Past Anesthesia History No Hx of Anesthesia Complications and No Family Hx of Anesthesia Complications History of PONV No Hx of PONV and No Hx of Motion Sickness Social History Smoking Status: Never smoker Do You Dip or Chew Tobacco: No Hx Alcohol Use: Yes Alcohol type: beer, wine and other alcohol intake frequency: a few times a week Hx Substance Use: No substance use type: does not use Review of Systems denies fever/cough/ colds/ chest pain/ SOB/ MESFIN pt is lethargic Constitutional: no fever and no chills Respiratory: no cough and no dyspnea denies MESFIN Cardiovascular: no chest pain and no dyspnea on exertion Physical Exam Vital Signs Last Vital Signs Temp 36.5 C 10/30/19 15:50 Pulse 60 10/30/19 15:50 Resp 18 10/30/19 15:50 BP 132/64 10/30/19 15:50 Pulse Ox 94 10/30/19 15:50 Constitutional + lethargic ENMT Mouth: no TMJ abnormality and no dentition abnormality Thyromental Distance: > or= 3.5 Finger Breadths Mallampati Class: II Neck neck extension not limited Respiratory normal respiratory effort; no respiratory distress Auscultation: lungs clear to auscultation bilaterally Cardiovascular Rate/Rhythm: regular rate and regular rhythm Neurologic moves all extremities Psychiatric Orientation: alert and oriented x 3 Testing Laboratory Results 10/30/19 06:30 10/30/19 06:30 PT 11.4 Seconds (9.0-12.0) 10/23/19 05:30 INR 1.1 (0.9-1.1) 10/23/19 05:30 APTT 53.6 Seconds (21.0-31.0) H* 10/29/19 07:41 Hemoglobin A1c 6.9 % (4.5-5.6) H 10/19/19 03:50 Urine Color Dark Yellow 10/19/19 05:00 Urine Appearance Cloudy (Clear) A 10/19/19 05:00 Urine pH 5.0 (4.5-7.5) 10/19/19 05:00 Ur Specific [place] 1.022 (1.000-1.030) 10/19/19 05:00 Urine Protein 2+ (Negative) H 10/19/19 05:00 Urine Glucose (UA) Negative (Negative) 10/19/19 05:00 Urine Ketones Trace (Negative) H 10/19/19 05:00 Urine Nitrite Negative (Negative) 10/19/19 05:00 Ur Leukocyte Esterase 1+ (Negative) H 10/19/19 05:00 Urine WBC (Auto) 10-30 /hpf (0-5) H 10/19/19 05:00 Urine RBC (Auto) 0-4 /hpf (0-4) 10/19/19 05:00 U Hyaline Cast (Auto) 1-5 /lpf (0-5) 10/19/19 05:00 U Epithel Cells (Auto) 20-30 /lpf (0-5) H 10/19/19 05:00 Urine Bacteria (Auto) Negative (Negative) 10/19/19 05:00 Blood Type O Positive 10/24/19 10:05 Antibody Screen NEGATIVE 10/24/19 10:05 10/23/19 05:42 Aerobic Blood Culture - Final Blood No growth in Aerobic bottle after 5 days. Anaerobic Blood Culture - Final No growth in Anaerobic bottle after 5 days. 10/23/19 05:30 Aerobic Blood Culture - Final Blood No growth in Aerobic bottle after 5 days. Anaerobic Blood Culture - Final No growth in Anaerobic bottle after 5 days. 10/22/19 06:14 Aerobic Blood Culture - Final Blood Enterococcus faecalis Anaerobic Blood Culture - Final No growth in Anaerobic bottle after 5 days. 10/22/19 06:04 Aerobic Blood Culture - Final Blood Enterococcus faecalis Anaerobic Blood Culture - Final No growth in Anaerobic bottle after 5 days. 10/21/19 06:22 Aerobic Blood Culture - Final Blood Enterococcus faecalis Anaerobic Blood Culture - Final No growth in Anaerobic bottle after 5 days. 10/21/19 06:11 Aerobic Blood Culture - Final Blood Enterococcus faecalis Anaerobic Blood Culture - Final No growth in Anaerobic bottle after 5 days. 10/20/19 13:03 Aerobic Blood Culture - Final Blood Enterococcus faecalis Anaerobic Blood Culture - Final No growth in Anaerobic bottle after 5 days. 10/20/19 12:56 Aerobic Blood Culture - Final Blood Enterococcus faecalis Anaerobic Blood Culture - Final No growth in Anaerobic bottle after 5 days. 10/19/19 04:45 Aerobic Blood Culture - Final Blood Enterococcus faecalis Anaerobic Blood Culture - Final Enterococcus faecalis 10/19/19 04:40 Aerobic Blood Culture - Final Blood Enterococcus faecalis Anaerobic Blood Culture - Final Enterococcus faecalis 10/19/19 05:00 Urine Culture - Final Urine,Clean Catch Three types of organisms present, all low counts probable skin darcy. No further identifications or sensitivities to follow. 10/30/19 10/30/19 10/30/19 15:56 11:39 07:34 POC Glucose 125 H 170 H 147 H
--- NOTE | 2019-10-30 17:31 | Operative Report ---
Post Operative Report Pre & Post Diagnosis Operation Date: 10/30/19 13:45 Pre-Op Diagnosis: Acute Renal Failure Post-Op Diagnosis: Acute Renal Failure I identified the patient and participated in the time-out.: Yes Procedure Operation Date: 10/30/19 13:45 Actual Procedures p temporary dialysis catheter Placement, Left Internal Jugular Approach, Ultr asound Localization of Left Internal Jugular Vein, Fluoroscopy for Positioning(Left) - Jaun Pizarro MD Surgeon Jaun Pizarro MD [employer] Services Librarian None Estimated Blood Loss 5 Findings Consistent with Post-Op Diagnosis Specimens None Anesthesia Type Local Complications none Disposition Accompanied Patient To Recovery: No Disposition: Recovery Room Indications This is a 74-year-old male with acute renal failure. He has questionable Pseudomonas infection. We elected to place a temporary catheter until his infection clears up. I have discussed the risks options and benefits of the procedure with the patient's . The patient's understands the risks options and benefits and agrees to the procedure. Description of Procedure Patient was taken to the angio suite and placed in the supine position. The left side of the neck and chest wall were prepped and draped in a sterile manner. The patient was identified and a timeout performed. Local anesthesia was then administered to the appropriate areas of the neck and chest wall. Ultrasound was then used to locate the left internal jugular vein. The vein compressed easily, had no filing defects, and was patent. The vein was then punctured under direct ultrasound imaging. A guidewire was then passed centrally under fluoroscopic imaging. A stab wound was then made in the site on the neck. The tunnel was then dilated. A 23 cm temporary dialysis catheter was then inserted over the wire to a central position in the distal superior vena cava. The catheter was then sutured in place using nylon sutures. Both ports aspirated and flushed easily and were then packed with heparin. A sterile dressing was applied to the catheter. The patient left the operation room in satisfactory condition and tolerated the procedure well. All needle and sponge counts were correct at the end of the procedure. I attest to the content of the Intraoperative Record and any orders documented therein. Any exceptions are noted below.
[2019-10-30] MEDS: TERAZOSIN HCL 5 MG CAP PO SCH (20:43)
[2019-10-30] MEDS: allopurinoL 100 MG TAB PO SCH (20:44)
[2019-10-31] MEDS: ACETAMINOPHEN 500 MG TAB PO SCH ×3 (00:13→15:55)
[2019-10-31 06:40] LABS: Hematocrit (blood only) 26.5 % (42-52); Hemoglobin 8.9 g/dL (14.0-18.0); Mean Corpuscular Hemoglobin 33.2 pg (25-34); Mean Corpuscular Hgb Conc 33.6 g/dL (32-36); Mean Corpuscular Volume 98.9 fL (80-100); Mean Platelet Volume 11.5 fL (7.4-10.4); Nucleated RBC # (auto) 0.07 K/uL (0-0); Nucleated RBC % (auto) 0.4 %; Platelet Count 211 K/uL (130-400); RDW Standard Deviation 58.9 fL (36.4-46.3); Red Blood Count 2.68 M/uL (4.7-6.1); White Blood Count 18.02 K/uL (4.8-10.8)
[2019-10-31 07:00] LABS: BUN Creatinine Ratio 14.2 (10-20); Calcium 8.2 mg/dl (8.5-10.1); Creatinine Clr Calc Pharmacy 18.1 ml/min; Est GFR (African American) 18.2; Est GFR (Non-African American) 15.7; Potassium 3.3 mmol/L (3.5-5.1)
[2019-10-31] MEDS ORDERED: SODIUM CHLORIDE 0.9% 1000ML 1,000 ML IV PRN (09:07)
[2019-10-31] MEDS: INSULIN GLARGINE SOLOSTAR 100 UNITS/ML 3 ML PEN SC SCH ×2 (09:25→21:19)
[2019-10-31] MEDS: LUBIPROSTONE 8 MCG CAP PO SCH ×3 (09:25→20:01)
[2019-10-31] MEDS: AMLODIPINE BESYLATE 5 MG TAB PO SCH (09:25)
[2019-10-31] MEDS: ISOSORBIDE MONO EXTENDED REL 60 MG TABCR PO SCH (09:25)
[2019-10-31] MEDS: HydrALAZINE TAB 50 MG TAB PO SCH ×4 (09:25→20:01)
[2019-10-31] MEDS: cloNIDine HCL 0.1 MG TAB PO SCH ×2 (09:25→21:19)
[2019-10-31] MEDS: OXYCODONE HCL IR 5 MG TAB (IMMEDIATE RELEASE) PO SCH ×2 (09:34→21:19)
[2019-10-31] MEDS ORDERED: EPOETIN ALFA 10,000 UNITS/ML VIAL IV SCH (10:00)
[2019-10-31] MEDS ORDERED: HEPARIN SOD (PORCINE) 1000 UNIT/ML 10 ML VIAL IV SCH (10:00)
[2019-10-31] MEDS: INSULIN ASPART 100 UNITS/ML 3 ML PEN SC SCH ×4 (10:09→21:20)
[2019-10-31] MEDS: METOPROLOL TARTRATE 50 MG TAB PO SCH ×3 (10:10→21:18)
[2019-10-31] MEDS: AMPICILLIN 2,000 MG in SODIUM CHLOR 0.9% AD-VAN 100 ML IV SCH ×2 (10:23→21:58)
[2019-10-31] MEDS: cefTRIAXone SODIUM 2,000 MG in DEXTROSE 5% 50 ML IV SCH ×2 (11:21→21:58)
--- NOTE | 2019-10-31 12:42 | Nephrology Progress Note ---
Date of Service October 31, 2019 Assessment & Plan (1) Renal failure (ARF), acute on chronic: nonoliguric KARTHIK on CKD4 due to ischemic ATN in setting of bacteremia, prosthetic valve IE>> now ESRD. Cr improved w/ dialysis. Electrolytes are acceptable w/ minor hyponatremia, low k. 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 pt and have previously discussed dialysis w/ my partner. -first HD today 10/29; today tx again on 4 K bath, 3hr tx, up to 1L UF -changed TDC to temp line as below >> for TDC placement once cultures are clear -Monitor renal function with daily BMP -plan next HD tomorrow -plan is to d/c home in which case recommend referral to [facility] (2) Prosthetic valve endocarditis: He will need halfway antibiotics. on ampicillin and ceftriaxone. Avoid PICC line. Patient can get midline catheter for antibiotics at home. >> given slow uptrend in WBC since last blood cx and variable MS today, blood cxs repeated 10/29 and NGTD -temp line placed 10/29 -will need 48 hrs w/ negative blood cxs before TDC placement (3) Hypokalemia: 10/28 had IV K x 60 mEq. 10/29 had another 20 mEq IV K; will give 40 mEq again today and start 40 mEq daily K -monitor for need for longer term K supplementation > Liberalized potassium in the diet. >daily bmp Admission and Anticipated Discharge Date Admission Date: October 19, 2019 Subjective tolerated tx yesterday. cxs remain negative. more alert today but ROS still limited. denies sob; denies N. Review of Systems Review of Systems: Unobtainable due to cognitive status (limited by cognitive status) Physical Exam Constitutional: well developed and well nourished on RA Eyes: EOM intact bilaterally ENMT: Ears: no external ear abnormality Nose: no external nose abnormality Mouth: + dry oral mucous membranes Neck: no nuchal rigidity Respiratory: normal respiratory effort Auscultation: + diminished lung sounds Cardiovascular: Rate/Rhythm: regular rate and regular rhythm Extremities: + edema (trace BL ankle) Gastrointestinal (Abdomen): Inspection/Auscultation: normal bowel sounds Percussion/Palpation: abdomen soft; abdomen nontender Musculoskeletal: Extremities: strength 5/5 throughout Skin: no rashes, warm and dry Psychiatric: Orientation: alert and oriented to person Eye Contact: + fair eye contact Motor Behavior: no abnormal motor movements and + psychomotor retardation Insight: + limited insight Judgement: + limited judgement Genitourinary: manuel w/ ample urine sedimentous Results & Data ([facility]) Vital Signs (Past 12 Hours) Vital Signs Temp Pulse Resp BP Pulse Ox 10/31/19 12:04 146/59 H 10/31/19 07:23 36.5 C 57 L 18 165/61 H 92 Laboratory Results 10/31/19 06:34 10/31/19 06:34 (1) Renal failure (ARF), acute on chronic Acute renal failure type: unspecified Chronic kidney disease stage: stage 5, not on chronic dialysis Qualified Code(s): N17.9 - Acute kidney failure, unspec ified; N18.5 - Chronic kidney disease, stage 5
[2019-10-31] MEDS: POTASSIUM CHLORIDE 20 MEQ TABCR PO SCH (14:20)
[2019-10-31] MEDS: HEPARIN SODIUM/DEXTROSE 25,000 UNITS/500 ML BAG IV SCH (14:55)
--- NOTE | 2019-10-31 16:45 | Hospitalist Progress Note ---
Date of Service October 31, 2019 Assessment & Plan (1) Sepsis: due to infective endocarditis of prosthetic aortic valve progressive leukocytosis noted WBC 20K with elevated lactic acid and procalcitonin ordered for repeat blood cultures ( last blood cultures on 10/22 was negative ) on IV Rocephin and ampicillin -Enterococcus bacteremia /endocarditis -will need 6 weeks of treatment (2) CKD (chronic kidney disease) stage 4, GFR 15-29 ml/min: baseline advanced CKD stage 4-5 pt is showing s/s of progression of end stage renal disease his severe fatigue /anorexia /Nausea -could be part of the uremic symptoms Vascular surgery consulted due to evidence of possible ongoing infection , pt will have temporary dialysis catheter placement started on dialysis will need Perm cath placement , after repeat blood culture negative will need set up for out patient dialysis per nephrology (3) Prosthetic valve endocarditis: AORTIC PROSTHETIC VALVE ENDOCARDITIS Gram positive septicemia /BACTEREMIA : enterococcus feacalis last blood cultures on 10/22; no growth ECHO : highly mobile, linear 1.5 cm lesion on the aortic aspect of the bioprosthetic aortic valve consistent with endocarditis Case discussed with ID will need at least 6 weeks of IV Abx of IV Ampicillin and rocephin remains high risk for additional emboli, especially with large, mobile veg now noted on 10/22 TTE. /JUAN JOSE not done as pt is high risk for the procedure and will not change the treatment plan pt is a poor candidate for valve replacement surgery given large aortic valve vegetation with septic embolic -per cardiology , pt may need life long suppressive antibiotic possibly in form of oral dose will need PICC line placement will order for PICC line after vascular procedure /dialysis catheter placement Pt will need weekly cbc, cmp, esr while on IV therapy and will likely need serial echo as well. / will need to establish care with ID for remainder of course. (4) S/P TAVR (transcatheter aortic valve replacement): Severe aortic stenosis status post tucker valve TAVR bioprosthetic replacement April 2017 admitted with 6 weeks hx of fatigue , poor endurance blood cultures positive for entercocci ECHO highly mobile, linear 1.5 cm lesion on the aortic aspect of the bioprosthetic aortic valve Too high risk for JUAN JOSE and no likely change in outcome per cardiology : the patient is a very high risk of perioperative mortality and surgical aortic valve replacement is not an option will need life long suppresive abx (5) Coagulopathy: (6) Embolic stroke: Presumed septic emboli from prosthetic valve endocarditis CT head showed findings indicative of a subacute right frontal infarct with laminar necrosis and cortical mineralization. MRI brain showed Multiple scattered punctate acute infarcts as described above most pronounced within the right frontal lobe. Focal area of edema seen within the right frontal lobe infarct with associated increased T1 signal. This could correspond to the associated calcifications in the setting of a subacute to chronic infarct or possibly petechial hemorrhage pt started on IV heparin -high risk for repeated embolic phenomenon with positive lupus anticoagulant treatment of valve endocarditis as outlined above COAGULOPATHY: Lupus anticoagulant positive on lab draw 10/19/2019-reference lab result available normal factor VIII activity Discussed case over the phone with hematology oncology Dr. Andersen Patient will need to be on therapeutic anticoagulation- high risk for thromboembolic event given positive lupus anticoagulant Patient already has evidence of embolic CVA noted in MRI of brain as well as splenic infarct. Patient will be started with IV heparin low-dose, no bolus Dual antiplatelets aspirin and Plavix discontinued to reduce bleeding risk pt will need life long anticoagulation -in form of Coumadin on IV heparin can be started on Coumadin after perm cath placement (7) Non-ST elevation (NSTEMI) myocardial infarction: Troponin on admisson 10.3 then peaked at 18.1 Echo performed with no acute wall motion abnormality present. EF is 45-50%. Cardiology on board recommended medical management On Metoprolol Aspirin and Plavix D/jil pt is started on IV heparin for coagulopathy no complain of chest pain or discomfort (8) Renal failure (ARF), acute on chronic: Nephrology on board creatinine continues to decline will need dialysis during this hospital , scheduled to have temporary dialysis catheter placement today (9) Lower back pain: MRI lumbar showed no fractures of fixation within the lumbar spine. Soft tissue edema within the bilateral erector spinae muscles at the lumbar region. A 1.7 cm lesion within the right psoas muscle which contains a fluid fluid level and hypointense rim. Cont oxycodone (taken BID chronically) and scheduled Tylenol. pain is well controlled at current regimen Continue PT/OT -recommends rehab -pt and refused Rehab plan is to return home with home health and home pt (10) Metabolic acidosis: resolved. (11) Anemia in chronic kidney disease (CKD): due to advanced CKD , acute illness with bacteremia /endocarditis s/p 1 unit of PRBC transfusion (12) Diabetes mellitus: Continue Lantus and novolog sliding scale Continue monitor BS Atrial fibrillation: on beta pau IV heparin will coumadin once vascular procedure is dome (13) Hypertension: Continue amlodipine, clonidine, hydralazine, imdur, metoprolol BP stable (14) DVT prophylaxis: IV heparin Full Code DISPOSITION ; called pt's Richelle discussed at length regarding treatment plan , answered all questions family and patient wants to return home after hospital discharge with home health nursing and home IV antibiotic in agreement with treatment plan with Coumadin tx to prevent future stroke , blood clot understands pt will need chronic dialysis case management already d/w regarding out pt dialysis set up Admission and Anticipated Discharge Date Admission Date: October 19, 2019 Subjective pt seen at the dialysis unit getting dialysis through temp catheter complains of tiredness and fatigue appetite still very poor no fever or chills , no SOB Physical Exam Constitutional: WD/WN, vitals as above + ill appearing; no acute distress Eyes: PERRL, conjunctivae normal, anicteric sclerae ENMT: external ear and nose normal, oropharynx normal Neck: trachea midline, no thyromegaly Respiratory: normal respiratory effort; no cough Auscultation: + diminished lung sounds; no crackles, no rales, no rhonchi and no wheezes Cardiovascular: RRR, no murmur, no edema Gastrointestinal (Abdomen): Percussion/Palpation: abdomen soft; abdomen nontender Musculoskeletal: Extremities: + abnormal strength and normal strength Neurologic: PERRL, EOMI, accommodation nl, no face palsy, no dysarthria Psychiatric: Orientation: alert and oriented x 3 Affect: + flat affect Results & Data Results & Data ([facility]) Vital Signs (Past 12 Hours) Vital Signs Temp Pulse Pulse Pulse Resp BP BP 10/31/19 16:20 65 161/62 H 10/31/19 16:00 61 129/62 10/31/19 15:40 70 141/63 H 10/31/19 15:20 69 124/59 L 10/31/19 15:02 55 L 122/50 L 10/31/19 14:55 36.5 C 59 L 10/31/19 14:17 61 145/58 H 10/31/19 12:04 146/59 H 10/31/19 07:23 36.5 C 57 L 18 165/61 H Pulse Ox 10/31/19 16:20 10/31/19 16:00 10/31/19 15:40 10/31/19 15:20 10/31/19 15:02 10/31/19 14:55 10/31/19 14:17 93 10/31/19 12:04 10/31/19 07:23 92 (1) Renal failure (ARF), acute on chronic Acute renal failure type: unspecified Chronic kidney disease stage: stage 5, not on chronic dialysis Qualified Code(s): N17.9 - Acute kidney failure, unspecified; N18.5 - Chronic kidney disease, stage 5
[2019-10-31] MEDS: HEPARIN SOD (PORCINE) 1000 UNIT/ML 10 ML VIAL IV SCH (17:37)
[2019-10-31] MEDS: allopurinoL 100 MG TAB PO SCH (20:01)
[2019-10-31 21:15] LABS: Partial Thromboplastin Ratio 2.4
[2019-10-31] MEDS: TERAZOSIN HCL 5 MG CAP PO SCH (21:18)
[2019-10-31 21:22] LABS: Partial Thromboplastin Time 66.6 Seconds (21.0-31.0)
[2019-11-01] MEDS: ACETAMINOPHEN 500 MG TAB PO SCH ×4 (00:04→23:02)
[2019-11-01 04:11] LABS: Calcium 7.6 mg/dl (8.5-10.1); Creatinine Clr Calc Pharmacy 26.4 ml/min; Est GFR (African American) 28.8; Est GFR (Non-African American) 24.8; Partial Thromboplastin Ratio 1.8; Potassium 3.7 mmol/L (3.5-5.1)
[2019-11-01 04:15] LABS: Hematocrit (blood only) 25.9 % (42-52); Hemoglobin 8.5 g/dL (14.0-18.0); Mean Corpuscular Hemoglobin 32.7 pg (25-34); Mean Corpuscular Hgb Conc 32.8 g/dL (32-36); Mean Corpuscular Volume 99.6 fL (80-100); Mean Platelet Volume 11.8 fL (7.4-10.4); Nucleated RBC # (auto) 0.08 K/uL (0-0); Nucleated RBC % (auto) 0.5 %; Platelet Count 177 K/uL (130-400); Platelet Estimate Normal (Normal); RDW Coefficient of Variation 18.7 % (11.5-14.5); RDW Standard Deviation 62.3 fL (36.4-46.3)
[2019-11-01 04:31] LABS: Partial Thromboplastin Time 51.5 Seconds (21.0-31.0)
[2019-11-01] MEDS ORDERED: SODIUM CHLORIDE 0.9% 1000ML 1,000 ML IV PRN (07:47)
[2019-11-01] MEDS ORDERED: HEPARIN SOD (PORCINE) 1000 UNIT/ML 10 ML VIAL IV ONE (07:47)
--- NOTE | 2019-11-01 08:21 | Hospitalist Progress Note ---
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 /JUAN JOSE not done as pt is high risk for the procedure and will not change the treatment plan pt is a poor candidate for valve replacement surgery given large aortic valve vegetation with septic embolic -per cardiology , pt may need life long suppressive antibiotic possibly in form of oral dose will need PICC line placement will order for PICC line after vascular procedure /dialysis catheter placement Pt will need weekly cbc, cmp, esr while on IV therapy and will likely need serial echo as well. / will need to establish care with ID for remainder of course. -Discussed with Richelle, the patient will need ID follow-up, currently interested in [facility] as unfortunately there is no ID in this area available (3) S/P TAVR (transcatheter aortic valve replacement): Severe aortic stenosis status post tucker valve TAVR bioprosthetic replacement April 2017 admitted with hx of fatigue , poor endurance blood cultures positive for entercocci ECHO highly mobile, linear 1.5 cm lesion on the aortic aspect of the bio prosthetic aortic valve Too high risk for JUAN JOSE and no likely change in outcome per cardiology : the patient is a very high risk of perioperative mortality and surgical aortic valve replacement is not an option, this was also discussed with patient's , who is in agreement will need life long suppressive abx (4) CKD (chronic kidney disease) stage 4, GFR 15-29 ml/min: baseline advanced CKD stage 4-5 pt is showing s/s of progression of end stage renal disease his severe fatigue /anorexia /Nausea -could be part of the uremic symptoms Vascular surgery consulted due to evidence of possible ongoing infection , pt had temporary dialysis catheter placed started on dialysis will need Perm cath placement , after repeat blood culture negative for 48 hours will need set up for out patient dialysis per nephrology -discussed with Dr. Pineda, plan for [facility] dialysis -Plan for permanent catheter per vascular surgery this November 02 (5) Renal failure (ARF), acute on chronic: Nephrology on board creatinine continues to decline will need dialysis during this hospital stay s/p temporary dialysis catheter placement Plan for permanent catheter placement on November 02 (6) Coagulopathy: COAGULOPATHY: Lupus anticoagulant positive on lab draw 10/19/2019-reference lab result available normal factor VIII activity Dr. Porter discussed case over the phone with hematology oncology Dr. Andersen Patient will need to be on therapeutic anticoagulation- high risk for thromboembolic event given positive lupus anticoagulant Patient already has evidence of embolic CVA noted in MRI of brain as well as splenic infarct. Patient will be started with IV heparin low-dose, no bolus Dual antiplatelets aspirin and Plavix discontinued to reduce bleeding risk pt will need life long anticoagulation -in form of Coumadin on IV heparin can be started on Coumadin after perm cath placement Anticoagulation discussed in detail with cardiology and also with patient's . As previously thought that anticoagulation would not be recommended for the patient as septic emboli have increased risk of hemorrhagic conversion. (7) Embolic stroke: Presumed septic emboli from prosthetic valve endocarditis CT head showed findings indicative of a subacute right frontal infarct with laminar necrosis and cortical mineralization. MRI brain showed Multiple scattered punctate acute infarcts as described above most pronounced within the right frontal lobe. Focal area of edema seen within the right frontal lobe infarct with associated increased T1 signal. This could correspond to the associated calcifications in the setting of a subacute to chronic infarct or possibly petechial hemorrhage pt started on IV heparin -high risk for repeated embolic phenomenon with positiv e lupus anticoagulant treatment of valve endocarditis as outlined above (8) Non-ST elevation (NSTEMI) myocardial infarction: Troponin on admisson 10.3 then peaked at 18.1 Echo performed with no acute wall motion abnormality present. EF is 45-50%. Cardiology on board recommended medical management On Metoprolol Aspirin and Plavix D/jil pt is started on IV heparin for coagulopathy no complain of chest pain or discomfort (9) Lower back pain: MRI lumbar showed no fractures of fixation within the lumbar spine. Soft tissue edema within the bilateral erector spinae muscles at the lumbar region. A 1.7 cm lesion within the right psoas muscle which contains a fluid fluid level and hypointense rim. Cont oxycodone (taken BID chronically) and scheduled Tylenol. pain is well controlled at current regimen Continue PT/OT -recommends rehab -pt and refused Rehab plan is to return home with home health and home PT (10) Metabolic acidosis: resolved. (11) Anemia in chronic kidney disease (CKD): due to advanced CKD , acute illness with bacteremia /endocarditis s/p 1 unit of PRBC transfusion (12) Diabetes mellitus: Continue Lantus and novolog sliding scale Continue monitor BS Atrial fibrillation: on beta pau IV heparin will start coumadin once vascular procedure is done (13) Hypertension: Continue amlodipine, clonidine, hydralazine, imdur, metoprolol BP stable (14) DVT prophylaxis: IV heparin Full Code DISPOSITION: called pt's Richelle, updated her on clinical status of her , discussed at length treatment plan, answered all questions family and patient wants to return home after hospital discharge with home health nursing and home IV antibiotic in agreement with treatment plan with Coumadin tx to prevent future stroke , blood clot understands pt will need chronic dialysis Discussed need for ID follow-up, and unfortunately there is no ID in this area, currently interested in [facility] case management already d/w regarding out pt dialysis set up, plan for [facility] outpatient dialysis Admission and Anticipated Discharge Date Admission Date: October 19, 2019 Subjective No acute events overnight. Patient is lying in bed, now after dialysis. Reported diffuse lower abdominal pain, says that he feels bloated and gassy. Says that he has been having trouble passing gas today or to have a bowel movement. Per nursing notes he had bowel movement yesterday. Denies any fevers or chills, shortness of breath, chest pain or palpitations. Update: Ordered PRN simethicone, continue MiraLAX, KUB Abdominal pain resolved shortly after my exam KUB negative for any free air or bowel obstruction Review of Systems Review of Systems: All systems reviewed & are unremarkable except as noted in HPI & below Constitutional: + fatigue, + weakness and + anorexia; no fever and no chills Respiratory: no cough and no dyspnea Cardiovascular: no chest pain and no palpitations Gastrointestinal: + abdominal pain (Lower abdominal pain); no nausea and no vomiting Physical Exam Physical Exam: Constitutional: Elderly male, laying in bed, pale, WD/WN, vitals as above + ill appearing; no acute distress Eyes: EOMI, PERRL, conjunctivae normal, anicteric sclerae ENMT: external ear and nose normal, oropharynx normal Neck: trachea midline, no thyromegaly Respiratory: normal respiratory effort; no cough Auscultation: + diminished lung sounds; no crackles, no rales, no rhonchi and no wheezes Cardiovascular: Irregular, soft syst.murmur, no edema Gastrointestinal (Abdomen): Percussion/Palpation: abdomen soft, positive bowel sounds, mildly distended, mildly tender at right lower quadrant Musculoskeletal: Extremities: + abnormal strength and normal strength Neurologic: PERRL, EOMI, accommodation nl, no face palsy, no dysarthria, moves extremities spontaneously Psychiatric: Orientation: alert and oriented x 3, answers most questions appropriately, affect: + flat affect Results & Data Results & Data ([facility]) Vital Signs (Past 12 Hours) Vital Signs Temp Pulse Resp BP BP Pulse Ox 11/01/19 07:05 36.7 C 61 18 129/52 L 95 10/31/19 22:35 36.6 C 53 L 17 121/56 L 95 Laboratory Results 11/01/19 11/01/19 11/01/19 Range/Units 07:27 03:36 03:36 WBC (4.8-10.8) K/uL RBC (4.7-6.1) M/uL Hgb (14.0-18.0) g/dL Hct (42-52) % MCV (80-100) fL MCH (25-34) pg MCHC (32-36) g/dL RDW Std Deviation (36.4-46.3) fL RDW Coeff of Mindi (11.5-14.5) % Plt Count (130-400) K/uL MPV (7.4-10.4) fL Absolute Nucleated RBC (0-0) K/uL Nucleated RBC % (auto) % Platelet Estimate (Normal) APTT 51.5 H* (21.0-31.0) Seconds PTT Ratio 1.8 Sodium 137 (136-145) mmol/L Potassium 3.7 (3.5-5.1) mmol/L Chloride 102 (98-107) mmol/L Carbon Dioxide 24 (21-32) mmol/L Anion Gap 11.0 (3-11) BUN 24 H D (7-18) mg/dl Creatinine 2.45 H D (0.6-1.4) mg/dl Est Cr Clr Drug Dosing 26.4 ml/min Est GFR ( Amer) 28.8 Est GFR (Non-Af Amer) 24.8 BUN/Creatinine Ratio 10.0 (10-20) Glucose 122 H (70-99) mg/dl POC Glucose 116 H (70-99) mg/dl Calcium 7.6 L (8.5-10.1) mg/dl Iron 28 L (35-175) mcg/dl Transferrin 108 L (200-360) mg/dl Transferrin % Sat 18 L (20-50) % 11/01/19 10/31/19 10/31/19 Range/Units 03:36 20:48 20:17 WBC 16.70 H (4.8-10.8) K/uL RBC 2.60 L (4.7-6.1) M/uL Hgb 8.5 L (14.0-18.0) g/dL Hct 25.9 L (42-52) % MCV 99.6 (80-100) fL MCH 32.7 (25-34) pg MCHC 32.8 (32-36) g/dL RDW Std Deviation 62.3 H (36.4-46.3) fL RDW Coeff of Mindi 18.7 H (11.5-14.5) % Plt Count 177 (130-400) K/uL MPV 11.8 H (7.4-10.4) fL Absolute Nucleated RBC 0.08 H (0-0) K/uL Nucleated RBC % (auto) 0.5 % Platelet Estimate Normal (Normal) APTT 66.6 H* (21.0-31.0) Seconds PTT Ratio 2.4 Sodium (136-145) mmol/L Potassium (3.5-5.1) mmol/L Chloride (98-107) mmol/L Carbon Dioxide (21-32) mmol/L Anion Gap (3-11) BUN (7-18) mg/dl Creatinine (0.6-1.4) mg/dl Est Cr Clr Drug Dosing ml/min Est GFR ( Amer) Est GFR (Non-Af Amer) BUN/Creatinine Ratio (10-20) Glucose (70-99) mg/dl POC Glucose 109 H (70-99) mg/dl Calcium (8.5-10.1) mg/dl Iron (35-175) mcg/dl Transferrin (200-360) mg/dl Transferrin % Sat (20-50) % 10/31/19 10/31/19 Range/Units 18:27 11:00 WBC (4.8-10.8) K/uL RBC (4.7-6.1) M/uL Hgb (14.0-18.0) g/dL Hct (42-52) % MCV (80-100) fL MCH (25-34) pg MCHC (32-36) g/dL RDW Std Deviation (36.4-46.3) fL RDW Coeff of Mindi (11.5-14.5) % Plt Count (130-400) K/uL MPV (7.4-10.4) fL Absolute Nucleated RBC (0-0) K/uL Nucleated RBC % (auto) % Platelet Estimate (Normal) APTT (21.0-31.0) Seconds PTT Ratio Sodium (136-145) mmol/L Potassium (3.5-5.1) mmol/L Chloride (98-107) mmol/L Carbon Dioxide (21-32) mmol/L Anion Gap (3-11) BUN (7-18) mg/dl Creatinine (0.6-1.4) mg/dl Est Cr Clr Drug Dosing ml/min Est GFR ( Amer) Est GFR (Non-Af Amer) BUN/Creatinine Ratio (10-20) Glucose (70-99) mg/dl POC Glucose 105 H 135 H (70-99) mg/dl Calcium (8.5-10.1) mg/dl Iron (35-175) mcg/dl Transferrin (200-360) mg/dl Transferrin % Sat (20-50) % Medications Administered Current Inpatient Medications Acetaminophen (Tylenol) 1,000 mg PO Q8H [facility] Stop: 11/18/19 15:14 Last Admin: 11/01/19 00:04 Dose: 1,000 mg Documented by: Allopurinol (Zyloprim) 100 mg PO 1999 [facility] Stop: 11/18/19 19:59 Last Admin: 10/31/19 20:01 Dose: 100 mg Documented by: Amlodipine Besylate (Norvasc) 10 mg PO 0800 [facility] Stop: 11/27/19 07:59 Last Admin: 10/31/19 09:25 Dose: 10 mg Documented by: Clonidine HCl (Catapres) 0.1 mg PO BID [facility] Stop: 11/27/19 08:59 Last Admin: 10/31/19 21:19 Dose: 0.1 mg Documented by: Dextrose (Dextrose 50%) 25 - 50 ml IV UD PRN; Protocol PRN Reason: Hypoglycemia Protocol Stop: 11/18/19 07:42 Glucagon (Glucagen) 1 mg SQ UD PRN; Protocol PRN Reason: Hypoglycemia Protocol Stop: 11/18/19 07:42 Glucose (Dex4 Glucose) 4 - 8 tabs PO UD PRN; Protocol PRN Reason: Hypoglycemia Protocol Stop: 11/18/19 07:42 Glucose (Glucose 40%) 15 - 30 gm PO UD PRN; Protocol PRN Reason: Hypoglycemia Protocol Stop: 11/18/19 07:42 Hydralazine HCl (Apresoline) 100 mg PO 0800,1200,1999 [facility] Stop: 11/18/19 07:59 Last Admin: 10/31/19 20:01 Dose: 100 mg Documented by: Hydromorphone HCl (Dilaudid) 0.25 mg IV Q3H PRN PRN Reason: Pain Stop: 11/02/19 07:42 Last Admin: 10/23/19 01:12 Dose: 0.25 mg Documented by: Promethazine HCl 12.5 mg/ (Sodium Chloride) 50.5 mls @ 202 mls/hr IV Q6H PRN PRN Reason: Nausea And Vomiting Stop: 11/18/19 07:42 Last Infusion: 10/29/19 17:48 Dose: Infused Documented by: Ceftriaxone Sodium 2,000 mg/ (Dextrose) 70 mls @ 140 mls/hr IV Q12H [facility] Stop: 11/03/19 09:59 Last Infusion: 10/31/19 23:11 Dose: Infused Documented by: Heparin Sodium/Dextrose (Heparin Sodium/Dextrose) 25,000 units in 500 mls @ 18 mls/hr IV .Q24H [facility]; Protocol Stop: 11/25/19 10:29 Last Titration: 10/31/19 23:13 Dose: 900 units/hr, 18 mls/hr Documented by: Ampicillin Sodium 2,000 mg/ (Sodium Chloride) 100 mls @ 200 mls/hr IV Q12H [facility]; Protocol Stop: 11/05/19 21:59 Last Infusion: 10/31/19 23:11 Dose: Infused Documented by: Insulin Aspart (Novolog Flexpen) 0 units SC ACHS [facility] Stop: 11/18/19 07:42 Last Admin: 10/31/19 21:20 Dose: Not Given Documented by: Insulin Glargine (Lantus Solostar Pen) 5 units SC BID [facility] Stop: 11/22/19 20:59 Last Admin: 10/31/19 21:19 Dose: 5 units Documented by: Isosorbide Mononitrate (Imdur Extended Rel) 60 mg PO 0800 [facility] Stop: 11/18/19 07:59 Last Admin: 10/31/19 09:25 Dose: 60 mg Documented by: Lubiprostone (Amitiza) 8 mcg PO 0800,1999 [facility] Stop: 11/18/19 07:59 Last Admin: 10/31/19 20:01 Dose: 8 mcg Documented by: Metoprolol Tartrate (Lopressor) 50 mg PO TID [facility] Stop: 11/22/19 20:59 Last Admin: 10/31/19 21:18 Dose: 50 mg Documented by: Miscellaneous (Carbohydrates For Hypoglycemia) 15 - 30 gm PO UD PRN PRN Reason: Hypoglycemia Protocol Stop: 11/18/19 07:42 Miscellaneous Information (Pharmacy Consult) 1 ea N/A UD PRN PRN Reason: Consult Stop: 11/18/19 15:24 Miscellaneous Information (Pharmacist Discharge Med Rec Consult) 1 ea N/A UD PRN PRN Reason: Consult Stop: 11/18/19 15:22 Nitroglycerin (Nitrostat) 0.4 mg SL UD PRN PRN Reason: Pain Stop: 11/18/19 07:42 Oxycodone HCl (Roxicodone Immediate Rel) 10 mg PO BID [facility] Stop: 11/02/19 20:59 Last Admin: 10/31/19 21:19 Dose: 10 mg Documented by: Potassium Chloride (Klor-Con M20) 40 meq PO DAILY [facility] Stop: 11/30/19 12:44 Last Admin: 10/31/19 14:20 Dose: 40 meq Documented by: Terazosin HCl (Hytrin) 5 mg PO 2000 [facility] Stop: 11/18/19 19:59 Last Admin: 10/31/19 21:18 Dose: 5 mg Documented by: (1) Renal failure (ARF), acute on chronic Acute renal failure type: unspecified Chronic kidney disease stage: stage 5, not on chronic dialysis Qualified Code(s): N17.9 - Acute kidney failure, unspecified; N18.5 - Chronic kidney disease, stage 5
[2019-11-01] MEDS: METOPROLOL TARTRATE 50 MG TAB PO SCH ×3 (08:32→21:16)
[2019-11-01] MEDS: POTASSIUM CHLORIDE 20 MEQ TABCR PO SCH (08:32)
[2019-11-01] MEDS: ISOSORBIDE MONO EXTENDED REL 60 MG TABCR PO SCH (08:32)
[2019-11-01] MEDS: AMLODIPINE BESYLATE 5 MG TAB PO SCH (08:33)
[2019-11-01] MEDS: LUBIPROSTONE 8 MCG CAP PO SCH ×2 (08:33→22:03)
[2019-11-01] MEDS: cloNIDine HCL 0.1 MG TAB PO SCH ×2 (08:33→22:03)
[2019-11-01] MEDS: OXYCODONE HCL IR 5 MG TAB (IMMEDIATE RELEASE) PO SCH ×2 (08:37→22:03)
[2019-11-01] MEDS: INSULIN ASPART 100 UNITS/ML 3 ML PEN SC SCH ×4 (08:37→21:17)
[2019-11-01] MEDS: INSULIN GLARGINE SOLOSTAR 100 UNITS/ML 3 ML PEN SC SCH ×2 (08:38→21:27)
[2019-11-01] MEDS: HydrALAZINE TAB 50 MG TAB PO SCH ×3 (08:43→22:03)
[2019-11-01] MEDS: HEPARIN SODIUM/DEXTROSE 25,000 UNITS/500 ML BAG IV SCH ×2 (08:43→15:21)
[2019-11-01] MEDS ORDERED: EPOETIN ALFA 10,000 UNITS/ML VIAL IV SCH (09:00)
[2019-11-01] MEDS: HEPARIN SOD (PORCINE) 1000 UNIT/ML 10 ML VIAL IV SCH (13:34)
[2019-11-01] MEDS: AMPICILLIN 2,000 MG in SODIUM CHLOR 0.9% AD-VAN 100 ML IV SCH ×2 (14:40→21:30)
[2019-11-01] MEDS: cefTRIAXone SODIUM 2,000 MG in DEXTROSE 5% 50 ML IV SCH ×2 (14:47→21:30)
[2019-11-01] MEDS ORDERED: SIMETHICONE 80 MG CHEW PO PRN (16:41)
[2019-11-01] MEDS ORDERED: POLYETHYLENE (MIRALAX) 17 GM PACK PO SCH (16:45)
[2019-11-01] MEDS ORDERED: SIMETHICONE 80 MG CHEW PO ONE (16:45)
--- NOTE | 2019-11-01 17:34 | XRay Report ---
KUB CLINICAL HISTORY: Generalized abdominal pain. FINDINGS: 2 AP supine abdominal radiographs are correlated with abdominal CT dated 10/19/2019. There is a nonobstructed abdominal bowel gas pattern. No evidence of intraperitoneal free air is seen on thes e supine images. There are no abnormal abdominal calcifications. The heart is enlarged. There is evid ence of previous cardiac valve surgery. There is a left pleural effusion with associated left basilar consolidation. The skeletal structures are osteopenic and appear intact. Mild lumbosacral spondylosi s is observed. IMPRESSION: 1. No bowel obstruction. 2. Cardiomegaly. 3. Left pleural effusion and left basilar consolidation. Electronically signed by: Jaxon Nassar M.D. 11/01/2019 5:33 PM
--- NOTE | 2019-11-01 18:33 | Dialysis Progress Note ---
Date of Service November 01, 2019 Assessment & Plan (1) Renal failure (ARF), acute on chronic: nonoliguric KARTHIK on CKD4 due to ischemic ATN in setting of bacteremia, prosthetic valve IE>> now ESRD. Electrolytes are acceptable w/ minor low k. 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 on ampicillin and ceftriaxone. Avoid PICC line. Patient can get midline catheter for antibiotics at home. >> given slow uptrend in WBC since last blood cx and variable MS today, blood cxs repeated 10/29 and NGTD -temp line placed 10/29 > Tunneled dialysis catheter planned for November 02 (3) Hypokalemia: 10/28 had IV K x 60 mEq. 10/29 had another 20 mEq IV K; will give 40 mEq again today and start 40 mEq daily K -monitor for need for longer term K supplementation since he is currently on daily potassium > Liberalized potassium in the diet. >daily bmp Care coordinated with Dr. Maloney Subjective Seen on dialysis this afternoon at about 1:20 PM. More alert and oriented today. Denies current nausea. Tolerating treatment without cramps. I had spoken to his at her request earlier today to update her on dialysis Review of Systems Review of Systems: All systems reviewed & are unremarkable except as noted in HPI & below Review of systems limited by cognitive status Physical Exam Constitutional: well developed and well nourished; no acute distress On room air Eyes: EOM intact bilaterally ENMT: Ears: no external ear abnormality Nose: no external nose abnormality Mouth: + dry oral mucous membranes Neck: no nuchal rigidity Respiratory: normal respiratory effort Auscultation: + diminished lung sounds Cardiovascular: Rate/Rhythm: regular rate and regular rhythm Extremities: + edema (trace BL ankle) Gastrointestinal (Abdomen): Inspection/Auscultation: normal bowel sounds Percussion/Palpation: abdomen soft; abdomen nontender Musculoskeletal: Extremities: strength 5/5 throughout Skin: no rashes, warm and dry Psychiatric: Orientation: alert, oriented to person and oriented to place Eye Contact: + fair eye contact Motor Behavior: no abnormal motor movements and + psychomotor retardation Insight: + limited insight Judgement: + limited judgement Results & Data Vital Signs (Past 12 Hours) Vital Signs Temp Pulse Pulse Pulse Pulse Resp BP 11/01/19 15:08 36.7 C 70 18 11/01/19 14:05 36.7 C 64 11/01/19 13:40 58 L 162/66 H 11/01/19 13:20 66 163/69 H 11/01/19 13:00 74 168/69 H 11/01/19 12:40 64 149/69 H 11/01/19 12:20 55 L 167/67 H 11/01/19 12:00 59 L 152/74 H 11/01/19 11:40 64 153/62 H 11/01/19 11:20 62 158/65 H 11/01/19 11:00 53 L 126/51 L 11/01/19 10:40 66 140/50 L 11/01/19 10:20 66 130/55 L 11/01/19 09:58 36.7 C 60 11/01/19 07:05 36.7 C 61 18 BP Pulse Ox 11/01/19 15:08 164/71 H 94 11/01/19 14:05 160/55 H 11/01/19 13:40 11/01/19 13:20 11/01/19 13:00 11/01/19 12:40 11/01/19 12:20 11/01/19 12:00 11/01/19 11:40 11/01/19 11:20 11/01/19 11:00 11/01/19 10:40 11/01/19 10:20 11/01/19 09:58 11/01/19 07:05 129/52 L 95 Laboratory Results 11/01/19 03:36 11/01/19 03:36 October 29 blood cultures all remain no growth to date (1) Renal failure (ARF), acute on chronic Acute renal failure type: unspecified Chronic kidney disease stage: stage 5, not on chronic dialysis Qualified Code(s): N17.9 - Acute kidney failure, unspecified; N18.5 - Chronic kidney disease, stage 5
[2019-11-01] MEDS ORDERED: bisacodyL 10 MG SUPP PR STA (18:51)
[2019-11-01] MEDS ORDERED: HYDROmorphone INJ 0.5 MG/0.5 ML SYR IV STA ×2 (20:32→22:05)
[2019-11-01 21:06] LABS: Hematocrit (blood only) 28.2 % (42-52)
--- NOTE | 2019-11-01 21:32 | CT Scan Report ---
CT SCAN OF THE ABDOMEN AND PELVIS WITHOUT IV CONTRAST CLINICAL HISTORY: Generalized abdominal pain. COMPARISON STUDY: Abdominal CT dated 10/19/2019. TECHNIQUE: CT scan of the abdomen and pelvis is performed from the lung bases to the proximal femora. Images are reviewed in the axial, sagittal, and coronal planes. IV contrast was not administered for this examination as per the referring clinician. Note that the examination is performed in significa ntly suboptimal fashion without oral and IV contrast. A dose lowering technique was utilized adhering to the principles of ALARA. CT DOSE: 784.00 mGy.cm FINDINGS: Lung bases: The heart is enlarged and without pericardial effusion. Postoperative change is noted inv olving the aortic valve. There is diminished attenuation of the cardiac blood pool as compared to the myocardium suggesting anemia. A small hiatal hernia is noted. There are left larger than right pleur al effusions with bibasilar consolidation. Liver: The unenhanced liver is normal in size, contour, and attenuation. There is no intrahepatic freddy iary ductal dilatation. Gallbladder: There are layering gallstones within the gallbladder lumen. There is mild gallbladder wa ll thickening and pericholecystic inflammation. Spleen: Again seen are 9 cm and 3 cm low-attenuation splenic lesions. Pancreas: The unenhanced pancreas is atrophic and grossly unremarkable. Adrenal glands: Unremarkable. Kidneys: The unenhanced kidneys are atrophic and without hydronephrosis. There are no renal calculi i dentified. There is no evidence of contour deforming renal mass lesion. Abdominal vasculature: The abdominal aorta is normal in course and caliber noting advanced atheroscle rotic calcification. Bowel: There is mild colonic diverticulosis without CT evidence of acute diverticulitis. No bowel obs truction is seen. There is no pneumatosis intestinalis or portal venous gas. The appendix is normal as visualized. Peritoneum: There is a small to moderate volume of intraperitoneal free air, greatest below the diaph ragm. There is trace abdominopelvic ascites. Lymphadenopathy: None. Pelvic viscera: The bladder is decompressed around a Boyd catheter and not well evaluated. Foci of i ntraluminal gas are likely related to instrumentation. The prostate gland appears diminutive and hete rogeneous. The seminal vesicles are normal as imaged. Skeletal structures: The skeletal structures are osteopenic. Mild lumbosacral spondylosis is observed . No lytic or blastic lesions are seen. IMPRESSION: 1. Suboptimal examination without oral and IV contrast. 2. There is a small to moderate volume of intraperitoneal free air. This is new from 10/19/2019 and vis ceral perforation is the diagnosis of exclusion. Clinical correlation will be essential and surgical consultation is advised. 3. No suspected site of perforation is delineated by CT. 4. Cholelithiasis with an abnormal appearing gallbladder. Findings are concerning for acute cholecyst itis. Consider right upper quadrant ultrasound for further assessment. 5. There is trace abdominopelvic ascites. 6. Again seen are 9 cm in 3 cm low-attenuation splenic lesions. These are pathologically indeterminan t, with differential considerations include splenic infarcts or possibly splenic mass lesions such as lymphoma. Follow-up CT in 3-4 weeks' time is recommended for reassessment. 7. Cardiomegaly. 8. There are left larger than right pleural effusions with bibasilar consolidation. This could repres ent atelectasis and/or pneumonia/aspiration pneumonitis. Clinical correlation be required. 9. Additional findings as above. ACT 112: Negative or not required by law. Electronically signed by: Jaxon Nassar M.D. 11/01/2019 9:31 PM
[2019-11-01] MEDS: TERAZOSIN HCL 5 MG CAP PO SCH (22:03)
[2019-11-01] MEDS: allopurinoL 100 MG TAB PO SCH (22:03)
--- NOTE | 2019-11-01 22:51 | Surgery Consultation ---
Date of Consultation November 01, 2019 Assessment & Plan (1) Free intraperitoneal air: -etiology uncertain -due to multiple medical co-morbidities pt. is high surgical risk -Dr. Mcclure discussed with family and opted for no surgery at this time -recommends NGT and NPO status -please refer to attending note for detailed account of family discussion -discussed with RN and hospitalist as above. pt with [place], CVA this admission with GN sepsis , now ESRD/on dialysis. Pt on Heparin as well. Now with new free air of unknown etiology. pt confused. Per family has been deteriorating. Extremely poor prognosis with or without surgical intervention. I spent approx 45 minutes discussing with family ( who knows me) via telephone. They do not wish to proceed with surgery and prefer supportive/comfort care at this point. In light of his circumstances I think this is a reasonable decision. will d/w primary service. would consider holding heparin and placing NGT. increase pain control medications. will continue to follow and update family accordingly. History of Present Illness Attending Physician: Larry Maloney MD History of Present Illness 74 year old male admitted to [facility] on 10/19/19 secondary to SOB and fever. He was found to have bacteremia with blood cultures growing Enterococcus on 10/18, 10/19, 10/20, and 10/21. 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 He was found to have a (+) SLE anticoagulant and has since been placed on a heparin drip. Furthermore, he has underlying CKD which has progressed, so a tunneled HD catheter has been placed for HD. Earlier this evening, the pt. began complaining of diffuse abdominal pain. A CT scan of [facility] abdomen revealed free intraperitoneal air prompting a surgical consult. The pt. was seen and examined. Due to confusion he could not provide much in the way of meaningful history. The hx. was obtained from RN as well as review of chart and discussion with hospitalist. RM notes the abdominal pain is new thid evening. She notes he did not eat anything for dinner. A the time of my exam the pt. appeared uncomfortable. Allergies Allergy/AdvReac Type Severity Reaction Status Date / Time Obrgaqn-Uam-Nqa Reductase AdvReac Intermediate RHABDOMYOLYSIS Verified 10/28/19 15:21 Inhibitor FROM 06/2009 Home Medications Home Medications Medication Instructions Recorded Confirmed Type Lantus U-100 Insulin 18 unit SUBCUT QAM 03/24/18 10/19/19 History allopurinol 100 mg PO HS 03/24/18 10/19/19 History amlodipine 5 mg PO QAM 03/24/18 10/19/19 History clonidine HCl 0.2 mg PO TID 03/24/18 10/19/19 History clopidogrel 75 mg PO QAM 03/24/18 10/19/19 History hydralazine 100 mg PO TID 03/24/18 10/19/19 History isosorbide mononitrate 60 mg PO QAM 03/24/18 10/19/19 History metoprolol tartrate 50 mg PO TID 03/24/18 10/19/19 History nitroglycerin [Nitrostat] 0.4 mg SUBLINGUAL UD PRN 03/24/18 10/19/19 History oxycodone 10 mg PO TID 03/24/18 10/19/19 History furosemide 20 mg PO DAILY 10/19/19 10/19/19 History lubiprostone [Amitiza] 8 mcg PO BID 10/19/19 10/19/19 History terazosin 5 mg PO HS 10/19/19 10/19/19 History Patient History Medical History (Updated 11/01/19 @ 23:00 by Zack Baker PA-C) BPH (benign prostatic hyperplasia) Bronchitis HX-INHALER VERY OCC Cardiac murmur Chronic kidney disease STAGE 3-F/U DR HANSON Congestive heart failure Diabetes mellitus, type 2 ESRD (end stage renal disease) GERD (gastroesophageal reflux disease) Hyperlipidemia Hypertension Kidney stones On anticoagulant therapy SINCE 02/2017 Osteoarthritis Surgical History History of cardiac cath X 2 02/28/2017--2 stents History of colonoscopy History of cystoscopy WITH STENT PLACEMENT History of heart artery stent x2 02/2017 History of heart valve replacement AVR 04/2017 [facility]-F/U DR RON Q3-6 MONTHS Family History Mother Family history of irritable bowel syndrome Other No family history of adverse response to anesthesia Social History Preferred Language: Indonesian Communication Ability: Effective 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 Beliefs That Will Affect Care: None Current Living Situation: Spouse Other Information That Helps Us Care for You: No Feels Safe at Home: Yes Safety Concerns: Feels Safe At This Time Smoking Status: Never smoker Do You Dip or Chew Tobacco: No ; Second Hand Exposure: No ; Tobacco Cessation Education Requested by Patient: No Hx Alcohol Use: Yes Alcohol type: beer, wine and other Hx Substance Use: No Review of Systems Review of Systems: Unobtainable due to cognitive status complete review of system attempted, but due to confusion was limited Gastrointestinal: + abdominal pain; no vomiting Physical Exam Constitutional: well developed, well nourished and + acute distress Eyes: no conjunctival abnormality ENMT: Ears: no hearing impairment Neck: trachea midline left IJ HD catheter noted Respiratory: normal respiratory effort; no respiratory distress and no labored breathing BS are noted to be decreased at bases; no use of accessory muscles noted Cardiovascular: Rate/Rhythm: regular rate and regular rhythm Vessels: posterior tibial pulses present and radial pulses present Gastrointestinal (Abdomen): abdomen distended with hypoactive BS noted, diffuse, generalized tenderness noted with rebound Musculoskeletal: no calf tenderness Skin: no rashes, warm and dry Neurologic: moves all extremities Psychiatric: pt. alert to person only Results & Data Vital Signs (Past 12 Hours) Vital Signs Temp Pulse Pulse Pulse Resp BP BP 11/01/19 22:20 67 126/63 11/01/19 20:10 36.6 C 58 L 20 139/56 L 11/01/19 15:08 36.7 C 70 18 164/71 H 11/01/19 14:05 36.7 C 64 160/55 H 11/01/19 13:40 58 L 162/66 H 11/01/19 13:20 66 163/69 H 11/01/19 13:00 74 168/69 H 11/01/19 12:40 64 149/69 H 11/01/19 12:20 55 L 167/67 H 11/01/19 12:00 59 L 152/74 H 11/01/19 11:40 64 153/62 H 11/01/19 11:20 62 158/65 H 11/01/19 11:00 53 L 126/51 L Pulse Ox 11/01/19 22:20 11/01/19 20:10 92 11/01/19 15:08 94 11/01/19 14:05 11/01/19 13:40 11/01/19 13:20 11/01/19 13:00 11/01/19 12:40 11/01/19 12:20 11/01/19 12:00 11/01/19 11:40 11/01/19 11:20 11/01/19 11:00 PG Care Time/CCT Total # of Minutes Spent Total Time Spent with Patient: Total time spent is greater than 50% in coordination of care (as documented) at patient's floor/unit and/or counseling patient: Coding Level of Care Code 63551 Inpt Consult Level 5 Diagnoses Free intraperitoneal air K66.8
[2019-11-01] MEDS ORDERED: HYDROmorphone INJ 0.5 MG/0.5 ML SYR IV PRN (23:52)
[2019-11-02] MEDS ORDERED: Nursing to Pharmacy Communication ONE (00:16)
[2019-11-02] MEDS ORDERED: HydrALAZINE HCL 20 MG/ML VIAL IV PRN (01:39)
[2019-11-02] MEDS: DEXTROSE 50% 50 ML SYRINGE IV PRN (04:06)
[2019-11-02] MEDS ORDERED: ONDANSETRON INJ 2 MG/ML 2 ML VIAL IV STA (04:13)
[2019-11-02] MEDS ORDERED: ONDANSETRON INJ 2 MG/ML 2 ML VIAL ONE (04:16)
[2019-11-02] MEDS: D5W AND NSS 1,000 ML IV SCH ×2 (04:24→23:48)
[2019-11-02] MEDS: INSULIN ASPART 100 UNITS/ML 3 ML PEN SC SCH ×3 (05:38→18:03)
[2019-11-02] MEDS ORDERED: METOPROLOL TARTRATE 1 MG/ML VIAL IV PRN (05:39)
[2019-11-02] MEDS ORDERED: METOPROLOL TARTRATE 1 MG/ML VIAL IV SCH (06:00)
--- NOTE | 2019-11-02 07:34 | Hospitalist Progress Note ---
Date of Service November 02, 2019 Assessment & Plan Admission and Anticipated Discharge Date Admission Date: October 19, 2019 Subjective Called patient's Richelle this morning to update her and discuss complicating clinical course. CT abdomen done last evening consistent with intraperitoneal free air and concern for possible acute cholecystitis, surgery was consulted and discussed these findings with family in detail. Decided not to proceed with surgery as patient is very high risk. NG tube was placed and IV heparin was stopped per surgery recommendations. I discussed CODE STATUS with Richelle, she states that for now she wants to remain patient full code as it was his wish and she will need to consult his sons. Richelle states that they do not have any children together and would like to have patient's sons involved in this decision. Per surgery, plan to update family today. We will discuss with surgery and will consult palliative medicine as well given worsening and quite complicated clinical course. Results & Data Results & Data ([facility]) Vital Signs (Past 12 Hours) Vital Signs Temp Pulse Pulse Pulse Resp BP Pulse Ox 11/02/19 06:36 68 24 118/69 99 11/02/19 06:23 79 26 H 115/54 L 98 11/02/19 05:39 20 98 11/02/19 05:30 23 96 11/02/19 05:29 60 32 H 107/47 L 86 L 11/01/19 23:32 36.6 C 69 18 125/53 L 92 11/01/19 22:20 67 126/63 11/01/19 20:10 36.6 C 58 L 20 139/56 L 92
--- NOTE | 2019-11-02 07:36 | Hospitalist Progress Note ---
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 /JUA NJOSE not done as pt is high risk for the procedure and will not change the treatment plan pt is a poor candidate for valve replacement surgery given large aortic valve vegetation with septic embolic -per cardiology , pt may need life long suppressive antibiotic possibly in form of oral dose will need PICC line placement will order for PICC line after vascular procedure /dialysis catheter placement Pt will need weekly cbc, cmp, esr while on IV therapy and will likely need serial echo as well. / will need to establish care with ID for remainder of course. -Discussed with Richelle, the patient will need ID follow-up, currently interested in [facility] as unfortunately there is no ID in this area available (3) S/P TAVR (transcatheter aortic valve replacement): Severe aortic stenosis status post tucker valve TAVR bioprosthetic replacement April 2017 admitted with hx of fatigue , poor endurance blood cultures positive for entercocci ECHO highly mobile, linear 1.5 cm lesion on the aortic aspect of the bioprosthetic aortic valve Too high risk for JUAN JOSE and no likely change in outcome per cardiology : the patient is a very high risk of perioperative mortality and surgical aortic valve replacement is not an option, this was also discussed with patient's , who is in agreement will need life long suppressive abx (4) Free intraperitoneal air: Patient developed abdominal pain in the afternoon of October 31, after his dialysis -At first pt complained of bloating and excessive gas pain, KUB was obtained and negative for any free air or obstruction -Pain then resolved however recurred later in the evening -CT abdomen pelvis was obtained, especially due to concern for bleeding as patient was on IV heparin -Free intraperitoneal air was noted as well as possible acute cholecystitis -Surgery was consulted overnight, Dr. Mcclure evaluated patient and discussed the case with the family, patient is very high risk for surgery, medical management only -Added to his antibiotic regimen IV Flagyl, IV Diflucan, also started IV PPI -Given his other comorbidities, very poor prognosis -Patient's family aware and do not wish to proceed with surgical treatment -Also discussed possible transfer with Dr. Mcclure, does not believe that it would be helpful (5) CKD (chronic kidney disease) stage 4, GFR 15-29 ml/min: baseline advanced CKD stage 4-5 pt is showing s/s of progression of end stage renal disease his severe fatigue /anorexia /Nausea -could be part of the uremic symptoms Vascular surgery consulted due to evidence of possible ongoing infection, pt had temporary dialysis catheter placed started on dialysis will need Perm cath placement, after repeat blood culture negative for 48 hours will need set up for out patient dialysis per nephrology -discussed with Dr. Pineda, plan for [facility] dialysis -Plan for permanent catheter per vascular surgery this November 02 -however given complications/free intraperitoneal air, likely will hold off (6) Renal failure (ARF), acute on chronic: Nephrology consulted and appreciate their input creatinine continues to decline Started dialysis during this hospital stay s/p temporary dialysis catheter placement Plan for permanent catheter placement on November 02 - however due to recent complications, will likely hold off (7) Coagulopathy: Lupus anticoagulant positive on lab draw 10/19/2019-reference lab result available normal factor VIII activity Dr. Porter discussed case over the phone with hematology /oncology, Dr. Andersen Patient will need to be on therapeutic anticoagulation- high risk for thromboembolic event given positive lupus anticoagulant Patient already has evidence of embolic CVA noted in MRI of brain as well as splenic infarct. Patient started on IV heparin low-dose, no bolus Dual antiplatelets aspirin and Plavix discontinued to reduce bleeding risk pt will need life long anticoagulation -in form of Coumadin on IV heparin can be started on Coumadin after perm cath placement Anticoagulation discussed in detail with cardiology and also with patient's . As previously thought that anticoagulation would not be recommended for the patient as septic emboli have increased risk of hemorrhagic conversion. 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 MRI brain showed Multiple scattered punctate acute infarcts as described above most pronounced within the right frontal lobe. Focal area of edema seen within the right frontal lobe infarct with associated increased T1 signal. This could correspond to the associated calcifications in the setting of a subacute to chronic infarct or possibly petechial hemorrhage pt started on IV heparin -high risk for repeated embolic phenomenon with positive lupus anticoagulant /now IV heparin on hold due to above complications treatment of valve endocarditis as outlined above (9) Non-ST elevation (NSTEMI) myocardial infarction: Troponin on admission 10.3 then peaked at 18.1 Echo performed with no acute wall motion abnormality present. EF is 45-50%. Cardiology on board recommended medical management On Metoprolol Aspirin and Plavix D/jil pt started on IV heparin for coagulopathy no complain of chest pain or discomfort (10) Lower back pain: MRI lumbar showed no fractures of fixation within the lumbar spine. Soft tissue edema within the bilateral erector spinae muscles at the lumbar region. A 1.7 cm lesion within the right psoas muscle which contains a fluid fluid level and hypointense rim. Cont oxycodone (taken BID chronically) and scheduled Tylenol. pain is well controlled at current regimen Continue PT/OT -recommends rehab -pt and refused Rehab plan is to return home with home health and home PT (11) Metabolic acidosis: resolved. (12) Anemia in chronic kidney disease (CKD): due to advanced CKD , acute illness with bacteremia /endocarditis s/p 1 unit of PRBC transfusion (13) Diabetes mellitus: Continue Lantus and novolog sliding scale Continue monitor BS Atrial fibrillation: on beta pau IV heparin will start coumadin once vascular procedure is done (14) Hypertension: Continue amlodipine, clonidine, hydralazine, imdur, metoprolol BP stable (15) DVT prophylaxis: IV heparin Full Code DISPOSITION: called pt's Richelle, updated her on clinical status of her , discussed at length treatment plan, answered all questions family and patient wants to return home after hospital discharge with home health nursing and home IV antibiotic in agreement with treatment plan with Coumadin tx to prevent future stroke , blood clot understands pt will need chronic dialysis Discussed need for ID follow-up, and unfortunately there is no ID in this area, currently interested in [facility] case management already d/w regarding out pt dialysis set up, plan for [facility] outpatient dialysis Due to recent complications, hospitalization will be likely prolonged, disposition questionable at this time Admission and Anticipated Discharge Date Admission Date: October 19, 2019 Subjective As per my previous note, contacted patient's this morning to update her. This morning she still wanted to have patient to remain as full code until she discusses further with patient's sons and surgeon on the case, Dr. Mcclure. Dr. Mcclure contacted this morning, and discussed very poor prognosis. At this time still plan for no surgery and medical management only. Dr. Mcclure also discussed the case with me over the phone, will start IV Diflucan renally dosed and IV PPI, I also added IV Flagyl for anaerobic coverage. This morning patient was using 4 L of supplemental oxygen via nasal cannula. Palliative medicine consulted. Review of Systems Review of Systems: All systems reviewed & are unremarkable except as noted in HPI & below As per HPI, all 10 systems reviewed, all other ROS negative Constitutional: + fatigue and + weakness; no fever and no chills Respiratory: no cough and no dyspnea Cardiovascular: no chest pain and no palpitations Gastrointestinal: + abdominal pain (Lower abdominal pain); no nausea and no vomiting Physical Exam Physical Exam: Constitutional: Elderly male, laying in bed, pale, WD/WN, vitals as above + ill appearing; no acute distress, NG tube placed Eyes: EOMI, PERRL, conjunctivae normal, anicteric sclerae ENMT: external ear and nose normal, oropharynx normal Neck: trachea midline, no thyromegaly Respiratory: normal respiratory effort; no cough Auscultation: + diminished lung sounds; no crackles, rhonchi and no wheezes Cardiovascular: Irregular, soft syst.murmur, no edema Gastrointestinal (Abdomen): Percussion/Palpation: abdomen soft, positive bowel sounds, mildly distended, mildly tender at right lower quadrant Musculoskeletal: Extremities: + abnormal strength and normal strength Neurologic: PERRL, EOMI, accommodation nl, no face palsy, no dysarthria, moves extremities spontaneously Psychiatric: Orientation: alert and oriented x 3, answers most questions appropriately, affect: + flat affect Results & Data Results & Data ([facility]) Vital Signs (Past 12 Hours) Vital Signs Temp Pulse Pulse Pulse Resp BP Pulse Ox 11/02/19 06:36 68 24 118/69 99 11/02/19 06:23 79 26 H 115/54 L 98 11/02/19 05:39 20 98 11/02/19 05:30 23 96 11/02/19 05:29 60 32 H 107/47 L 86 L 11/01/19 23:32 36.6 C 69 18 125/53 L 92 11/01/19 22:20 67 126/63 11/01/19 20:10 36.6 C 58 L 20 139/56 L 92 Laboratory Results 11/02/19 11/02/19 11/02/19 Range/Units 07:11 07:11 07:11 WBC 18.60 H (4.8-10.8) K/uL RBC 2.75 L (4.7-6.1) M/uL Hgb 9.1 L (14.0-18.0) g/dL Hct 28.5 L (42-52) % MCV 103.6 H (80-100) fL MCH 33.1 (25-34) pg MCHC 31.9 L (32-36) g/dL RDW Std Deviation 68.2 H (36.4-46.3) fL RDW Coeff of Mindi 19.4 H (11.5-14.5) % Plt Count 151 (130-400) K/uL MPV 12.7 H (7.4-10.4) fL Absolute Nucleated RBC 1.01 H (0-0) K/uL Nucleated RBC % (auto) 5.4 % APTT 37.8 H (21.0-31.0) Seconds PTT Ratio 1.4 Sodium 140 (136-145) mmol/L Potassium 4.0 (3.5-5.1) mmol/L Chloride 103 (98-107) mmol/L Carbon Dioxide 23 (21-32) mmol/L Anion Gap 14.0 H (3-11) BUN 16 (7-18) mg/dl Creatinine 2.41 H (0.6-1.4) mg/dl Est Cr Clr Drug Dosing 26.9 ml/min Est GFR ( Amer) 29.3 Est GFR (Non-Af Amer) 25.3 BUN/Creatinine Ratio 6.6 L (10-20) Glucose 113 H (70-99) mg/dl POC Glucose (70-99) mg/dl Calcium 8.2 L (8.5-10.1) mg/dl Magnesium 2.0 (1.8-2.4) mg/dl 11/02/19 11/02/19 11/02/19 Range/Units 05:26 04:20 04:02 WBC (4.8-10.8) K/uL RBC (4.7-6.1) M/uL Hgb (14.0-18.0) g/dL Hct (42-52) % MCV (80-100) fL MCH (25-34) pg MCHC (32-36) g/dL RDW Std Deviation (36.4-46.3) fL RDW Coeff of Mindi (11.5-14.5) % Plt Count (130-400) K/uL MPV (7.4-10.4) fL Absolute Nucleated RBC (0-0) K/uL Nucleated RBC % (auto) % APTT (21.0-31.0) Seconds PTT Ratio Sodium (136-145) mmol/L Potassium (3.5-5.1) mmol/L Chloride (98-107) mmol/L Carbon Dioxide (21-32) mmol/L Anion Gap (3-11) BUN (7-18) mg/dl Creatinine (0.6-1.4) mg/dl Est Cr Clr Drug Dosing ml/min Est GFR ( Amer) Est GFR (Non-Af Amer) BUN/Creatinine Ratio (10-20) Glucose (70-99) mg/dl POC Glucose 101 H 118 H 64 L* (70-99) mg/dl Calcium (8.5-10.1) mg/dl Magnesium (1.8-2.4) mg/dl 11/02/19 11/01/19 11/01/19 Range/Units 00:19 20:43 20:37 WBC (4.8-10.8) K/uL RBC (4.7-6.1) M/uL Hgb 9.0 L (14.0-18.0) g/dL Hct 28.2 L (42-52) % MCV (80-100) fL MCH (25-34) pg MCHC (32-36) g/dL RDW Std Deviation (36.4-46.3) fL RDW Coeff of Mindi (11.5-14.5) % Plt Count (130-400) K/uL MPV (7.4-10.4) fL Absolute Nucleated RBC (0-0) K/uL Nucleated RBC % (auto) % APTT (21.0-31.0) Seconds PTT Ratio Sodium (136-145) mmol/L Potassium (3.5-5.1) mmol/L Chloride (98-107) mmol/L Carbon Dioxide (21-32) mmol/L Anion Gap (3-11) BUN (7-18) mg/dl Creatinine (0.6-1.4) mg/dl Est Cr Clr Drug Dosing ml/min Est GFR ( Amer) Est GFR (Non-Af Amer) BUN/Creatinine Ratio (10-20) Glucose (70-99) mg/dl POC Glucose 74 90 (70-99) mg/dl Calcium (8.5-10.1) mg/dl Magnesium (1.8-2.4) mg/dl 11/01/19 11/01/19 Range/Units 16:20 14:46 WBC (4.8-10.8) K/uL RBC (4.7-6.1) M/uL Hgb (14.0-18.0) g/dL Hct (42-52) % MCV (80-100) fL MCH (25-34) pg MCHC (32-36) g/dL RDW Std Deviation (36.4-46.3) fL RDW Coeff of Mindi (11.5-14.5) % Plt Count (130-400) K/uL MPV (7.4-10.4) fL Absolute Nucleated RBC (0-0) K/uL Nucleated RBC % (auto) % APTT (21.0-31.0) Seconds PTT Ratio Sodium (136-145) mmol/L Potassium (3.5-5.1) mmol/L Chloride (98-107) mmol/L Carbon Dioxide (21-32) mmol/L Anion Gap (3-11) BUN (7-18) mg/dl Creatinine (0.6-1.4) mg/dl Est Cr Clr Drug Dosing ml/min Est GFR ( Amer) Est GFR (Non-Af Amer) BUN/Creatinine Ratio (-20) Glucose (70-99) mg/dl POC Glucose 103 H 84 (70-99) mg/dl Calcium (8.5-10.1) mg/dl Magnesium (1.8-2.4) mg/dl Diagnostic Findings KUB 10/31 IMPRESSION: 1. No bowel obstruction. 2. Cardiomegaly. 3. Left pleural effusion and left basilar consolidation. CT abdomen/pelvis 11/01/19 IMPRESSION: 1. Suboptimal examination without oral and IV contrast. 2. There is a small to moderate volume of intraperitoneal free air. This is new from 10/19/2019 and visceral perforation is the diagnosis of exclusion. Clinical correlation will be essential and surgical consultation is advised. 3. No suspected site of perforation is delineated by CT. 4. Cholelithiasis with an abnormal appearing gallbladder. Findings are concerning for acute cholecystitis. Consider right upper quadrant ultrasound for further assessment. 5. There is trace abdominopelvic ascites. 6. Again seen are 9 cm in 3 cm low-attenuation splenic lesions. These are pathologically indeterminant, with differential considerations include splenic infarcts or possibly splenic mass lesions such as lymphoma. Follow-up CT in 3-4 weeks' time is recommended for reassessment. 7. Cardiomegaly. 8. There are left larger than right pleural effusions with bibasilar consolidation. This could represent atelectasis and/or pneumonia/aspiration pneumonitis. Clinical correlation be required. Medications Administered Current Inpatient Medications Allopurinol (Zyloprim) 100 mg PO 2000 [facility] Stop: 11/18/19 19:59 Last Admin: 11/01/19 22:03 Dose: Not Given Documented by: Amlodipine Besylate (Norvasc) 10 mg PO 0800 SHARYN Stop: 11/27/19 07:59 Last Admin: 11/01/19 08:33 Dose: 10 mg Documented by: Clonidine HCl (Catapres) 0.1 mg PO BID SHARYN Stop: 11/27/19 08:59 Last Admin: 11/01/19 22:03 Dose: Not Given Documented by: Dextrose (Dextrose 50%) 25 - 50 ml IV UD PRN; Protocol PRN Reason: Hypoglycemia Protocol Stop: 11/18/19 07:42 Last Admin: 11/02/19 04:06 Dose: 25 ml Documented by: Glucagon (Glucagen) 1 mg SQ UD PRN; Protocol PRN Reason: Hypoglycemia Protocol Stop: 11/18/19 07:42 Glucose (Dex4 Glucose) 4 - 8 tabs PO UD PRN; Protocol PRN Reason: Hypoglycemia Protocol Stop: 11/18/19 07:42 Glucose (Glucose 40%) 15 - 30 gm PO UD PRN; Protocol PRN Reason: Hypoglycemia Protocol Stop: 11/18/19 07:42 Hydralazine HCl (Apresoline) 50 mg PO BID SHARYN Stop: 12/01/19 08:59 Last Admin: 11/01/19 22:03 Dose: Not Given Documented by: Hydralazine HCl (Hydralazine Hcl) 7.5 mg IV Q6H PRN PRN Reason: Hypertension Stop: 12/02/19 01:38 Hydromorphone HCl (Dilaudid) 0.5 mg IV Q3H PRN PRN Reason: Pain Stop: 11/15/19 23:51 Last Admin: 11/02/19 04:18 Dose: 0.5 mg Documented by: Promethazine HCl 12.5 mg/ (Sodium Chloride) 50.5 mls @ 202 mls/hr IV Q6H PRN PRN Reason: Nausea And Vomiting Stop: 11/18/19 07:42 Last Infusion: 10/29/19 17:48 Dose: Infused Documented by: Ceftriaxone Sodium 2,000 mg/ (Dextrose) 70 mls @ 140 mls/hr IV Q12H SH[facility] Stop: 11/03/19 09:59 Last Infusion: 11/01/19 22:19 Dose: Infused Documented by: Heparin Sodium/Dextrose (Heparin Sodium/Dextrose) 25,000 units in 500 mls @ 18 mls/hr IV .Q24H SHARYN; Protocol Stop: 11/25/19 10:29 Last Titration: 11/01/19 23:59 Dose: Infused Documented by: Ampicillin Sodium 2,000 mg/ (Sodium Chloride) 100 mls @ 200 mls/hr IV Q12H SHARYN; Protocol Stop: 11/05/19 21:59 Last Infusion: 11/01/19 22:19 Dose: Infused Documented by: Dextrose/Sodium Chloride (D5w And Nss) 1,000 mls @ 50 mls/hr IV .Q20H [facility] Stop: 12/02/19 04:14 Last Admin: 11/02/19 04:24 Dose: 50 mls/hr Documented by: Metronidazole (Flagyl) 500 mg in 100 mls @ 100 mls/hr IV Q8H SHARYN; Protocol Stop: 11/12/19 07:59 Pantoprazole Sodium 40 mg/ (Dextrose) 100 mls @ 20 mls/hr IV Q5H [facility] Stop: 12/02/19 08:59 Fluconazole (Diflucan) 200 mg in 100 mls @ 100 mls/hr IV Q1H [facility]; Protocol Stop: 11/02/19 10:44 Fluconazole (Diflucan) 200 mg in 100 mls @ 100 mls/hr IV Q1H SHARYN; Protocol Stop: 11/03/19 17:59 Acetaminophen (Ofirmev) 1,000 mg in 100 mls @ 400 mls/hr IV Q8H [facility] Stop: 11/05/19 08:59 Insulin Aspart (Novolog Flexpen) 0 units SC Q6 [facility] Stop: 12/02/19 05:59 Last Admin: 11/02/19 05:38 Dose: Not Given Documented by: Insulin Glargine (Lantus Solostar Pen) 5 units SC BID [facility] Stop: 11/22/19 20:59 Last Admin: 11/01/19 21:27 Dose: 5 units Documented by: Isosorbide Mononitrate (Imdur Extended Rel) 60 mg PO 0800 [facility] Stop: 11/18/19 07:59 Last Admin: 11/01/19 08:32 Dose: 60 mg Documented by: Lubiprostone (Amitiza) 8 mcg PO 0800,1999 [facility] Stop: 11/18/19 07:59 Last Admin: 11/01/19 22:03 Dose: Not Given Documented by: Metoprolol Tartrate (Lopressor) 50 mg PO TID [facility] Stop: 11/22/19 20:59 Last Admin: 11/01/19 21:16 Dose: Not Given Documented by: Metoprolol Tartrate (Lopressor) 2.5 mg IV Q6 PRN PRN Reason: Hypertension Stop: 12/02/19 05:59 Miscellaneous (Carbohydrates For Hypoglycemia) 15 - 30 gm PO UD PRN PRN Reason: Hypoglycemia Protocol Stop: 11/18/19 07:42 Miscellaneous Information (Pharmacy Consult) 1 ea N/A UD PRN PRN Reason: Consult Stop: 11/18/19 15:24 Miscellaneous Information (Pharmacist Discharge Med Rec Consult) 1 ea N/A UD PRN PRN Reason: Consult Stop: 11/18/19 15:22 Miscellaneous Information (Consult) 1 ea N/A UD PRN PRN Reason: Consult Stop: 12/02/19 08:38 Nitroglycerin (Nitrostat) 0.4 mg SL UD PRN PRN Reason: Pain Stop: 11/18/19 07:42 Oxycodone HCl (Roxicodone Immediate Rel) 10 mg PO BID [facility] Stop: 11/02/19 20:59 Last Admin: 11/01/19 22:03 Dose: Not Given Documented by: Polyethylene Glycol (Miralax Powder Packet) 17 gm PO DAILY [facility] Stop: 12/01/19 16:44 Last Admin: 11/01/19 17:38 Dose: 17 gm Documented by: Potassium Chloride (Klor-Con M20) 40 meq PO DAILY [facility] Stop: 11/30/19 12:44 Last Admin: 11/01/19 08:32 Dose: 40 meq Documented by: Simethicone (Mylicon) 80 mg PO Q6H PRN PRN Reason: bloating Stop: 12/01/19 16:40 Terazosin HCl (Hytrin) 5 mg PO 1999 [facility] Stop: 11/18/19 19:59 Last Admin: 11/01/19 22:03 Dose: Not Given Documented by: (1) Renal failure (ARF), acute on chronic Acute renal failure type: unspecified Chronic kidney disease stage: stage 5, not on chronic dialysis Qualified Code(s): N17.9 - Acute kidney failure, unspecified; N18.5 - Chronic kidney disease, stage 5
[2019-11-02 07:48] LABS: Hematocrit (blood only) 28.5 % (42-52); Hemoglobin 9.1 g/dL (14.0-18.0); Mean Corpuscular Hemoglobin 33.1 pg (25-34); Mean Corpuscular Hgb Conc 31.9 g/dL (32-36); Mean Corpuscular Volume 103.6 fL (80-100); Mean Platelet Volume 12.7 fL (7.4-10.4); Nucleated RBC # (auto) 1.01 K/uL (0-0); Nucleated RBC % (auto) 5.4 %; Platelet Count 151 K/uL (130-400); RDW Coefficient of Variation 19.4 % (11.5-14.5); RDW Standard Deviation 68.2 fL (36.4-46.3); Red Blood Count 2.75 M/uL (4.7-6.1)
--- NOTE | 2019-11-02 07:58 | XRay Report ---
KUB HISTORY: NG tube COMPARISON: Abdomen and pelvis CT 11/01/2019. FINDINGS: The bowel gas pattern is unremarkable. There are no dilated loops of small bowel to suggest an obstruction. No renal calculi. No ureteral calculi. There is again suggestion of a small amount of pneumoperitoneum. Nasogastric tube terminates in the proximal stomach. The fenestrated line is loc ated at the gastroesophageal junction. Therefore, this should be advanced by approximately 5 to 10 cm . An aortic valve stent. IMPRESSION: 1. There is again suggestion of a small amount of pneumoperitoneum. 2. Nasogastric tube terminates in the proximal stomach. The fenestrated line is located at the gastro esophageal junction. Therefore, this should be advanced by approximately 5 to 10 cm. ACT 112: Negative or not required by law. Electronically signed by: Mike Meeks M.D. 11/02/2019 7:57 AM
[2019-11-02 08:07] LABS: Partial Thromboplastin Ratio 1.4; Partial Thromboplastin Time 37.8 Seconds (21.0-31.0)
[2019-11-02 08:23] LABS: BUN Creatinine Ratio 6.6 (10-20); Calcium 8.2 mg/dl (8.5-10.1); Creatinine Clr Calc Pharmacy 26.9 ml/min; Est GFR (African American) 29.3; Est GFR (Non-African American) 25.3
--- NOTE | 2019-11-02 08:23 | Surgery Progress Note ---
Date of Service November 02, 2019 Assessment & Plan (1) Free intraperitoneal air: I again had a long discussion with family as well Dr. Maloney pt with many/severe comorbidities including sepsis, endocarditis with large /mobile thrombus, ESRD requiring dialysis, MS this admission, CVA this admission , CHF, CAD, HTN, and DM.... We discussed possible clinical outcomes regarding surgical intervention as well as conservative care/comfort measures. Family still wants to not do surgery at this point. I think this is reasonable. pt appears comfortable. oxygen requirements up some which is a poor indicator however his vitals are stable and he states his abdominal pain is improved from last night. Overall very poor prognosis which I discussed repeatedly with the family. I will continue to follow along and help in any way I can on this most difficult case. Subjective pt seen. sitting in bed. continues to have abdominal pain but states it is less severe than last night. Physical Exam Physical Exam: alert. does not appear in distress. abd: distended. upper abdominal tenderness to palpation with mild rebound. recent vitals reviewed Results & Data Vital Signs (Past 12 Hours) Vital Signs Temp Pulse Pulse Pulse Resp BP Pulse Ox 11/02/19 06:36 68 24 118/69 99 11/02/19 06:23 79 26 H 115/54 L 98 11/02/19 05:39 20 98 11/02/19 05:30 23 96 11/02/19 05:29 60 32 H 107/47 L 86 L 11/01/19 23:32 36.6 C 69 18 125/53 L 92 11/01/19 22:20 67 126/63 PG Care Time/CCT Total # of Minutes Spent Total Time Spent with Patient: Total time spent is greater than 50% in coordination of care (as documented) at patient's floor/unit and/or counseling patient: Coding Level of Care Code 58471 Subseq Hosp Care Lvl 3 Diagnoses Free intraperitoneal air K66.8
--- NOTE | 2019-11-02 08:33 | XRay Report ---
XR KUB/Abdomen 1 view CLINICAL HISTORY: 74 years-old Male presenting with advanced NGT per previous KUB. TECHNIQUE: Single supine view of the abdomen was obtained. COMPARISON: 11/02/2019. FINDINGS: Nasogastric tube terminates in the body of the stomach with sidehole also contained within the gastri c lumen. Mild gaseous distention of small bowel loops in the left mid abdomen. Distended loops have a stacked configuration. No gross pneumoperitoneum. Allowing for bowel gas and stool, no calcifications to suggest nephrolithiasis. Atherosclerotic calci fications noted. Degenerative changes of the spine. Small to moderate left pleural effusion. Stented prosthetic aortic valve. IMPRESSION: 1. Nasogastric tube appropriately positioned. 2. Mild gaseous distention of small bowel loops in a stacked configuration raises concern for obstru ction versus ileus. 3. Left pleural effusion. ACT 112: Negative or not required by law. Electronically signed by: Yayo Rodney M.D. 11/02/2019 8:32 AM
[2019-11-02] MEDS ORDERED: PANTOprazole 80 MG in DEXTROSE 5% 100 ML IV STA (08:38)
[2019-11-02] MEDS ORDERED: FLUCONAZOLE CONSULT ACTIVE PRN (08:39)
[2019-11-02] MEDS: ACETAMINOPHEN 500 MG TAB PO SCH (08:40)
--- NOTE | 2019-11-02 08:49 | XRay Report ---
XR chest 1V portable CLINICAL HISTORY: 74 years-old Male presenting with new hypoxia. TECHNIQUE: Portable upright AP view of the chest was obtained. COMPARISON: 10/25/2019. FINDINGS: Nasogastric tube descends below the diaphragm, terminus not visualized though sidehole contained with in the gastric lumen. Left IJ large bore central venous catheter terminates at the superior cavoatria l junction. Stented prosthetic aortic valve. Numerous overlying external leads to grating image quali ty. Atherosclerosis of the aortic arch. Cardiopericardial silhouette markedly enlarged. Persistent th ough slightly decreased pulmonary vascular and interstitial prominence. Decreased hazy central and ba silar predominant opacity though significant opacity remains on the left. Obscuration of the left hem idiaphragm with suspected underlying moderate left pleural effusion. Trace right pleural effusion. No pneumothorax. Osseous structures normal. Upper abdomen normal. IMPRESSION: 1. Appropriately positioned nasogastric tube. 2. Interval decrease in congestive change or pulmonary edema. Persistent asymmetric pulmonary edema on the left. Follow-up recommended. 3. Left greater than right pleural effusions and bibasilar atelectasis. 4. Marked cardiomegaly. ACT 112: Negative or not required by law. Electronically signed by: Yayo Rodney M.D. 11/02/2019 8:48 AM
[2019-11-02] MEDS ORDERED: ACETAMINOPHEN 10MG/ML PEDIATRIC DOSING IV SCH (08:59)
[2019-11-02] MEDS: FLUCONAZOLE 200 MG/100 ML BAG IV SCH ×2 (09:21→09:31)
[2019-11-02] MEDS: metroNIDAZOLE 500 MG/100 ML BAG IV SCH ×2 (09:22→16:15)
[2019-11-02] MEDS: INSULIN GLARGINE SOLOSTAR 100 UNITS/ML 3 ML PEN SC SCH ×2 (09:22→22:50)
[2019-11-02] MEDS: ACETAMINOPHEN 1,000 MG/100 ML VIAL IV SCH ×2 (09:22→16:19)
[2019-11-02] MEDS: AMPICILLIN 2,000 MG in SODIUM CHLOR 0.9% AD-VAN 100 ML IV SCH ×2 (09:33→22:49)
[2019-11-02] MEDS: PANTOprazole 40 MG in DEXTROSE 5% 100 ML IV SCH ×4 (09:42→23:49)
[2019-11-02] MEDS: cefTRIAXone SODIUM 2,000 MG in DEXTROSE 5% 50 ML IV SCH ×2 (09:50→22:49)
--- NOTE | 2019-11-02 12:27 | Infectious Disease Progress Nt ---
Date of Service November 02, 2019 Assessment & Plan (1) Gram positive septicemia: cultures growing /E. faecalies. Repeat TTE now confirm AV veg - highly mobile, 1.5 cm. No JUAN JOSE planned at this time as unlikely to change cardiac management. continue amp with ctx. will avoid gent due to pavel. would have low thresh hold for transfer to tertiary care center. will need min 6 week of abx, hold picc line for now, 10/22 cultures negative so far, would prefer to hold off on picc for now and follow. Pt may need HD, will hold off on picc for now pending potential need for HD cat. Discussed results with cardio. He remains high risk for additional emboli, especially with large, mobile veg now noted on 10/22 TTE. carido to discuss further wishes with pt and family as he remains high risk for additional complications. For now plan is for conservative care with abx, will need prolonged course of IV abx - 6 weeks min of amp and rocephin He will need weekly cbc, cmp, esr while on therapy and will likely need serial echo as well. today is my final day at [facility], pt will plan to continue ID care with [facility] [place]. (2) Splenic infarct: (3) Acute CVA (cerebrovascular accident): (4) Non-ST elevation (NSTEMI) myocardial infarction: Admission and Anticipated Discharge Date Admission Date: October 19, 2019 Subjective pt transferred to ICU due to abd pain and new finding of free air in abd, no surgical plan for now. remains on abx. tolerating well. creat improved since beginning HD. remains afebrile. repeat blood cultures 10/22 and 10/29 negative. Results & Data ([facility]) Vital Signs (Past 12 Hours) Vital Signs Temp Pulse Pulse Pulse Pulse Resp BP 11/02/19 12:00 36.8 C 60 18 11/02/19 08:00 36.9 C 75 30 H 126/68 11/02/19 06:36 68 24 11/02/19 06:23 79 26 H 11/02/19 05:39 20 11/02/19 05:30 23 11/02/19 05:29 60 32 H BP Pulse Ox 11/02/19 12:00 132/81 96 11/02/19 08:00 99 11/02/19 06:36 118/69 99 11/02/19 06:23 115/54 L 98 11/02/19 05:39 98 11/02/19 05:30 96 11/02/19 05:29 107/47 L 86 L Laboratory Results Microbiology 10/30/19 11:55 Blood Aerobic Blood Culture - Preliminary No growth in Aerobic bottle after 48 hours. 10/30/19 11:55 Blood Anaerobic Blood Culture - Preliminary No growth in Anaerobic bottle after 48 hours. 10/30/19 12:05 Blood Aerobic Blood Culture - Preliminary No growth in Aerobic bottle after 48 hours. 10/30/19 12:05 Blood Anaerobic Blood Culture - Preliminary No growth in Anaerobic bottle after 48 hours. 10/23/19 05:42 Blood Aerobic Blood Culture - Final No growth in Aerobic bottle after 5 days. 10/23/19 05:42 Blood Anaerobic Blood Culture - Final No growth in Anaerobic bottle after 5 days. 10/23/19 05:30 Blood Aerobic Blood Culture - Final No growth in Aerobic bottle after 5 days. 10/23/19 05:30 Blood Anaerobic Blood Culture - Final No growth in Anaerobic bottle after 5 days. 10/22/19 06:14 Blood Aerobic Blood Culture - Final Enterococcus faecalis 10/22/19 06:14 Blood Anaerobic Blood Culture - Final No growth in Anaerobic bottle after 5 days. 10/22/19 06:04 Blood Aerobic Blood Culture - Final Enterococcus faecalis 10/22/19 06:04 Blood Anaerobic Blood Culture - Final No growth in Anaerobic bottle after 5 days. 10/21/19 06:22 Blood Aerobic Blood Culture - Final Enterococcus faecalis 10/21/19 06:22 Blood Anaerobic Blood Culture - Final No growth in Anaerobic bottle after 5 days. 10/21/19 06:11 Blood Aerobic Blood Culture - Final Enterococcus faecalis 10/21/19 06:11 Blood Anaerobic Blood Culture - Final No growth in Anaerobic bottle after 5 days. 10/20/19 13:03 Blood Aerobic Blood Culture - Final Enterococcus faecalis 10/20/19 13:03 Blood Anaerobic Blood Culture - Final No growth in Anaerobic bottle after 5 days. 10/20/19 12:56 Blood Aerobic Blood Culture - Final Enterococcus faecalis 10/20/19 12:56 Blood Anaerobic Blood Culture - Final No growth in Anaerobic bottle after 5 days. 10/19/19 04:45 Blood Aerobic Blood Culture - Final Enterococcus faecalis 10/19/19 04:45 Blood Anaerobic Blood Culture - Final Enterococcus faecalis 10/19/19 04:40 Blood Aerobic Blood Culture - Final Enterococcus faecalis 10/19/19 04:40 Blood Anaerobic Blood Culture - Final Enterococcus faecalis 10/19/19 05:00 Urine,Clean Catch Urine Culture - Final Three types of organisms present, all low counts probable skin darcy. No further identifications or sensitivities to follow. PG Care Time/CCT Total # of Minutes Spent Total Time Spent with Patient: Total time spent is greater than 50% in coordination of care (as documented) at patient's floor/unit and/or counseling patient: Coding Level of Care Code 06302 Subseq Hosp Care Lvl 1 Diagnoses Gram positive septicemia A41.89 Splenic infarct D73.5 Acute CVA (cerebrovascular accident) I63.9 Non-ST elevation (NSTEMI) myocardial infarction I21.4
--- NOTE | 2019-11-02 13:06 | Palliative Care Consultation ---
Date of Consultation November 02, 2019 Assessment & Plan (1) Goals of care, counseling/discussion: -74 year old male patient with PMH chronic diastolic heart failure (EF 65% TTE 2018), CAD status post stent, aortic stenosis status post TAVR, hypertension, hyperlipidemia, DM 2 insulin requiring, chronic back pain, CKD (baseline creatinine 3.6), chronic anemia (baseline hemoglobin of 8), history of uric acid stones, and others, was admitted to the hospital two weeks ago for sepsis 2/2 complicated UTI, encephalopathy possibly related to worsening renal function, and congestion on CXR. Patient was apparently feeling SOB at home, had abnormal outpatient labs: Na 125, creatinine 4.8 (up from baseline 3.5). CT scan showing a subacute right frontal infarct, CT of the abdomen pelvis showing a splenic infarction and an echocardiographic study that showed no evidence for valvular vegetations but it shows a hypokinetic segment that had been noted previously and an EF of 45%. Cardiology, nephrology, and neurology consulted. Patient did grow strep in blood cultures, was treated as possible strep endocarditis. Repeat echocardiogram on 10/25 did show vegetation type lesion on aortic valve. Cardiology discussed with patient and that he is not a candidate for another valve replacement-- they agreed. Plan to continue abx, possibly lifelong. Renal function fluctuated during admission, but eventually worsened to the point of possible need for dialysis. Temporary dialysis catheter placed, dialysis initiated on 10/29. Yesterday, patient began c/o abdominal pain and trouble passing gas/BM. CT abd showed intraperitoneal free air of unknown etiology. Surgical consultation obtained-- patient is very poor surgical candidate. This was discussed with patient's and she understands. No plan for surgery at this time--patient is NPO and NGT placed. Patient's prognosis is now extremely poor, however, patient's maintains full code status. Patient is confused and unable to make decisions for himself. Palliative care is now consulted to discuss goals of care. -Patient seen by palliative MD this afternoon. Spoke with attending physician as well. Even if patient improves, no plans for surgery as he is a very poor candidate given his ongoing infection, ESRD, etc. -Spoke with patient's /POA, Richelle Sungteena. Discussed all of the above condition. She would like to discuss further with her son present. -Called patient's and son, Ramses, back to discuss. We talked at length about events of this hospitalization. They have spoken with attending physician and surgeon on several occasions. I reiterated several times that patient's prognosis is extremely poor at this point. Even if his abdomen heals, he is 74 years old with endocarditis requiring AT LEAST six weeks of abx, ESRD requiring dialysis, among other comorbidities. -Patient's and son stated that patient said he "wanted to be helped as much as possible." I reiterated that we are doing all we can. The family understands surgery is not karine option, nor do they want him to go through that. They understand that even transfer to tertiary care may not be helpful. -Family asked if they can be allowed a visit. I stated that at this point, with as poor of a prognosis as he has and the fact that they are being asked to make end of life decisions, that I think it is appropriate for them to be allowed a visit. -WE discussed code status as well. Family plans to continue discussing goals and code status. They will let Dr. Maloney know if they have come to a decision tonight. For now, they would like to continue with current care. -We will follow. (2) Free intraperitoneal air: (3) Sepsis: (4) ESRD (end stage renal disease): (5) Prosthetic valve endocarditis: Supervising Physician Co-Signing Physician Notes Chart reviewed, patient seen and examined. Collaborated with RIZWAN Vilchis Arrangements are being made for the to come in and visit the patient prior to making further decisions. Patient awake, slightly lethargic, no acute distress. Increased shortness of breath when attempting to speak Discussed with patient some of his current issues-patient did voice he felt things were not going well. Patient with some confusion, unable to make medical decisions given right frontal subacute CVA -would benefit from his being able to visit and speak with him. HEENT: EOMI hearing grossly within normal limits Respirations: Unlabored at rest, mild increased shortness of breath with attempting to speak, diminished breath sounds at bases CV: Bradycardic on exam Abdomen: Mild lower quadrant discomfort with palpation Extremities: Warm to touch Neuro alert, oriented to person and place, would advise family input regarding medical decisions. Patient did state he wanted everything done up to a point-discussed with him we may be nearing that point, patient nodded his head. History of Present Illness Attending Physician: Larry Maloney MD History of Present Illness This 74 year old male patient with PMH chronic diastolic heart failure (EF 65% TTE 2018), CAD status post stent, aortic stenosis status post TAVR, hypertension, hyperlipidemia, DM 2 insulin requiring, chronic back pain, CKD (baseline creatinine 3.6), chronic anemia (baseline hemoglobin of 8), history of uric acid stones, and others, was admitted to the hospital two weeks ago for sepsis 2/2 complicated UTI, encephalopathy possibly related to worsening renal function, and congestion on CXR. Patient was apparently feeling SOB at home, had abnormal outpatient labs: Na 125, creatinine 4.8 (up from baseline 3.5). CT scan showing a subacute right frontal infarct, CT of the abdomen pelvis showing a splenic infarction and an echocardiographic study that showed no evidence for valvular vegetations but it shows a hypokinetic segment that had been noted previously and an EF of 45%. Cardiology, nephrology, and neurology consulted. Patient did grow strep in blood cultures, was treated as possible strep endocarditis. Repeat echocardiogram on 10/25 did show vegetation type lesion on aortic valve. Cardiology discussed with patient and that he is not a candidate for another valve replacement-- they agreed. Plan to continue abx, possibly lifelong. Renal function fluctuated during admission, but eventually worsened to the point of possible need for dialysis. Temporary dialysis catheter placed, dialysis initiated on 10/29. Yesterday, patient began c/o abdominal pain and trouble passing gas/BM. CT abd showed intraperitoneal free air of unknown etiology. Surgical consultation obtained-- patient is very poor surgical candidate. This was discussed with patient's and she understands. No plan for surgery at this time--patient is NPO and NGT placed. Patient's prognosis is now extremely poor, however, patient's maintains full code status. Patient is confused and unable to make decisions for himself. Palliative care is now consulted to discuss goals of care. Thank you kindly for this consult. Palliative care team will follow as needed. Allergies Allergy/AdvReac Type Severity Reaction Status Date / Time Kbxjoud-Eqn-Yzf Reductase AdvReac Intermediate RHABDOMYOLYSIS Verified 10/28/19 15:21 Inhibitor FROM 06/2009 Home Medications Home Medications Medication Instructions Recorded Confirmed Type Lantus U-100 Insulin 18 unit SUBCUT QAM 10/11/18 05/07/20 History allopurinol 100 mg PO HS 03/24/18 10/19/19 History amlodipine 5 mg PO QAM 03/24/18 10/19/19 History clonidine HCl 0.2 mg PO TID 03/24/18 10/19/19 History clopidogrel 75 mg PO QAM 03/24/18 10/19/19 History hydralazine 100 mg PO TID 03/24/18 10/19/19 History isosorbide mononitrate 60 mg PO QAM 03/24/18 10/19/19 History metoprolol tartrate 50 mg PO TID 03/24/18 10/19/19 History nitroglycerin [Nitrostat] 0.4 mg SUBLINGUAL UD PRN 03/24/18 10/19/19 History oxycodone 10 mg PO TID 03/24/18 10/19/19 History furosemide 20 mg PO DAILY 10/19/19 10/19/19 History lubiprostone [Amitiza] 8 mcg PO BID 10/19/19 10/19/19 History terazosin 5 mg PO HS 10/19/19 10/19/19 History Patient History Medical History (Updated 11/02/19 @ 13:04 by RIZWAN Bond) BPH (benign prostatic hyperplasia) Bronchitis HX-INHALER VERY OCC Cardiac murmur Chronic kidney disease STAGE 3-F/U DR HANSON Congestive heart failure Diabetes mellitus, type 2 ESRD (end stage renal disease) GERD (gastroesophageal reflux disease) Hyperlipidemia Hypertension Kidney stones On anticoagulant therapy SINCE 02/2017 Osteoarthritis Surgical History History of cardiac cath X 2 02/28/2017--2 stents History of colonoscopy History of cystoscopy WITH STENT PLACEMENT History of heart artery stent x2 02/2017 History of heart valve replacement AVR 04/2017 [facility]-F/U DR RON Q3-6 MONTHS Family History Mother Family history of irritable bowel syndrome Other No family history of adverse response to anesthesia Social History Preferred Language: Luxembourger Communication Ability: Effective Low Voltage Technician Required: No Beliefs That Will Affect Care: None Current Living Situation: Spouse Other Information That Helps Us Care for You: No Feels Safe at Home: Yes Safety Concerns: Feels Safe At This Time Smoking Status: Never smoker Do You Dip or Chew Tobacco: No ; Second Hand Exposure: No ; Tobacco Cessation Education Requested by Patient: No Hx Alcohol Use: Yes Alcohol type: beer, wine and other Hx Substance Use: No Results & Data Vital Signs (Past 12 Hours) Vital Signs Temp Pulse Pulse Pulse Pulse Resp BP 11/02/19 12:00 36.8 C 60 18 11/02/19 08:00 36.9 C 75 30 H 126/68 11/02/19 06:36 68 24 11/02/19 06:23 79 26 H 11/02/19 05:39 20 11/02/19 05:30 23 11/02/19 05:29 60 32 H BP Pulse Ox 11/02/19 12:00 132/81 96 11/02/19 08:00 99 11/02/19 06:36 118/69 99 11/02/19 06:23 115/54 L 98 11/02/19 05:39 98 11/02/19 05:30 96 11/02/19 05:29 107/47 L 86 L Coding Level of Care Code 43856 Inpt Consult Level 3 Diagnoses Goals of care, counseling/discussion Z71.89 Free intraperitoneal air K66.8 Sepsis A41.9 ESRD (end stage renal disease) N18.6 Prosthetic valve endocarditis T82.6XXA; I38 Time Spent (min) 70 Time Spent Midlevel A total of 70 minutes spent by this SAFETY OFFICER in reviewing chart, speaking with attending and palliative physicians, as well as multiple phone calls to patient's family to discuss condition and goals of care.
--- NOTE | 2019-11-02 15:33 | Nephrology Progress Note ---
Date of Service November 02, 2019 Assessment & Plan (1) Renal failure (ARF), acute on chronic: nonoliguric KARTHIK on CKD4 due to ischemic ATN in setting of bacteremia, prosthetic valve IE>> now ESRD. Electrolytes are acceptable. He has unfortunately had a clinical downturn in the past 24 hours with discovery of free intraperitoneal air of unclear etiology for which he is not a surgical candidate. -first HD 10/29; yesterday tolerated 3hr treatment with 1L UF; today had less UF due to softer blood pressures in the morning -No change to blood pressure medications today -Monitor renal function with daily BMP -plan next HD November 02 -Plan had been to replace temporary dialysis catheter with tunneled line on November 02; this is deferred given his change in status (2) Prosthetic valve endocarditis: With 1.5 cm highly mobile attic valve vegetation and E faecalis bacteremia last positive culture October 21. Not a surgical candidate for this issue. He will need residential antibiotics. on ampicillin and ceftriaxone. Avoid PICC line. Patient can get midline catheter for antibiotics at home if needed/ if we get to that point clinically >> given slow uptrend in WBC since last blood cx and variable MS today, blood cxs repeated 10/29 and NGTD -temp line placed 10/29 (3) Hypokalemia: 10/28 had IV K x 60 mEq. 10/29 had another 20 mEq IV K; needed 40 meq 10/30 and 10/31. K improved/normalized for today; all K supplements held -hold supplements for now given change in status >daily bmp Care coordinated with Dr. Maloney Admission and Anticipated Discharge Date Admission Date: October 19, 2019 Subjective overnight events noted > developed abdominal pain/bloating after HD yesterday which at first resolved then worsened abruptly. Moved to the intensive care unit and evaluated by surgery after he was noted to have intra peritoneal free air; NG tube placed and patient n.p.o.; palliative care involved and discussing CODE STATUS with family; patient when I evaluated him at 1515 this afternoon was confused and oriented to self only. He did have ongoing diffuse abdominal pain. Review of Systems Review of Systems: Other (Review of systems limited by patient's delirium) Respiratory: no dyspnea Cardiovascular: no chest pain Gastrointestinal: + abdominal pain Physical Exam Constitutional: well developed, well nourished and + acute distress (mild -- confused and slightly agitated) Had been on 4 L this morning; now on room air at my exam Eyes: EOM intact bilaterally ENMT: Ears: no external ear abnormality Nose: no external nose abnormality Mouth: + dry oral mucous membranes Neck: no nuchal rigidity Respiratory: normal respiratory effort and + tachypneic; no cough Auscultation: + diminished lung sounds Cardiovascular: Rate/Rhythm: regular rate and regular rhythm Extremities: + edema (trace BL ankle) Gastrointestinal (Abdomen): Inspection/Auscultation: + abdomen distended and normal bowel sounds Percussion/Palpation: + abdomen tender (Diffusely specially right upper quadrant and epigastrium), + guarding and abdomen soft NG tube present with ear drainage Musculoskeletal: Extremities: strength 5/5 throughout Skin: no rashes, warm and dry Psychiatric: Orientation: alert and oriented to person Eye Contact: + fair eye contact Motor Behavior: no abnormal motor movements and + psychomotor retardation Insight: + limited insight Judgement: + limited judgement Results & Data ([facility]) Vital Signs (Past 12 Hours) Vital Signs Temp Pulse Pulse Pulse Pulse Resp BP 11/02/19 12:00 36.8 C 61 60 20 132/81 11/02/19 08:00 36.9 C 75 30 H 126/68 11/02/19 06:36 68 24 11/02/19 06:23 79 26 H 11/02/19 05:39 20 11/02/19 05:30 23 11/02/19 05:29 60 32 H BP Pulse Ox 11/02/19 12:00 132/81 99 11/02/19 08:00 99 11/02/19 06:36 118/69 99 11/02/19 06:23 115/54 L 98 11/02/19 05:39 98 11/02/19 05:30 96 11/02/19 05:29 107/47 L 86 L Laboratory Results 11/02/19 07:11 11/02/19 07:11 (1) Renal failure (ARF), acute on chronic Acute renal failure type: unspecified Chronic kidney disease stage: stage 5, not on chronic dialysis Qualified Code(s): N17.9 - Acute kidney failure, unspecified; N18.5 - Chronic kidney disease, stage 5
[2019-11-03] MEDS: INSULIN ASPART 100 UNITS/ML 3 ML PEN SC SCH ×4 (01:20→18:06)
[2019-11-03] MEDS: metroNIDAZOLE 500 MG/100 ML BAG IV SCH ×3 (01:20→15:33)
[2019-11-03] MEDS: ACETAMINOPHEN 1,000 MG/100 ML VIAL IV SCH ×3 (01:21→16:23)
[2019-11-03 05:16] LABS: BUN Creatinine Ratio 9.2 (10-20); Calcium 7.6 mg/dl (8.5-10.1); Creatinine Clr Calc Pharmacy 17.3 ml/min; Est GFR (African American) 17.3; Est GFR (Non-African American) 14.9; Magnesium 2.1 mg/dl (1.8-2.4); Phosphorus 3.9 mg/dl (2.5-4.9)
[2019-11-03] MEDS: PANTOprazole 40 MG in DEXTROSE 5% 100 ML IV SCH ×4 (05:25→21:20)
[2019-11-03 05:28] LABS: Partial Thromboplastin Ratio 1.8
[2019-11-03 05:41] LABS: Partial Thromboplastin Time 49.8 Seconds (21.0-31.0)
[2019-11-03 06:12] LABS: Hematocrit (blood only) 30.5 % (42-52); Hemoglobin 9.9 g/dL (14.0-18.0); Mean Corpuscular Hemoglobin 33.4 pg (25-34); Mean Corpuscular Hgb Conc 32.5 g/dL (32-36); Mean Platelet Volume 12.7 fL (7.4-10.4); Nucleated RBC # (auto) 0.55 K/uL (0-0); Nucleated RBC % (auto) 3.7 %; Platelet Count 124 K/uL (130-400); Platelet Estimate Decreased (Normal); RDW Standard Deviation 68.7 fL (36.4-46.3); Red Blood Count 2.96 M/uL (4.7-6.1); White Blood Count 15.01 K/uL (4.8-10.8)
--- NOTE | 2019-11-03 07:34 | Hospitalist Progress Note ---
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 /JUAN JOSE not done as pt is high risk for the procedure and will not change the treatment plan pt is a poor candidate for valve replacement surgery given large aortic valve vegetation with septic embolic -per cardiology , pt may need life long suppressive antibiotic possibly in form of oral dose will need PICC line placement will order for PICC line after vascular procedure /dialysis catheter placement Pt will need weekly cbc, cmp, esr while on IV therapy and will likely need serial echo as well. / will need to establish care with ID for remainder of course. -Discussed with Richelle, the patient will need ID follow-up, currently interested in [facility] as unfortunately there is no ID in this area avail able (3) S/P TAVR (transcatheter aortic valve replacement): Severe aortic stenosis status post tucker valve TAVR bioprosthetic replacement April 2017 admitted with hx of fatigue , poor endurance blood cultures positive for entercocci ECHO highly mobile, linear 1.5 cm lesion on the aortic aspect of the bioprosthetic aortic valve Too high risk for JUAN JOSE and no likely change in outcome per cardiology : the patient is a very high risk of perioperative mortality and surgical aortic valve replacement is not an option, this was also discussed with patient's , who is in agreement will need life long suppressive abx (4) Free intraperitoneal air: Patient developed abdominal pain in the afternoon of October 31, after his dialysis -At first pt complained of bloating and excessive gas pain, KUB was obtained and negative for any free air or obstruction -Pain then resolved however recurred later in the evening -CT abdomen pelvis was obtained, especially due to concern for bleeding as patient was on IV heparin -Free intraperitoneal air was noted as well as possible acute cholecystitis -Surgery was consulted overnight, Dr. Mcclure evaluated patient and discussed the case with the family, patient is very high risk for surgery, medical management only -Added to his antibiotic regimen IV Flagyl, IV Diflucan, also started IV PPI -Given his other comorbidities, very poor prognosis -Patient's family aware and do not wish to proceed with surgical treatment -Also discussed possible transfer with Dr. Mcclure, does not believe that it would be helpful (5) CKD (chronic kidney disease) stage 4, GFR 15-29 ml/min: baseline advanced CKD stage 4-5 pt is showing s/s of progression of end stage renal disease his severe fatigue /anorexia /Nausea -could be part of the uremic symptoms Vascular surgery consulted due to evidence of possible ongoing infection, pt had temporary dialysis catheter placed started on dialysis will need Perm cath placement, after repeat blood culture negative for 48 hours will need set up for out patient dialysis per nephrology -discussed with Dr. Pineda, plan for [facility] dialysis -Plan for permanent catheter per vascular surgery today, November 02 -however given complications/free intraperitoneal air, will hold off (6) Renal failure (ARF), acute on chronic: Nephrology consulted and appreciate their input Started dialysis during this hospital stay s/p temporary dialysis catheter placement Plan for permanent catheter placement today, November 02 - however due to recent complications, will hold off (7) Coagulopathy: Lupus anticoagulant positive on lab draw 10/19/2019-reference lab result available normal factor VIII activity Dr. Porter discussed case over the phone with hematology /oncology, Dr. Andersen Patient will need to be on therapeutic anticoagulation- high risk for thromboembolic event given positive lupus anticoagulant Patient already has evidence of embolic CVA noted in MRI of brain as well as splenic infarct. Patient started on IV heparin low-dose, no bolus Dual antiplatelets aspirin and Plavix discontinued to reduce bleeding risk pt will need life long anticoagulation -in form of Coumadin on IV heparin can be started on Coumadin after perm cath placement Anticoagulation discussed in detail with cardiology and also with patient's . As previously thought that anticoagulation would not be recommended for the patient as septic emboli have increased risk of hemorrhagic conversion. 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 MRI brain showed Multiple scattered punctate acute infarcts as described above most pronounced within the right frontal lobe. Focal area of edema seen within the right frontal lobe infarct with associated increased T1 signal. This could correspond to the associated calcifications in the setting of a subacute to chronic infarct or possibly petechial hemorrhage pt started on IV heparin -high risk for repeated embolic phenomenon with positive lupus anticoagulant /now IV heparin on hold due to above complications treatment of valve endocarditis as outlined above (9) Non-ST elevation (NSTEMI) myocardial infarction: Troponin on admission 10.3 then peaked at 18.1 Echo performed with no acute wall motion abnormality present. EF is 45-50%. Cardiology on board recommended medical management On Metoprolol Aspirin and Plavix D/jil pt started on IV heparin for coagulopathy no complain of chest pain or discomfort (10) Lower back pain: MRI lumbar showed no fractures of fixation within the lumbar spine. Soft tissue edema within the bilateral erector spinae muscles at the lumbar region. A 1.7 cm lesion within the right psoas muscle which contains a fluid fluid level and hypointense rim. Cont oxycodone (taken BID chronically) and scheduled Tylenol. pain is well controlled at current regimen Continue PT/OT -recommends rehab -pt and refused Rehab plan is to return home with home health and home PT (11) Metabolic acidosis: resolved. (12) Anemia in chronic kidney disease (CKD): due to advanced CKD , acute illness with bacteremia /endocarditis s/p 1 unit of PRBC transfusion (13) Diabetes mellitus: Continue Lantus and novolog sliding scale Continue monitor BS Atrial fibrillation: on beta pau IV heparin will start coumadin once vascular procedure is done (14) Hypertension: Continue amlodipine, clonidine, hydralazine, imdur, metoprolol BP stable (15) DVT prophylaxis: SCDs previously on IV heparin - currently on hold d/t surg. complication/ free intrap. air Full Code DISPOSITION: called pt's Richelle, updated her on clinical status of her , discussed at length treatment plan, answered all questions family and patient wants to return home after hospital discharge with home health nursing and home IV antibiotic in agreement with treatment plan with Coumadin tx to prevent future stroke , blood clot understands pt will need chronic dialysis Discussed need for ID follow-up, and unfortunately there is no ID in this area, currently interested in [facility] case management already d/w regarding out pt dialysis set up, plan for [facility] outpatient dialysis Due to recent complications, hospitalization will be likely prolonged, disposition questionable at this time Admission and Anticipated Discharge Date Admission Date: October 19, 2019 Subjective Contacted by pt's RN this AM that pt wants to leave hospital and go home with hospice. Pt's aware and in agreement, wants to follow pt's wishes. CM contacted. Discussed with , who says she was able to visit with the pt yesterday and feels that pt misses home. I then talked to the pt who is alert and oriented and answers most questions appropriately. He expressed his wishes to me about going home however did not seem to completely understand what hospice care means. Met with Dr. Mcclure (surgeon) at the bedside and encouraged pt to stay in the hospital several days longer as he may be improving. Pt agreed to stay for now. Currently pt sitting up in bed, NG tube placed, pt in NAD, more lucid and more talkative. Denies any fever, chills,chest pain, shortness of breath. He has diffuse abd. tenderness but seems to be improved. Review of Systems Review of Systems: As per HPI, all 10 systems reviewed, all other ROS negative Constitutional: + fatigue and + weakness; no fever and no chills Gastrointestinal: + abdominal pain (Lower abdominal pain); no nausea and no vomiting Physical Exam Physical Exam: Constitutional: Elderly male, sitting up in bed, pale, WD/WN, vitals as above + ill appearing; no acute distress, NG tube placed Eyes: EOMI, PERRL, conjunctivae normal, anicteric sclerae ENMT: external ear and nose normal, oropharynx normal Neck: trachea midline, no thyromegaly Respiratory: normal respiratory effort; no cough Auscultation: + diminished lung sounds;+ crackles, no wheezes Cardiovascular: Irregular, soft syst.murmur, no edema Gastrointestinal (Abdomen): Percussion/Palpation: abdomen soft, sluggish bowel sounds,somewhat distended, mildly tender at right lower quadrant Musculoskeletal: moves extremities spontaneously Neurologic: PERRL, EOMI, accommodation nl, no face palsy, no dysarthria, moves extremities spontaneously Psychiatric: Orientation: alert and oriented x 3, answers most questions appropriately, affect: + flat affect Results & Data Results & Data ([facility]) Vital Signs (Past 12 Hours) Vital Signs Temp Pulse Pulse Resp BP Pulse Ox 11/03/19 04:00 36.6 C 79 14 156/73 H 92 11/02/19 23:11 36.8 C 79 14 160/71 H 91 Laboratory Results 11/03/19 11/03/19 11/03/19 Range/Units 05:55 04:48 04:48 WBC 15.01 H (4.8-10.8) K/uL RBC 2.96 L (4.7-6.1) M/uL Hgb 9.9 L (14.0-18.0) g/dL Hct 30.5 L (42-52) % MCV 103.0 H (80-100) fL MCH 33.4 (25-34) pg MCHC 32.5 (32-36) g/dL RDW Std Deviation 68.7 H (36.4-46.3) fL RDW Coeff of Mindi 20.0 H (11.5-14.5) % Plt Count 124 L (130-400) K/uL MPV 12.7 H (7.4-10.4) fL Absolute Nucleated RBC 0.55 H (0-0) K/uL Nucleated RBC % (auto) 3.7 % Platelet Estimate Decreased L (Normal) APTT 49.8 H* (21.0-31.0) Seconds PTT Ratio 1.8 Sodium (136-145) mmol/L Potassium (3.5-5.1) mmol/L Chloride (98-107) mmol/L Carbon Dioxide (21-32) mmol/L Anion Gap (3-11) BUN (7-18) mg/dl Creatinine (0.6-1.4) mg/dl Est Cr Clr Drug Dosing ml/min Est GFR ( Amer) Est GFR (Non-Af Amer) BUN/Creatinine Ratio (10-20) Glucose (70-99) mg/dl POC Glucose 197 H (70-99) mg/dl Calcium (8.5-10.1) mg/dl Phosphorus (2.5-4.9) mg/dl Magnesium (1.8-2.4) mg/dl Nasal Screen MRSA (PCR) (Negative) 11/03/19 11/03/19 11/02/19 Range/Units 04:36 01:16 Unknown WBC (4.8-10.8) K/uL RBC (4.7-6.1) M/uL Hgb (14.0-18.0) g/dL Hct (42-52) % MCV (80-100) fL MCH (25-34) pg MCHC (32-36) g/dL RDW Std Deviation (36.4-46.3) fL RDW Coeff of Mindi (11.5-14.5) % Plt Count (130-400) K/uL MPV (7.4-10.4) fL Absolute Nucleated RBC (0-0) K/uL Nucleated RBC % (auto) % Platelet Estimate (Normal) APTT (21.0-31.0) Seconds PTT Ratio Sodium 138 (136-145) mmol/L Potassium 4.0 (3.5-5.1) mmol/L Chloride 104 (98-107) mmol/L Carbon Dioxide 22 (21-32) mmol/L Anion Gap 12.0 H (3-11) BUN 34 H D (7-18) mg/dl Creatinine 3.73 H D (0.6-1.4) mg/dl Est Cr Clr Drug Dosing 17.3 ml/min Est GFR ( Amer) 17.3 Est GFR (Non-Af Amer) 14.9 BUN/Creatinine Ratio 9.2 L (10-20) Glucose 218 H (70-99) mg/dl POC Glucose 286 H (70-99) mg/dl Calcium 7.6 L (8.5-10.1) mg/dl Phosphorus 3.9 (2.5-4.9) mg/dl Magnesium 2.1 (1.8-2.4) mg/dl Nasal Screen MRSA (PCR) Negative (Negative) 11/02/19 11/02/19 11/02/19 Range/Units 23:12 21:44 17:56 WBC (4.8-10.8) K/uL RBC (4.7-6.1) M/uL Hgb (14.0-18.0) g/dL Hct (42-52) % MCV (80-100) fL MCH (25-34) pg MCHC (32-36) g/dL RDW Std Deviation (36.4-46.3) fL RDW Coeff of Mindi (11.5-14.5) % Plt Count (130-400) K/uL MPV (7.4-10.4) fL Absolute Nucleated RBC (0-0) K/uL Nucleated RBC % (auto) % Platelet Estimate (Normal) APTT (21.0-31.0) Seconds PTT Ratio Sodium (136-145) mmol/L Potassium (3.5-5.1) mmol/L Chloride (98-107) mmol/L Carbon Dioxide (21-32) mmol/L Anion Gap (3-11) BUN (7-18) mg/dl Creatinine (0.6-1.4) mg/dl Est Cr Clr Drug Dosing ml/min Est GFR ( Amer) Est GFR (Non-Af Amer) BUN/Creatinine Ratio (10-20) Glucose (70-99) mg/dl POC Glucose 267 H 288 H 212 H (70-99) mg/dl Calcium (8.5-10.1) mg/dl Phosphorus (2.5-4.9) mg/dl Magnesium (1.8-2.4) mg/dl Nasal Screen MRSA (PCR) (Negative) 11/02/19 11/02/19 11/02/19 Range/Units 11:51 07:11 07:11 WBC 18.60 H (4.8-10.8) K/uL RBC 2.75 L (4.7-6.1) M/uL Hgb 9.1 L (14.0-18.0) g/dL Hct 28.5 L (42-52) % MCV 103.6 H (80-100) fL MCH 33.1 (25-34) pg MCHC 31.9 L (32-36) g/dL RDW Std Deviation 68.2 H (36.4-46.3) fL RDW Coeff of Mindi 19.4 H (11.5-14.5) % Plt Count 151 (130-400) K/uL MPV 12.7 H (7.4-10.4) fL Absolute Nucleated RBC 1.01 H (0-0) K/uL Nucleated RBC % (auto) 5.4 % Platelet Estimate (Normal) APTT (21.0-31.0) Seconds PTT Ratio Sodium 140 (136-145) mmol/L Potassium 4.0 (3.5-5.1) mmol/L Chloride 103 (98-107) mmol/L Carbon Dioxide 23 (21-32) mmol/L Anion Gap 14.0 H (3-11) BUN 16 (7-18) mg/dl Creatinine 2.41 H (0.6-1.4) mg/dl Est Cr Clr Drug Dosing 26.9 ml/min Est GFR ( Amer) 29.3 Est GFR (Non-Af Amer) 25.3 BUN/Creatinine Ratio 6.6 L (10-20) Glucose 113 H (70-99) mg/dl POC Glucose 152 H (70-99) mg/dl Calcium 8.2 L (8.5-10.1) mg/dl Phosphorus (2.5-4.9) mg/dl Magnesium 2.0 (1.8-2.4) mg/dl Nasal Screen MRSA (PCR) (Negative) 11/02/19 Range/Units 07:11 WBC (4.8-10.8) K/uL RBC (4.7-6.1) M/uL Hgb (14.0-18.0) g/dL Hct (42-52) % MCV (80-100) fL MCH (25-34) pg MCHC (32-36) g/dL RDW Std Deviation (36.4-46.3) fL RDW Coeff of Mindi (11.5-14.5) % Plt Count (130-400) K/uL MPV (7.4-10.4) fL Absolute Nucleated RBC (0-0) K/uL Nucleated RBC % (auto) % Platelet Estimate (Normal) APTT 37.8 H (21.0-31.0) Seconds PTT Ratio 1.4 Sodium (136-145) mmol/L Potassium (3.5-5.1) mmol/L Chloride (98-107) mmol/L Carbon Dioxide (21-32) mmol/L Anion Gap (3-11) BUN (7-18) mg/dl Creatinine (0.6-1.4) mg/dl Est Cr Clr Drug Dosing ml/min Est GFR ( Amer) Est GFR (Non-Af Amer) BUN/Creatinine Ratio (10-20) Glucose (70-99) mg/dl POC Glucose (70-99) mg/dl Calcium (8.5-10.1) mg/dl Phosphorus (2.5-4.9) mg/dl Magnesium (1.8-2.4) mg/dl Nasal Screen MRSA (PCR) (Negative) Medications Administered Current Inpatient Medications Allopurinol (Zyloprim) 100 mg PO 1999 [facility] Stop: 11/18/19 19:59 Last Admin: 11/01/19 22:03 Dose: Not Given Documented by: Amlodipine Besylate (Norvasc) 10 mg PO 0800 SHARYN Stop: 11/27/19 07:59 Last Admin: 11/01/19 08:33 Dose: 10 mg Documented by: Clonidine HCl (Catapres) 0.1 mg PO BID SHARYN Stop: 11/27/19 08:59 Last Admin: 11/01/19 22:03 Dose: Not Given Documented by: Dextrose (Dextrose 50%) 25 - 50 ml IV UD PRN; Protocol PRN Reason: Hypoglycemia Protocol Stop: 11/18/19 07:42 Last Admin: 11/02/19 04:06 Dose: 25 ml Documented by: Glucagon (Glucagen) 1 mg SQ UD PRN; Protocol PRN Reason: Hypoglycemia Protocol Stop: 11/18/19 07:42 Glucose (Dex4 Glucose) 4 - 8 tabs PO UD PRN; Protocol PRN Reason: Hypoglycemia Protocol Stop: 11/18/19 07:42 Glucose (Glucose 40%) 15 - 30 gm PO UD PRN; Protocol PRN Reason: Hypoglycemia Protocol Stop: 11/18/19 07:42 Hydralazine HCl (Apresoline) 50 mg PO BID SHARYN Stop: 12/01/19 08:59 Last Admin: 11/01/19 22:03 Dose: Not Given Documented by: Hydralazine HCl (Hydralazine Hcl) 7.5 mg IV Q6H PRN PRN Reason: Hypertension Stop: 12/02/19 01:38 Hydromorphone HCl (Dilaudid) 0.5 mg IV Q3H PRN PRN Reason: Pain Stop: 11/15/19 23:51 Last Admin: 11/02/19 04:18 Dose: 0.5 mg Documented by: Promethazine HCl 12.5 mg/ (Sodium Chloride) 50.5 mls @ 202 mls/hr IV Q6H PRN PRN Reason: Nausea And Vomiting Stop: 11/18/19 07:42 Last Infusion: 10/29/19 17:48 Dose: Infused Documented by: Ceftriaxone Sodium 2,000 mg/ (Dextrose) 70 mls @ 140 mls/hr IV Q12H [facility] Stop: 11/03/19 09:59 Last Infusion: 11/02/19 23:30 Dose: Infused Documented by: Heparin Sodium/Dextrose (Heparin Sodium/Dextrose) 25,000 units in 500 mls @ 18 mls/hr IV .Q24H SHARYN; Protocol Stop: 11/25/19 10:29 Last Titration: 11/01/19 23:59 Dose: Infused Documented by: Ampicillin Sodium 2,000 mg/ (Sodium Chloride) 100 mls @ 200 mls/hr IV Q12H [facility]; Protocol Stop: 11/05/19 21:59 Last Infusion: 11/02/19 23:45 Dose: Infused Documented by: Dextrose/Sodium Chloride (D5w And Nss) 1,000 mls @ 50 mls/hr IV .Q20H SHARYN Stop: 12/02/19 04:14 Last Admin: 11/02/19 23:48 Dose: 50 mls/hr Documented by: Metronidazole (Flagyl) 500 mg in 100 mls @ 100 mls/hr IV Q8H SHARYN; Protocol Stop: 11/12/19 07:59 Last Infusion: 11/03/19 02:30 Dose: Infused Documented by: Pantoprazole Sodium 40 mg/ (Dextrose) 100 mls @ 20 mls/hr IV Q5H SHARYN Stop: 12/02/19 08:59 Last Admin: 11/03/19 05:25 Dose: 8 mg/hr, 20 mls/hr Documented by: Fluconazole (Diflucan) 200 mg in 100 mls @ 100 mls/hr IV Q1H [facility]; Protocol Stop: 11/03/19 17:59 Acetaminophen (Ofirmev) 1,000 mg in 100 mls @ 400 mls/hr IV Q8H SHARYN Stop: 11/05/19 08:59 Last Infusion: 11/03/19 01:45 Dose: Infused Documented by: Insulin Aspart (Novolog Flexpen) 0 units SC Q6 [facility] Stop: 12/02/19 05:59 Last Admin: 11/03/19 06:56 Dose: 2 units Documented by: Insulin Glargine (Lantus Solostar Pen) 5 units SC BID [facility] Stop: 11/22/19 20:59 Last Admin: 11/02/19 22:50 Dose: 5 units Documented by: Isosorbide Mononitrate (Imdur Extended Rel) 60 mg PO 0800 [facility] Stop: 11/18/19 07:59 Last Admin: 11/01/19 08:32 Dose: 60 mg Documented by: Lubiprostone (Amitiza) 8 mcg PO 08,1999 [facility] Stop: 11/18/19 07:59 Last Admin: 11/01/19 22:03 Dose: Not Given Documented by: Metoprolol Tartrate (Lopressor) 50 mg PO TID [facility] Stop: 11/22/19 20:59 Last Admin: 11/01/19 21:16 Dose: Not Given Documented by: Metoprolol Tartrate (Lopressor) 2.5 mg IV Q6 PRN PRN Reason: Hypertension Stop: 12/02/19 05:59 Miscellaneous (Carbohydrates For Hypoglycemia) 15 - 30 gm PO UD PRN PRN Reason: Hypoglycemia Protocol Stop: 11/18/19 07:42 Miscellaneous Information (Pharmacy Consult) 1 ea N/A UD PRN PRN Reason: Consult Stop: 11/18/19 15:24 Miscellaneous Information (Pharmacist Discharge Med Rec Consult) 1 ea N/A UD PRN PRN Reason: Consult Stop: 11/18/19 15:22 Miscellaneous Information (Consult) 1 ea N/A UD PRN PRN Reason: Consult Stop: 12/02/19 08:38 Nitroglycerin (Nitrostat) 0.4 mg SL UD PRN PRN Reason: Pain Stop: 11/18/19 07:42 Polyethylene Glycol (Miralax Powder Packet) 17 gm PO DAILY [facility] Stop: 12/01/19 16:44 Last Admin: 11/01/19 17:38 Dose: 17 gm Documented by: Potassium Chloride (Klor-Con M20) 40 meq PO DAILY [facility] Stop: 11/30/19 12:44 Last Admin: 11/01/19 08:32 Dose: 40 meq Documented by: Simethicone (Mylicon) 80 mg PO Q6H PRN PRN Reason: bloating Stop: 12/01/19 16:40 Terazosin HCl (Hytrin) 5 mg PO 1999 [facility] Stop: 11/18/19 19:59 Last Admin: 11/01/19 22:03 Dose: Not Given Documented by: (1) Renal failure (ARF), acute on chronic Acute renal failure type: unspecified Chronic kidney disease stage: stage 5, not on chronic dialysis Qualified Code(s): N17.9 - Acute kidney failure, unspecified; N18.5 - Chronic kidney disease, stage 5
[2019-11-03] MEDS ORDERED: SODIUM CHLORIDE 0.9% 1000ML 1,000 ML IV PRN (08:01)
[2019-11-03] MEDS ORDERED: HEPARIN SOD (PORCINE) 1000 UNIT/ML 10 ML VIAL IV ONE (08:01)
[2019-11-03] MEDS ORDERED: HEPARIN SOD (PORCINE) 1000 UNIT/ML 10 ML VIAL IV SCH (09:00)
[2019-11-03] MEDS: INSULIN GLARGINE SOLOSTAR 100 UNITS/ML 3 ML PEN SC SCH ×2 (09:55→21:50)
--- NOTE | 2019-11-03 11:25 | Surgery Progress Note ---
Date of Service November 03, 2019 Assessment & Plan (1) Free intraperitoneal air: no worse, possibly a little better than yesterday. more lucid today. abdominal exam slightly improved continue current care would keep NPO/NGT until Wednesday or Wednesday...if still doing well at that point will consider an UGI will call family later today Dr. Garcia covering for weekend. Subjective pt seen. alert. sitting up. NAD. currently denies abdominal pain. Physical Exam Physical Exam: alert. oriented. answers appropriately does not appear to be in pain abd: soft. distended. +upper abdominal ttp. less than yesterday. Results & Data Vital Signs (Past 12 Hours) Vital Signs Temp Pulse Pulse Pulse Resp BP Pulse Ox 11/03/19 10:20 36.4 C L 76 11/03/19 07:42 36.4 C L 82 33 H 148/81 H 90 11/03/19 04:00 36.6 C 79 14 156/73 H 92 PG Care Time/CCT Total # of Minutes Spent Total Time Spent with Patient: Total time spent is greater than 50% in coordination of care (as documented) at patient's floor/unit and/or counseling patient: Coding Level of Care Code 28039 Subseq Hosp Care Lvl 3 Diagnoses Free intraperitoneal air K66.8
--- NOTE | 2019-11-03 12:46 | Palliative Care Progress Note ---
Date of Service November 03, 2019 Assessment & Plan (1) Goals of care, counseling/discussion: -74 year old male patient with PMH chronic diastolic heart failure (EF 65% TTE 2018), CAD status post stent, aortic stenosis status post TAVR, hypertension, hyperlipidemia, DM 2 insulin requiring, chronic back pain, CKD (baseline creatinine 3.6), chronic anemia (baseline hemoglobin of 8), history of uric acid stones, and others, was admitted to the hospital two weeks ago for sepsis 2/2 complicated UTI, encephalopathy possibly related to worsening renal function, and congestion on CXR. Patient was apparently feeling SOB at home, had abnormal outpatient labs: Na 125, creatinine 4.8 (up from baseline 3.5). CT scan showing a subacute right frontal infarct, CT of the abdomen pelvis showing a splenic infarction and an echocardiographic study that showed no evidence for valvular vegetations but it shows a hypokinetic segment that had been noted previously and an EF of 45%. Cardiology, nephrology, and neurology consulted. Patient did grow strep in blood cultures, was treated as possible strep end ocarditis. Repeat echocardiogram on 10/25 did show vegetation type lesion on aortic valve. Cardiology discussed with patient and that he is not a candidate for another valve replacement-- they agreed. Plan to continue abx, possibly lifelong. Renal function fluctuated during admission, but eventually worsened to the point of possible need for dialysis. Temporary dialysis catheter placed, dialysis initiated on 10/29. Yesterday, patient began c/o abdominal pain and trouble passing gas/BM. CT abd showed intraperitoneal free air of unknown etiology. Surgical consultation obtained-- patient is very poor surgical candidate. This was discussed with patient's and she understands. No plan for surgery at this time--patient is NPO and NGT placed. Patient's prognosis is now extremely poor. Patient had voiced desire to return home, he is aware that his prognosis is not good. Patient was encouraged by surgeries progress visit this a.m., willing to stay and continue current treatment. -If patient changes his mind and wants to return home-Case management has all the paperwork necessary for hospice referral. 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 -Spoke with patient's /POA, Richelle Stallings. Discussed all of the above conditions. Discussed her role as to support her 's decisions. - as well as 2 sons were able to visit patient yesterday -For now, patient and family would like to continue with current care. -We will continue to follow and provide support with medical decision making (2) Free intraperitoneal air: (3) Sepsis: (4) ESRD (end stage renal disease): (5) Prosthetic valve endocarditis: Subjective Patient resting comfortably, receiving HD Patient had made statements regarding wanting to go home, agreeable to hospice care. Patient was encouraged by surgery's report of his abdominal free air improving-patient willing to stay and continue his current treatment. Spoke with patient's , Richelle, [phone], reviewed this morning's events with her, hospice referral is ready to go if patient and family changes their mind over the weekend. Review of Systems Review of Systems: Unobtainable due to cognitive status Physical Exam Physical Exam: Patient comfortable, NAD Respirations: Unlabored, increased respiratory rate CV: Regular rate, no edema Abdomen: Distended Results & Data Vital Signs (Past 12 Hours) Vital Signs Temp Pulse Pulse Pulse Pulse Resp BP 11/03/19 12:30 84 137/71 11/03/19 12:09 98.2 F 82 27 H 11/03/19 12:00 83 149/69 H 11/03/19 11:30 83 130/64 11/03/19 11:00 61 144/86 H 11/03/19 10:20 97.5 F L 76 11/03/19 08:00 83 11/03/19 07:42 97.5 F L 82 33 H 11/03/19 04:00 97.9 F 79 14 BP BP Pulse Ox 11/03/19 12:30 11/03/19 12:09 149/69 H 95 11/03/19 12:00 11/03/19 11:30 11/03/19 11:00 11/03/19 10:20 11/03/19 08:00 11/03/19 07:42 148/81 H 90 11/03/19 04:00 156/73 H 92 PG Care Time/CCT Total # of Minutes Spent Total Time Spent with Patient: Total time spent 25 minutes with greater than 50% of the time assessing patient on the unit as well as speaking to patient's by phone. Coding Level of Care Code 52091 Subseq Hosp Care Lvl 2 Diagnoses Goals of care, counseling/discussion Z71.89 Free intraperitoneal air K66.8 Sepsis A41.9 ESRD (end stage renal disease) N18.6 Prosthetic valve endocarditis T82.6XXA; I38 Time Spent (min) 25
[2019-11-03] MEDS: HEPARIN SOD (PORCINE) 1000 UNIT/ML 10 ML VIAL IV SCH ×2 (13:15→13:16)
[2019-11-03] MEDS: AMPICILLIN 2,000 MG in SODIUM CHLOR 0.9% AD-VAN 100 ML IV SCH ×2 (14:14→21:49)
--- NOTE | 2019-11-03 14:38 | Dialysis Progress Note ---
Date of Service November 03, 2019 Assessment & Plan (1) Renal failure (ARF), acute on chronic: nonoliguric KARTHIK on CKD4 due to ischemic ATN in setting of bacteremia, prosthetic valve IE>> now ESRD. Electrolytes are acceptable. He has unfortunately had a clinical downturn 10/31 with discovery of free intraperitoneal air of unclear etiology for which he is not a surgical candidate. -first HD 10/29; -No change to blood pressure medications today -Monitor renal function with daily BMP -plan next HD November 05 or as clinical needs dictate; tolerated 2 L off today -Would keep Boyd catheter for now -Plan had been to replace temporary dialysis catheter with tunneled line on November 02; this is deferred given his change in clinical status with intraperitoneal free air (2) Prosthetic valve endocarditis: With 1.5 cm highly mobile aortic valve vegetation and E faecalis bacteremia last positive culture October 21. Not a surgical candidate for this issue. He will need long-term antibiotics. on ampicillin and ceftriaxone. Avoid PICC line. Patient can get midline catheter for antibiotics at home if needed/ if we get to that point clinically --overall prognosis poor -blood cxs repeated 10/29 and NGTD -temp line placed 10/29 (3) Hypokalemia: 10/28 had IV K x 60 mEq. 10/29 had another 20 mEq IV K; needed 40 meq 10/30 and 10/31. K improved/normalized for today; all K supplements held -hold supplements for now given change in status >daily bmp Subjective Seen on dialysis which he is tolerating; remains confused and requires a sitter. States abdominal pain is better still flares. Had a 12 beat run of V. tach asymptomatic 5 minutes after starting treatment; no further arrhythmias on treatment Review of Systems Review of Systems: All systems reviewed & are unremarkable except as noted in HPI & below Limited review of systems due to confusion Physical Exam Constitutional: well developed and well nourished Oriented to self only; less agitated today Eyes: EOM intact bilaterally ENMT: Ears: no external ear abnormality Nose: no external nose abnormality Mouth: + dry oral mucous membranes Neck: no nuchal rigidity Respiratory: normal respiratory effort and + tachypneic; no cough Auscultation: + diminished lung sounds Cardiovascular: Rate/Rhythm: regular rate and regular rhythm Extremities: + edema (trace BL ankle) Gastrointestinal (Abdomen): Inspection/Auscultation: + abdomen distended and normal bowel sounds Percussion/Palpation: + abdomen tender (Diffusely), + guarding and abdomen soft Remains with nasogastric tube Musculoskeletal: Extremities: strength 5/5 throughout Skin: no rashes, warm and dry Psychiatric: Orientation: alert and oriented to person Eye Contact: + fair eye contact Motor Behavior: no abnormal motor movements and + psychomotor retardation Insight: + limited insight Judgement: + limited judgement Genitourinary: Boyd with scant urine Results & Data Vital Signs (Past 12 Hours) Vital Signs Temp Pulse Pulse Pulse Pulse Resp BP 11/03/19 14:10 36.5 C 86 11/03/19 13:30 96 H 117/60 11/03/19 13:00 100 H 124/74 11/03/19 12:30 84 137/71 11/03/19 12:09 36.8 C 82 27 H 11/03/19 12:00 83 149/69 H 11/03/19 11:30 83 130/64 11/03/19 11:00 61 144/86 H 11/03/19 10:20 36.4 C L 76 11/03/19 08:00 83 11/03/19 07:42 36.4 C L 82 33 H 11/03/19 04:00 36.6 C 79 14 BP BP Pulse Ox 11/03/19 14:10 110/64 11/03/19 13:30 11/03/19 13:00 11/03/19 12:30 11/03/19 12:09 149/69 H 95 11/03/19 12:00 11/03/19 11:30 11/03/19 11:00 11/03/19 10:20 11/03/19 08:00 11/03/19 07:42 148/81 H 90 11/03/19 04:00 156/73 H 92 Laboratory Results 11/03/19 04:48 11/03/19 04:36 (1) Renal failure (ARF), acute on chronic Acute renal failure type: unspecified Chronic kidney disease stage: stage 5, not on chronic dialysis Qualified Code(s): N17.9 - Acute kidney failure, unspecified; N18.5 - Chronic kidney disease, stage 5
[2019-11-03] MEDS: cefTRIAXone SODIUM 2,000 MG in DEXTROSE 5% 50 ML IV SCH (15:33)
[2019-11-03] MEDS: FLUCONAZOLE 200 MG/100 ML BAG IV SCH ×2 (15:34→16:22)
[2019-11-04] MEDS: metroNIDAZOLE 500 MG/100 ML BAG IV SCH ×3 (01:01→17:26)
[2019-11-04] MEDS: INSULIN ASPART 100 UNITS/ML 3 ML PEN SC SCH ×4 (01:02→18:29)
[2019-11-04] MEDS: ACETAMINOPHEN 1,000 MG/100 ML VIAL IV SCH ×3 (01:49→17:32)
[2019-11-04] MEDS: PANTOprazole 40 MG in DEXTROSE 5% 100 ML IV SCH ×4 (02:22→17:32)
[2019-11-04 04:49] LABS: Partial Thromboplastin Ratio 1.7
[2019-11-04 05:12] LABS: BUN Creatinine Ratio 8.5 (10-20); Calcium 7.9 mg/dl (8.5-10.1); Creatinine Clr Calc Pharmacy 19.6 ml/min; Est GFR (African American) 20.2; Est GFR (Non-African American) 17.4; Potassium 4.1 mmol/L (3.5-5.1)
[2019-11-04 05:29] LABS: Hematocrit (blood only) 34.7 % (42-52); Hemoglobin 11.1 g/dL (14.0-18.0); Mean Corpuscular Hemoglobin 32.7 pg (25-34); Mean Corpuscular Volume 102.4 fL (80-100); Mean Platelet Volume 12.9 fL (7.4-10.4); Nucleated RBC # (auto) 0.74 K/uL (0-0); Nucleated RBC % (auto) 4.9 %; Platelet Count 105 K/uL (130-400); Platelet Estimate Decreased (Normal); RDW Coefficient of Variation 20.3 % (11.5-14.5); RDW Standard Deviation 71.2 fL (36.4-46.3); Red Blood Count 3.39 M/uL (4.7-6.1); White Blood Count 14.93 K/uL (4.8-10.8)
[2019-11-04] MEDS: cefTRIAXone SODIUM 2,000 MG in DEXTROSE 5% 50 ML IV SCH ×2 (05:48→17:46)
--- NOTE | 2019-11-04 07:47 | Hospitalist Progress Note ---
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 /JUAN JOSE not done as pt is high risk for the procedure and will not change the treatment plan pt is a poor candidate for valve replacement surgery given large aortic valve vegetation with septic embolic -per cardiology , pt may need life long suppressive antibiotic possibly in form of oral dose will need PICC line placement will order for PICC line after vascular procedure /dialysis catheter placement Pt will need weekly cbc, cmp, esr while on IV therapy and will likely need serial echo as well. / will need to establish care with ID for remainder of course. -Discussed with Richelle, the patient will need ID follow-up, currently interested in [facility] as unfortunately there is no ID in this area available (3) S/P TAVR (transcatheter aortic valve replacement): Severe aortic stenosis status post tucker valve TAVR bioprosthetic replacement April 2017 admitted with hx of fatigue , poor endurance blood cultures positive for entercocci ECHO highly mobile, linear 1.5 cm lesion on the aortic aspect of the bioprosthetic aortic valve Too high risk for JUAN JOSE and no likely change in outcome per cardiology : the patient is a very high risk of perioperative mortality and surgical aortic valve replacement is not an option, this was also discussed with patient's , who is in agreement will need life long suppressive abx (4) Free intraperitoneal air: Patient developed abdominal pain in the afternoon of May 20, after his dialysis -At first pt complained of bloating and excessive gas pain, KUB was obtained and negative for any free air or obstruction -Pain then resolved however recurred later in the evening -CT abdomen pelvis was obtained, especially due to concern for bleeding as patient was on IV heparin -Free intraperitoneal air was noted as well as possible acute cholecystitis -Surgery was consulted overnight, Dr. Mcclure evaluated patient and discussed the case with the family, patient is very high risk for surgery, medical management only -Added to his antibiotic regimen IV Flagyl, IV Diflucan, also started IV PPI -Given his other comorbidities, very poor prognosis -Patient's family aware and do not wish to proceed with surgical treatment -Also discussed possible transfer with Dr. Mcclure, does not believe that it would be helpful (5) CKD (chronic kidney disease) stage 4, GFR 15-29 ml/min: baseline advanced CKD stage 4-5 pt is showing s/s of progression of end stage renal disease his severe fatigue /anorexia /Nausea -could be part of the uremic symptoms Vascular surgery consulted due to evidence of possible ongoing infection, pt had temporary dialysis catheter placed started on dialysis will need Perm cath placement, after repeat blood culture negative for 48 hours will need set up for out patient dialysis per nephrology -discussed with Dr. Pineda, plan for [facility] dialysis -Plan for permanent catheter per vascular surgery on November 02 -however given complications/free intraperitoneal air, will hold off (6) Renal failure (ARF), acute on chronic: Nephrology consulted and appreciate their input Started dialysis during this hospital stay s/p temporary dialysis catheter placement Plan for permanent catheter placement on November 02 - however due to recent complications, will hold off (7) Coagulopathy: Lupus anticoagulant positive on lab draw 10/19/2019-reference lab result available normal factor VIII activity Dr. Porter discussed case over the phone with hematology /oncology, Dr. Andersen Patient will need to be on therapeutic anticoagulation- high risk for thromboembolic event given positive lupus anticoagulant Patient already has evidence of embolic CVA noted in MRI of brain as well as splenic infarct. Patient started on IV heparin low-dose, no bolus Dual antiplatelets aspirin and Plavix discontinued to reduce bleeding risk pt will need life long anticoagulation -in form of Coumadin on IV heparin can be started on Coumadin after perm cath placement Anticoagulation discussed in detail with cardiology and also with patient's . As previously thought that anticoagulation would not be recommended for the patient as septic emboli have increased risk of hemorrhagic conversion. 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 MRI brain showed Multiple scattered punctate acute infarcts as described above most pronounced within the right frontal lobe. Focal area of edema seen within the right frontal lobe infarct with associated increased T1 signal. This could correspond to the associated calcifications in the setting of a subacute to chronic infarct or possibly petechial hemorrhage pt started on IV heparin -high risk for repeated embolic phenomenon with positive lupus anticoagulant /now IV heparin on hold due to above complications treatment of valve endocarditis as outlined above (9) Non-ST elevation (NSTEMI) myocardial infarction: Troponin on admission 10.3 then peaked at 18.1 Echo performed with no acute wall motion abnormality present. EF is 45-50%. Cardiology on board recommended medical management On Metoprolol Aspirin and Plavix D/jil pt started on IV heparin for coagulopathy no complain of chest pain or discomfort (10) Lower back pain: MRI lumbar showed no fractures of fixation within the lumbar spine. Soft tissue edema within the bilateral erector spinae muscles at the lumbar region. A 1.7 cm lesion within the right psoas muscle which contains a fluid fluid level and hypointense rim. Cont oxycodone (taken BID chronically) and scheduled Tylenol. pain is well controlled at current regimen Continue PT/OT -recommends rehab -pt and refused Rehab plan is to return home with home health and home PT Also discussed possibility of going home on hospice if pt clinically not improving (11) Metabolic acidosis: resolved (12) Anemia in chronic kidney disease (CKD): due to advanced CKD , acute illness with bacteremia /endocarditis s/p 1 unit of PRBC transfusion (13) Diabetes mellitus: Continue Lantus and novolog sliding scale Continue monitor BS Atrial fibrillation: on beta pau IV heparin will start coumadin once vascular procedure is done Now holding off anticoagulation d/t above new complications/ free peritoneal air (14) Hypertension: Continue amlodipine, clonidine, hydralazine, imdur, metoprolol BP stable (15) DVT prophylaxis: SCDs previously on IV heparin - currently on hold d/t surg. complication/ free intrap. air Full Code DISPOSITION: called pt's Richelle, updated her on clinical status of her , discussed at length treatment plan, answered all questions Initially plan for disposition was to return home as family and patient want to return home after hospital discharge with home health nursing and home IV antibiotic Pt and family understand pt will need chronic dialysis - case management already d/w regarding outpt dialysis set up, plan for [facility] outpatient dialysis Discussed need for ID follow-up, and unfortunately there is no ID in this area, currently interested in [facility] Due to recent complications, hospitalization will be likely prolonged, disposition questionable at this time. Yesterday (11/02) pt and family very much interested in home hospice. CM aware and arrangements made for home hospice. After further discussion with Dr. Mcclure, patient and family, patient decided to stay in hospital for now. CM ready to accommodate the pt if he changes his made and/or his clinical status worsens and family will like to proceed w/ home hospice. Admission and Anticipated Discharge Date Admission Date: October 19, 2019 Subjective Pt is sitting up in bed and seems less lucid than yesterday. Yesterday pt was alert and oriented and answered most questions appropriately. Today pt can't tell me where he is, he is awake but appears very tired. NG tube in place. Abdomen seems more distended but pt denies any abdominal pain and there's no tenderness to palpation either. Both upper extremities edematous today. Discussed w/ nursing staff as pt's identif. bracelets were too tight now. Also discussed w/ nephrology. Pt unde rwent HD yesterday and 2L UF. Plan to do HD again tomorrow. Dressings over dialysis catheter loose, discussed w/ dialysis nurse to place new dressings. Per surgery, will continue treatment course over the weekend, plan for UGI on Wednesday. WBC trending down. Plan for PPN or TPN as pt NPO and will be NPO for some time. Discussed w/ pharmacy and will consult dietitian as well. Updated Richelle over the phone. Review of Systems Review of Systems: Unobtainable due to cognitive status Pt denies fever, chills, chest pain, abdominal pain however less lucid today and not answering all questions appropriately Physical Exam Physical Exam: Constitutional: Elderly male, sitting up in bed, pale, WD/WN, vitals as above + ill appearing and less lucid today; NG tube placed Eyes: EOMI, PERRL, conjunctivae normal, anicteric sclerae ENMT: external ear and nose normal, oropharynx normal Neck: trachea midline, no thyromegaly Respiratory: Auscultation: + diminished lung sounds;+ crackles, no wheezes Cardiovascular: Irregular, soft syst.murmur Gastrointestinal (Abdomen): Percussion/Palpation:hypoactive bowel sounds, abdomen more distended than yesterday but soft and nontender to palpation Musculoskeletal: moves extremities spontaneously, upper extremities more edematous (1-2+ edema today) Neurologic: PERRL, EOMI, accommodation nl, no face palsy, no dysarthria, moves extremities spontaneously Psychiatric: Orientation: pt oriented to self only, appears tired and not answering most questions appropriately, affect: + flat affect Results & Data Results & Data ([facility]) Vital Signs (Past 12 Hours) Vital Signs Temp Pulse Resp BP Pulse Ox 11/04/19 07:44 36.5 C 93 H 26 H 131/69 94 11/04/19 04:00 36.4 C L 93 H 30 H 139/75 95 11/03/19 23:04 36.5 C 94 H 30 H 116/76 94 Laboratory Results 11/04/19 11/04/19 11/04/19 Range/Units 05:45 04:16 04:16 WBC 14.93 H (4.8-10.8) K/uL RBC 3.39 L (4.7-6.1) M/uL Hgb 11.1 L (14.0-18.0) g/dL Hct 34.7 L (42-52) % MCV 102.4 H (80-100) fL MCH 32.7 (25-34) pg MCHC 32.0 (32-36) g/dL RDW Std Deviation 71.2 H (36.4-46.3) fL RDW Coeff of Mindi 20.3 H (11.5-14.5) % Plt Count 105 L (130-400) K/uL MPV 12.9 H (7.4-10.4) fL Absolute Nucleated RBC 0.74 H (0-0) K/uL Nucleated RBC % (auto) 4.9 % Platelet Estimate Decreased L (Normal) APTT (21.0-31.0) Seconds PTT Ratio Sodium 140 (136-145) mmol/L Potassium 4.1 (3.5-5.1) mmol/L Chloride 105 (98-107) mmol/L Carbon Dioxide 21 (21-32) mmol/L Anion Gap 14.0 H (3-11) BUN 28 H (7-18) mg/dl Creatinine 3.28 H D (0.6-1.4) mg/dl Est Cr Clr Drug Dosing 19.6 ml/min Est GFR ( Amer) 20.2 Est GFR (Non-Af Amer) 17.4 BUN/Creatinine Ratio 8.5 L (10-20) Glucose 141 H (70-99) mg/dl POC Glucose 126 H (70-99) mg/dl Calcium 7.9 L (8.5-10.1) mg/dl Specimen Hemolysis 11/04/19 11/03/19 11/03/19 Range/Units 04:16 23:49 20:22 WBC (4.8-10.8) K/uL RBC (4.7-6.1) M/uL Hgb (14.0-18.0) g/dL Hct (42-52) % MCV (80-100) fL MCH (25-34) pg MCHC (32-36) g/dL RDW Std Deviation (36.4-46.3) fL RDW Coeff of Mindi (11.5-14.5) % Plt Count (130-400) K/uL MPV (7.4-10.4) fL Absolute Nucleated RBC (0-0) K/uL Nucleated RBC % (auto) % Platelet Estimate (Normal) APTT 47.0 H* (21.0-31.0) Seconds PTT Ratio 1.7 Sodium (136-145) mmol/L Potassium (3.5-5.1) mmol/L Chloride (98-107) mmol/L Carbon Dioxide (21-32) mmol/L Anion Gap (3-11) BUN (7-18) mg/dl Creatinine (0.6-1.4) mg/dl Est Cr Clr Drug Dosing ml/min Est GFR ( Amer) Est GFR (Non-Af Amer) BUN/Creatinine Ratio (10-20) Glucose (70-99) mg/dl POC Glucose 144 H 145 H (70-99) mg/dl Calcium (8.5-10.1) mg/dl Specimen Hemolysis 11/03/19 11/03/19 Range/Units 18:05 11:57 WBC (4.8-10.8) K/uL RBC (4.7-6.1) M/uL Hgb (14.0-18.0) g/dL Hct (42-52) % MCV (80-100) fL MCH (25-34) pg MCHC (32-36) g/dL RDW Std Deviation (36.4-46.3) fL RDW Coeff of Mindi (11.5-14.5) % Plt Count (130-400) K/uL MPV (7.4-10.4) fL Absolute Nucleated RBC (0-0) K/uL Nucleated RBC % (auto) % Platelet Estimate (Normal) APTT (21.0-31.0) Seconds PTT Ratio Sodium (136-145) mmol/L Potassium (3.5-5.1) mmol/L Chloride (98-107) mmol/L Carbon Dioxide (21-32) mmol/L Anion Gap (3-11) BUN (7-18) mg/dl Creatinine (0.6-1.4) mg/dl Est Cr Clr Drug Dosing ml/min Est GFR ( Amer) Est GFR (Non-Af Amer) BUN/Creatinine Ratio (10-20) Glucose (70-99) mg/dl POC Glucose 143 H 149 H (70-99) mg/dl Calcium (8.5-10.1) mg/dl Specimen Hemolysis Medications Administered Current Inpatient Medications Allopurinol (Zyloprim) 100 mg PO 1999 [facility] Stop: 11/18/19 19:59 Last Admin: 11/01/19 22:03 Dose: Not Given Documented by: Amlodipine Besylate (Norvasc) 10 mg PO 0800 [facility] Stop: 11/27/19 07:59 Last Admin: 11/01/19 08:33 Dose: 10 mg Documented by: Clonidine HCl (Catapres) 0.1 mg PO BID [facility] Stop: 11/27/19 08:59 Last Admin: 11/01/19 22:03 Dose: Not Given Documented by: Dextrose (Dextrose 50%) 25 - 50 ml IV UD PRN; Protocol PRN Reason: Hypoglycemia Protocol Stop: 11/18/19 07:42 Last Admin: 11/02/19 04:06 Dose: 25 ml Documented by: Glucagon (Glucagen) 1 mg SQ UD PRN; Protocol PRN Reason: Hypoglycemia Protocol Stop: 11/18/19 07:42 Glucose (Dex4 Glucose) 4 - 8 tabs PO UD PRN; Protocol PRN Reason: Hypoglycemia Protocol Stop: 11/18/19 07:42 Glucose (Glucose 40%) 15 - 30 gm PO UD PRN; Protocol PRN Reason: Hypoglycemia Protocol Stop: 11/18/19 07:42 Hydralazine HCl (Apresoline) 50 mg PO BID [facility] Stop: 12/01/19 08:59 Last Admin: 11/01/19 22:03 Dose: Not Given Documented by: Hydralazine HCl (Hydralazine Hcl) 7.5 mg IV Q6H PRN PRN Reason: Hypertension Stop: 12/02/19 01:38 Hydromorphone HCl (Dilaudid) 0.5 mg IV Q3H PRN PRN Reason: Pain Stop: 11/15/19 23:51 Last Admin: 11/02/19 04:18 Dose: 0.5 mg Documented by: Promethazine HCl 12.5 mg/ (Sodium Chloride) 50.5 mls @ 202 mls/hr IV Q6H PRN PRN Reason: Nausea And Vomiting Stop: 11/18/19 07:42 Last Infusion: 10/29/19 17:48 Dose: Infused Documented by: Heparin Sodium/Dextrose (Heparin Sodium/Dextrose) 25,000 units in 500 mls @ 18 mls/hr IV .Q24H [facility]; Protocol Stop: 11/25/19 10:29 Last Titration: 11/01/19 23:59 Dose: Infused Documented by: Ampicillin Sodium 2,000 mg/ (Sodium Chloride) 100 mls @ 200 mls/hr IV Q12H [facility]; Protocol Stop: 12/11/19 21:59 Last Infusion: 11/03/19 23:00 Dose: Infused Documented by: Metronidazole (Flagyl) 500 mg in 100 mls @ 100 mls/hr IV Q8H [facility]; Protocol Stop: 11/12/19 07:59 Last Infusion: 11/04/19 02:26 Dose: Infused Documented by: Pantoprazole Sodium 40 mg/ (Dextrose) 100 mls @ 20 mls/hr IV Q5H [facility] Stop: 12/02/19 08:59 Last Admin: 11/04/19 02:22 Dose: 8 mg/hr, 20 mls/hr Documented by: Acetaminophen (Ofirmev) 1,000 mg in 100 mls @ 400 mls/hr IV Q8H [facility] Stop: 11/05/19 08:59 Last Infusion: 11/04/19 02:27 Dose: Infused Documented by: Ceftriaxone Sodium 2,000 mg/ (Dextrose) 70 mls @ 140 mls/hr IV Q12H [facility] Stop: 12/15/19 15:59 Last Infusion: 11/04/19 06:28 Dose: Infused Documented by: Insulin Aspart (Novolog Flexpen) 0 units SC Q6 [facility] Stop: 12/02/19 05:59 Last Admin: 11/04/19 05:48 Dose: Not Given Documented by: Insulin Glargine (Lantus Solostar Pen) 5 units SC BID [facility] Stop: 11/22/19 20:59 Last Admin: 11/03/19 21:50 Dose: 5 units Documented by: Isosorbide Mononitrate (Imdur Extended Rel) 60 mg PO 0800 [facility] Stop: 11/18/19 07:59 Last Admin: 11/01/19 08:32 Dose: 60 mg Documented by: Lubiprostone (Amitiza) 8 mcg PO 0800,1999 [facility] Stop: 11/18/19 07:59 Last Admin: 11/01/19 22:03 Dose: Not Given Documented by: Metoprolol Tartrate (Lopressor) 50 mg PO TID [facility] Stop: 11/22/19 20:59 Last Admin: 11/01/19 21:16 Dose: Not Given Documented by: Metoprolol Tartrate (Lopressor) 2.5 mg IV Q6 PRN PRN Reason: Hypertension Stop: 12/02/19 05:59 Miscellaneous (Carbohydrates For Hypoglycemia) 15 - 30 gm PO UD PRN PRN Reason: Hypoglycemia Protocol Stop: 11/18/19 07:42 Miscellaneous Information (Pharmacy Consult) 1 ea N/A UD PRN PRN Reason: Consult Stop: 11/18/19 15:24 Miscellaneous Information (Pharmacist Discharge Med Rec Consult) 1 ea N/A UD PRN PRN Reason: Consult Stop: 11/18/19 15:22 Miscellaneous Information (Consult) 1 ea N/A UD PRN PRN Reason: Consult Stop: 12/02/19 08:38 Nitroglycerin (Nitrostat) 0.4 mg SL UD PRN PRN Reason: Pain Stop: 11/18/19 07:42 Polyethylene Glycol (Miralax Powder Packet) 17 gm PO DAILY [facility] Stop: 12/01/19 16:44 Last Admin: 11/01/19 17:38 Dose: 17 gm Documented by: Potassium Chloride (Klor-Con M20) 40 meq PO DAILY [facility] Stop: 11/30/19 12:44 Last Admin: 11/01/19 08:32 Dose: 40 meq Documented by: Simethicone (Mylicon) 80 mg PO Q6H PRN PRN Reason: bloating Stop: 12/01/19 16:40 Terazosin HCl (Hytrin) 5 mg PO 1999 [facility] Stop: 11/18/19 19:59 Last Admin: 11/01/19 22:03 Dose: Not Given Documented by: (1) Renal failure (ARF), acute on chronic Acute renal failure type: unspecified Chronic kidney disease stage: stage 5, not on chronic dialysis Qualified Code(s): N17.9 - Acute kidney failure, unspecified; N18.5 - Chronic kidney disease, stage 5
[2019-11-04] MEDS: INSULIN GLARGINE SOLOSTAR 100 UNITS/ML 3 ML PEN SC SCH (09:51)
[2019-11-04] MEDS: AMPICILLIN 2,000 MG in SODIUM CHLOR 0.9% AD-VAN 100 ML IV SCH (11:24)
--- NOTE | 2019-11-04 11:53 | Surgery Progress Note ---
Date of Service November 04, 2019 Assessment & Plan (1) Free intraperitoneal air: 74 yr old man with multiple medical issues and diagnosis of free air on CT scan, being managed nonoperatively due to overall poor medical condition. Plan to keep ng in over the weekend, UGI series on wednesday to rule out continued leak prior to consideration of ng removal. Dr. Mcclure has had extensive discussions with . Hospice / palliative care also involved. No new recommendations. Subjective Arousable but does not answer questions coherently. Appears to say it hurts when abdomen is pushed on. NG in place. Most recent KUB and CXR no longer revealed fr ee air. Review of Systems Review of Systems: Unobtainable due to cognitive status Physical Exam Gastrointestinal (Abdomen): Inspection/Auscultation: + abdomen distended; + abnormal bowel sounds (hypoactive) Percussion/Palpation: + abdomen tender (appears to say it hurts when abdomen is palpated) and abdomen soft; no guarding Results & Data Vital Signs (Past 12 Hours) Vital Signs Temp Pulse Pulse Resp BP Pulse Ox 11/04/19 11:36 36.8 C 88 35 H 99/57 L 94 11/04/19 07:44 36.5 C 93 H 26 H 131/69 94 11/04/19 04:00 36.4 C L 93 H 30 H 139/75 95 Laboratory Results 11/04/19 11/04/19 11/04/19 Range/Units 11:15 08:59 05:45 WBC (4.8-10.8) K/uL RBC (4.7-6.1) M/uL Hgb (14.0-18.0) g/dL Hct (42-52) % MCV (80-100) fL MCH (25-34) pg MCHC (32-36) g/dL RDW Std Deviation (36.4-46.3) fL RDW Coeff of Mindi (11.5-14.5) % Plt Count (130-400) K/uL MPV (7.4-10.4) fL Absolute Nucleated RBC (0-0) K/uL Nucleated RBC % (auto) % Platelet Estimate (Normal) APTT (21.0-31.0) Seconds PTT Ratio Sodium (136-145) mmol/L Potassium (3.5-5.1) mmol/L Chloride (98-107) mmol/L Carbon Dioxide (21-32) mmol/L Anion Gap (3-11) BUN (7-18) mg/dl Creatinine (0.6-1.4) mg/dl Est Cr Clr Drug Dosing ml/min Est GFR ( Amer) Est GFR (Non-Af Amer) BUN/Creatinine Ratio (10-20) Glucose (70-99) mg/dl POC Glucose 101 H 126 H (70-99) mg/dl Calcium (8.5-10.1) mg/dl Magnesium 2.1 (1.8-2.4) mg/dl Specimen Hemolysis 11/04/19 11/04/19 11/04/19 Range/Units 04:16 04:16 04:16 WBC 14.93 H (4.8-10.8) K/uL RBC 3.39 L (4.7-6.1) M/uL Hgb 11.1 L (14.0-18.0) g/dL Hct 34.7 L (42-52) % MCV 102.4 H (80-100) fL MCH 32.7 (25-34) pg MCHC 32.0 (32-36) g/dL RDW Std Deviation 71.2 H (36.4-46.3) fL RDW Coeff of Mindi 20.3 H (11.5-14.5) % Plt Count 105 L (130-400) K/uL MPV 12.9 H (7.4-10.4) fL Absolute Nucleated RBC 0.74 H (0-0) K/uL Nucleated RBC % (auto) 4.9 % Platelet Estimate Decreased L (Normal) APTT (21.0-31.0) Seconds PTT Ratio Sodium 140 (136-145) mmol/L Potassium 4.1 (3.5-5.1) mmol/L Chloride 105 (98-107) mmol/L Carbon Dioxide 21 (21-32) mmol/L Anion Gap 14.0 H (3-11) BUN 28 H (7-18) mg/dl Creatinine 3.28 H D (0.6-1.4) mg/dl Est Cr Clr Drug Dosing 19.6 ml/min Est GFR ( Amer) 20.2 Est GFR (Non-Af Amer) 17.4 BUN/Creatinine Ratio 8.5 L (10-20) Glucose 141 H (70-99) mg/dl POC Glucose (70-99) mg/dl Calcium 7.9 L (8.5-10.1) mg/dl Magnesium (1.8-2.4) mg/dl Specimen Hemolysis 11/04/19 11/03/19 11/03/19 Range/Units 04:16 23:49 20:22 WBC (4.8-10.8) K/uL RBC (4.7-6.1) M/uL Hgb (14.0-18.0) g/dL Hct (42-52) % MCV (80-100) fL MCH (25-34) pg MCHC (32-36) g/dL RDW Std Deviation (36.4-46.3) fL RDW Coeff of Mindi (11.5-14.5) % Plt Count (130-400) K/uL MPV (7.4-10.4) fL Absolute Nucleated RBC (0-0) K/uL Nucleated RBC % (auto) % Platelet Estimate (Normal) APTT 47.0 H* (21.0-31.0) Seconds PTT Ratio 1.7 Sodium (136-145) mmol/L Potassium (3.5-5.1) mmol/L Chloride (98-107) mmol/L Carbon Dioxide (21-32) mmol/L Anion Gap (3-11) BUN (7-18) mg/dl Creatinine (0.6-1.4) mg/dl Est Cr Clr Drug Dosing ml/min Est GFR ( Amer) Est GFR (Non-Af Amer) BUN/Creatinine Ratio (10-20) Glucose (70-99) mg/dl POC Glucose 144 H 145 H (70-99) mg/dl Calcium (8.5-10.1) mg/dl Magnesium (1.8-2.4) mg/dl Specimen Hemolysis 11/03/19 11/03/19 Range/Units 18:05 11:57 WBC (4.8-10.8) K/uL RBC (4.7-6.1) M/uL Hgb (14.0-18.0) g/dL Hct (42-52) % MCV (80-100) fL MCH (25-34) pg MCHC (32-36) g/dL RDW Std Deviation (36.4-46.3) fL RDW Coeff of Mindi (11.5-14.5) % Plt Count (130-400) K/uL MPV (7.4-10.4) fL Absolute Nucleated RBC (0-0) K/uL Nucleated RBC % (auto) % Platelet Estimate (Normal) APTT (21.0-31.0) Seconds PTT Ratio Sodium (136-145) mmol/L Potassium (3.5-5.1) mmol/L Chloride (98-107) mmol/L Carbon Dioxide (21-32) mmol/L Anion Gap (3-11) BUN (7-18) mg/dl Creatinine (0.6-1.4) mg/dl Est Cr Clr Drug Dosing ml/min Est GFR ( Amer) Est GFR (Non-Af Amer) BUN/Creatinine Ratio (10-20) Glucose (70-99) mg/dl POC Glucose 143 H 149 H (70-99) mg/dl Calcium (8.5-10.1) mg/dl Magnesium (1.8-2.4) mg/dl Specimen Hemolysis
[2019-11-04] MEDS: DEXTROSE 50% 50 ML SYRINGE IV PRN (17:56)
[2019-11-04] MEDS ORDERED: TPN/PPN CONSULT PHARMACY PRN (20:20)
[2019-11-04] MEDS ORDERED: FOLIC ACID 1 MG in SYRINGE 9.8 ML IV SCH (20:30)
[2019-11-04] MEDS ORDERED: THIAMINE HCL 100 MG in SYRINGE 9 ML IV SCH (20:30)
[2019-11-04] MEDS ORDERED: RAPID SEQUENCE INDUCTION BAG ONE (20:51)
[2019-11-04] MEDS ORDERED: STAT IV Infusion **Titration per Protocol STA (20:57)
--- NOTE | 2019-11-04 20:59 | Communication Note ---
Date of Service: November 04, 2019 Alcira horowitz called around 7:30 PM. Upon arrival at PCU room from ICU, patient noted to have decreased responsiveness. SBP 70s, O2 sats 80s. BSG noted to be 60s. Patient given dextrose amp. Transfer to ICU for possible pressor Rx and closer monitoring. Patient and son updated over the phone. Given potential for further clinical deterioration and following earlier discussion with palliative care, patient family requested current FULL CODE status to be de-escalated to DNR. Continue medical management. RIZWAN Elmore (ICU provider) updated over the phone of family decision. At time of my phone conversation with the family, patient had been intubated at PCU due to worsening clinical status. Mr. Campbell will call family to update them of developments.
--- NOTE | 2019-11-04 21:25 | XRay Report ---
XR chest 1V portable HISTORY: Altered mental status. AMS unable to maintain airway hypoxia COMPARISON: Chest 11/02/2019. FINDINGS: The endotracheal tube terminates 3.3 cm from the elkin. Nasogastric tube terminates below the diaphragm. The tip is not included on this study. Cardiac valve stent is again noted. The heart r emains enlarged. Small bilateral pleural effusions, left greater than right and bibasilar densities p ersist. Left jugular central venous catheter terminates at the proximal SVC. The pulmonary edema has almost completely resolved. IMPRESSION: 1. Satisfactory support line placement. 2. Near-complete resolution of the pulmonary edema. 3. Bibasilar densities and small bilateral pleural effusions persist. ACT 112: Negative or not required by law. Electronically signed by: Mike Meeks M.D. 11/04/2019 9:24 PM
[2019-11-04 21:32] LABS: iSTAT Allen Test Pass; iSTAT Arterial Blood Gas HCO3 12 meg/L (19-24); iSTAT Arterial Blood Gas pCO2 35 mmHg (35-46); iSTAT Arterial Blood Gas pH 7.13 (7.35-7.45); iSTAT Arterial Blood Gas pO2 76 mmHg (80-95); iSTAT Carbon Dioxide 13 mmol/L (24-31); iSTAT FiO2 15 %; iSTAT Site R Radial
[2019-11-04 21:36] LABS: Hemoglobin 10.7 g/dL (14.0-18.0); Mean Corpuscular Hemoglobin 32.7 pg (25-34); Mean Corpuscular Hgb Conc 30.6 g/dL (32-36); Mean Platelet Volume 12.4 fL (7.4-10.4); Nucleated RBC # (auto) 2.17 K/uL (0-0); Platelet Count 76 K/uL (130-400); RDW Coefficient of Variation 20.8 % (11.5-14.5); Red Blood Count 3.27 M/uL (4.7-6.1); White Blood Count 19.73 K/uL (4.8-10.8)
[2019-11-04 21:37] LABS: Platelet Estimate Decreased (Normal)
--- NOTE | 2019-11-04 21:38 | Critical Care Consultation ---
Date of Consultation November 04, 2019 Assessment & Plan (1) Shock: Patient emergently intubated following code purple with respiratory compromise and agonal breathing, hypotension. ABG showed metabolic acidosis and lactate was 13. Given the significantly elevated lactate, this is likely an abd ominal origin, however patient is not a candidate for surgical intervention. Family is aware of this and per our discussion the patient is no escalation of care. We will continue to run vasoactive medications for cardiovascular support and will continue with ventilator management until family comes to the bedside and will have further discussion of goals of care at that point. In the event patient should arrest he is DNR per family wishes. Prognosis is extremely poor and family is aware. Continue medical management for the time being, will likely withdraw if patient survives until family arrival. I have personally spent 60 minutes of critical care time in the direct management of this patient. This is a life/limb threatening event. This includes time spent evaluating patient, direct bedside care, chart review, placing orders, interpretation of diagnostic studies, discussion with consultants, patient, and family members, as well as other required patient management activities. This time is exclusive of all separately billable procedures, and teaching time and separate from and in addition to any other critical care service time. Thank you for allowing us to participate in the care of this patient. Please refer to my attending physician's documentation for any further recommendations. (2) Respiratory failure: (3) ESRD (end stage renal disease): (4) Sepsis: (5) Free intraperitoneal air: (6) Goals of care, counseling/discussion: (7) Embolic stroke: (8) Prosthetic valve endocarditis: (9) Metabolic acidosis: (10) Splenic infarct: Supervising Physician Co-Signing Physician Notes I was made aware of this patient via telephone during morning signout. I agree with the documentation, assessment and plan as above. History of Present Illness Attending Physician: Larry Maloney MD History of Present Illness Mr. Stallings is a 74-year-old male with multiple comorbidities, currently being treated for acute renal failure undergoing dialysis, endocarditis, and had free air in the abdomen on CT scanning and was deemed to be not a candidate for surgical intervention as he has too many comorbidities. Palliative has been following and there was discussion with patient going home on hospice, however he has remained a full code. I responded to a code purple in which the patient was found to be agonal breathing, hypotensive, hypoxic. Patient was emergently intubated, EKG is unremarkable, he did have a BG of 65 and was given half amp of D10 but did not improve. He was started on epinephrine drip and given 1 amp of bicarb and transferred to the ICU to stabilize. ABG showed a metabolic acidosis and lactate was elevated at 13. Given the elevated lactate, this is most likely abdominal in origin. I have spoken with family and they realize that he was alr guero not a candidate for surgery and his prognosis is extremely poor. They have now made him DNR with no escalation of care per our discussion. They are currently coming to the bedside. We will continue current management with ventilator and vasoactive drip for the time being with no escalation. Allergies Allergy/AdvReac Type Severity Reaction Status Date / Time Hceowha-Hgd-Fhu Reductase AdvReac Intermediate RHABDOMYOLYSIS Verified 10/28/19 15:21 Inhibitor FROM 06/2009 Home Medications Home Medications Medication Instructions Recorded Confirmed Type Lantus U-100 Insulin 18 unit SUBCUT QAM 03/24/18 10/19/19 History allopurinol 100 mg PO HS 03/24/18 10/19/19 History amlodipine 5 mg PO QAM 03/24/18 10/19/19 History clonidine HCl 0.2 mg PO TID 03/24/18 10/19/19 History clopidogrel 75 mg PO QAM 03/24/18 10/19/19 History hydralazine 100 mg PO TID 03/24/18 10/19/19 History isosorbide mononitrate 60 mg PO QAM 03/24/18 10/19/19 History metoprolol tartrate 50 mg PO TID 03/24/18 10/19/19 History nitroglycerin [Nitrostat] 0.4 mg SUBLINGUAL UD PRN 03/24/18 10/19/19 History oxycodone 10 mg PO TID 03/24/18 10/19/19 History furosemide 20 mg PO DAILY 10/19/19 10/19/19 History lubiprostone [Amitiza] 8 mcg PO BID 10/19/19 10/19/19 History terazosin 5 mg PO HS 10/19/19 10/19/19 History Patient History Medical History (Updated 11/04/19 @ 22:11 by RIZWAN Lamas) BPH (benign prostatic hyperplasia) Bronchitis HX-INHALER VERY OCC Cardiac murmur Chronic kidney disease STAGE 3-F/U DR HANSON Congestive heart failure Diabetes mellitus, type 2 ESRD (end stage renal disease) GERD (gastroesophageal reflux disease) Hyperlipidemia Hypertension Kidney stones On anticoagulant therapy SINCE 02/2017 Osteoarthritis Surgical History History of cardiac cath X 2 02/28/2017--2 stents History of colonoscopy History of cystoscopy WITH STENT PLACEMENT History of heart artery stent x2 02/2017 History of heart valve replacement AVR 04/2017 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 Beliefs That Will Affect Care: None Current Living Situation: Spouse Feels Safe at Home: Yes Smoking Status: Never smoker Second Hand Exposure: No ; Hx Alcohol Use: Yes Alcohol type: beer, wine and other Hx Substance Use: No Review of Systems Review of Systems: Unobtainable due to cognitive status and Unobtainable due to endotracheal tube Physical Exam Eyes: PERRL, conjunctivae normal, anicteric sclerae ENMT: external ear and nose normal, oropharynx normal Neck: trachea midline, no thyromegaly Respiratory: Bilateral breath sounds auscultated and clear, symmetrical chest wall movement, endotracheal tube 24 at the lips Cardiovascular: Sinus rhythm, hypotensive on epinephrine drip, anasarca, peripheral pulses palpable Gastrointestinal (Abdomen): Abdomen distended, unable to assess tenderness as patient is not cognitive, bowel sounds normal Skin: Skin is pale and mottled Neurologic: Patient unresponsive, pupils equal round reactive to light, patient nonresponsive to stimuli Psychiatric: KARRI Genitourinary: Boyd with dark urine Results & Data Results & Data ([facility]) Vital Signs (Past 12 Hours) Vital Signs Temp Pulse Resp BP Pulse Ox 11/04/19 11:36 36.8 C 88 35 H 99/57 L 94 Coding Level of Care Code Critical Care 1st 30-74 mins Diagnoses Shock R57.9 Respiratory failure J96.90 ESRD (end stage renal disease) N18.6 Sepsis A41.9 Free intraperitoneal air K66.8 Goals of care, counseling/discussion Z71.89 Embolic stroke I63.9 Prosthetic valve endocarditis T82.6XXA; I38 Metabolic acidosis E87.2 Splenic infarct D73.5
[2019-11-04 21:42] LABS: BUN Creatinine Ratio 9.5 (10-20); Calcium 7.8 mg/dl (8.5-10.1); Creatinine Clr Calc Pharmacy 14.2 ml/min; Est GFR (African American) 13.7; Est GFR (Non-African American) 11.8; Potassium 4.5 mmol/L (3.5-5.1)
[2019-11-04] MEDS ORDERED: SODIUM CHLORIDE 0.9% 10ML FLUSH IV ONE (21:46)
[2019-11-04] MEDS ORDERED: SODIUM BICARB 8.4% INJ 50 MEQ/50 ML SYR IV ONE (21:46)
[2019-11-04] MEDS ORDERED: ROCURONIUM BROMIDE 10 MG/ML 5 ML VIAL IV ONE (21:46)
--- NOTE | 2019-11-04 22:00 | Death Pronouncement Note ---
Date of Service November 04, 2019 Pronouncement Note Admission Date Admission Date: October 19, 2019 Contributing Factors (1) Free intraperitoneal air: Summary Additional details: PRONOUNCEMENT NOTE - Date: 11/04/2019 Time: 2146 I was contacted by nursing staff regarding the patients declining status and concerns for imminent demise. In short, patient was being treated for ESRD and started on dialysis, endocarditis, and was found to have free air in the abdomen which she was not a surgical candidate due to core morbidities. Palliative was following and there was talk of patient with hospice however he remained full code. Patient decompensated and code carlos manuel was called on PCU, which the patient was emergently intubated and placed on epinephrine drip. Discussion with family with goals of care after this event led to negative patient DNR with no escalation of care. The patient entered a junctional bradycardic rhythm on monitor which converted to V. fib which was pulseless and then PEA despite vasopressor and ventilator support. At that point, I was notified by nursing staff and came to the bedside to evaluate patient. Assessment: I presented to the patients room for evaluation. Upon assessment, the patient was found to be in a terminal state. Pupils were fixed and dilated without response. No palpable pulses appreciated. No spontaneous breaths noted. Heart sounds were absent. No response to painful stimuli. Time of : 2146 as pronounced by myself. Patients primary service was contacted and made aware of patient demise. Pronouncement section of the Certificate was filled out and signed by myself. Cause of : Primary -cardiac arrest Secondary -multisystem organ failure Contributing Causes of -metabolic acidosis Please feel free to contact me with any questions regarding the above-mentioned course. Additional Data Attending physician: Larry Maloney MD Coding Level of Care Code None Diagnoses Free intraperitoneal air K66.8
--- NOTE | 2019-11-05 09:51 | Electrocardiogram Report ---
Test Reason : Blood Pressure : / mmHG Vent. Rate : 070 BPM Atrial Rate : 070 BPM P-R Int : 166 ms QRS Dur : 108 ms QT Int : 466 ms P-R-T Axes : 006 -07 156 degrees QTc Int : 503 ms Sinus rhythm with Premature atrial complexes Inferior infarct (cited on or before 19-OCT-2019) Anterolateral infarct , age undetermined Voltage criteria for left ventricular hypertrophy T wave inversion consider lateral ischemia Prolonged QT Abnormal ECG When compared with ECG of 22-OCT-2019 23:31, Sinus rhythm has replaced Atrial fibrillation Anterolateral infarct is now Present T wave inversions in 1 and AVL are worse Confirmed by Davi Little ([id number]) on 11/05/2019 9:51:19 AM Referred By: REFERRED SELF Confirmed By:Davi Little
--- NOTE | 2019-11-08 10:29 | Emergency Department Note ---
ED Visit Note Procedure was performed evening of November 05, 2019. Endotracheal Intubation performed by Dr. Broussard on the evening of 11/05/2019 Indication: Unresponsive The patient was on 100% oxygen via NRB prior to the procedure. Suction, airway equipment, RSI drugs, respiratory equipment, and appropriate personnel were prepared prior to the initiation of the procedure. A time out was taken. Induction was performed with 75 mg of rocuronium. After observing the clinical benefit of the medications, the airway was easily visualized utilizing a 4.0 Kristi blade after vigorous suctioning as the patient did have a large mucous plug in the back of his posterior pharynx and hypopharynx. A 7.5 size ETT tube was placed atraumatically to 24 cm using standard technique. The cuff inflated without signs of malfunction. There were bilateral breath sounds, positive colormetric change, no gastric sounds, a good capnography waveform, and post procedure pulse oximetry was 99 %.There were no complications. . : Renal failure (ARF), acute on chronic Qualifiers: Acute renal failure type: unspecified Chronic kidney disease stage: stage 5, not on chronic dialysis Qualified Code(s): N17.9 - Acute kidney failure, unsp ecified
--- NOTE | 2019-11-13 13:03 | Discharge Summary ---
Date of Service November 04, 2019 Admission HPI Per Admitting Provider History obtained from patient and records. Medical history significant for chronic diastolic heart failure (EF 65% TTE 2018), CAD status post stent, aortic stenosis status post TAVR, hypertension, hyperlipidemia, DM 2 insulin requiring, chronic back pain, CRI (baseline creatinine 3.6), chronic anemia (baseline hemoglobin of 8), history of uric acid stones as per records. Recent confinement September 2017 for decompensated heart failure. Patient sleeping more than usual the last two days after outpatient iron infusion therapy. Not eating as much. Outpatient lab work drawn yesterday. Serum sodium 125, serum creatinine 4.8 (higher than usual baseline of 3.6 from last month). Patient complaining of some shortness of breath without cough or chest pain symptoms. Denies headache. Low-grade fever at home with minimal achy abdominal discomfort. Good bowel movement. No unusual fluid retention as per patient. PCP recommended ER evaluation. At the ER, patient received Lasix for possible CHF. Aspirin given for troponin elevation. 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, lives with Admission Exam Per Admitting Provider GENERAL: Episodic lethargy, obese, wane, no respiratory distress SKIN: Pallor , warm HEENT: Alopecia, pale palpebral conjunctivae, chronic ptosis left, dry buccal mucosa, nasal cannula in place NECK : Supple, no tenderness CHEST : Decreased breath sounds , no tenderness HEART : RRR, systolic murmur ABDOMEN: Some distention, nontender EXTREMITIES : Minimal LE swelling, no LE tenderness, no other conspicuous deformities noted NEUROLOGIC : Coherent, episodic lethargy, chronic ptosis, left; mild hearing impairment, no other gross focality Principal Diagnosis Sepsis secondary to infective endocarditis of aortic prosthetic valve Free intraperitoneal air likely secondary to gastric and/or duodenal ulcer perforation, causing sepsis NSTEMI Progression to ESRD (End Stage Renal Disease) and need for HD Discharge Exam Pt at night of 11/04/2019, at 21:47. Pt was pronounced by nurse practitioner. Discharge Data Allergies Allergy/AdvReac Type Severity Reaction Status Date / Time Pndkmcy-Dry-Vqu Reductase AdvReac Intermediate RHABDOMYOLYSIS Verified 10/28/19 15:21 Inhibitor FROM 06/2009 Consultations 10/19/19 05:57 ED Decision to Admit Stat 10/19/19 07:43 Consult Cardiology Routine Consult Nephrology Routine 10/19/19 15:16 Consult Neurology Routine 10/19/19 15:24 Consult Case Management - Discharge Planning Routine 10/19/19 18:24 Consult Infectious Diseases Routine 10/27/19 10:10 Consult Vascular Surgery Routine 11/01/19 22:08 Consult General Surgery Routine 11/02/19 07:34 Consult Palliative Care Routine Procedures Performed Operation Date: 10/30/19 13:45 Actual Procedures p Perm Catheter Placement, Left Internal Jugular Approach, Ultrasound Localization of Left Internal Jugular Vein, Fluoroscopy for Positioning(Left) - Jaun Pizarro MD Operation Date: 11/03/19 13:50 <No data on this case meets the specified criteria> Ordered Studies 10/19/19 06:49 CT abd pelvis wo con Urgent 10/19/19 06:59 CT head/brain wo con Urgent 10/19/19 14:16 MR brain wo con Routine US carotid doppler BI Routine 10/19/19 14:51 MR lumbar spine wo con Routine 10/19/19 15:08 US renal/blad retro comp Routine 10/26/19 17:49 US venous doppler UE RT Routine 10/30/19 07:15 EV cvc insrt tunnel wo prt/data center consultant Routine US guide vascular access Routine 11/01/19 20:31 CT abd pelvis wo con Urgent IMPRESSION: 1. Suboptimal examination without oral and IV contrast. 2. There is a small to moderate volume of intraperitoneal free air. This is new from 10/19/2019 and visceral perforation is the diagnosis of exclusion. Clinical correlation will be essential and surgical consultation is advised. 3. No suspected site of perforation is delineated by CT. 4. Cholelithiasis with an abnormal appearing gallbladder. Findings are concerning for acute cholecystitis. Consider right upper quadrant ultrasound for further assessment. 5. There is trace abdominopelvic ascites. 6. Again seen are 9 cm in 3 cm low-attenuation splenic lesions. These are pathologically indeterminant, with differential considerations include splenic infarcts or possibly splenic mass lesions such as lymphoma. Follow-up CT in 3-4 weeks' time is recommended for reassessment. 7. Cardiomegaly. 8. There are left larger than right pleural effusions with bibasilar consolidation. This could represent atelectasis and/or pneumonia/aspiration pneumonitis. Clinical correlation be required. KUB 11/01/19 IMPRESSION: 1. No bowel obstruction. 2. Cardiomegaly. 3. Left pleural effusion and left basilar consolidation. Hospital Course (1) Sepsis: due to infective endocarditis of prosthetic aortic valve progressive leukocytosis noted WBC 20K with elevated lactic acid and procalcitonin Repeat blood cultures (blood cultures on 10/22 negative ) on IV Rocephin and ampicillin - Enterococcus bacteremia /endocarditis - planned for 6 weeks of treatment -Discussed with need for outpatient ID follow-up,she prefers to follow-up in [place] (as there is no ID available in this area) Unfortunately pt on 11/03 due to his complex medical conditions. (2) Prosthetic valve endocarditis: AORTIC PROSTHETIC VALVE ENDOCARDITIS Gram positive septicemia /BACTEREMIA : enterococcus feacalis blood cultures on 10/22; no growth ECHO : highly mobile, linear 1.5 cm lesion on the aortic aspect of the bioprosthetic aortic valve consistent with endocarditis Case discussed with ID will need at least 6 weeks of IV Abx of IV Ampicillin and rocephin Pt in high risk for additional emboli, especially with large, mobile vegetation now noted on 10/22 TTE. /JUAN JOSE not done as pt is high risk for the procedure and will not change the treatment plan Pt is a poor candidate for valve replacement surgery given large aortic valve vegetation with septic embolic -per cardiology , pt may need life long suppressive antibiotic possibly in form of oral dose Plan was for PICC line placement after vascular procedure /permanent dialysis catheter placement Plan was for weekly cbc, cmp, esr while on IV therapy and serial echos as well. / need to establish care with ID for remainder of course. -Discussed with Richelle, need ID follow-up, interested in [facility] as unfortunately there is no ID in this area available Unfortunately pt on 11/03 due to his complex medical conditions. (3) S/P TAVR (transcatheter aortic valve replacement): Severe aortic stenosis status post tucker valve TAVR bioprosthetic replacement April 2017 admitted with hx of fatigue , poor endurance blood cultures positive for entercocci ECHO highly mobile, linear 1.5 cm lesion on the aortic aspect of the bioprosthetic aortic valve Too high risk for JUAN JOSE and no likely change in outcome per cardiology : the patient is a very high risk of perioperative mortality and surgical aortic valve replacement is not an option, this was also discussed with patient's , who is in agreement will need life long suppressive abx Unfortunately pt on 11/03 due to his complex medical conditions. (4) Free intraperitoneal air: Patient developed abdominal pain in the afternoon of October 31, after his dialysis -At first pt complained of bloating and excessive gas pain, KUB was obtained and negative for any free air or obstruction -Pain then resolved however recurred later in the evening -CT abdomen pelvis was obtained, especially due to concern for bleeding as patient was on IV heparin -Free intraperitoneal air was noted as well as possible acute cholecystitis -Surgery was consulted overnight, Dr. Mcclure evaluated patient and discussed the case with the family, patient is very high risk for surgery, medical management only -Added to his antibiotic regimen IV Flagyl, IV Diflucan, also started IV PPI -Given his other comorbidities, very poor prognosis -Patient's family aware and do not wish to proceed with surgical treatment -Also discussed possible transfer with Dr. Mcclure, does not believe that it would be helpful Unfortunately pt on 11/03 due to his complex medical conditions. (5) CKD (chronic kidney disease) stage 4, GFR 15-29 ml/min: baseline advanced CKD stage 4-5 pt is showing s/s of progression of end stage renal disease his severe fatigue /anorexia /Nausea -could be part of the uremic symptoms Vascular surgery consulted due to evidence of possible ongoing infection, pt had temporary dialysis catheter placed Started on dialysis Plan for Perm cath placement, after repeat blood culture negative for 48 hours Need to set up for out patient dialysis per nephrology -discussed with Dr. Pineda, plan for [facility] dialysis Plan was for permanent catheter per vascular surgery on November 02 -however given complications/free intraperitoneal air,had to hold off Unfortunately pt on 11/03 due to his complex medical conditions. (6) Renal failure (ARF), acute on chronic: Nephrology consulted and appreciate their input Started dialysis during this hospital stay s/p temporary dialysis catheter placement Plan for permanent catheter placement on November 02 - however due to recent complications, had to hold off (7) Coagulopathy: Lupus anticoagulant positive on lab draw 10/19/2019-reference lab result available normal factor VIII activity Dr. Porter discussed case over the phone with hematology /oncology, Dr. Andersen Patient needed to be on therapeutic anticoagulation- high risk for thromb oembolic event given positive lupus anticoagulant Patient already has evidence of embolic CVA noted in MRI of brain as well as splenic infarct. Patient started on IV heparin low-dose, no bolus Dual antiplatelets aspirin and Plavix discontinued to reduce bleeding risk Pt in need of life long anticoagulation - plan was to discharge him on Coumadin While inpt pt was on IV heparin Anticoagulation discussed in detail with cardiology and also with patient's . As previously thought that anticoagulation would not be recommended for the patient as septic emboli have increased risk of hemorrhagic conversion. IV heparin stopped per surgical recommendation, given recent complications/free intraperitoneal air Unfortunately pt on 11/03 due to his complex medical conditions. (8) Embolic stroke: Presumed septic emboli from prosthetic valve endocarditis CT head showed findings indicative of a subacute right frontal infarct with laminar necrosis and cortical mineralization. MRI brain showed Multiple scattered punctate acute infarcts as described above most pronounced within the right frontal lobe. Focal area of edema seen within the right frontal lobe infarct with associated increased T1 signal. This could correspond to the associated calcifications in the setting of a subacute to chronic infarct or possibly petechial hemorrhage pt started on IV heparin -high risk for repeated embolic phenomenon with positive lupus anticoagulant /now IV heparin on hold due to above complications treatment of valve endocarditis as outlined above (9) Non-ST elevation (NSTEMI) myocardial infarction: Troponin on admission 10.3 then peaked at 18.1 Echo performed with no acute wall motion abnormality present. EF is 45-50%. Cardiology consulted, recommended medical management On Metoprolol Aspirin and Plavix D/jil pt started on IV heparin for coagulopathy no complain of chest pain or discomfort (10) Lower back pain: MRI lumbar showed no fractures of fixation within the lumbar spine. Soft tissue edema within the bilateral erector spinae muscles at the lumbar region. A 1.7 cm lesion within the right psoas muscle which contains a fluid fluid level and hypointense rim. oxycodone (taken BID chronically) and scheduled Tylenol. pain is well controlled at current regimen Continue PT/OT -recommends rehab -pt and refused Rehab Plan was to return home with home health and home PT, then later plan for home hospice Discussed possibility of going home on hospice if pt clinically not improving (11) Metabolic acidosis: resolved (12) Anemia in chronic kidney disease (CKD): due to advanced CKD , acute illness with bacteremia /endocarditis s/p 1 unit of PRBC transfusion (13) Diabetes mellitus: Continue Lantus and novolog sliding scale Continue monitor BS Atrial fibrillation: on beta pau IV heparin will start coumadin once vascular procedure is done Now holding off anticoagulation d/t above new complications/ free peritoneal air Unfortunately pt on 11/03 due to his complex medical conditions. (14) Hypertension: Continued amlodipine, clonidine, hydralazine, imdur, metoprolol (15) DVT prophylaxis: SCDs previously on IV heparin - then on hold d/t surg. complication/ free intrap. air Full Code DISPOSITION: Initially plan for disposition was to return home as family and patient want to return home after hospital discharge with home health nursing and home IV antibiotic Pt and family understood pt would need chronic dialysis - case management already d/w regarding outpt dialysis set up, plan for [facility] outpatient dialysis Discussed need for ID follow-up, and unfortunately there is no ID in this area, interested in [facility] Due to recent complications, disposition questionable, prognosis remains very poor. On 11/02 pt and family very much interested in home hospice. CM aware and arrangements made for home hospice. After further discussion with Dr. Mcclure, patient and family, patient decided to stay in hospital for now. CM ready to accommodate the pt if he changes his made and/or his clinical status worsens and family will like to proceed w/ home hospice. Unfortunately pt at night of 11/03 due to his complex medical conditions. Total Time Total Time Spent Total Time Spent (In Minutes): 25 Discharge Plan Discharge Items Patient Disposition: Reason For Visit: SOB, TROP ELEVATION Follow-up/Referrals: Xavier Watkins MD [Primary Care Provider] - Medications and DC Order Print Language: [place] Admission Data Admit Date/Time: 10/19/19 06:37 Other DC Date/Time DO NOT enter until pt leaves facility: 11/04/19 21:47
== END 2019-11-04 21:47 | disposition expired | DRG 871 ==
LOC: ED 04:15 → SUATTDRO 06:37 → 1E 06:37 → 2S 19:31 → 2W 10-25 14:39 → 2N 11-02 00:34 → 1E 11-02 06:38 → 2S 11-04 20:13 → 1E 11-04 20:59